=== PATIENT | male | born 1975 | race Caucasian/White ===

== ENCOUNTER 2023-01-23 10:22 | Outpatient (OUT) | payer MEDICARE, SELFPAY ==
--- NOTE | 2023-01-23 | XR_ITS ---
The [address] [address] Patient Name: ZAIRA SHRESTHA MRN: [id number] date: 1975 Sex: M Assigned Patient Location: Current Patient Location: Accession/Order Number: [id number] Exam Date: 01/23/2023 10:56 Report Date: 01/24/2023 06:51 At the request of: NEIL GODDARD Procedure: XR foot LT min 3V EXAM: XR foot LT min 3V HISTORY: LEFT FOOT PAIN COMPARISON: None. TECHNIQUE: Routine views of the XR foot LT min 3V FINDINGS/ XR/XR foot LT min 3V IMPRESSION: 1. No acute fractures. Plate and screw fixation of the distal fibula. Small Achilles enthesophyte. 2. Unremarkable soft tissues. 3. Mild first MTP osteoarthritis. Lateral subluxation of the fifth distal phalanx with relationship to the middle phalanx. Electronically authenticated by: ABBY GILLESPIE Date: 01/24/2023 06:51
== END 2023-01-23 10:23 | disposition home or self-care (01) ==
LOC: WC 10:22
PROVIDERS: PCP Internal Medicine; Visit Provider Physician Assistant
DX: M79.672 Pain in left foot (principal); E11.621 Type 2 diabetes mellitus with foot ulcer; L97.422 Non-pressure chronic ulcer of left heel and midfoot with fat layer exposed
CPT/HCPCS: 11043; 73630; G0463

== ENCOUNTER 2023-02-06 11:13 | Outpatient (OUT) | payer MEDICARE, SELFPAY ==
[2023-02-06 11:44] LABS: Basophils Percent Auto 0.7 % (0.2-2.0); Eosinophils Absolute Auto 0.1 10^3/uL (0.0-0.7); Eosinophils Percent Auto 1.4 % (0.9-7.0); Hematocrit 41.8 % (42.0-54.0); Hemoglobin 14.8 g/dL (14.0-18.0); Immature Granulocytes Abs Auto 0.04 10^3/uL (0.00-0.03); Immature Granulocytes Pct Auto 0.7 % (0.0-0.5); Lymphocytes Absolute Auto 1.8 10^3/uL (1.2-3.8); Lymphocytes Percent Auto 30.7 % (20.5-60.0); Mean Corpuscular HGB Conc 35.4 g/dL (29.9-35.2); Mean Corpuscular Hemoglobin 30.6 pg (25.9-34.0); Mean Corpuscular Volume 86.5 fL (80.0-94.0); Mean Platelet Volume 10.3 fL (9.5-13.5); Monocytes Absolute Auto 0.4 10^3/uL (0.3-0.8); Monocytes Percent Auto 6.7 % (1.7-12.0); Neutrophils Absolute Auto 3.5 10^3/uL (1.4-6.5); Neutrophils Percent Auto 59.8 % (43.0-75.0); Platelet Count 194 10^3/uL (150-450); Red Blood Count 4.83 10^6/uL (4.70-6.10); Red Cell Distribution Width 12.4 % (11.0-15.0); White Blood Count 5.9 10^3/uL (4.0-11.0)
[2023-02-06 11:53] LABS: Estimated Average Glucose 283 mg/dL; Glycohemoglobin A1C 11.5 % (4.5-6.2)
[2023-02-06 12:04] LABS: Alanine Aminotransferase 49 U/L (16-63); Albumin Globulin Ratio 1.2; Albumin Level 3.9 g/dL (3.4-5.0); Alkaline Phosphatase 111 U/L (46-116); Anion Gap 13.1; Aspartate Amino Transferase 20 U/L (15-37); BUN Creatinine Ratio 18.9; Bilirubin Total 0.6 mg/dL (0.2-1.0); Calcium 9.2 mg/dL (8.5-10.1); Chloride 99 mmol/L (98-107); Chol HDL Ratio 3.8; Cholesterol 160 mg/dL (<=200); Estimated GFR (African America >60 (>=60); Estimated GFR (Non-African Ame >60 (>=60); Globulin 3.3 g/dL; Glucose 314 mg/dL (74-106); HDL Cholesterol 42 mg/dL (40-60); LDL Cholesterol Calculated 91.4 mg/dL; Potassium 4.1 mmol/L (3.5-5.1); Sodium 135 mmol/L (136-145); Thyroid Stimulating Hormone 5.631 uIU/mL (0.358-3.740); Total Protein 7.2 g/dL (6.4-8.2); Triglycerides 133 mg/dL (<=150); VLDL CHOLESTEROL 26.6 mg/dL
[2023-02-06 12:06] LABS: Microalbum Creatinine Ratio Ur 17.1 mg/g (0.0-29.9); Microalbumin Urine Random 1.5 mg/dL (<=30.0)
--- OUTSIDE RECORDS SUMMARY | 2023-03-07 20:29 | XMS_ITS | CCD ---
Author Name Unknown Address [address] [place] [address] Organization [facility] Care Team Providers Care Map Editor Name Role Phone FAWWAD, DELAROSA Admitting Unavailable FAWWAD, DELAROSA Attending Unavailable FAWWAD, DELAROSA Primary Care Unavailable FAWWAD, DELAROSA Consulting Unavailable FAWWAD, DELAROSA Admitting Unavailable FAWWAD, DELAROSA Attending Unavailable FAWWAD, DELAROSA Primary Care Unavailable FAWWAD, DELAROSA Consulting Unavailable Problems Problem Classification Problem Date Documented Da te Episodic/Chronic Diabetes mellitus without complication (4 sources) Type 2 diabetes mellitus without complications; Translations: [TYPE 2 DM WITHOUT COMPLICATIONS] Onset: 07-21-2021 Chronic Disorders of lipid metabolism (1 source) Hyperlipidemia, unspecified; Translations: [HYPERLIPIDEMIA UNSPECIFIED] Onset: 02-08-2021 Chronic Essential hypertension (1 source) Essential (primary) hypertension; Translations: [ESSENTIAL PRIMARY HYPERTENSION] Onset: 02-08-2021 Chronic Thyroid disorders (1 source) Hypothyroidism, unspecified; Translations: [HYPOTHYROIDISM UNSPECIFIED] Onset: 02-08-2021 Chronic Results Test Name Value Interpretation Reference Range Facil ity GLYCOHEMOGLOBIN A1Con 2021 ADA RECOMMENDATION SEE BELOW Normal [facility] Comment on above: Result Comment: ADA RECOMMENDED LIMIT 4.0 - 6.0 ADA THERAPEUTIC TARGET < 7.0 ACTION SUGGESTED > 7.0 Performed By: #### A 1C #### [facility] [address] [address] [address] José Miguel Knight Glucose [Mass/Vol] 260 mg/dL Normal [facility] Comment on above: Performed By: #### A 1C #### [facility] [address] [place], [place] [address] Dr. José Miguel Knight HbA1c (Bld) [Mass fraction] 10.7 % Critically high 4.5 -6.2 [facility] Comment on above: Performed By: #### A 1C #### [facility] [address] [place] [address] Dr. José Miguel Knight CBC AUTO DIFFon 02-02-2021 BASO # 0.0 103/ul Normal 0.0-0.1 [facility] Comment on above: Performed By: #### C BC #### [facility] [address] [place] [address] Dr. José Miguel Knight Basophils/100 WBC (Bld) 0.6 % Normal 0.2-2.0 [facility] Comment on above: Performed By: #### C BC #### [facility] [address] [place] [address] Dr. José Miguel Knight EO # 0.1 103/ul Normal 0.0-0.7 [facility] Comment on above: Performed By: #### C BC #### [facility] [address] [place] [address] Dr. José Miguel Knight Eosinophils/100 WBC (Bld) 0.9 % Normal 0.9-7.0 [facility] Comment on above: Performed By: #### C BC #### [facility] [address] [place] [address] Dr. José Miguel Knight Erythrocyte distribution wid th (RBC) [Ratio] 12.7 % Normal 11.0-15.0 [facility] Comment on above: Performed By: #### C BC #### [facility] [address] [place] [address] Dr. José Miguel Knight Hematocrit (Bld) [Volume fraction] 44.0 % Normal 4 2.0-54.0 [facility] Comment on above: Performed By: #### C BC #### [facility] [address] [place] [address] Dr. José Miguel Knight Hemoglobin (Bld) [Mass/Vol] 15.0 g/dL Normal 14.0-18. 0 [facility] Comment on above: Performed By: #### C BC #### [facility] [address] [place] [address] Dr. José Miguel Knight IG # 0.04 10e3/ul Critically high 0.00-0.03 [facility] Comment on above: Performed By: #### C BC #### [facility] [address] [place] [address] Dr. José Miguel Knight IG % 0.6 % Critically high 0.0-0.5 [facility] Comment on above: Performed By: #### C BC #### [facility] [address] [place] [address] Dr. José Miguel Knight LYMPH # 1.6 103/ul Normal 1.2-3.8 [facility] Comment on above: Performed By: #### C BC #### [facility] [address] [place] [address] Dr. José Miguel Knight Lymphocytes/100 WBC (Bld) 22.5 % Normal 20.5-60.0 [facility] Comment on above: Performed By: #### C BC #### [facility] [address] [place] [address] Dr. José Miguel Knight MANUAL DIFF REQ NO Normal [facility] Comment on above: Performed By: #### C BC #### [facility] [address] [place] [address] Dr. José Miguel Knight MCH (RBC) [Entitic mass] 30.4 pg Normal 25.9-34.0 [facility] Comment on above: Performed By: #### C BC #### [facility] [address] [place] [address] Dr. José Miguel Knight MCHC (RBC) [Mass/Vol] 34.1 g/dL Normal 29.9-35.2 [facility] Comment on above: Performed By: #### C BC #### [facility] [address] [place] [address] Dr. José Miguel Knight MCV (RBC) [Entitic vol] 89.2 fL Normal 80.0-94.0 [facility] Comment on above: Performed By: #### C BC #### [facility] [address] [place] [address] Dr. José Miguel Knight MONO # 0.5 103/ul Normal 0.3-0.8 [facility] Comment on above: Performed By: #### C BC #### [facility] [address] [place] [address] Dr. José Miguel Knight Monocytes/100 WBC (Bld) 7.0 % Normal 1.7-12.0 [facility] Comment on above: Performed By: #### C BC #### [facility] [address] [place] [address] Dr. José Miguel Knight NEUT # 4.7 103/ul Normal 1.4-6.5 [facility] Comment on above: Performed By: #### C BC #### [facility] [address] [place] [address] Dr. José Miguel Knight Neutrophils/100 WBC (Bld) 68.4 % Normal 43.0-75.0 [facility] Comment on above: Performed By: #### C BC #### [facility] [address] [place] [address] Dr. José Miguel Knight Platelet mean volume (Bld) [ Entitic vol] 10.8 fL Normal 9.5-13.5 [facility] Comment on above: Performed By: #### C BC #### [facility] [address] [place] [address] Dr. José Miguel Knight PLT 223 103/ul Normal 150-450 [facility] Comment on above: Performed By: #### C BC #### [facility] [address] [place] [address] Dr. José Miguel Knight RBC 4.93 106/ul Normal 4.70-6.10 [facility] Comment on above: Performed By: #### C BC #### [facility] [address] [place] [address] Dr. José Miguel Knight WBC 6.9 103/ul Normal 4.0-11.0 [facility] Comment on above: Performed By: #### C BC #### [facility] [address] [place] [address] Dr. José Miguel Knight GLYCOHEMOGLOBIN A1Con 2020 ADA RECOMMENDATION ADA THERAPEUTIC TARG ET 6.0 - 7.0 ACTION SUGGESTED > 7.0 Normal [facility] Comment on above: Performed By: #### A 1C #### [facility] [address] [address] [address] José Miguel Knight Glucose [Mass/Vol] 217 mg/dL Normal [facility] Comment on above: Performed By: #### A 1C #### [facility] [address] [address] [address] José Miguel Knight HbA1c (Bld) [Mass fraction] 9.2 % Critically high <=6 .0 [facility] Comment on above: Performed By: #### A 1C #### [facility] [address] [address] [address] José Miguel nKight LIPID PROFILEon 02-02-2021 CHOL-HDL RATIO NORM SEE BELOW Normal [facility] Comment on above: Result Comment: 3.3 - 4.4 LOW RISK 4.4 - 7.1 AVERAGE RISK 7.1 - 11.0 MODERATE RISK >11.0 HIGH RISK Performed By: #### T SH, LIPID, CMP #### [facility] [address] [address] [address] José Miguel Knight Cholesterol [Mass/Vol] 121 mg/dL Normal <=200 [facility] Comment on above: Performed By: #### T SH, LIPID, CMP #### [facility] [address] [address] [address] José Miguel Knight Cholesterol in HDL [Mass/Vol] 37 mg/dL Normal [facility] Comment on above: Performed By: #### T SH, LIPID, CMP #### [facility] [address] [address] [address] José Miguel Knight Cholesterol in LDL [Mass/Vol] 46.4 mg/dL Normal [facility] Comment on above: Performed By: #### T SH, LIPID, CMP #### [facility] [address] [place] [address] Dr. José Miguel Knight Cholesterol.total/Cholestero l in HDL [Mass ratio] 3.3 {ratio} [facility] Comment on above: Performed By: #### T SH, LIPID, CMP #### [facility] [address] [address] [address] José Miguel Knight HDL NORMAL > or = 60 mg/dl - LO W CARDIOVASCULAR RISK <40 mg/dl - HIGH CARDIOVASCULAR RISK Normal [facility] Comment on above: Performed By: #### T SH, LIPID, CMP #### [facility] [address] [address] [address] José Miguel Knight LDL CALC NORMAL SEE BELOW Normal [facility] Comment on above: Result Comment: <100 mg/dl OPTIMAL 100 - 129 mg/dl NEAR OR ABOVE OPTIMAL 130 - 159 mg/dl BORDERLINE HIGH 160 - 189 mg/dl HIGH >190 mg/dl VERY HIGH Performed By: #### T SH, LIPID, CMP #### [facility] [address] [place] [address] Dr. Jsoé Miguel Knight Triglyceride [Mass/Vol] 188 mg/dL Critically high <=150 [facility] Comment on above: Performed By: #### T SH, LIPID, CMP #### [facility] [address] [address] [address] José Miguel Knight VLDL CALC 37.6 mg/dL Normal [facility] Comment on above: Performed By: #### T SH, LIPID, CMP #### [facility] [address] [place] [address] Dr. José Miguel Knight MICROALBUMIN, RAND URon 01-18 mALB 1.2 mg/L Normal <=30.0 [facility] Comment on above: Performed By: #### M ALBR #### [facility] [address] [place] [address] Dr. José Miguel Knight PROF 14(COMP METB)on 021 Albumin [Mass/Vol] 3.8 g/dL Normal 3.5-5.0 [facility] Comment on above: Performed By: #### T SH, LIPID, CMP #### [facility] [address] [place] [address] Dr. José Miguel Knight Albumin/Globulin [Mass ratio] 1.1 {ratio} Normal [facility] Comment on above: Performed By: #### T SH, LIPID, CMP #### [facility] [address] [place] [address] Dr. José Miguel Knight ALP [Catalytic activity/Vol] 92 U/L Normal 38-126 [facility] Comment on above: Performed By: #### T SH, LIPID, CMP #### [facility] [address] [place] [address] Dr. José Miguel Knight ALT [Catalytic activity/Vol] 46 U/L Normal 21-72 [facility] Comment on above: Performed By: #### T SH, LIPID, CMP #### [facility] [address] [place] [address] Dr. José Miguel Knight Anion gap [Moles/Vol] 12.8 mmol/L Normal [facility] Comment on above: Performed By: #### T SH, LIPID, CMP #### [facility] [address] [place] [address] Dr. José Miguel Knight AST [Catalytic activity/Vol] 22 U/L Normal 17-59 [facility] Comment on above: Performed By: #### T SH, LIPID, CMP #### [facility] [address] [place] [address] Dr. José Miguel Knight Bilirubin [Mass/Vol] 0.5 mg/dL Normal 0.2-1.3 [facility] Comment on above: Performed By: #### T SH, LIPID, CMP #### [facility] [address] [place] [address] Dr. José Miguel Knight Calcium [Mass/Vol] 9.3 mg/dL Normal 8.4-10.2 [facility] Comment on above: Performed By: #### T SH, LIPID, CMP #### [facility] [address] [place] [address] Dr. José Miguel Knight Chloride [Moles/Vol] 103 mmol/L Normal 98-107 [facility] Comment on above: Performed By: #### T SH, LIPID, CMP #### [facility] [address] [place] [address] Dr. José Miguel Knight CO2 [Moles/Vol] 27.6 mmol/L Normal 22.0-30.[address] [facility] Comment on above: Performed By: #### T SH, LIPID, CMP #### [facility] [address] [address] [address] José Miguel Knight Creatinine [Mass/Vol] 0.76 mg/dL Normal 0.66-1.25 [facility] Comment on above: Performed By: #### T SH, LIPID, CMP #### [facility] [address] [address] [address] José Miguel Knight EGFR-AF DUTCH >60 Normal >=[address] [facility] Comment on above: Performed By: #### T SH, LIPID, CMP #### [facility] [address] [address] [address] José Miguel Knight EGFR-NON AF DUTCH >60 Normal >=60 [facility] Comment on above: Performed By: #### T SH, LIPID, CMP #### [facility] [address] [address] [address] José Miguel Knight Globulin (S) [Mass/Vol] 3.4 g/dL Normal [facility] Comment on above: Performed By: #### T ERICA, LIPID, CMP #### [facility] [address] [address] [address] José Miguel Knight Glucose [Mass/Vol] 253 mg/dL Critically high 74-106 [facility] Comment on above: Performed By: #### T SH, LIPID, CMP #### [facility] [address] [address] [address] José Miguel Knight Potassium [Moles/Vol] 4.4 mmol/L Normal 3.4-5.0 [facility] Comment on above: Performed By: #### T SH, LIPID, CMP #### [facility] [address] [address] [address] oJsé Miguel Knight Protein [Mass/Vol] 7.2 g/dL Normal 6.1-8.2 [facility] Comment on above: Performed By: #### T SH, LIPID, CMP #### [facility] [address] [address] [address] José Miguel Knight Sodium [Moles/Vol] 139 mmol/L Normal 137-145 [facility] Comment on above: Performed By: #### T ERICA LIPID, CMP #### [facility] [address] [place] [address] Dr. José Miguel Knight Urea nitrogen [Mass/Vol] 16.0 mg/dL Normal 9.0-20.0 [facility] Comment on above: Performed By: #### T ERICA LIPID, CMP #### [facility] [address] [address] [address] José Miguel Knight Urea nitrogen/Creatinine [Mass ratio] 21.1 mg/mg Normal [facility] Comment on above: Performed By: #### T ERICA LIPID, CMP #### [facility] [address] [place] [address] Dr. José Miguel Knight TSHon 02-02-2021 TSH 5.529 uIU/mL Critically high 0.470-4.680 [facility] Comment on above: Performed By: #### T ERICA LIPID, CMP #### [facility] [address] [address] [address] José Miguel Knight TSH RANGE SEE BELOW Normal [facility] Comment on above: Result Comment: <0.3 4 UIU/ml HYPERTHYROID 0.34-5.60 UIU/ml EUTHYROID >5.60 UIU/ml HYPOTHYROID Performed By: #### T ERICA LIPID, CMP #### [facility] [address] [place] [address] Dr. José Miguel Knight Encounters Encounter Date Encounter Type Care Provider Facility Start: 07-21-2021 End: 07-22-2021 ambulatory [facility] Facility: Start: 02-02-2021 End: 02-03-2021 ambulatory [facility] Facility:[facility]1 Payers Date Payer Category Payer Unknown [id number] 1975 Unknown [id number] 1960 Unknown [id number] Summary Purpose Family History No Family History Records Found Advance Directives No Advanced Directives Records Found Additional Source Comments (unrecognized sect ion and content) No Status Records Found INFORMATION SOURCE (unrecogn ized section and content) DATE CREATED AUTHOR 07/24/2021 [facility] FOR RECORDS PERTAINING TO PATIENTS WHO ARE OR HAVE BEEN ENROLLED IN A CHEMICAL DEPENDENCY/SUBSTANCEABUSE PROGRAM, SOME INFORMATION MAY BE OMITTED. This clinical summary was aggregated from multiple sources. Caution should be exercised in using it in the provision of clinical care. This summary normalizes information from multiple sources, and as a consequence, information in this document may materially change the coding, format and clinical context of patient data. In addition, data may be omitted in some cases. CLINICAL DECISIONS SHOULD BE BASED ON THE PRIMARY CLINICAL RECORDS. [facility] [employer] [facility]. provides no warranty or guarantee of the accuracy or completeness of information in this document.
== END 2023-02-06 11:14 | disposition home or self-care (01) ==
LOC: LAB 11:17
PROVIDERS: PCP Internal Medicine; Visit Provider Internal Medicine
DX: E03.9 Hypothyroidism, unspecified (principal); E78.5 Hyperlipidemia, unspecified; E11.9 Type 2 diabetes mellitus without complications; I10 Essential (primary) hypertension
CPT/HCPCS: 36415; 80053; 80061; 82043; 82570; 83036; 84443; 85025

== ENCOUNTER 2023-02-06 13:30 | Outpatient (OUT) | payer MEDICARE, SELFPAY ==
--- OUTSIDE RECORDS SUMMARY | 2023-03-07 21:16 | XMS_ITS | CCD ---
Author Name Unknown Address [address] [place] [address] Organization [facility] Care Team Providers Care Signal Circuit Designer Name Role Phone FAWWAD, DELAROSA Admitting Unavailable [...] A1Con 2021 ADA RECOMMENDATION SEE BELOW Normal [facility] Comment on above: Result Comment: ADA RECOMMENDED LIMIT 4.0 - 6.0 ADA THERAPEUTIC TARGET < 7.0 ACTION SUGGESTED > 7.0 Performed By: #### A 1C #### [facility] [address] [address] [address] José Miguel Knight Glucose [Mass/Vol] 260 mg/dL Normal [facility] Comment on above: Performed By: #### A 1C #### [facility] [address] [place], [place] [address] Dr. José Miguel Knight HbA1c (Bld) [Mass fraction] 10.7 % Critically high 4.5 -6.2 [facility] Comment on above: Performed By: #### A 1C #### [facility] [address] [place] [address] Dr. José Miguel Knight CBC AUTO DIFFon 02-02-2021 BASO # 0.0 103/ul Normal 0.0-0.1 [facility] Comment on above: Performed By: #### C BC #### [facility] [address] [place] [address] Dr. José Miguel Knight Basophils/100 WBC (Bld) 0.6 % Normal 0.2-2.0 [facility] Comment on above: Performed By: #### C BC #### [facility] [address] [place] [address] Dr. José Miguel Knight EO # 0.1 103/ul Normal 0.0-0.7 [facility] Comment on above: Performed By: #### C BC #### [facility] [address] [place] [address] Dr. José Miguel Knight Eosinophils/100 WBC (Bld) 0.9 % Normal 0.9-7.0 [facility] Comment on above: Performed By: #### C BC #### [facility] [address] [place] [address] Dr. José Miguel Knight Erythrocyte distribution wid th (RBC) [Ratio] 12.7 % Normal 11.0-15.0 [facility] Comment on above: Performed By: #### C BC #### [facility] [address] [place] [address] Dr. José Miguel Knight Hematocrit (Bld) [Volume fraction] 44.0 % Normal 4 2.0-54.0 [facility] Comment on above: Performed By: #### C BC #### [facility] [address] [place] [address] Dr. José Miguel Knight Hemoglobin (Bld) [Mass/Vol] 15.0 g/dL Normal 14.0-18. 0 [facility] Comment on above: Performed By: #### C BC #### [facility] [address] [place] [address] Dr. José Miguel Knight IG # 0.04 10e3/ul Critically high 0.00-0.03 [facility] Comment on above: Performed By: #### C BC #### [facility] [address] [place] [address] Dr. José Miguel Knight IG % 0.6 % Critically high 0.0-0.5 [facility] Comment on above: Performed By: #### C BC #### [facility] [address] [place] [address] Dr. José Miguel Knight LYMPH # 1.6 103/ul Normal 1.2-3.8 [facility] Comment on above: Performed By: #### C BC #### [facility] [address] [place] [address] Dr. José Miguel Knight Lymphocytes/100 WBC (Bld) 22.5 % Normal 20.5-60.0 [facility] Comment on above: Performed By: #### C BC #### [facility] [address] [place] [address] Dr. José Miguel Knight MANUAL DIFF REQ NO Normal [facility] Comment on above: Performed By: #### C BC #### [facility] [address] [place] [address] Dr. José Miguel Knight MCH (RBC) [Entitic mass] 30.4 pg Normal 25.9-34.0 [facility] Comment on above: Performed By: #### C BC #### [facility] [address] [place] [address] Dr. José Miguel Knight MCHC (RBC) [Mass/Vol] 34.1 g/dL Normal 29.9-35.2 [facility] Comment on above: Performed By: #### C BC #### [facility] [address] [place] [address] Dr. José Miguel Knight MCV (RBC) [Entitic vol] 89.2 fL Normal 80.0-94.0 [facility] Comment on above: Performed By: #### C BC #### [facility] [address] [place] [address] Dr. José Miguel Knight MONO # 0.5 103/ul Normal 0.3-0.8 [facility] Comment on above: Performed By: #### C BC #### [facility] [address] [place] [address] Dr. José Miguel Knight Monocytes/100 WBC (Bld) 7.0 % Normal 1.7-12.0 [facility] Comment on above: Performed By: #### C BC #### [facility] [address] [place] [address] Dr. José Miguel Knight NEUT # 4.7 103/ul Normal 1.4-6.5 [facility] Comment on above: Performed By: #### C BC #### [facility] [address] [place] [address] Dr. José Miguel Knight Neutrophils/100 WBC (Bld) 68.4 % Normal 43.0-75.0 [facility] Comment on above: Performed By: #### C BC #### [facility] [address] [place] [address] Dr. José Miguel Knight Platelet mean volume (Bld) [ Entitic vol] 10.8 fL Normal 9.5-13.5 [facility] Comment on above: Performed By: #### C BC #### [facility] [address] [place] [address] Dr. José Miguel Knight PLT 223 103/ul Normal 150-450 [facility] Comment on above: Performed By: #### C BC #### [facility] [address] [place] [address] Dr. José Miguel Knight RBC 4.93 106/ul Normal 4.70-6.10 [facility] Comment on above: Performed By: #### C BC #### [facility] [address] [place] [address] Dr. José Miguel Knight WBC 6.9 103/ul Normal 4.0-11.0 [facility] Comment on above: Performed By: #### C BC #### [facility] [address] [place] [address] Dr. José Miguel Knight GLYCOHEMOGLOBIN A1Con 2020 ADA RECOMMENDATION ADA THERAPEUTIC TARG ET 6.0 - 7.0 ACTION SUGGESTED > 7.0 Normal [facility] Comment on above: Performed By: #### A 1C #### [facility] [address] [address] [address] José Miguel Knight Glucose [Mass/Vol] 217 mg/dL Normal [facility] Comment on above: Performed By: #### A 1C #### [facility] [address] [address] [address] José Miguel Knight HbA1c (Bld) [Mass fraction] 9.2 % Critically high <=6 .0 [facility] Comment on above: Performed By: #### A 1C #### [facility] [address] [address] [address] José Miguel Knight LIPID PROFILEon 02-02-2021 CHOL-HDL RATIO NORM SEE BELOW Normal [facility] Comment on above: Result Comment: 3.3 - 4.4 LOW RISK 4.4 - 7.1 AVERAGE RISK 7.1 - 11.0 MODERATE RISK >11.0 HIGH RISK Performed By: #### T SH, LIPID, CMP #### [facility] [address] [address] [address] José Miguel Knight Cholesterol [Mass/Vol] 121 mg/dL Normal <=200 [facility] Comment on above: Performed By: #### T SH, LIPID, CMP #### [facility] [address] [address] [address] José Miguel Knight Cholesterol in HDL [Mass/Vol] 37 mg/dL Normal [facility] Comment on above: Performed By: #### T SH, LIPID, CMP #### [facility] [address] [address] [address] José Miguel Knight Cholesterol in LDL [Mass/Vol] 46.4 mg/dL Normal [facility] Comment on above: Performed By: #### T SH, LIPID, CMP #### [facility] [address] [place] [address] Dr. José Miguel Knight Cholesterol.total/Cholestero l in HDL [Mass ratio] 3.3 {ratio} Normal [facility] Comment on above: Performed By: #### T SH, LIPID, CMP #### [facility] [address] [address] [address] José Miguel Knight HDL NORMAL > or = 60 mg/dl - LO W CARDIOVASCULAR RISK <40 mg/dl - HIGH CARDIOVASCULAR RISK Normal [facility] Comment on above: Performed By: #### T SH, LIPID, CMP #### [facility] [address] [address] [address] José Miguel Knight LDL CALC NORMAL SEE BELOW Normal [facility] Comment on above: Result Comment: <100 mg/dl OPTIMAL 100 - 129 mg/dl NEAR OR ABOVE OPTIMAL 130 - 159 mg/dl BORDERLINE HIGH 160 - 189 mg/dl HIGH >190 mg/dl VERY HIGH Performed By: #### T SH, LIPID, CMP #### [facility] [address] [place] [address] Dr. José Miguel Knight Triglyceride [Mass/Vol] 188 mg/dL Critically high <=150 [facility] Comment on above: Performed By: #### T SH, LIPID, CMP #### [facility] [address] [address] [address] José Miguel Knight VLDL CALC 37.6 mg/dL Normal [facility] Comment on above: Performed By: #### T SH, LIPID, CMP #### [facility] [address] [place] [address] Dr. José Miguel Knight MICROALBUMIN, RAND URon 01-18 mALB 1.2 mg/L Normal <=30.0 [facility] Comment on above: Performed By: #### M ALBR #### [facility] [address] [place] [address] Dr. José Miguel Knight PROF 14(COMP METB)on 021 Albumin [Mass/Vol] 3.8 g/dL Normal 3.5-5.0 [facility] Comment on above: Performed By: #### T SH, LIPID, CMP #### [facility] [address] [place] [address] Dr. José Miguel Knight Albumin/Globulin [Mass ratio] 1.1 {ratio} Normal [facility] Comment on above: Performed By: #### T SH, LIPID, CMP #### [facility] [address] [place] [address] Dr. José Miguel Knight ALP [Catalytic activity/Vol] 92 U/L Normal 38-126 [facility] Comment on above: Performed By: #### T SH, LIPID, CMP #### [facility] [address] [place] [address] Dr. José Miguel Knight ALT [Catalytic activity/Vol] 46 U/L Normal 21-72 [facility] Comment on above: Performed By: #### T SH, LIPID, CMP #### [facility] [address] [place] [address] Dr. José Miguel Knight Anion gap [Moles/Vol] 12.8 mmol/L Normal [facility] Comment on above: Performed By: #### T SH, LIPID, CMP #### [facility] [address] [place] [address] Dr. José Miguel Knight AST [Catalytic activity/Vol] 22 U/L Normal 17-59 [facility] Comment on above: Performed By: #### T SH, LIPID, CMP #### [facility] [address] [place] [address] Dr. José Miguel Knight Bilirubin [Mass/Vol] 0.5 mg/dL Normal 0.2-1.3 [facility] Comment on above: Performed By: #### T SH, LIPID, CMP #### [facility] [address] [place] [address] Dr. José Miguel Knight Calcium [Mass/Vol] 9.3 mg/dL Normal 8.4-10.2 [facility] Comment on above: Performed By: #### T SH, LIPID, CMP #### [facility] [address] [place] [address] Dr. José Miguel Knight Chloride [Moles/Vol] 103 mmol/L Normal 98-107 [facility] Comment on above: Performed By: #### T SH, LIPID, CMP #### [facility] [address] [place] [address] Dr. José Miguel Knight CO2 [Moles/Vol] 27.6 mmol/L Normal 22.0-30.0 [facility] Comment on above: Performed By: #### T SH, LIPID, CMP #### [facility] [address] [address] [address] José Miguel Knight Creatinine [Mass/Vol] 0.76 mg/dL Normal 0.66-1.25 [facility] Comment on above: Performed By: #### T SH, LIPID, CMP #### [facility] [address] [address] [address] José Miguel Knight EGFR-AF THAI >60 Normal >=60 [facility] Comment on above: Performed By: #### T SH, LIPID, CMP #### [facility] [address] [address] [address] José Miguel Knight EGFR-NON AF THAI >60 Normal >=60 [facility] Comment on above: Performed By: #### T SH, LIPID, CMP #### [facility] [address] [address] [address] José Miguel Knight Globulin (S) [Mass/Vol] 3.4 g/dL Normal [facility] Comment on above: Performed By: #### T ERICA, LIPID, CMP #### [facility] [address] [address] [address] José Miguel Knight Glucose [Mass/Vol] 253 mg/dL Critically high 74-106 [facility] Comment on above: Performed By: #### T SH, LIPID, CMP #### [facility] [address] [address] [address] José Miguel Knight Potassium [Moles/Vol] 4.4 mmol/L Normal 3.4-5.0 [facility] Comment on above: Performed By: #### T SH, LIPID, CMP #### [facility] [address] [address] [address] José Miguel Knight Protein [Mass/Vol] 7.2 g/dL Normal 6.1-8.2 [facility] Comment on above: Performed By: #### T SH, LIPID, CMP #### [facility] [address] [address] [address] José Miguel Knight Sodium [Moles/Vol] 139 mmol/L Normal 137-145 [facility] Comment on above: Performed By: #### T ERICA LIPID, CMP #### [facility] [address] [place] [address] Dr. José Miguel Knight Urea nitrogen [Mass/Vol] 16.0 mg/dL Normal 9.0-20.0 [facility] Comment on above: Performed By: #### T ERICA LIPID, CMP #### [facility] [address] [address] [address] José Miguel Knight Urea nitrogen/Creatinine [Mass ratio] 21.1 mg/mg Normal [facility] Comment on above: Performed By: #### T ERICA LIPID, CMP #### [facility] [address] [place] [address] Dr. José Miguel Knight TSHon 02-02-2021 TSH 5.529 uIU/mL Critically high 0.470-4.680 [facility] Comment on above: Performed By: #### T ERICA LIPID, CMP #### [facility] [address] [address] [address] José Miguel Knight TSH RANGE SEE BELOW Normal [facility] Comment on above: Result Comment: <0.3 4 UIU/ml HYPERTHYROID 0.34-5.60 UIU/ml EUTHYROID >5.60 UIU/ml HYPOTHYROID Performed By: #### T ERICA LIPID, CMP #### [facility] [address] [place] [address] Dr. José Miguel Knight Encounters Encounter Date Encounter Type Care Provider Facility Start: 07-21-2021 End: 07-22-2021 ambulatory [facility] Facility: Start: 02-02-2021 End: 02-03-2021 ambulatory [facility] Facility:H1 Payers Date Payer Category Payer Unknown [id number] 1975 Unknown [id number] 1960 Unknown [id number] Summary Purpose Family History No Family History Records Found Advance Directives No Advanced Directives Records Found Additional Source Comments (unrecognized sect ion and content) No Status Records Found INFORMATION SOURCE (unrecogn ized section and content) DATE CREATED AUTHOR 07/24/2021 [facility] FOR RECORDS PERTAINING TO PATIENTS WHO ARE [...] BE BASED ON THE PRIMARY CLINICAL RECORDS. [facility]. provides no warranty or guarantee of the accuracy or completeness of information in this document.
== END 2023-02-06 13:31 | disposition home or self-care (01) ==
LOC: WC 13:31
PROVIDERS: PCP Internal Medicine; Visit Provider Physician Assistant
DX: E11.621 Type 2 diabetes mellitus with foot ulcer (principal); L97.422 Non-pressure chronic ulcer of left heel and midfoot with fat layer exposed
CPT/HCPCS: 11043

== ENCOUNTER 2023-02-20 10:22 | Outpatient (OUT) | payer MEDICARE, SELFPAY | END 2023-02-20 10:23 | disposition home or self-care (01) | LOC: WC 10:22 | PROVIDERS: PCP Internal Medicine; Visit Provider Physician Assistant | DX: E11.621 Type 2 diabetes mellitus with foot ulcer (principal); L97.422 Non-pressure chronic ulcer of left heel and midfoot with fat layer exposed | CPT/HCPCS: 11043 ==

== ENCOUNTER 2023-03-15 10:47 | Outpatient (OUT) | payer MEDICARE, SELFPAY | END 2023-03-15 10:48 | disposition home or self-care (01) | LOC: WC 10:47 | PROVIDERS: PCP Internal Medicine; Visit Provider Physician Assistant | DX: E11.621 Type 2 diabetes mellitus with foot ulcer (principal); L97.422 Non-pressure chronic ulcer of left heel and midfoot with fat layer exposed | CPT/HCPCS: 11042 ==

== ENCOUNTER 2023-03-29 10:00 | Outpatient (OUT) | payer MEDICARE, SELFPAY ==
--- OUTSIDE RECORDS SUMMARY | 2023-03-30 09:30 | XMS_ITS | CCD ---
Author Name Unknown Address [address] [place] [address] Organization [facility] Care Team Providers Care Housing Assistant Name Role Phone FAWWAD, DELAROSA Admitting Unavailable [...] A1Con 2021 ADA RECOMMENDATION SEE BELOW Normal [facility] Comment on above: Result Comment: ADA RECOMMENDED LIMIT 4.0 - 6.0 ADA THERAPEUTIC TARGET < 7.0 ACTION SUGGESTED > 7.0 Performed By: #### A 1C #### [facility] [address] [address] [address] José Miguel Knight Glucose [Mass/Vol] 260 mg/dL Normal [facility] Comment on above: Performed By: #### A 1C #### [facility] [address] [place], [place] [address] Dr. José Miguel Knight HbA1c (Bld) [Mass fraction] 10.7 % Critically high 4.5-6.2 [facility] Comment on above: Performed By: #### A 1C #### [facility] [address] [place] [address] Dr. José Miguel Knight CBC AUTO DIFFon 02-02-2021 BASO # 0.0 103/ul Normal 0.0-0.1 [facility] Comment on above: Performed By: #### C BC #### [facility] [address] [place] [address] Dr. José Miguel Knight Basophils/100 WBC (Bld) 0.6 % Normal 0.2-2.0 [facility] Comment on above: Performed By: #### C BC #### [facility] [address] [place] [address] Dr. José Miguel Knight EO # 0.1 103/ul Normal 0.0-0.7 [facility] Comment on above: Performed By: #### C BC #### [facility] [address] [place] [address] Dr. José Miguel Knight Eosinophils/100 WBC (Bld) 0.9 % Normal 0.9-7.0 [facility] Comment on above: Performed By: #### C BC #### [facility] [address] [place] [address] Dr. José Miguel Knight Erythrocyte distribution width (RBC) [Ratio] 12.7 % Normal 11.0-15.0 [facility] Comment on above: Performed By: #### C BC #### [facility] [address] [place] [address] Dr. José Miguel Knight Hematocrit (Bld) [Volume fraction] 44.0 % Normal 42.0-54.0 [facility] Comment on above: Performed By: #### C BC #### [facility] [address] [place] [address] Dr. José Miguel Knight Hemoglobin (Bld) [Mass/Vol] 15.0 g/dL Normal 14.0-18.0 [facility] Comment on above: Performed By: #### C BC #### [facility] [address] [place] [address] Dr. José Miguel Knight IG # 0.04 10e3/ul Critically high 0.00-0.03 [facility] Comment on above: Performed By: #### C BC #### [facility] [address] [place] [address] Dr. José Miguel Knight IG % 0.6 % Critically high 0.0-0.5 [facility] Comment on above: Performed By: #### C BC #### [facility] [address] [place] [address] Dr. José Miguel Knight LYMPH # 1.6 103/ul Normal 1.2-3.8 [facility] Comment on above: Performed By: #### C BC #### [facility] [address] [place] [address] Dr. José Miguel Knight Lymphocytes/100 WBC (Bld) 22.5 % Normal 20.5-60.0 [facility] Comment on above: Performed By: #### C BC #### [facility] [address] [place] [address] Dr. José Miguel Knight MANUAL DIFF REQ NO Normal [facility] Comment on above: Performed By: #### C BC #### [facility] [address] [place] [address] Dr. José Miguel Knight MCH (RBC) [Entitic mass] 30.4 pg Normal 25.9-34.0 [facility] Comment on above: Performed By: #### C BC #### [facility] [address] [place] [address] Dr. José Miguel Knight MCHC (RBC) [Mass/Vol] 34.1 g/dL Normal 29.9-35.2 [facility] Comment on above: Performed By: #### C BC #### [facility] [address] [place] [address] Dr. José Miguel Knight MCV (RBC) [Entitic vol] 89.2 fL Normal 80.0-94.0 [facility] Comment on above: Performed By: #### C BC #### [facility] [address] [place] [address] Dr. José Miguel Knight MONO # 0.5 103/ul Normal 0.3-0.8 [facility] Comment on above: Performed By: #### C BC #### [facility] [address] [address] [address] José Miguel Knight Monocytes/100 WBC (Bld) 7.0 % Normal 1.7-12.0 [facility] Comment on above: Performed By: #### C BC #### [facility] [address] [address] [address] José Miguel Knight NEUT # 4.7 103/ul Normal 1.4-6.5 [facility] Comment on above: Performed By: #### C BC #### [facility] [address] [place] [address] Dr. José Miguel Knight Neutrophils/100 WBC (Bld) 68.4 % Normal 43.0-75.0 [facility] Comment on above: Performed By: #### C BC #### [facility] [address] [place] [address] Dr. José Miguel Knight Platelet mean volume (Bld) [Entitic vol] 10.8 fL Normal 9.5-13.5 [facility] Comment on above: Performed By: #### C BC #### [facility] [address] [place] [address] Dr. José Miguel Knight PLT 223 103/ul Normal 150-450 [facility] Comment on above: Performed By: #### C BC #### [facility] [address] [place] [address] Dr. José Miguel Knight RBC 4.93 106/ul Normal 4.70-6.10 [facility] Comment on above: Performed By: #### C BC #### [facility] [address] [place] [address] Dr. José Miguel Knight WBC 6.9 103/ul Normal 4.0-11.0 [facility] Comment on above: Performed By: #### C BC #### [facility] [address] [place] [address] Dr. José Miguel Knight GLYCOHEMOGLOBIN A1Con 2020 ADA RECOMMENDATION ADA THERAPEUTIC TARGET 6.0 - 7.0 ACTION SUGGESTED > 7.0 Normal [facility] Comment on above: Performed By: #### A 1C #### [facility] [address] [address] [address] José Miguel Knight Glucose [Mass/Vol] 217 mg/dL Normal [facility] Comment on above: Performed By: #### A 1C #### [facility] [address] [address] [address] José Miguel Knight HbA1c (Bld) [Mass fraction] 9.2 % Critically high <=6.0 [facility] Comment on above: Performed By: #### A 1C #### [facility] [address] [address] [address] José Miguel Knight LIPID PROFILEon 02-02-2021 CHOL-HDL RATIO NORM SEE BELOW Normal [facility] Comment on above: Result Comment: 3.3 - 4.4 LOW RISK 4.4 - 7.1 AVERAGE RISK 7.1 - 11.0 MODERATE RISK >11.0 HIGH RISK Performed By: #### T SH, LIPID, CMP #### [facility] [address] [address] [address] José Miguel Knight Cholesterol [Mass/Vol] 121 mg/dL Normal <=200 [facility] Comment on above: Performed By: #### T SH, LIPID, CMP #### [facility] [address] [address] [address] José Miguel Knight Cholesterol in HDL [Mass/Vol] 37 mg/dL Normal [facility] Comment on above: Performed By: #### T SH, LIPID, CMP #### [facility] [address] [address] [address] José Miguel Knight Cholesterol in LDL [Mass/Vol] 46.4 mg/dL Normal [facility] Comment on above: Performed By: #### T SH, LIPID, CMP #### [facility] [address] [address] [address] José Miguel Knight Cholesterol.total/Cho lesterol in HDL [Mass ratio] 3.3 {ratio} Normal [facility] Comment on above: Performed By: #### T SH, LIPID, CMP #### [facility] [address] [address] [address] José Miguel Knight HDL NORMAL > or = 60 mg/dl - LOW CARDIOVASCULAR RISK <40 mg/dl - HIGH CARDIOVASCULAR RISK Normal [facility] Comment on above: Performed By: #### T SH, LIPID, CMP #### [facility] [address] [address] [address] José Miguel Knight LDL CALC NORMAL SEE BELOW Normal [facility] Comment on above: Result Comment: <100 mg/dl OPTIMAL 100 - 129 mg/dl NEAR OR ABOVE OPTIMAL 130 - 159 mg/dl BORDERLINE HIGH 160 - 189 mg/dl HIGH >190 mg/dl VERY HIGH Performed By: #### T SH, LIPID, CMP #### [facility] [address] [address] [address] José Miguel Knight Triglyceride [Mass/Vol] 188 mg/dL Critically high <=150 [facility] Comment on above: Performed By: #### T SH, LIPID, CMP #### [facility] [address] [place] [address] Dr. José Miguel Kngiht VLDL CALC 37.6 mg/dL Normal [facility] Comment on above: Performed By: #### T SH, LIPID, CMP #### [facility] [address] [address] [address] José Miguel Knight MICROALBUMIN, RAND URon 11 mALB 1.2 mg/L Normal <=30.0 [facility] Comment on above: Performed By: #### M ALBR #### [facility] [address] [place] [address] Dr. José Miguel Knight PROF 14(COMP METB)on 021 Albumin [Mass/Vol] 3.8 g/dL Normal 3.5-5.0 [facility] Comment on above: Performed By: #### T SH, LIPID, CMP #### [facility] [address] [place] [address] Dr. José Miguel Knight Albumin/Globulin [Mass ratio] 1.1 {ratio} Normal [facility] Comment on above: Performed By: #### T SH, LIPID, CMP #### [facility] [address] [place] [address] Dr. José Miguel Knight ALP [Catalytic activity/Vol] 92 U/L Normal 38-126 [facility] Comment on above: Performed By: #### T SH, LIPID, CMP #### [facility] [address] [address] [address] José Miguel Knight ALT [Catalytic activity/Vol] 46 U/L Normal 21-72 [facility] Comment on above: Performed By: #### T SH, LIPID, CMP #### [facility] [address] [address] [address] José Miguel Knight Anion gap [Moles/Vol] 12.8 mmol/L Normal [facility] Comment on above: Performed By: #### T SH, LIPID, CMP #### [facility] [address] [place] [address] Dr. José Miguel Knight AST [Catalytic activity/Vol] 22 U/L Normal 17-59 [facility] Comment on above: Performed By: #### T SH, LIPID, CMP #### [facility] [address] [place] [address] Dr. José Miguel Knight Bilirubin [Mass/Vol] 0.5 mg/dL Normal 0.2-1.3 [facility] Comment on above: Performed By: #### T SH, LIPID, CMP #### [facility] [address] [place] [address] Dr. José Miguel Knight Calcium [Mass/Vol] 9.3 mg/dL Normal 8.4-10.2 [facility] Comment on above: Performed By: #### T SH, LIPID, CMP #### [facility] [address] [place] [address] Dr. José Miguel Knight Chloride [Moles/Vol] 103 mmol/L Normal 98-107 [facility] Comment on above: Performed By: #### T SH, LIPID, CMP #### [facility] [address] [place] [address] Dr. José Miguel Knight CO2 [Moles/Vol] 27.6 mmol/L Normal 22.0-30.0 [facility] Comment on above: Performed By: #### T SH, LIPID, CMP #### [facility] [address] [address] [address] José Miguel Knight Creatinine [Mass/Vol] 0.76 mg/dL Normal 0.66-1.25 [facility] Comment on above: Performed By: #### T SH, LIPID, CMP #### [facility] [address] [address] [address] José Miguel Knight EGFR-AF BURMESE >60 Normal >=60 [facility] Comment on above: Performed By: #### T SH, LIPID, CMP #### [facility] [address] [address] [address] José Miguel Knight EGFR-NON AF BURMESE >60 Normal >=60 [facility] Comment on above: Performed By: #### T SH, LIPID, CMP #### [facility] [address] [address] [address] José Miguel Knight Globulin (S) [Mass/Vol] 3.4 g/dL Normal [facility] Comment on above: Performed By: #### T SH, LIPID, CMP #### [facility] [address] [address] [address] José Miguel Knight Glucose [Mass/Vol] 253 mg/dL Critically high 74-106 [facility] Comment on above: Performed By: #### T SH, LIPID, CMP #### [facility] [address] [address] [address] José Miguel Knight Potassium [Moles/Vol] 4.4 mmol/L Normal 3.4-5.0 [facility] Comment on above: Performed By: #### T SH, LIPID, CMP #### [facility] [address] [address] [address] José Miguel Knight Protein [Mass/Vol] 7.2 g/dL Normal 6.1-8.2 [facility] Comment on above: Performed By: #### T SH, LIPID, CMP #### [facility] [address] [address] [address] José Miguel Knight Sodium [Moles/Vol] 139 mmol/L Normal 137-145 [facility] Comment on above: Performed By: #### T SH, LIPID, CMP #### [facility] [address] [place], [place] [address] Dr. José Miguel Knight Urea nitrogen [Mass/Vol] 16.0 mg/dL Normal 9.0-20.0 [facility] Comment on above: Performed By: #### T SH, LIPID, CMP #### [facility] [address] [address] [address] José Miguel Knight Urea nitrogen/Creatinine [Mass ratio] 21.1 mg/mg Normal [facility] Comment on above: Performed By: #### T SH, LIPID, CMP #### [facility] [address] [address] [address] José Miguel Knight TSHon 02-02-2021 TSH 5.529 uIU/mL Critically high 0.470-4.680 [facility] Comment on above: Performed By: #### T SH, LIPID, CMP #### [facility] [address] [address] [address] José Miguel Knight TSH RANGE SEE BELOW Normal [facility] Comment on above: Result Comment: <0.3 4 UIU/ml HYPERTHYROID 0.34-5.60 UIU/ml EUTHYROID >5.60 UIU/ml HYPOTHYROID Performed By: #### T SH, LIPID, CMP #### [facility] [address] [address] [address] José Miguel Knight Encounters Encounter Date Encounter Type Care Provider Facility Start: 07-21-2021 End: 07-22-2021 ambulatory [facility] Facility: Start: 02-02-2021 End: 02-03-2021 [facility] Facility: Payers Date Payer Category Payer Unknown [id number] 1975 Unknown [id number] 1960 Unknown [id number] Summary Purpose Family History No Family History Records Found Advance Directives No Advanced Directives Records Found Additional Source Comments (unrecognized sect ion and content) No Status Records Found INFORMATION SOURCE (unrecogn ized section and content) DATE CREATED AUTHOR 07/24/2021 [facility] FOR RECORDS PERTAINING TO PATIENTS WHO ARE [...] BE BASED ON THE PRIMARY CLINICAL RECORDS. [facility] [email or web address] [facility]. provides no warranty or guarantee of the accuracy or completeness of information in this document.
== END 2023-03-29 10:01 | disposition home or self-care (01) ==
LOC: WC 03-30 09:26
PROVIDERS: PCP Internal Medicine; Visit Provider Podiatrist Foot & Ankle Surgery
DX: E11.621 Type 2 diabetes mellitus with foot ulcer (principal); L97.422 Non-pressure chronic ulcer of left heel and midfoot with fat layer exposed
CPT/HCPCS: 11042

== ENCOUNTER 2023-04-25 14:04 | Outpatient (OUT) | payer MEDICARE, SELFPAY ==
--- OUTSIDE RECORDS SUMMARY | 2023-04-25 14:27 | XMS_ITS | CCD ---
Author Name Unknown Address [address] [place] [address] Organization [facility] Care Team Providers Care Hospital Unit Coordinator Name Role Phone FAWWAD, DELAROSA Admitting Unavailable [...] A1Con 2021 ADA RECOMMENDATION SEE BELOW Normal [facility] Comment on above: Result Comment: ADA RECOMMENDED LIMIT 4.0 - 6.0 ADA THERAPEUTIC TARGET < 7.0 ACTION SUGGESTED > 7.0 Performed By: #### A 1C #### [facility] [address] [address] [address] José Miguel Knight Glucose [Mass/Vol] 260 mg/dL Normal [facility] Comment on above: Performed By: #### A 1C #### [facility] [address] [place], [place] [address] Dr. José Miguel Knight HbA1c (Bld) [Mass fraction] 10.7 % Critically high 4.5-6.2 [facility] Comment on above: Performed By: #### A 1C #### [facility] [address] [place] [address] Dr. José Miguel Knight CBC AUTO DIFFon 02-02-2021 BASO # 0.0 103/ul Normal 0.0-0.1 [facility] Comment on above: Performed By: #### C BC #### [facility] [address] [place] [address] Dr. Jos éMiguel Knight Basophils/100 WBC (Bld) 0.6 % Normal 0.2-2.0 [facility] Comment on above: Performed By: #### C BC #### [facility] [address] [place] [address] Dr. José Miguel Knight EO # 0.1 103/ul Normal 0.0-0.7 [facility] Comment on above: Performed By: #### C BC #### [facility] [address] [place] [address] Dr. José Miguel Knight Eosinophils/100 WBC (Bld) 0.9 % Normal 0.9-7.0 [facility] Comment on above: Performed By: #### C BC #### [facility] [address] [place] [address] Dr. José Miguel Knight Erythrocyte distribution width (RBC) [Ratio] 12.7 % Normal 11.0-15.0 [facility] Comment on above: Performed By: #### C BC #### [facility] [address] [place] [address] Dr. José Miguel Knight Hematocrit (Bld) [Volume fraction] 44.0 % Normal 42.0-54.0 [facility] Comment on above: Performed By: #### C BC #### [facility] [address] [place] [address] Dr. José Miguel Knight Hemoglobin (Bld) [Mass/Vol] 15.0 g/dL Normal 14.0-18.0 [facility] Comment on above: Performed By: #### C BC #### [facility] [address] [place] [address] Dr. José Miguel Knight IG # 0.04 10e3/ul Critically high 0.00-0.03 [facility] Comment on above: Performed By: #### C BC #### [facility] [address] [place] [address] Dr. José Miguel Knight IG % 0.6 % Critically high 0.0-0.5 [facility] Comment on above: Performed By: #### C BC #### [facility] [address] [place] [address] Dr. José Miguel Knight LYMPH # 1.6 103/ul Normal 1.2-3.8 [facility] Comment on above: Performed By: #### C BC #### [facility] [address] [place] [address] Dr. José Miguel Knight Lymphocytes/100 WBC (Bld) 22.5 % Normal 20.5-60.0 [facility] Comment on above: Performed By: #### C BC #### [facility] [address] [place] [address] Dr. José Miguel Knight MANUAL DIFF REQ NO Normal [facility] Comment on above: Performed By: #### C BC #### [facility] [address] [place] [address] Dr. José Miguel Knight MCH (RBC) [Entitic mass] 30.4 pg Normal 25.9-34.0 [facility] Comment on above: Performed By: #### C BC #### [facility] [address] [place] [address] Dr. José Miguel Knight MCHC (RBC) [Mass/Vol] 34.1 g/dL Normal 29.9-35.2 [facility] Comment on above: Performed By: #### C BC #### [facility] [address] [place] [address] Dr. José Miguel Knight MCV (RBC) [Entitic vol] 89.2 fL Normal 80.0-94.0 [facility] Comment on above: Performed By: #### C BC #### [facility] [address] [place] [address] Dr. José Miguel Knight MONO # 0.5 103/ul Normal 0.3-0.8 [facility] Comment on above: Performed By: #### C BC #### [facility] [address] [address] [address] José Miguel Knight Monocytes/100 WBC (Bld) 7.0 % Normal 1.7-12.0 [facility] Comment on above: Performed By: #### C BC #### [facility] [address] [address] [address] José Miguel Knight NEUT # 4.7 103/ul Normal 1.4-6.5 [facility] Comment on above: Performed By: #### C BC #### [facility] [address] [place] [address] Dr. José Miguel Knight Neutrophils/100 WBC (Bld) 68.4 % Normal 43.0-75.0 [facility] Comment on above: Performed By: #### C BC #### [facility] [address] [place] [address] Dr. José Miguel Knight Platelet mean volume (Bld) [Entitic vol] 10.8 fL Normal 9.5-13.5 [facility] Comment on above: Performed By: #### C BC #### [facility] [address] [place] [address] Dr. José Miguel Knight PLT 223 103/ul Normal 150-450 [facility] Comment on above: Performed By: #### C BC #### [facility] [address] [place] [address] Dr. José Miguel Knight RBC 4.93 106/ul Normal 4.70-6.10 [facility] Comment on above: Performed By: #### C BC #### [facility] [address] [place] [address] Dr. José Miguel Knight WBC 6.9 103/ul Normal 4.0-11.0 [facility] Comment on above: Performed By: #### C BC #### [facility] [address] [place] [address] Dr. José Miguel Knight GLYCOHEMOGLOBIN A1Con 2020 ADA RECOMMENDATION ADA THERAPEUTIC TARGET 6.0 - 7.0 ACTION SUGGESTED > 7.0 Normal [facility] Comment on above: Performed By: #### A 1C #### [facility] [address] [address] [address] José Miguel Knight Glucose [Mass/Vol] 217 mg/dL Normal [facility] Comment on above: Performed By: #### A 1C #### [facility] [address] [address] [address] José Miguel Knight HbA1c (Bld) [Mass fraction] 9.2 % Critically high <=6.0 [facility] Comment on above: Performed By: #### A 1C #### [facility] [address] [address] [address] José Miguel Knight LIPID PROFILEon 02-02-2021 CHOL-HDL RATIO NORM SEE BELOW Normal [facility] Comment on above: Result Comment: 3.3 - 4.4 LOW RISK 4.4 - 7.1 AVERAGE RISK 7.1 - 11.0 MODERATE RISK >11.0 HIGH RISK Performed By: #### T SH, LIPID, CMP #### [facility] [address] [address] [address] José Miguel Knight Cholesterol [Mass/Vol] 121 mg/dL Normal <=200 [facility] Comment on above: Performed By: #### T SH, LIPID, CMP #### [facility] [address] [address] [address] José Miguel Knight Cholesterol in HDL [Mass/Vol] 37 mg/dL Normal [facility] Comment on above: Performed By: #### T SH, LIPID, CMP #### [facility] [address] [address] [address] José Miguel Knight Cholesterol in LDL [Mass/Vol] 46.4 mg/dL Normal [facility] Comment on above: Performed By: #### T SH, LIPID, CMP #### [facility] [address] [address] [address] José Miguel Knight Cholesterol.total/Cho lesterol in HDL [Mass ratio] 3.3 {ratio} Normal [facility] Comment on above: Performed By: #### T SH, LIPID, CMP #### [facility] [address] [address] [address] José Miguel Knight HDL NORMAL > or = 60 mg/dl - LOW CARDIOVASCULAR RISK <40 mg/dl - HIGH CARDIOVASCULAR RISK Normal [facility] Comment on above: Performed By: #### T SH, LIPID, CMP #### [facility] [address] [address] [address] José Miguel Knight LDL CALC NORMAL SEE BELOW Normal [facility] Comment on above: Result Comment: <100 mg/dl OPTIMAL 100 - 129 mg/dl NEAR OR ABOVE OPTIMAL 130 - 159 mg/dl BORDERLINE HIGH 160 - 189 mg/dl HIGH >190 mg/dl VERY HIGH Performed By: #### T SH, LIPID, CMP #### [facility] [address] [address] [address] José Miguel Knight Triglyceride [Mass/Vol] 188 mg/dL Critically high <=150 [facility] Comment on above: Performed By: #### T SH, LIPID, CMP #### [facility] [address] [place] [address] Dr. José Miguel Knight VLDL CALC 37.6 mg/dL Normal [facility] Comment on above: Performed By: #### T SH, LIPID, CMP #### [facility] [address] [address] [address] José Miguel Knight MICROALBUMIN, RAND URon 11 mALB 1.2 mg/L Normal <=30.0 [facility] Comment on above: Performed By: #### M ALBR #### [facility] [address] [place] [address] Dr. José Miguel Knight PROF 14(COMP METB)on 021 Albumin [Mass/Vol] 3.8 g/dL Normal 3.5-5.0 [facility] Comment on above: Performed By: #### T SH, LIPID, CMP #### [facility] [address] [place] [address] Dr. José Miguel Knight Albumin/Globulin [Mass ratio] 1.1 {ratio} Normal [facility] Comment on above: Performed By: #### T SH, LIPID, CMP #### [facility] [address] [place] [address] Dr. José Miguel Knight ALP [Catalytic activity/Vol] 92 U/L Normal 38-126 [facility] Comment on above: Performed By: #### T SH, LIPID, CMP #### [facility] [address] [address] [address] José Miguel Knight ALT [Catalytic activity/Vol] 46 U/L Normal 21-72 [facility] Comment on above: Performed By: #### T SH, LIPID, CMP #### [facility] [address] [address] [address] José Miguel Knight Anion gap [Moles/Vol] 12.8 mmol/L Normal [facility] Comment on above: Performed By: #### T SH, LIPID, CMP #### [facility] [address] [place] [address] Dr. José Miguel Knight AST [Catalytic activity/Vol] 22 U/L Normal 17-59 [facility] Comment on above: Performed By: #### T SH, LIPID, CMP #### [facility] [address] [place] [address] Dr. José Miguel Knight Bilirubin [Mass/Vol] 0.5 mg/dL Normal 0.2-1.3 [facility] Comment on above: Performed By: #### T SH, LIPID, CMP #### [facility] [address] [place] [address] Dr. José Miguel Knight Calcium [Mass/Vol] 9.3 mg/dL Normal 8.4-10.2 [facility] Comment on above: Performed By: #### T SH, LIPID, CMP #### [facility] [address] [place] [address] Dr. José Miguel Knight Chloride [Moles/Vol] 103 mmol/L Normal 98-107 [facility] Comment on above: Performed By: #### T SH, LIPID, CMP #### [facility] [address] [place] [address] Dr. José Miguel Knight CO2 [Moles/Vol] 27.6 mmol/L Normal 22.0-30.0 [facility] Comment on above: Performed By: #### T SH, LIPID, CMP #### [facility] [address] [address] [address] José Miguel Knight Creatinine [Mass/Vol] 0.76 mg/dL Normal 0.66-1.25 [facility] Comment on above: Performed By: #### T SH, LIPID, CMP #### [facility] [address] [address] [address] José Miguel Knight EGFR-AF MARSHALLESE >60 Normal >=60 [facility] Comment on above: Performed By: #### T SH, LIPID, CMP #### [facility] [address] [address] [address] José Miguel Knight EGFR-NON AF MARSHALLESE >60 Normal >=60 [facility] Comment on above: Performed By: #### T SH, LIPID, CMP #### [facility] [address] [address] [address] José Miguel Knight Globulin (S) [Mass/Vol] 3.4 g/dL Normal [facility] Comment on above: Performed By: #### T SH, LIPID, CMP #### [facility] [address] [address] [address] José Miguel Knight Glucose [Mass/Vol] 253 mg/dL Critically high 74-106 [facility] Comment on above: Performed By: #### T SH, LIPID, CMP #### [facility] [address] [address] [address] José Miguel Knight Potassium [Moles/Vol] 4.4 mmol/L Normal 3.4-5.0 [facility] Comment on above: Performed By: #### T SH, LIPID, CMP #### [facility] [address] [address] [address] José Miguel Knight Protein [Mass/Vol] 7.2 g/dL Normal 6.1-8.2 [facility] Comment on above: Performed By: #### T SH, LIPID, CMP #### [facility] [address] [address] [address] José Miguel Knight Sodium [Moles/Vol] 139 mmol/L Normal 137-145 [facility] Comment on above: Performed By: #### T SH, LIPID, CMP #### [facility] [address] [place], [place] [address] Dr. José Miguel Knight Urea nitrogen [Mass/Vol] 16.0 mg/dL Normal 9.0-20.0 [facility] Comment on above: Performed By: #### T SH, LIPID, CMP #### [facility] [address] [address] [address] José Miguel Knight Urea nitrogen/Creatinine [Mass ratio] 21.1 mg/mg Normal [facility] Comment on above: Performed By: #### T SH, LIPID, CMP #### [facility] [address] [address] [address] José Miguel Knight TSHon 02-02-2021 TSH 5.529 uIU/mL Critically high 0.470-4.680 [facility] Comment on above: Performed By: #### T SH, LIPID, CMP #### [facility] [address] [address] [address] José Miguel Knight TSH RANGE SEE BELOW Normal [facility] Comment on above: Result Comment: <0.3 4 UIU/ml HYPERTHYROID 0.34-5.60 UIU/ml EUTHYROID >5.60 UIU/ml HYPOTHYROID Performed By: #### T SH, LIPID, CMP #### [facility] [address] [address] [address] José Miguel Knight Encounters Encounter Date Encounter Type Care Provider Facility Start: 07-21-2021 End: 07-22-2021 ambulatory [facility] Facility: Start: 02-02-2021 End: 02-03-[address] [facility] Facility: Payers Date Payer Category Payer Unknown [id number] 1975 Unknown [id number] 1960 Unknown [id number] Summary Purpose Family History No Family History [...] BE BASED ON THE PRIMARY CLINICAL RECORDS. [facility] [facility]. provides no warranty or guarantee of the accuracy or completeness of information in this document.
== END 2023-04-25 14:05 | disposition home or self-care (01) ==
LOC: WC 14:04
PROVIDERS: PCP Internal Medicine; Visit Provider Podiatrist Foot & Ankle Surgery
DX: E11.621 Type 2 diabetes mellitus with foot ulcer (principal); L97.422 Non-pressure chronic ulcer of left heel and midfoot with fat layer exposed; L84 Corns and callosities
CPT/HCPCS: 11055

== ENCOUNTER 2023-07-27 09:48 | Outpatient (OUT) | payer MEDICARE, SELFPAY ==
[2023-07-27 10:18] LABS: Basophils Percent Auto 0.7 % (0.2-2.0); Eosinophils Absolute Auto 0.1 10^3/uL (0.0-0.7); Eosinophils Percent Auto 1.6 % (0.9-7.0); Hematocrit 41.3 % (42.0-54.0); Hemoglobin 14.4 g/dL (14.0-18.0); Immature Granulocytes Abs Auto 0.02 10^3/uL (0.00-0.03); Immature Granulocytes Pct Auto 0.4 % (0.0-0.5); Lymphocytes Absolute Auto 1.8 10^3/uL (1.2-3.8); Lymphocytes Percent Auto 32.5 % (20.5-60.0); Mean Corpuscular HGB Conc 34.9 g/dL (29.9-35.2); Mean Corpuscular Hemoglobin 30.3 pg (25.9-34.0); Mean Corpuscular Volume 86.8 fL (80.0-94.0); Mean Platelet Volume 9.8 fL (9.5-13.5); Monocytes Absolute Auto 0.4 10^3/uL (0.3-0.8); Monocytes Percent Auto 7.2 % (1.7-12.0); Neutrophils Absolute Auto 3.2 10^3/uL (1.4-6.5); Neutrophils Percent Auto 57.6 % (43.0-75.0); Platelet Count 249 10^3/uL (150-450); Red Blood Count 4.76 10^6/uL (4.70-6.10); Red Cell Distribution Width 12.8 % (11.0-15.0); White Blood Count 5.5 10^3/uL (4.0-11.0)
[2023-07-27 10:28] LABS: Creatinine Urine Random 64.25 mg/dL (20.00-300.00); Microalbum Creatinine Ratio Ur 37.3 mg/g (0.0-29.9); Microalbumin Urine Random 2.4 mg/dL (<=30.0)
[2023-07-27 11:07] LABS: Alanine Aminotransferase 48 U/L (16-63); Albumin Level 3.6 g/dL (3.4-5.0); Alkaline Phosphatase 99 U/L (46-116); Anion Gap 13.3; Aspartate Amino Transferase 23 U/L (15-37); BUN Creatinine Ratio 19.5; Bilirubin Total 0.8 mg/dL (0.2-1.0); Calcium 9.6 mg/dL (8.5-10.1); Carbon Dioxide 28.1 mmol/L (21.0-32.0); Chloride 99 mmol/L (98-107); Chol HDL Ratio 4.2; Cholesterol 196 mg/dL (<=200); Estimated GFR (African America >60 (>=60); Estimated GFR (Non-African Ame >60 (>=60); Globulin 3.6 g/dL; Glucose 325 mg/dL (74-106); HDL Cholesterol 47 mg/dL (40-60); LDL Cholesterol Calculated 121.8 mg/dL; Potassium 4.4 mmol/L (3.5-5.1); Sodium 136 mmol/L (136-145); TSH W/ REFLEX FT4 5.703 uIU/mL (0.358-3.740); Total Protein 7.2 g/dL (6.4-8.2); Triglycerides 136 mg/dL (<=150); VLDL CHOLESTEROL 27.2 mg/dL
[2023-07-27 11:49] LABS: Free T4 1.09 ng/dL (0.76-1.46)
[2023-07-27 12:05] LABS: Estimated Average Glucose 237 mg/dL; Glycohemoglobin A1C 9.9 % (4.5-6.2)
== END 2023-07-27 09:49 | disposition home or self-care (01) ==
LOC: LAB 09:50
PROVIDERS: PCP Internal Medicine; Visit Provider Internal Medicine
DX: E78.49 Other hyperlipidemia (principal); I10 Essential (primary) hypertension; E11.9 Type 2 diabetes mellitus without complications; Z79.4 Long term (current) use of insulin; E03.8 Other specified hypothyroidism
CPT/HCPCS: 36415; 80053; 80061; 82043; 82570; 83036; 84439; 84443; 85025

== ENCOUNTER 2023-11-07 11:23 | Outpatient (OUT) | payer MEDICARE, SELFPAY ==
--- NOTE | 2023-11-07 | XR_ITS ---
The [address] [address] Patient Name: ZAIRA SHRESTHA MRN: [id number] date: 1975 Sex: M Assigned Patient Location: Current Patient Location: Accession/Order Number: [id number] Exam Date: 11/07/2023 11:23 Report Date: 11/08/2023 06:50 At the request of: RUSLAN GARBER Procedure: XR foot LT min 3V PROCEDURE: XR foot LT min 3V HISTORY: LEFT FOOT PAIN COMPARISON: XR foot left 01/23/2023 FINDINGS: BONES:Mild degenerative change of the first tarsal-metatarsal joint and first metatarsophalangeal joint. Stable developmental versus posttraumatic changes of the 5th toe. Prior plate and screw repair of distal fibula. SOFT TISSUES:No visible soft tissue swelling. EFFUSION:None visible. OTHER: Negative. XR/XR foot LT min 3V IMPRESSION: 1. Stable left foot. No acute abnormality. Electronically authenticated by: BREANNA RODRIGUEZ Date: 11/08/2023 06:50
== END 2023-11-07 11:24 | disposition home or self-care (01) ==
LOC: WC 11:23
PROVIDERS: PCP Internal Medicine; Visit Provider Podiatrist Foot & Ankle Surgery
DX: E11.621 Type 2 diabetes mellitus with foot ulcer (principal); L97.422 Non-pressure chronic ulcer of left heel and midfoot with fat layer exposed
CPT/HCPCS: 11043; 73630

== ENCOUNTER 2023-11-21 14:39 | Outpatient (OUT) | payer MEDICARE, SELFPAY | END 2023-11-21 14:40 | disposition home or self-care (01) | LOC: WC 14:39 | PROVIDERS: PCP Internal Medicine; Visit Provider Physician Assistant | DX: E11.621 Type 2 diabetes mellitus with foot ulcer (principal); L97.422 Non-pressure chronic ulcer of left heel and midfoot with fat layer exposed | CPT/HCPCS: 11043 ==

== ENCOUNTER 2023-11-27 13:08 | Outpatient (OUT) | payer MEDICARE, SELFPAY ==
[2023-11-27 13:50] LABS: Estimated Average Glucose 194 mg/dL; Glycohemoglobin A1C 8.4 % (4.5-6.2)
== END 2023-11-27 13:09 | disposition home or self-care (01) ==
LOC: LAB 13:10
PROVIDERS: PCP Internal Medicine
DX: Z79.4 Long term (current) use of insulin (principal); E11.9 Type 2 diabetes mellitus without complications
CPT/HCPCS: 36415; 83036; 86592; 86762; 86803; 86850; 86900; 86901; 87086; 87340; 87389

== ENCOUNTER 2023-12-05 11:22 | Outpatient (OUT) | payer MEDICARE, SELFPAY ==
--- OUTSIDE RECORDS SUMMARY | 2023-12-05 11:38 | XMS_ITS | CCD ---
Author Organization [facility] Care Team Providers Care Dynamics Ax Solution Architect Name Role Phone FAWWAD, DELAROSA Admitting Unavailable FAWWAD, DELAROSA Attending Unavailable FAWWAD, DELAROSA Primary Care Unavailable FAWWAD, DELAROSA Consulting Unavailable FAWWAD, DELAROSA Admitting Unavailable FAWWAD, DELAROSA Attending Unavailable FAWWAD, DELAROSA Primary Care Unavailable FAWWAD, DELAROSA Consulting Unavailable ZEFERINO OROZCO Attending Unavailable NEIL GODDARD Referring Unavailable ERNESTO, ZEFERINO Fermin Attending Unavailable ZEFERINO OROZCO Attending Unavailable RACHEL, Attending Unavailable JUANY CHANG Attending Unavailabl e Problems Problem Classification Problem Date Documented Da [...] A1Con 2021 ADA RECOMMENDATION SEE BELOW Normal [facility] Comment on above: Result Comment: ADA RECOMMENDED LIMIT 4.0 - 6.0 ADA THERAPEUTIC TARGET < 7.0 ACTION SUGGESTED > 7.0 Performed By: #### A 1C #### [facility] [address] [address] [address] José Miguel Knight Glucose [Mass/Vol] 260 mg/dL Normal [facility] Comment on above: Performed By: #### A 1C #### [facility] [address] [address] [address] José Miguel Knight HbA1c (Bld) [Mass fraction] 10.7 % Critically high 4.5-6.2 [facility] Comment on above: Performed By: #### A 1C #### [facility] [address] [place] [address] Dr. José Miguel Knight CBC AUTO DIFFon 02-02-2021 BASO # 0.0 103/ul Normal 0.0-0.1 [facility] Comment on above: Performed By: #### C BC #### [facility] [address] [place] [address] Dr. José Miguel Knight Basophils/100 WBC (Bld) 0.6 % Normal 0.2-2.0 [facility] Comment on above: Performed By: #### C BC #### [facility] [address] [place] [address] Dr. José Miguel Knight EO # 0.1 103/ul Normal 0.0-0.7 [facility] Comment on above: Performed By: #### C BC #### [facility] [address] [place] [address] Dr. José Miguel Knight Eosinophils/100 WBC (Bld) 0.9 % Normal 0.9-7.0 [facility] Comment on above: Performed By: #### C BC #### [facility] [address] [place] [address] Dr. José Miguel Knight Erythrocyte distribution width (RBC) [Ratio] 12.7 % Normal 11.0-15.0 [facility] Comment on above: Performed By: #### C BC #### [facility] [address] [place] [address] Dr. José Miguel Knight Hematocrit (Bld) [Volume fraction] 44.0 % Normal 42.0-54.0 [facility] Comment on above: Performed By: #### C BC #### [facility] [address] [place] [address] Dr. José Miguel Knight Hemoglobin (Bld) [Mass/Vol] 15.0 g/dL Normal 14.0-18.0 [facility] Comment on above: Performed By: #### C BC #### [facility] [address] [address] [address] José Miguel Knight IG # 0.04 10e3/ul Critically high 0.00-0.03 [facility] Comment on above: Performed By: #### C BC #### [facility] [address] [place] [address] Dr. José Miguel Knight IG % 0.6 % Critically high 0.0-0.5 [facility] Comment on above: Performed By: #### C BC #### [facility] [address] [place] [address] Dr. José Miguel Knight LYMPH # 1.6 103/ul Normal 1.2-3.8 [facility] Comment on above: Performed By: #### C BC #### [facility] [address] [place] [address] Dr. José Miguel Knight Lymphocytes/100 WBC (Bld) 22.5 % Normal 20.5-60.0 [facility] Comment on above: Performed By: #### C BC #### [facility] [address] [place] [address] Dr. José Miguel Knight MANUAL DIFF REQ NO Normal [facility] Comment on above: Performed By: #### C BC #### [facility] [address] [place] [address] Dr. José Miguel Knight MCH (RBC) [Entitic mass] 30.4 pg Normal 25.9-34.0 [facility] Comment on above: Performed By: #### C BC #### [facility] [address] [place] [address] Dr. José Miguel Knight MCHC (RBC) [Mass/Vol] 34.1 g/dL Normal 29.9-35.2 [facility] Comment on above: Performed By: #### C BC #### [facility] [address] [place] [address] Dr. José Miguel Knight MCV (RBC) [Entitic vol] 89.2 fL Normal 80.0-94.0 [facility] Comment on above: Performed By: #### C BC #### [facility] [address] [place] [address] Dr. José Miguel Knight MONO # 0.5 103/ul Normal 0.3-0.8 [facility] Comment on above: Performed By: #### C BC #### [facility] [address] [place] [address] Dr. José Miguel Knight Monocytes/100 WBC (Bld) 7.0 % Normal 1.7-12.0 [facility] Comment on above: Performed By: #### C BC #### [facility] [address] [place] [address] Dr. José Miguel Knight NEUT # 4.7 103/ul Normal 1.4-6.5 [facility] Comment on above: Performed By: #### C BC #### [facility] [address] [place] [address] Dr. José Miguel Knight Neutrophils/100 WBC (Bld) 68.4 % Normal 43.0-75.0 [facility] Comment on above: Performed By: #### C BC #### [facility] [address] [place] [address] Dr. José Miguel Knight Platelet mean volume (Bld) [Entitic vol] 10.8 fL Normal 9.5-13.5 [facility] Comment on above: Performed By: #### C BC #### [facility] [address] [place] [address] Dr. José Miguel Knight PLT 223 103/ul Normal 150-450 [facility] Comment on above: Performed By: #### C BC #### [facility] [address] [place] [address] Dr. José Miguel Knight RBC 4.93 106/ul Normal 4.70-6.10 [facility] Comment on above: Performed By: #### C BC #### [facility] [address] [place] [address] Dr. José Miguel Knight WBC 6.9 103/ul Normal 4.0-11.0 [facility] Comment on above: Performed By: #### C BC #### [facility] [address] [place] [address] Dr. José Miguel Knight GLYCOHEMOGLOBIN A1Con 2020 ADA RECOMMENDATION ADA THERAPEUTIC TARGET 6.0 - 7.0 ACTION SUGGESTED > 7.0 Normal [facility] Comment on above: Performed By: #### A 1C #### [facility] [address] [address] [address] José Miguel Knight Glucose [Mass/Vol] 217 mg/dL Normal [facility] Comment on above: Performed By: #### A 1C #### [facility] [address] [address] [address] José Miguel Knight HbA1c (Bld) [Mass fraction] 9.2 % Critically high <=6.0 [facility] Comment on above: Performed By: #### A 1C #### [facility] [address] [address] [address] José Miguel Knight LIPID PROFILEon 02-02-2021 CHOL-HDL RATIO NORM SEE BELOW Normal [facility] Comment on above: Result Comment: 3.3 - 4.4 LOW RISK 4.4 - 7.1 AVERAGE RISK 7.1 - 11.0 MODERATE RISK >11.0 HIGH RISK Performed By: #### T SH, LIPID, CMP #### [facility] [address] [address] [address] José Miguel Knight Cholesterol [Mass/Vol] 121 mg/dL Normal <=200 [facility] Comment on above: Performed By: #### T SH, LIPID, CMP #### [facility] [address] [address] [address] José Miguel Knight Cholesterol in HDL [Mass/Vol] 37 mg/dL Normal [facility] Comment on above: Performed By: #### T SH, LIPID, CMP #### [facility] [address] [address] [address] José Miguel Knight Cholesterol in LDL [Mass/Vol] 46.4 mg/dL Normal [facility] Comment on above: Performed By: #### T SH, LIPID, CMP #### [facility] [address] [address] [address] José Miguel Knight Cholesterol.total/Cho lesterol in HDL [Mass ratio] 3.3 {ratio} Normal [facility] Comment on above: Performed By: #### T SH, LIPID, CMP #### [facility] [address] [address] [address] José Miguel Knight HDL NORMAL > or = 60 mg/dl - LOW CARDIOVASCULAR RISK <40 mg/dl - HIGH CARDIOVASCULAR RISK Normal [facility] Comment on above: Performed By: #### T SH, LIPID, CMP #### [facility] [address] [address] [address] José Miguel Knight LDL CALC NORMAL SEE BELOW Normal [facility] Comment on above: Result Comment: <100 mg/dl OPTIMAL 100 - 129 mg/dl NEAR OR ABOVE OPTIMAL 130 - 159 mg/dl BORDERLINE HIGH 160 - 189 mg/dl HIGH >190 mg/dl VERY HIGH Performed By: #### T SH, LIPID, CMP #### [facility] [address] [place] [address] Dr. José Miguel Knight Triglyceride [Mass/Vol] 188 mg/dL Critically high <=150 [facility] Comment on above: Performed By: #### T SH, LIPID, CMP #### [facility] [address] [address] [address] José Miguel Knight VLDL CALC 37.6 mg/dL Normal [facility] Comment on above: Performed By: #### T SH, LIPID, CMP #### [facility] [address] [address] [address] José Miguel Knight MICROALBUMIN, RAND URon 01-18 mALB 1.2 mg/L Normal <=30.0 [facility] Comment on above: Performed By: #### M ALBR #### [facility] [address] [address] [address] José Miguel Knight PROF 14(COMP METB)on 021 Albumin [Mass/Vol] 3.8 g/dL Normal 3.5-5.0 [facility] Comment on above: Performed By: #### T SH, LIPID, CMP #### [facility] [address] [address] [address] José Miguel Knight Albumin/Globulin [Mass ratio] 1.1 {ratio} Normal [facility] Comment on above: Performed By: #### T SH, LIPID, CMP #### [facility] [address] [address] [address] José Miguel Knight ALP [Catalytic activity/Vol] 92 U/L Normal 38-126 [facility] Comment on above: Performed By: #### T SH, LIPID, CMP #### [facility] [address] [address] [address] José Miguel Knight ALT [Catalytic activity/Vol] 46 U/L Normal 21-72 [facility] Comment on above: Performed By: #### T SH, LIPID, CMP #### [facility] [address] [address] [address] José Miguel Knight Anion gap [Moles/Vol] 12.8 mmol/L Normal [facility] Comment on above: Performed By: #### T SH, LIPID, CMP #### [facility] [address] [place] [address] Dr. José Miguel Knight AST [Catalytic activity/Vol] 22 U/L Normal 17-59 [facility] Comment on above: Performed By: #### T SH, LIPID, CMP #### [facility] [address] [place] [address] Dr. José Miguel Knight Bilirubin [Mass/Vol] 0.5 mg/dL Normal 0.2-1.3 [facility] Comment on above: Performed By: #### T SH, LIPID, CMP #### [facility] [address] [place] [address] Dr. José Miguel Knight Calcium [Mass/Vol] 9.3 mg/dL Normal 8.4-10.2 [facility] Comment on above: Performed By: #### T SH, LIPID, CMP #### [facility] [address] [place] [address] Dr. José Miguel Knight Chloride [Moles/Vol] 103 mmol/L Normal 98-107 [facility] Comment on above: Performed By: #### T SH, LIPID, CMP #### [facility] [address] [place] [address] Dr. José Miguel Knight CO2 [Moles/Vol] 27.6 mmol/L Normal 22.0-30.0 [facility] Comment on above: Performed By: #### T SH, LIPID, CMP #### [facility] [address] [address] [address] José Miguel Knight Creatinine [Mass/Vol] 0.76 mg/dL Normal 0.66-1.25 [facility] Comment on above: Performed By: #### T SH, LIPID, CMP #### [facility] [address] [address] [address] José Miguel Knight EGFR-AF UGANDAN >60 Normal >=60 [facility] Comment on above: Performed By: #### T SH, LIPID, CMP #### [facility] [address] [place] [address] Dr. José Miguel Knight EGFR-NON AF UGANDAN >60 Normal >=60 [facility] Comment on above: Performed By: #### T SH, LIPID, CMP #### [facility] [address] [address] [address] José Miguel Knight Globulin (S) [Mass/Vol] 3.4 g/dL Normal [facility] Comment on above: Performed By: #### T SH, LIPID, CMP #### [facility] [address] [place] [address] Dr. José Miguel Knight Glucose [Mass/Vol] 253 mg/dL Critically high 74-106 [facility] Comment on above: Performed By: #### T SH, LIPID, CMP #### [facility] [address] [address] [address] José Miguel Knight Potassium [Moles/Vol] 4.4 mmol/L Normal 3.4-5.0 [facility] Comment on above: Performed By: #### T SH, LIPID, CMP #### [facility] [address] [place] [address] Dr. José Miguel Knight Protein [Mass/Vol] 7.2 g/dL Normal 6.1-8.2 [facility] Comment on above: Performed By: #### T SH, LIPID, CMP #### [facility] [address] [place] [address] Dr. José Miguel Knight Sodium [Moles/Vol] 139 mmol/L Normal 137-[address] [facility] Comment on above: Performed By: #### T ERICA, LIPID, CMP #### [facility] [address] [address] [address] José Miguel Knight Urea nitrogen [Mass/Vol] 16.0 mg/dL Normal 9.0-20.0 [facility] Comment on above: Performed By: #### T ERICA, LIPID, CMP #### [facility] [address] [place] [address] Dr. José Miguel Knight Urea nitrogen/Creatinine [Mass ratio] 21.1 mg/mg Normal [facility] Comment on above: Performed By: #### T ERICA LIPID, CMP #### [facility] [address] [place] [address] Dr. José Miguel Knight TSHon 02-02-2021 TSH 5.529 uIU/mL Critically high 0.470-4.[address] [facility] Comment on above: Performed By: #### T ERICA LIPID, CMP #### [facility] [address] [place] [address] Dr. José Miguel Knight TSH RANGE SEE BELOW Normal [facility] Comment on above: Result Comment: <0.3 4 UIU/ml HYPERTHYROID 0.34-5.60 UIU/ml EUTHYROID >5.60 UIU/ml HYPOTHYROID Performed By: #### T ERICA, LIPID, CMP #### [facility] [address] [place] [address] Dr. José Miguel Knight Encounters Encounter Date Encounter Type Care Provider Facility Start: 11-21-2023 End: 11-21-2023 ambulatory JUANY CHANG Not Available Start: 06-21-2023 End: 06-21-2023 ambulatory SHAIKH RACHEL Not Available Start: 06-14-2023 End: 06-14-2023 ambulatory ZEFERINO OROZCO Not Available Start: 05-29-2023 End: 05-29-2023 ambulatory ZEFERINO OROZCO Not Available Start: 05-09-2023 End: 05-09-2023 ambulatory ZEFERINO OROZCO Not Available Start: 07-21-2021 End: 07-22-2021 ambulatory SHAIKH RACHEL Facility:[facility] Start: 02-02-2021 End: 02-03-2021 ambulatory SHAIKH RACHEL Facility:[facility] Payers Date Payer Category Payer Unknown [id number] 2.16.84 [id number] 1974 Unknown [id number] 2.16.84 [id number] 1974 Unknown [id number] 2.16.84 [id number] 1974 Unknown [id number] 2.16.84 [id number] 1974 Unknown [id number] 2.16.84 [id number] 1974 Unknown [id number] 2.16.84 [id number] 1974 Unknown [id number] 2.16.84 [id number] 1959 Unknown [id number] Summary Purpose Family History No Family History Records FoundNo Family History Records Found Advance Directives No Advanced Directives Records FoundNo Advanced Directives Records Found Additional Source Comments (unrecognized sect ion and content) No Status Records FoundNo Status Records Found INFORMATION SOURCE (unrecogn ized section and content) DATE CREATED AUTHOR 07/24/2021 [facility] DATE CREATED AUTHOR AUTHOR'S ORGANIZ ATION 11/22/[address] [facility] EPIC FOR RECORDS PERTAINING TO PATIENTS WHO ARE [...] BE BASED ON THE PRIMARY CLINICAL RECORDS. [facility]. provides no warranty or guarantee of the accuracy or completeness of information in this document.
== END 2023-12-05 11:23 | disposition home or self-care (01) ==
LOC: WC 11:23
PROVIDERS: PCP Internal Medicine; Visit Provider Physician Assistant
DX: E11.621 Type 2 diabetes mellitus with foot ulcer (principal); L97.422 Non-pressure chronic ulcer of left heel and midfoot with fat layer exposed
CPT/HCPCS: 11043

== ENCOUNTER 2023-12-21 14:28 | Outpatient (OUT) | payer MEDICARE, SELFPAY | END 2023-12-21 14:29 | disposition home or self-care (01) | LOC: WC 14:28 | PROVIDERS: PCP Internal Medicine; Visit Provider Physician Assistant | DX: E11.621 Type 2 diabetes mellitus with foot ulcer (principal); L97.422 Non-pressure chronic ulcer of left heel and midfoot with fat layer exposed | CPT/HCPCS: 11043 ==

== ENCOUNTER 2024-01-02 15:48 | Outpatient (OUT) | payer MEDICARE, SELFPAY ==
--- OUTSIDE RECORDS SUMMARY | 2024-01-02 16:10 | XMS_ITS | CCD ---
Author Organization [facility] Care Team Providers Care Filament Maker Name Role Phone FAWWAD, DELAROSA Admitting Unavailable [...] 2021 ADA RECOMMENDATION SEE BELOW Normal [facility] Comment on above: Result Comment: ADA RECOMMENDED LIMIT 4.0 - 6.0 ADA THERAPEUTIC TARGET < 7.0 ACTION SUGGESTED > 7.0 Performed By: #### A 1C #### [facility] [address] [address] [address] José Miguel Knight Glucose [Mass/Vol] 260 mg/dL Normal [facility] Comment on above: Performed By: #### A 1C #### [facility] [address] [address] [address] José Miguel Knight HbA1c (Bld) [Mass fraction] 10.7 % Critically high 4.5-6.2 [facility] Comment on above: Performed By: #### A 1C #### [facility] [address] [place] [address] Dr. José Miguel Knight CBC AUTO DIFFon 02-02-2021 BASO # 0.0 103/ul Normal 0.0-0.1 [facility] Comment on above: Performed By: #### C BC #### [facility] [address] [place] [address] Dr. José Miguel Knight Basophils/100 WBC (Bld) 0.6 % Normal 0.2-2.0 [facility] Comment on above: Performed By: #### C BC #### [facility] [address] [place] [address] Dr. José Miguel Knight EO # 0.1 103/ul Normal 0.0-0.7 [facility] Comment on above: Performed By: #### C BC #### [facility] [address] [place] [address] Dr. José Miguel Knight Eosinophils/100 WBC (Bld) 0.9 % Normal 0.9-7.0 [facility] Comment on above: Performed By: #### C BC #### [facility] [address] [place] [address] Dr. José Miguel Knight Erythrocyte distribution width (RBC) [Ratio] 12.7 % Normal 11.0-15.0 [facility] Comment on above: Performed By: #### C BC #### [facility] [address] [place] [address] Dr. José Miguel Knight Hematocrit (Bld) [Volume fraction] 44.0 % Normal 42.0-54.0 [facility] Comment on above: Performed By: #### C BC #### [facility] [address] [place] [address] Dr. José Miguel Knight Hemoglobin (Bld) [Mass/Vol] 15.0 g/dL Normal 14.0-18.0 [facility] Comment on above: Performed By: #### C BC #### [facility] [address] [address] [address] José Miguel Knight IG # 0.04 10e3/ul Critically high 0.00-0.03 [facility] Comment on above: Performed By: #### C BC #### [facility] [address] [place] [address] Dr. José Miguel Knight IG % 0.6 % Critically high 0.0-0.5 [facility] Comment on above: Performed By: #### C BC #### [facility] [address] [place] [address] Dr. José Miguel Knight LYMPH # 1.6 103/ul Normal 1.2-3.8 [facility] Comment on above: Performed By: #### C BC #### [facility] [address] [place] [address] Dr. José Miguel Knight Lymphocytes/100 WBC (Bld) 22.5 % Normal 20.5-60.0 [facility] Comment on above: Performed By: #### C BC #### [facility] [address] [place] [address] Dr. José Miguel Knight MANUAL DIFF REQ NO Normal [facility] Comment on above: Performed By: #### C BC #### [facility] [address] [place] [address] Dr. José Miguel Knight MCH (RBC) [Entitic mass] 30.4 pg Normal 25.9-34.0 [facility] Comment on above: Performed By: #### C BC #### [facility] [address] [place] [address] Dr. José Miguel Knight MCHC (RBC) [Mass/Vol] 34.1 g/dL Normal 29.9-35.2 [facility] Comment on above: Performed By: #### C BC #### [facility] [address] [place] [address] Dr. José Miguel Knight MCV (RBC) [Entitic vol] 89.2 fL Normal 80.0-94.0 [facility] Comment on above: Performed By: #### C BC #### [facility] [address] [place] [address] Dr. José Miguel Knight MONO # 0.5 103/ul Normal 0.3-0.8 [facility] Comment on above: Performed By: #### C BC #### [facility] [address] [place] [address] Dr. José Miguel Knight Monocytes/100 WBC (Bld) 7.0 % Normal 1.7-12.0 [facility] Comment on above: Performed By: #### C BC #### [facility] [address] [place] [address] Dr. José Miguel Knight NEUT # 4.7 103/ul Normal 1.4-6.5 [facility] Comment on above: Performed By: #### C BC #### [facility] [address] [place] [address] Dr. José Miguel Knight Neutrophils/100 WBC (Bld) 68.4 % Normal 43.0-75.0 [facility] Comment on above: Performed By: #### C BC #### [facility] [address] [place] [address] Dr. José Miguel Knight Platelet mean volume (Bld) [Entitic vol] 10.8 fL Normal 9.5-13.5 [facility] Comment on above: Performed By: #### C BC #### [facility] [address] [place] [address] Dr. José Miguel Knight PLT 223 103/ul Normal 150-450 [facility] Comment on above: Performed By: #### C BC #### [facility] [address] [place] [address] Dr. José Miguel Knight RBC 4.93 106/ul Normal 4.70-6.10 [facility] Comment on above: Performed By: #### C BC #### [facility] [address] [place] [address] Dr. José Miguel Knight WBC 6.9 103/ul Normal 4.0-11.0 [facility] Comment on above: Performed By: #### C BC #### [facility] [address] [place] [address] Dr. José Miguel Knight GLYCOHEMOGLOBIN A1Con 2020 ADA RECOMMENDATION ADA THERAPEUTIC TARGET 6.0 - 7.0 ACTION SUGGESTED > 7.0 Normal [facility] Comment on above: Performed By: #### A 1C #### [facility] [address] [address] [address] José Miguel Knight Glucose [Mass/Vol] 217 mg/dL Normal [facility] Comment on above: Performed By: #### A 1C #### [facility] [address] [address] [address] José Miguel Knight HbA1c (Bld) [Mass fraction] 9.2 % Critically high <=6.0 [facility] Comment on above: Performed By: #### A 1C #### [facility] [address] [address] [address] José Miguel Knight LIPID PROFILEon 02-02-2021 CHOL-HDL RATIO NORM SEE BELOW Normal [facility] Comment on above: Result Comment: 3.3 - 4.4 LOW RISK 4.4 - 7.1 AVERAGE RISK 7.1 - 11.0 MODERATE RISK >11.0 HIGH RISK Performed By: #### T SH, LIPID, CMP #### [facility] [address] [address] [address] José Miguel Knight Cholesterol [Mass/Vol] 121 mg/dL Normal <=200 [facility] Comment on above: Performed By: #### T SH, LIPID, CMP #### [facility] [address] [address] [address] José Miguel Knight Cholesterol in HDL [Mass/Vol] 37 mg/dL Normal [facility] Comment on above: Performed By: #### T SH, LIPID, CMP #### [facility] [address] [address] [address] José Miguel Knight Cholesterol in LDL [Mass/Vol] 46.4 mg/dL Normal [facility] Comment on above: Performed By: #### T SH, LIPID, CMP #### [facility] [address] [address] [address] José Miguel Knight Cholesterol.total/Cho lesterol in HDL [Mass ratio] 3.3 {ratio} Normal [facility] Comment on above: Performed By: #### T SH, LIPID, CMP #### [facility] [address] [address] [address] José Miguel Knight HDL NORMAL > or = 60 mg/dl - LOW CARDIOVASCULAR RISK <40 mg/dl - HIGH CARDIOVASCULAR RISK Normal [facility] Comment on above: Performed By: #### T SH, LIPID, CMP #### [facility] [address] [address] [address] José Miguel Knight LDL CALC NORMAL SEE BELOW Normal [facility] Comment on above: Result Comment: <100 mg/dl OPTIMAL 100 - 129 mg/dl NEAR OR ABOVE OPTIMAL 130 - 159 mg/dl BORDERLINE HIGH 160 - 189 mg/dl HIGH >190 mg/dl VERY HIGH Performed By: #### T SH, LIPID, CMP #### [facility] [address] [place] [address] Dr. José Miguel Knight Triglyceride [Mass/Vol] 188 mg/dL Critically high <=150 [facility] Comment on above: Performed By: #### T SH, LIPID, CMP #### [facility] [address] [address] [address] José Miguel Knight VLDL CALC 37.6 mg/dL Normal [facility] Comment on above: Performed By: #### T SH, LIPID, CMP #### [facility] [address] [address] [address] José Miguel Knight MICROALBUMIN, RAND URon 01-18 mALB 1.2 mg/L Normal <=30.0 [facility] Comment on above: Performed By: #### M ALBR #### [facility] [address] [address] [address] José Miguel Knight PROF 14(COMP METB)on 021 Albumin [Mass/Vol] 3.8 g/dL Normal 3.5-5.0 [facility] Comment on above: Performed By: #### T SH, LIPID, CMP #### [facility] [address] [address] [address] José Miguel Knight Albumin/Globulin [Mass ratio] 1.1 {ratio} Normal [facility] Comment on above: Performed By: #### T SH, LIPID, CMP #### [facility] [address] [address] [address] José Miguel Knight ALP [Catalytic activity/Vol] 92 U/L Normal 38-126 [facility] Comment on above: Performed By: #### T SH, LIPID, CMP #### [facility] [address] [address] [address] José Miguel Knight ALT [Catalytic activity/Vol] 46 U/L Normal 21-72 [facility] Comment on above: Performed By: #### T SH, LIPID, CMP #### [facility] [address] [address] [address] José Miguel Knight Anion gap [Moles/Vol] 12.8 mmol/L Normal [facility] Comment on above: Performed By: #### T SH, LIPID, CMP #### [facility] [address] [place] [address] Dr. José Miguel Knight AST [Catalytic activity/Vol] 22 U/L Normal 17-59 [facility] Comment on above: Performed By: #### T SH, LIPID, CMP #### [facility] [address] [place] [address] Dr. José Miguel Knight Bilirubin [Mass/Vol] 0.5 mg/dL Normal 0.2-1.3 [facility] Comment on above: Performed By: #### T SH, LIPID, CMP #### [facility] [address] [place] [address] Dr. José Miguel Knight Calcium [Mass/Vol] 9.3 mg/dL Normal 8.4-10.2 [facility] Comment on above: Performed By: #### T SH, LIPID, CMP #### [facility] [address] [place] [address] Dr. José Miguel Knight Chloride [Moles/Vol] 103 mmol/L Normal 98-107 [facility] Comment on above: Performed By: #### T SH, LIPID, CMP #### [facility] [address] [place] [address] Dr. José Miguel Knight CO2 [Moles/Vol] 27.6 mmol/L Normal 22.0-30.0 [facility] Comment on above: Performed By: #### T SH, LIPID, CMP #### [facility] [address] [address] [address] José Miguel Knight Creatinine [Mass/Vol] 0.76 mg/dL Normal 0.66-1.25 [facility] Comment on above: Performed By: #### T SH, LIPID, CMP #### [facility] [address] [address] [address] José Miguel Knight EGFR-AF [place] >60 Normal >=60 [facility] Comment on above: Performed By: #### T SH, LIPID, CMP #### [facility] [address] [place] [address] Dr. José Miguel Knight EGFR-NON AF [place] >60 Normal >=60 [facility] Comment on above: Performed By: #### T SH, LIPID, CMP #### [facility] [address] [address] [address] José Miguel Knight Globulin (S) [Mass/Vol] 3.4 g/dL Normal [facility] Comment on above: Performed By: #### T SH, LIPID, CMP #### [facility] [address] [place] [address] Dr. José Miguel Knight Glucose [Mass/Vol] 253 mg/dL Critically high 74-106 [facility] Comment on above: Performed By: #### T SH, LIPID, CMP #### [facility] [address] [address] [address] José Miguel Knight Potassium [Moles/Vol] 4.4 mmol/L Normal 3.4-5.0 [facility] Comment on above: Performed By: #### T SH, LIPID, CMP #### [facility] [address] [place] [address] Dr. José Miguel Knight Protein [Mass/Vol] 7.2 g/dL Normal 6.1-8.2 [facility] Comment on above: Performed By: #### T SH, LIPID, CMP #### [facility] [address] [place] [address] Dr. José Miguel Knight Sodium [Moles/Vol] 139 mmol/L Normal 137-145 [facility] Comment on above: Performed By: #### T ERICA, LIPID, CMP #### [facility] [address] [address] [address] José Miguel Knight Urea nitrogen [Mass/Vol] 16.0 mg/dL Normal 9.0-20.0 [facility] Comment on above: Performed By: #### T ERICA, LIPID, CMP #### [facility] [address] [place] [address] Dr. José Miguel Knight Urea nitrogen/Creatinine [Mass ratio] 21.1 mg/mg Normal [facility] Comment on above: Performed By: #### T ERICA LIPID, CMP #### [facility] [address] [place] [address] Dr. José Miguel Knight TSHon 02-02-2021 TSH 5.529 uIU/mL Critically high 0.470-4.680 [facility] Comment on above: Performed By: #### T ERICA LIPID, CMP #### [facility] [address] [place] [address] Dr. José Miguel Knight TSH RANGE SEE BELOW Normal [facility] Comment on above: Result Comment: <0.3 4 UIU/ml HYPERTHYROID 0.34-5.60 UIU/ml EUTHYROID >5.60 UIU/ml HYPOTHYROID Performed By: #### T ERICA, LIPID, CMP #### [facility] [address] [place] [address] Dr. José Miguel Knight Encounters Encounter Date [...] Facility:[facility] Payers Date Payer Category Payer Unknown [id number] [id number] [id number] 1974 Unknown [id number] 2.16.84 [id number] 1974 Unknown [id number] 2.16.84 [id number] 1974 Unknown [id number] 2.16.84 [id number] 1974 Unknown [id number] 2.16.84 [id number] 1974 Unknown [id number] 2.16.84 [id number] 1974 Unknown [id number] 2.16.84 [id number] 1959 Unknown [id number] Summary Purpose Family History No Family History Records FoundNo Family History Records Found Advance Directives No Advanced Directives Records FoundNo Advanced Directives Records Found Additional Source Comments (unrecognized sect ion and content) No Status Records FoundNo Status Records Found INFORMATION SOURCE (unrecogn ized section and content) DATE CREATED AUTHOR [facility]/24/2021 [facility] DATE CREATED AUTHOR AUTHOR'S ORGANIZ ATION 11/22/2023 [facility] EPIC FOR RECORDS PERTAINING [...] BE BASED ON THE PRIMARY CLINICAL RECORDS. [facility] [employer] [facility]. provides no warranty or guarantee of the accuracy or completeness of information in this document.
== END 2024-01-02 15:49 | disposition home or self-care (01) ==
LOC: WC 15:48
PROVIDERS: PCP Internal Medicine; Visit Provider Physician Assistant
DX: E11.621 Type 2 diabetes mellitus with foot ulcer (principal); L97.422 Non-pressure chronic ulcer of left heel and midfoot with fat layer exposed
CPT/HCPCS: 11043

== ENCOUNTER 2024-01-16 15:50 | Outpatient (OUT) | payer MEDICARE, SELFPAY ==
--- OUTSIDE RECORDS SUMMARY | 2024-01-16 15:58 | XMS_ITS | CCD ---
Author Organization [facility] Care Team Providers Care Optometric Technologist Name Role Phone MIKKI MONETIKH Admitting Unavailable FAWWAD, DELAROSA Attending Unavailable FAWWAD, DELAROSA Primary Care Unavailable FAWWAD, DELAROSA Consulting Unavailable FAWWAD, DELAROSA Admitting Unavailable FAWWAD, DELAROSA Attending Unavailable FAWWAD, DELAROSA Primary Care Unavailable FAWWAD, DELAROSA Consulting Unavailable ZEFERINO OROZCO Attending Unavailable NEIL PENG Referring Unavailable ERNESTO, ZEFERINO Fermin Attending Unavailable ZEFERINO OROZCO Attending Unavailable CHIKI, Attending Unavailable ANISHA OROZCO Attending UnavailNeil Combs Unavailable [phone] Chiki LUU, Unavailable Anisha Orozco NP Unavailable [phone] Darion Blankenship MD Primary Care Provider [phone] Medications Current Medications Medication Drug Class(es) Dates Sig (Normalized) Sig (Original) atorvastatin 40 mg oral tablet (1 source) HMG-CoA Reductase Inhibitor Start: 11-21-2023 End: 05-19-2024 take 1 tablet by mouth once daily atorvastatin (Lipitor) 40 MG tablet Indications: Other hyperlipidemia (CMS/HCC) Take 1 tablet (40 mg) by mouth Daily 90 tablet 1 11/21/2023 05/19/2024 Active glipiZIDE 10 mg oral tablet (1 source) Sulfonylurea Start: 11-21-2023 End: 02-19-2024 take 1 tablet by mouth in the morning glipiZIDE (Glucotrol) 10 MG tablet Indications: Type 2 diabetes mellitus without complication, with long-term current use of insulin (CMS/HCC) Take 1 tablet (10 mg) by mouth in the morning and 1 tablet (10 mg) in the evening. Take before meals. 180 tablet 11/21/2023 02/19/2024 Active 3 ml insulin glargine 100 unt/ml pen injector (2 sources) Insulin Analog Start: 01-02-2024 insulin glargine (Lantus SoloStar) 100 UNIT/ML pen Indications: Type 2 diabetes mellitus without complication, with long-term current use of insulin (CMS/HCC) Inject 40 Units under the skin Daily 3 mL 11 01/02/2024 Active Start: 02-19-2023 End: 12-29-2023 Lantus SoloStar 100 UNIT/ML pen INJECT 40 UNITS SUBCUTANEOUSLY ONCE DAILY 02/19/2023 12/29/2023 Discontinued (Reorder) levothyroxine sodium 0.112 mg oral tablet (1 source) l-Thyroxine Start: 11-21-2023 End: 05-19-2024 take 1 tablet by mouth before mealtime levothyroxine (Synthroid) 112 MCG tablet Indications: Other specified hypothyroidism (CMS/HCC) Take 1 tablet (112 mcg) by mouth in the morning. Take before meals. 90 tablet 1 11/21/2023 05/19/2024 Active losartan potassium 100 mg oral tablet (1 source) Angiotensin 2 Receptor Aleta Start: 11-21-2023 End: 05-19-2024 take 1 tablet by mouth once daily losartan (Cozaar) 100 MG tablet Indications: Primary hypertension (CMS/HCC) Take 1 tablet (100 mg) by mouth Daily 90 tablet 1 11/21/2023 05/19/2024 Active meloxicam 7.5 mg oral tablet (1 source) Nonsteroidal Anti-inflammatory Drug Start: 11-21-2023 End: 05-19-2024 take 1 tablet by mouth once daily meloxicam (Mobic) 7.5 MG tablet Indications: Other chronic pain Take 1 tablet (7.5 mg) by mouth Daily 90 tablet 1 11/21/2023 05/19/2024 Active metFORMIN hydrochloride 1000 mg oral tablet (1 source) Biguanide Start: 11-21-2023 End: 05-19-2024 take 1 tablet by mouth in the morning metFORMIN (Glucophage) 1000 MG tablet Indications: Type 2 diabetes mellitus without complication, with long-term current use of insulin (CMS/HCC) Take 1 tablet (1,000 mg) by mouth in the morning and 1 tablet (1,000 mg) before bedtime. 180 tablet 1 11/21/2023 05/19/2024 Active SITagliptin 100 mg oral tablet (1 source) Dipeptidyl Peptidase 4 Inhibitor Start: 11-21-2023 End: 02-19-2024 take 1 tablet by mouth once daily SITagliptin (Januvia) 100 MG tablet Indications: Type 2 diabetes mellitus without complication, with long-term current use of insulin ([facility]/HCC) Take 1 tablet (100 mg) by mouth Daily 90 tablet 11/21/2023 02/19/2024 Active traZODone hydrochloride 150 mg oral tablet (1 source) Serotonin Reuptake Inhibitor Start: 11-21-2023 End: 05-19-2024 take 1 tablet by mouth at bedtime traZODone (Desyrel) 150 MG tablet Indications: Psychophysiological insomnia Take 1 tablet (150 mg) by mouth at bedtime 90 tablet 1 11/21/2023 05/19/2024 Active Problems Active Problems Problem Classification Problem Date Documented Date Episodic/Chronic Developmental disorders (1 source) Developmental academic disorder; Translations: [Developmental disorder of scholastic skills, unspecified] Onset: 06-21-2023 06-21-2023 Chronic Diabetes mellitus without complication (6 sources) Type 2 diabetes mellitus without complications; Translations: [Type 2 diabetes mellitus without complication] Onset: 07-21-2021 Chronic Disorders of lipid metabolism (2 sources) Hyperlipidemia, unspecified; Translations: [Hyperlipidemia] Onset: 02-08-2021 06-21-2023 Chronic Essential hypertension (2 sources) Essential (primary) hypertension; Translations: [Essential hypertension] Onset: 02-08-2021 06-21-2023 Chronic Other ear and sense organ disorders (1 source) Excessive cerumen in ear canal ; Translations: [Impacted cerumen, bilateral] Onset: 11-21-2023 11-21-2023 Episodic Thyroid disorders (2 sources) Hypothyroidism, unspecified; Translations: [Hypothyroidism] Onset: 02-08-2021 06-21-2023 Chronic Past or Other Problems Problem Classification Problem Date Documented Da te Episodic/Chronic Other gastrointestinal disorders (1 source) Stool DNA-based colorectal cancer screening positive; Translations: [Other fecal abnormalities] Onset: 06-21-2023 06-21-2023 Episodic Results Test Name Value Interpretation Reference Range Fred itjoe GLYCOHEMOGLOBIN A1Con 2021 ADA RECOMMENDATION SEE BELOW Normal [facility] Comment on above: Result Comment: ADA RECOMMENDED LIMIT 4.0 - 6.0 ADA THERAPEUTIC TARGET < 7.0 ACTION SUGGESTED > 7.0 Performed By: #### A 1C #### [facility] [address] [place] [address] Dr. José Miguel Knight Glucose [Mass/Vol] 260 mg/dL Normal [facility] Comment on above: Performed By: #### A 1C #### [facility] [address] [place] [address] Dr. José Miguel Knight HbA1c (Bld) [Mass fraction] 10.7 % Critically high 4.5-6.2 [facility] Comment on above: Performed By: #### A 1C #### [facility] [address] [place] [address] Dr. José Miguel Knight CBC AUTO DIFFon 02-02-2021 BASO # 0.0 103/ul Normal 0.0-0.1 [facility] Comment on above: Performed By: #### C BC #### [facility] [address] [place] [address] Dr. José Miguel Knight Basophils/100 WBC (Bld) 0.6 % Normal 0.2-2.0 [facility] Comment on above: Performed By: #### C BC #### [facility] [address] [place] [address] Dr. José Miguel Knight EO # 0.1 103/ul Normal 0.0-0.7 [facility] Comment on above: Performed By: #### C BC #### [facility] [address] [place] [address] Dr. José Miguel Knight Eosinophils/100 WBC (Bld) 0.9 % Normal 0.9-7.0 [facility] Comment on above: Performed By: #### C BC #### [facility] [address] [place] [address] Dr. José Miguel Knight Erythrocyte distribution width (RBC) [Ratio] 12.7 % Normal 11.0-15.0 [facility] Comment on above: Performed By: #### C BC #### [facility] [address] [address] [address] José Miguel Knight Hematocrit (Bld) [Volume fraction] 44.0 % Normal 42.0-54.0 [facility] Comment on above: Performed By: #### C BC #### [facility] [address] [address] [address] José Miguel Knight Hemoglobin (Bld) [Mass/Vol] 15.0 g/dL Normal 14.0-18.0 [facility] Comment on above: Performed By: #### C BC #### [facility] [address] [place] [address] Dr. José Miguel Knight IG # 0.04 10e3/ul Critically high 0.00-0.03 [facility] Comment on above: Performed By: #### C BC #### [facility] [address] [place] [address] Dr. José Miguel Knight IG % 0.6 % Critically high 0.0-0.5 [facility] Comment on above: Performed By: #### C BC #### [facility] [address] [place] [address] Dr. José Miguel Knight LYMPH # 1.6 103/ul Normal 1.2-3.8 [facility] Comment on above: Performed By: #### C BC #### [facility] [address] [place] [address] Dr. José Miguel Knight Lymphocytes/100 WBC (Bld) 22.5 % Normal 20.5-60.0 [facility] Comment on above: Performed By: #### C BC #### [facility] [address] [address] [address] José Miguel Knight MANUAL DIFF REQ NO Normal [facility] Comment on above: Performed By: #### C BC #### [facility] [address] [place] [address] Dr. José Miguel Knight MCH (RBC) [Entitic mass] 30.4 pg Normal 25.9-34.0 [facility] Comment on above: Performed By: #### C BC #### [facility] [address] [address] [address] José Miguel Knight MCHC (RBC) [Mass/Vol] 34.1 g/dL Normal 29.9-35.2 [facility] Comment on above: Performed By: #### C BC #### [facility] [address] [place] [address] Dr. José Miguel Knight MCV (RBC) [Entitic vol] 89.2 fL Normal 80.0-94.0 [facility] Comment on above: Performed By: #### C BC #### [facility] [address] [place] [address] Dr. José Miguel Knight MONO # 0.5 103/ul Normal 0.3-0.8 [facility] Comment on above: Performed By: #### C BC #### [facility] [address] [place] [address] Dr. José Miguel Knight Monocytes/100 WBC (Bld) 7.0 % Normal 1.7-12.0 [facility] Comment on above: Performed By: #### C BC #### [facility] [address] [place] [address] Dr. José Miguel Knight NEUT # 4.7 103/ul Normal 1.4-6.5 [facility] Comment on above: Performed By: #### C BC #### [facility] [address] [place] [address] Dr. José Miguel Knight Neutrophils/100 WBC (Bld) 68.4 % Normal 43.0-75.0 [facility] Comment on above: Performed By: #### C BC #### [facility] [address] [place] [address] Dr. José Miguel Knight Platelet mean volume (Bld) [Entitic vol] 10.8 fL Normal 9.5-13.5 [facility] Comment on above: Performed By: #### C BC #### [facility] [address] [place] [address] Dr. José Miguel Knight PLT 223 103/ul Normal 150-450 [facility] Comment on above: Performed By: #### C BC #### [facility] [address] [address] [address] José Miguel Knight RBC 4.93 106/ul Normal 4.70-6.10 [facility] Comment on above: Performed By: #### C BC #### [facility] [address] [address] [address] José Miguel Knight WBC 6.9 103/ul Normal 4.0-11.0 [facility] Comment on above: Performed By: #### C BC #### [facility] [address] [place] [address] Dr. José Miguel Knight GLYCOHEMOGLOBIN A1Con 2020 ADA RECOMMENDATION ADA THERAPEUTIC TARGET 6.0 - 7.0 ACTION SUGGESTED > 7.0 Normal [facility] Comment on above: Performed By: #### A 1C #### [facility] [address] [place] [address] Dr. José Miguel Knight Glucose [Mass/Vol] 217 mg/dL Normal [facility] Comment on above: Performed By: #### A 1C #### [facility] [address] [place] [address] Dr. José Miguel Knight HbA1c (Bld) [Mass fraction] 9.2 % Critically high <=6.0 [facility] Comment on above: Performed By: #### A 1C #### [facility] [address] [place] [address] Dr. José Miguel Knight LIPID PROFILEon 02-02-2021 CHOL-HDL RATIO NORM SEE BELOW Normal [facility] Comment on above: Result Comment: 3.3 - 4.4 LOW RISK 4.4 - 7.1 AVERAGE RISK 7.1 - 11.0 MODERATE RISK >11.0 HIGH RISK Performed By: #### T SH, LIPID, CMP #### [facility] [address] [place] [address] Dr. José Miguel Knight Cholesterol [Mass/Vol] 121 mg/dL Normal <=200 [facility] Comment on above: Performed By: #### T SH, LIPID, CMP #### [facility] [address] [place] [address] Dr. José Miguel Knight Cholesterol in HDL [Mass/Vol] 37 mg/dL Normal [facility] Comment on above: Performed By: #### T SH, LIPID, CMP #### [facility] [address] [address] [address] José Miguel Knight Cholesterol in LDL [Mass/Vol] 46.4 mg/dL Normal [facility] Comment on above: Performed By: #### T SH, LIPID, CMP #### [facility] [address] [place] [address] Dr. José Miguel Knight Cholesterol.total/Cho lesterol in HDL [Mass ratio] 3.3 {ratio} Normal [facility] Comment on above: Performed By: #### T SH, LIPID, CMP #### [facility] [address] [place] [address] Dr. José Miguel Knight HDL NORMAL > or = 60 mg/dl - LOW CARDIOVASCULAR RISK <40 mg/dl - HIGH CARDIOVASCULAR RISK Normal [facility] Comment on above: Performed By: #### T SH, LIPID, CMP #### [facility] [address] [place] [address] Dr. José Miguel Knight LDL CALC NORMAL SEE BELOW Normal [facility] Comment on above: Result Comment: <100 mg/dl OPTIMAL 100 - 129 mg/dl NEAR OR ABOVE OPTIMAL 130 - 159 mg/dl BORDERLINE HIGH 160 - 189 mg/dl HIGH >190 mg/dl VERY HIGH Performed By: #### T SH, LIPID, CMP #### [facility] [address] [place] [address] Dr. José Miguel Knight Triglyceride [Mass/Vol] 188 mg/dL Critically high <=150 [facility] Comment on above: Performed By: #### T SH, LIPID, CMP #### [facility] [address] [place] [address] Dr. José Miguel Knight VLDL CALC 37.6 mg/dL Normal [facility] Comment on above: Performed By: #### T SH, LIPID, CMP #### [facility] [address] [place] [address] Dr. José Miguel Knight MICROALBUMIN, RAND URon 11-1 mALB 1.2 mg/L Normal <=30.0 [facility] Comment on above: Performed By: #### M ALBR #### [facility] [address] [address] [address] José Miguel Knight PROF 14(COMP METB)on 021 Albumin [Mass/Vol] 3.8 g/dL Normal 3.5-5.0 [facility] Comment on above: Performed By: #### T SH, LIPID, CMP #### [facility] [address] [address] [address] José Miguel Knight Albumin/Globulin [Mass ratio] 1.1 {ratio} Normal [facility] Comment on above: Performed By: #### T SH, LIPID, CMP #### [facility] [address] [place] [address] Dr. José Miguel Knight ALP [Catalytic activity/Vol] 92 U/L Normal 38-126 [facility] Comment on above: Performed By: #### T SH, LIPID, CMP #### [facility] [address] [place] [address] Dr. José Miguel Knight ALT [Catalytic activity/Vol] 46 U/L Normal 21-72 [facility] Comment on above: Performed By: #### T SH, LIPID, CMP #### [facility] [address] [place] [address] Dr. José Miguel Knight Anion gap [Moles/Vol] 12.8 mmol/L Normal [facility] Comment on above: Performed By: #### T SH, LIPID, CMP #### [facility] [address] [place] [address] Dr. José Miguel Knight AST [Catalytic activity/Vol] 22 U/L Normal 17-59 [facility] Comment on above: Performed By: #### T SH, LIPID, CMP #### [facility] [address] [place] [address] Dr. José Miguel Knight Bilirubin [Mass/Vol] 0.5 mg/dL Normal 0.2-1.3 [facility] Comment on above: Performed By: #### T SH, LIPID, CMP #### [facility] [address] [place] [address] Dr. José Miguel Knight Calcium [Mass/Vol] 9.3 mg/dL Normal 8.4-10.2 [facility] Comment on above: Performed By: #### T SH, LIPID, CMP #### [facility] [address] [place] [address] Dr. José Miguel Knight Chloride [Moles/Vol] 103 mmol/L Normal 98-107 [facility] Comment on above: Performed By: #### T SH, LIPID, CMP #### [facility] [address] [place] [address] Dr. José Miguel Knight CO2 [Moles/Vol] 27.6 mmol/L Normal 22.0-30.0 [facility] Comment on above: Performed By: #### T ERICA, LIPID, CMP #### [facility] [address] [place] [address] Dr. José Miguel Knight Creatinine [Mass/Vol] 0.76 mg/dL Normal 0.66-1.25 [facility] Comment on above: Performed By: #### T ERICA, LIPID, CMP #### [facility] [address] [place] [address] Dr. José Miguel Knight EGFR-AF ANDORRAN >60 Normal >=60 [facility] Comment on above: Performed By: #### T ERICA, LIPID, CMP #### [facility] [address] [place] [address] Dr. José Miguel Knight EGFR-NON AF ANDORRAN >60 Normal >=60 [facility] Comment on above: Performed By: #### T SH, LIPID, CMP #### [facility] [address] [place] [address] Dr. José Miguel Knight Globulin (S) [Mass/Vol] 3.4 g/dL Normal [facility] Comment on above: Performed By: #### T SH, LIPID, CMP #### [facility] [address] [place] [address] Dr. José Miguel Knight Glucose [Mass/Vol] 253 mg/dL Critically high 74-106 [facility] Comment on above: Performed By: #### T SH, LIPID, CMP #### [facility] [address] [place] [address] Dr. José Miguel Knight Potassium [Moles/Vol] 4.4 mmol/L Normal 3.4-5.0 [facility] Comment on above: Performed By: #### T ERICA LIPID, CMP #### [facility] [address] [place] [address] Dr. José Miguel Knight Protein [Mass/Vol] 7.2 g/dL Normal 6.1-8.2 [facility] Comment on above: Performed By: #### T ERICA LIPID, CMP #### [facility] [address] [place] [address] Dr. José Miguel Knight Sodium [Moles/Vol] 139 mmol/L Normal 137-145 [facility] Comment on above: Performed By: #### T ERICA LIPID, CMP #### [facility] [address] [place] [address] Dr. José Miguel Knight Urea nitrogen [Mass/Vol] 16.0 mg/dL Normal 9.0-20.0 [facility] Comment on above: Performed By: #### T ERICA LIPID, CMP #### [facility] [address] [place] [address] Dr. José Miguel Knight Urea nitrogen/Creatinine [Mass ratio] 21.1 mg/mg Normal [facility] Comment on above: Performed By: #### T ERICA LIPID, CMP #### [facility] [address] [place] [address] Dr. José Miguel Knight TSHon 02-02-2021 TSH 5.529 uIU/mL Critically high 0.470-4.680 [facility] Comment on above: Performed By: #### T ERICA LIPID, CMP #### [facility] [address] [place] [address] Dr. José Miguel Knight TSH RANGE SEE BELOW Normal [facility] Comment on above: Result Comment: <0.3 4 UIU/ml HYPERTHYROID 0.34-5.60 UIU/ml EUTHYROID >5.60 UIU/ml HYPOTHYROID Performed By: #### T ERICA LIPID, CMP #### [facility] [address] [place] [address] Dr. José Miguel Knight Encounters Encounter Date Encounter Type Care Provider Facility Start: 12-29-2023 End: 01-02-2024 Refill Joana Roman [facility] Comment on above: Type 2 diabetes ne itus without complication, with long-term current use of insulin ([facility]) (Primary Dx) Start: 11-21-2023 End: 11-21-2023 ambulatory ANISHA JACKSONPATRICK Not Available Start: 06-21-2023 End: 06-21-2023 ambulatory SHAIKH CHIKI Not Available Start: 06-14-2023 End: 06-14-2023 ambulatory ZEFERINO OROZCO Not Available Start: 05-29-2023 End: 05-29-2023 ambulatory ZEFERINO RUIZHER Not Available Start: 05-09-2023 End: 05-09-2023 ambulatory ZEFERINO RUIZHER Not Available Start: 07-21-2021 End: 07-22-2021 ambulatory SHAIKH CHIKI Facility:[facility] Start: 02-02-2021 End: 02-03-2021 ambulatory SHAIKH SHAWNIAMatt Facility: Plan of Treatment Date Care Activity Detail Author Start: 02-23-2026 Screening for malign ant neoplasm of colon [facility] Start: 12-06-2025 Glaucoma screening Diabetes: R etinopathy Screening [facility] Start: 07-26-2024 Urine screening for protein Diabetes: Urine Protein Screening [facility] Start: 01-19-2024 Medicare Annual Well ness (AWV) Medicare Annual Wellness (AWV) [facility] Start: 11-19-2023 Influenza vaccination Influenza Vacc ine (#1) [facility] Start: 04-29-2023 Hemoglobin A1c measurement Diabetes: Hemoglobin A1C [facility] Start: 1975 Screening for malign ant neoplasm of colon [facility] Payers Date Payer Category Payer Medicare (Managed Care) TANG GIRALDO [id number] 1974 Unknown [id number] 1974 Unknown [id number] 1974 Unknown [id number] .[id number] 1974 Unknown [id number] .[id number] 1974 Unknown [id number] .[id number] 1974 Unknown [id number] .[id number] 1974 Unknown [id number] 1959 Unknown [id number] Social History Date Type Detail Facility Start: 06-21-2023 Tobacco smoking stat [facility] Never smoked tobacco [facility] Start: 06-21-2023 Tobacco use and exposure Smokeless tobacco non-user [facility] Start: 11-21-2023 Alcoholic beverage intake Ex-drinker (finding) [facility] Start: 11-21-2023 History of Social function [facility] Start: 11-21-2023 Tobacco use panel [facility] Start: 1975 Sex assigned at Not on file [facility] NEGATED: Highlighted rowStart: NINF History of tobacco use Passive smoker [facility] Medical Equipment Procedure Code Equipment Code Equipment Origin al Text Equipment Identifier Dates 1 each by Other route in the morning and 1 each in the evening and 1 each before bedtime. [id number] Start: 11-21-2023 End: 03-05-2027 Evaluation note Note Date & Type Note Facility Evaluation note Diagnosis Primary hypertension (CMS/HCC)- Primary Unspecified essential hypertension Other hyperlipidemia (CMS/HCC) Type 2 diabetes mellitus without complication, with long-term current use of insulin (CMS/HCC) Other specified hypothyroidism (CMS/HCC) Positive colorectal cancer screening using Cologuard test Type 2 diabetes mellitus without complication, with long-term current use of insulin (CMS/HCC)- Primary Cerumen debris on tympanic membrane, bilateral- Primary Other hyperlipidemia (CMS/HCC) Type 2 diabetes mellitus without complication, with long-term current use of insulin (CMS/HCC) Other specified hypothyroidism (CMS/HCC) Primary hypertension (CMS/HCC) Unspecified essential hypertension Other chronic pain Psychophysiological insomnia Persistent disorder of initiating or maintaining sleep Type 2 diabetes mellitus without complication, with long-term current use of insulin (CMS/HCC)- Primary documented in this encounter [facility] Summary Purpose Family History No Family History Records FoundNo Family History Records Found Advance Directives No Advanced Directives Records FoundNo Advanced Directives Records Found Additional Source Comments (unrecognized sect ion and content) No Status Records FoundNo Status Records Found INFORMATION SOURCE (unrecogn ized section and content) DATE CREATED AUTHOR 07/24/2021 [facility] DATE CREATED AUTHOR AUTHOR'S ORGANIZ ATION 11/22/2023 [facility] EPIC Reason for Visit (unrecogniz ed section and content) Reason Onset Date Comments Med Refill 12/29/2023 Care Teams (unrecognized sec tion and content) Optometric Technologist Relationship Specialty Start Date End Date Shaikh Monet MD [address] [place] [id number] PCP - Tang HANNAH 09/18/23 Darion Blankenship MD [address] [place] [phone] PCP - General Family Medicine 11/07/23 Neil Peng PA [address] [place] [phone] Referring Physician 05/09/23 Anisha Orozco NP [address] [place] [address] [place] [address] Nurse Practitioner Family Medicine 11/07/23 FOR RECORDS PERTAINING TO PATIENTS WHO ARE [...] BE BASED ON THE PRIMARY CLINICAL RECORDS. [facility] [employer] provides no warranty or guarantee of the accuracy or completeness of information in this document.
== END 2024-01-16 15:51 | disposition home or self-care (01) ==
LOC: WC 15:50
PROVIDERS: PCP Internal Medicine; Visit Provider Physician Assistant
DX: E11.621 Type 2 diabetes mellitus with foot ulcer (principal); L97.422 Non-pressure chronic ulcer of left heel and midfoot with fat layer exposed
CPT/HCPCS: 11043

== ENCOUNTER 2024-01-30 13:43 | Outpatient (OUT) | payer MEDICARE, SELFPAY ==
--- OUTSIDE RECORDS SUMMARY | 2024-01-30 14:08 | XMS_ITS | CCD ---
Author Organization [facility] Care Team Providers Care Bootmaker Name Role Phone MIKKI MONETIKH Admitting Unavailable FAWWAD, DELAROSA Attending Unavailable FAWWAD, DELAROSA Primary Care Unavailable FAWWAD, DELAROSA Consulting Unavailable FAWWAD, DELAROSA Admitting Unavailable FAWWAD, DELAROSA Attending Unavailable FAWWAD, DELAROSA Primary Care Unavailable FAWWAD, DELAROSA Consulting Unavailable ZEFERINO OROZCO Attending Unavailable NEIL PENG Referring Unavailable ERNESTO, ZEFERINO Fermin Attending Unavailable ZEFERINO OROZCO Attending Unavailable CHIKI, Attending Unavailable ANISHA OROZCO Attending UnavailNeil Combs Unavailable [phone] Chiki LUU, Unavailable Anisha Orozco NP Unavailable Darion Blankenship MD Primary Care Provider Medications Current Medications Medication Drug Class(es) Dates [...] complication, with long-term current use of insulin ([facility]/HCC) Take 1 tablet (100 mg) by mouth [...] 7.0 Performed By: #### A 1C #### [facility] [address] [place] [address] Dr. José Miguel Knight Glucose [Mass/Vol] 260 mg/dL Normal [facility] Comment on above: Performed By: #### A 1C #### [facility] [address] [place] [address] Dr. José Miguel Knight HbA1c (Bld) [Mass fraction] 10.7 % Critically high 4.5-6.2 [facility] Comment on above: Performed By: #### A 1C #### [facility] [address] [place] [address] Dr. José Miguel Knight CBC AUTO DIFFon 02-02-2021 BASO # 0.0 103/ul Normal 0.0-0.1 [facility] Comment on above: Performed By: #### C BC #### [facility] [address] [place] [address] Dr. José Miguel Knight Basophils/100 WBC (Bld) 0.6 % Normal 0.2-2.0 [facility] Comment on above: Performed By: #### C BC #### [facility] [address] [place] [address] Dr. José Miguel Knight EO # 0.1 103/ul Normal 0.0-0.7 [facility] Comment on above: Performed By: #### C BC #### [facility] [address] [place] [address] Dr. José Miguel Knight Eosinophils/100 WBC (Bld) 0.9 % Normal 0.9-7.0 [facility] Comment on above: Performed By: #### C BC #### [facility] [address] [place] [address] Dr. José Miguel Knight Erythrocyte distribution width (RBC) [Ratio] 12.7 % Normal 11.0-15.0 [facility] Comment on above: Performed By: #### C BC #### [facility] [address] [address] [address] José Miguel Knight Hematocrit (Bld) [Volume fraction] 44.0 % Normal 42.0-54.0 [facility] Comment on above: Performed By: #### C BC #### [facility] [address] [address] [address] José Miguel Knight Hemoglobin (Bld) [Mass/Vol] 15.0 g/dL Normal 14.0-18.0 [facility] Comment on above: Performed By: #### C BC #### [facility] [address] [place] [address] Dr. José Miguel Knight IG # 0.04 10e3/ul Critically high 0.00-0.03 [facility] Comment on above: Performed By: #### C BC #### [facility] [address] [place] [address] Dr. José Miguel Knight IG % 0.6 % Critically high 0.0-0.5 [facility] Comment on above: Performed By: #### C BC #### [facility] [address] [place] [address] Dr. José Miguel Knight LYMPH # 1.6 103/ul Normal 1.2-3.8 [facility] Comment on above: Performed By: #### C BC #### [facility] [address] [place] [address] Dr. José Miguel Knight Lymphocytes/100 WBC (Bld) 22.5 % Normal 20.5-60.0 [facility] Comment on above: Performed By: #### C BC #### [facility] [address] [address] [address] José Miguel Knight MANUAL DIFF REQ NO Normal [facility] Comment on above: Performed By: #### C BC #### [facility] [address] [place] [address] Dr. José Miguel Knight MCH (RBC) [Entitic mass] 30.4 pg Normal 25.9-34.0 [facility] Comment on above: Performed By: #### C BC #### [facility] [address] [address] [address] José Miguel Knight MCHC (RBC) [Mass/Vol] 34.1 g/dL Normal 29.9-35.2 [facility] Comment on above: Performed By: #### C BC #### [facility] [address] [place] [address] Dr. José Miguel Knight MCV (RBC) [Entitic vol] 89.2 fL Normal 80.0-94.0 [facility] Comment on above: Performed By: #### C BC #### [facility] [address] [place] [address] Dr. José Miguel Knight MONO # 0.5 103/ul Normal 0.3-0.8 [facility] Comment on above: Performed By: #### C BC #### [facility] [address] [place] [address] Dr. José Miguel Knight Monocytes/100 WBC (Bld) 7.0 % Normal 1.7-12.0 [facility] Comment on above: Performed By: #### C BC #### [facility] [address] [place] [address] Dr. José Miguel Knight NEUT # 4.7 103/ul Normal 1.4-6.5 [facility] Comment on above: Performed By: #### C BC #### [facility] [address] [place] [address] Dr. José Miguel Knight Neutrophils/100 WBC (Bld) 68.4 % Normal 43.0-75.0 [facility] Comment on above: Performed By: #### C BC #### [facility] [address] [place] [address] Dr. José Miguel Knight Platelet mean volume (Bld) [Entitic vol] 10.8 fL Normal 9.5-13.5 [facility] Comment on above: Performed By: #### C BC #### [facility] [address] [place] [address] Dr. José Miguel Knight PLT 223 103/ul Normal 150-450 [facility] Comment on above: Performed By: #### C BC #### [facility] [address] [address] [address] José Miguel Knight RBC 4.93 106/ul Normal 4.70-6.10 [facility] Comment on above: Performed By: #### C BC #### [facility] [address] [address] [address] José Miguel Knight WBC 6.9 103/ul Normal 4.0-11.0 [facility] Comment on above: Performed By: #### C BC #### [facility] [address] [place] [address] Dr. José Miguel Knight GLYCOHEMOGLOBIN A1Con 2020 ADA RECOMMENDATION ADA THERAPEUTIC TARGET 6.0 - 7.0 ACTION SUGGESTED > 7.0 Normal [facility] Comment on above: Performed By: #### A 1C #### [facility] [address] [place] [address] Dr. José Miguel Knight Glucose [Mass/Vol] 217 mg/dL Normal [facility] Comment on above: Performed By: #### A 1C #### [facility] [address] [place] [address] Dr. José Miguel Knight HbA1c (Bld) [Mass fraction] 9.2 % Critically high <=6.0 [facility] Comment on above: Performed By: #### A 1C #### [facility] [address] [place] [address] Dr. José Miguel Knight LIPID PROFILEon 02-02-2021 CHOL-HDL RATIO NORM SEE BELOW Normal [facility] Comment on above: Result Comment: 3.3 - 4.4 LOW RISK 4.4 - 7.1 AVERAGE RISK 7.1 - 11.0 MODERATE RISK >11.0 HIGH RISK Performed By: #### T SH, LIPID, CMP #### [facility] [address] [place] [address] Dr. José Miguel Knight Cholesterol [Mass/Vol] 121 mg/dL Normal <=200 [facility] Comment on above: Performed By: #### T SH, LIPID, CMP #### [facility] [address] [place] [address] Dr. José Miguel Knight Cholesterol in HDL [Mass/Vol] 37 mg/dL Normal [facility] Comment on above: Performed By: #### T SH, LIPID, CMP #### [facility] [address] [address] [address] José Miguel Knight Cholesterol in LDL [Mass/Vol] 46.4 mg/dL Normal [facility] Comment on above: Performed By: #### T SH, LIPID, CMP #### [facility] [address] [place] [address] Dr. José Miguel Knight Cholesterol.total/Cho lesterol in HDL [Mass ratio] 3.3 {ratio} Normal [facility] Comment on above: Performed By: #### T SH, LIPID, CMP #### [facility] [address] [place] [address] Dr. José Miguel Knight HDL NORMAL > or = 60 mg/dl - LOW CARDIOVASCULAR RISK <40 mg/dl - HIGH CARDIOVASCULAR RISK Normal [facility] Comment on above: Performed By: #### T SH, LIPID, CMP #### [facility] [address] [place] [address] Dr. José Miguel Knight LDL CALC NORMAL SEE BELOW Normal [facility] Comment on above: Result Comment: <100 mg/dl OPTIMAL 100 - 129 mg/dl NEAR OR ABOVE OPTIMAL 130 - 159 mg/dl BORDERLINE HIGH 160 - 189 mg/dl HIGH >190 mg/dl VERY HIGH Performed By: #### T SH, LIPID, CMP #### [facility] [address] [place] [address] Dr. José Miguel Knight Triglyceride [Mass/Vol] 188 mg/dL Critically high <=150 [facility] Comment on above: Performed By: #### T SH, LIPID, CMP #### [facility] [address] [place] [address] Dr. José Miguel Knight VLDL CALC 37.6 mg/dL Normal [facility] Comment on above: Performed By: #### T SH, LIPID, CMP #### [facility] [address] [place] [address] Dr. José Miguel Knight MICROALBUMIN, RAND URon 11-1 mALB 1.2 mg/L Normal <=30.0 [facility] Comment on above: Performed By: #### M ALBR #### [facility] [address] [address] [address] José Miguel Knight PROF 14(COMP METB)on 021 Albumin [Mass/Vol] 3.8 g/dL Normal 3.5-5.0 [facility] Comment on above: Performed By: #### T SH, LIPID, CMP #### [facility] [address] [address] [address] José Miguel Knight Albumin/Globulin [Mass ratio] 1.1 {ratio} Normal [facility] Comment on above: Performed By: #### T SH, LIPID, CMP #### [facility] [address] [place] [address] Dr. José Miguel Knight ALP [Catalytic activity/Vol] 92 U/L Normal 38-126 [facility] Comment on above: Performed By: #### T SH, LIPID, CMP #### [facility] [address] [place] [address] Dr. José Miguel Knight ALT [Catalytic activity/Vol] 46 U/L Normal 21-72 [facility] Comment on above: Performed By: #### T SH, LIPID, CMP #### [facility] [address] [place] [address] Dr. José Miguel Knight Anion gap [Moles/Vol] 12.8 mmol/L Normal [facility] Comment on above: Performed By: #### T SH, LIPID, CMP #### [facility] [address] [place] [address] Dr. José Miguel Knight AST [Catalytic activity/Vol] 22 U/L Normal 17-59 [facility] Comment on above: Performed By: #### T SH, LIPID, CMP #### [facility] [address] [place] [address] Dr. José Miguel Knight Bilirubin [Mass/Vol] 0.5 mg/dL Normal 0.2-1.3 [facility] Comment on above: Performed By: #### T SH, LIPID, CMP #### [facility] [address] [place] [address] Dr. José Miguel Knight Calcium [Mass/Vol] 9.3 mg/dL Normal 8.4-10.2 [facility] Comment on above: Performed By: #### T SH, LIPID, CMP #### [facility] [address] [place] [address] Dr. José Miguel Knight Chloride [Moles/Vol] 103 mmol/L Normal 98-107 [facility] Comment on above: Performed By: #### T SH, LIPID, CMP #### [facility] [address] [place] [address] Dr. José Miguel Knight CO2 [Moles/Vol] 27.6 mmol/L Normal 22.0-30.0 [facility] Comment on above: Performed By: #### T ERICA, LIPID, CMP #### [facility] [address] [place] [address] Dr. José Miguel Knight Creatinine [Mass/Vol] 0.76 mg/dL Normal 0.66-1.25 [facility] Comment on above: Performed By: #### T ERCIA, LIPID, CMP #### [facility] [address] [place] [address] Dr. José Miguel nKight EGFR-AF NEPALESE >60 Normal >=60 [facility] Comment on above: Performed By: #### T ERICA, LIPID, CMP #### [facility] [address] [place] [address] Dr. José Miguel Knight EGFR-NON AF NEPALESE >60 Normal >=60 [facility] Comment on above: Performed By: #### T SH, LIPID, CMP #### [facility] [address] [place] [address] Dr. José Miguel Knight Globulin (S) [Mass/Vol] 3.4 g/dL Normal [facility] Comment on above: Performed By: #### T SH, LIPID, CMP #### [facility] [address] [place] [address] Dr. José Miguel Knight Glucose [Mass/Vol] 253 mg/dL Critically high 74-106 [facility] Comment on above: Performed By: #### T SH, LIPID, CMP #### [facility] [address] [place] [address] Dr. José Miguel Knight Potassium [Moles/Vol] 4.4 mmol/L Normal 3.4-5.0 [facility] Comment on above: Performed By: #### T ERICA LIPID, CMP #### [facility] [address] [place] [address] Dr. José Miguel Knight Protein [Mass/Vol] 7.2 g/dL Normal 6.1-8.2 [facility] Comment on above: Performed By: #### T ERICA LIPID, CMP #### [facility] [address] [place] [address] Dr. José Miguel Knight Sodium [Moles/Vol] 139 mmol/L Normal 137-145 [facility] Comment on above: Performed By: #### T ERICA LIPID, CMP #### [facility] [address] [place] [address] Dr. José Miguel Knight Urea nitrogen [Mass/Vol] 16.0 mg/dL Normal 9.0-20.0 [facility] Comment on above: Performed By: #### T ERIAC LIPID, CMP #### [facility] [address] [place] [address] Dr. José Miguel Knight Urea nitrogen/Creatinine [Mass ratio] 21.1 mg/mg Normal [facility] Comment on above: Performed By: #### T ERICA LIPID, CMP #### [facility] [address] [place] [address] Dr. José Miguel Knight TSHon 02-02-2021 TSH 5.529 uIU/mL Critically high 0.470-4.680 [facility] Comment on above: Performed By: #### T ERICA LIPID, CMP #### [facility] [address] [place] [address] Dr. José Miguel Knight TSH RANGE SEE BELOW Normal [facility] Comment on above: Result Comment: <0.3 4 UIU/ml HYPERTHYROID 0.34-5.60 UIU/ml EUTHYROID >5.60 UIU/ml HYPOTHYROID Performed By: #### T ERICA LIPID, CMP #### [facility] [address] [place] [address] Dr. José Miguel Knight Encounters Encounter Date Encounter Type Care Provider Facility Start: 12-29-2023 End: 01-02-2024 Refill Joana Roman [facility] Comment on above: Type 2 diabetes ne itus without complication, with long-term current use of insulin ([facility]) (Primary Dx) Start: 11-21-2023 End: 11-21-2023 ambulatory ANISHA JACKSONPATRICK Not Available Start: 06-21-2023 End: 06-21-2023 ambulatory SHAIKH CHIKI Not Available Start: 06-14-2023 End: 06-14-2023 ambulatory ZEFERINO OROZCO Not Available Start: 05-29-2023 End: 05-29-2023 ambulatory ZEFERINO RUIZHER Not Available Start: 05-09-2023 End: 05-09-2023 ambulatory ZEFERINO RUIZHER Not Available Start: 07-21-2021 End: 07-22-2021 ambulatory SHAIKH CHIKI Facility:[facility] Start: 02-02-2021 End: 02-03-2021 ambulatory SHAIKH SHAWNMDMatt Facility: Plan of Treatment Date Care Activity [...] Category Payer Medicare (Managed Care) TANG GIRALDO [id number] 1974 Unknown [id number] .[id number] 1974 Unknown [id number] .[id number] 1974 Unknown [id number] .2.1259 1974 Unknown [id number] .2.1259 1974 Unknown [id number] .2.1259 1974 Unknown [id number] .2.1259 1974 Unknown [id number] .2.1259 1959 Unknown [id number] Social History Date Type Detail Facility Start: 06-21-[address] [facility] Never smoked tobacco [facility] Start: 06-21-2023 Tobacco use and exposure [...] the evening and 1 each before bedtime. [id number] Start: 11-21-2023 End: 03-05-2027 Evaluation note Note [...] DATE CREATED AUTHOR AUTHOR'S ORGANIZ ATION 11/22/2023 [facility] EPIC Reason for Visit (unrecogniz ed section and content) Reason Onset Date Comments Med Refill 12/29/2023 Care Teams (unrecognized sec tion and content) Bootmaker Relationship Specialty Start Date End Date Shaikh Monet MD [address] [place] [phone] PCP - Tang HANNAH 09/18/23 Darion Blankenship MD [address] [place] [phone] PCP - General Family Medicine 11/07/23 Neil Peng PA [address] [place] [phone] Referring Physician 05/09/23 Anisha Orozco NP [address] [place] [address] [place] [address] Nurse Practitioner Family Medicine 11/07/23 FOR RECORDS [...] BE BASED ON THE PRIMARY CLINICAL RECORDS. [facility] [employer] provides no warranty or guarantee of the accuracy or completeness of information in this document.
== END 2024-01-30 13:44 | disposition home or self-care (01) ==
LOC: WC 13:44
PROVIDERS: PCP Internal Medicine; Visit Provider Physician Assistant
DX: E11.621 Type 2 diabetes mellitus with foot ulcer (principal); L97.422 Non-pressure chronic ulcer of left heel and midfoot with fat layer exposed
CPT/HCPCS: 11043

== ENCOUNTER 2024-02-13 10:20 | Outpatient (OUT) | payer MEDICARE, SELFPAY ==
--- OUTSIDE RECORDS SUMMARY | 2024-02-13 10:43 | XMS_ITS | CCD ---
Author Organization [facility] Care Team Providers Care Nutritionist Public Health Name Role Phone MIKKI MONETIKH Admitting Unavailable FAWWAD, DELAROSA Attending Unavailable FAWWAD, DELAROSA Primary Care Unavailable FAWWAD, DELAROSA Consulting Unavailable FAWWAD, DELAROSA Admitting Unavailable FAWWAD, DELAROSA Attending Unavailable FAWWAD, DELAROSA Primary Care Unavailable FAWWAD, DELAROSA Consulting Unavailable ZEFERINO OROZCO Attending Unavailable NEIL PENG Referring Unavailable ERNESTO, ZEFERINO Fermin Attending Unavailable ZEFERINO OROZCO Attending Unavailable CHIKI, Attending Unavailable ANISHA OROZCO Attending UnavailNeil Combs Unavailable Chiki LUU, Unavailable Anisha Orozco NP Unavailable [...] complication, with long-term current use of insulin ([facility]/HCC) Take 1 tablet (100 mg) by mouth [...] A1Con 2021 ADA RECOMMENDATION SEE BELOW Normal [facility] Comment on above: Result Comment: ADA RECOMMENDED LIMIT 4.0 - 6.0 ADA THERAPEUTIC TARGET < 7.0 ACTION SUGGESTED > 7.0 Performed By: #### A 1C #### [facility] [address] [place] [address] Dr. José Miguel Knight Glucose [Mass/Vol] 260 mg/dL Normal [facility] Comment on above: Performed By: #### A 1C #### [facility] [address] [place] [address] Dr. José Miguel Knight HbA1c (Bld) [Mass fraction] 10.7 % Critically high 4.5-6.2 [facility] Comment on above: Performed By: #### A 1C #### [facility] [address] [place] [address] Dr. José Miguel Knight CBC AUTO DIFFon 02-02-2021 BASO # 0.0 103/ul Normal 0.0-0.1 [facility] Comment on above: Performed By: #### C BC #### [facility] [address] [place] [address] Dr. José Miguel Knight Basophils/100 WBC (Bld) 0.6 % Normal 0.2-2.0 [facility] Comment on above: Performed By: #### C BC #### [facility] [address] [place] [address] Dr. José Miguel Knight EO # 0.1 103/ul Normal 0.0-0.7 [facility] Comment on above: Performed By: #### C BC #### [facility] [address] [place] [address] Dr. José Miguel Knight Eosinophils/100 WBC (Bld) 0.9 % Normal 0.9-7.0 [facility] Comment on above: Performed By: #### C BC #### [facility] [address] [place] [address] Dr. José Miguel Knight Erythrocyte distribution width (RBC) [Ratio] 12.7 % Normal 11.0-15.0 [facility] Comment on above: Performed By: #### C BC #### [facility] [address] [address] [address] José Miguel Knight Hematocrit (Bld) [Volume fraction] 44.0 % Normal 42.0-54.0 [facility] Comment on above: Performed By: #### C BC #### [facility] [address] [address] [address] José Miguel Kngiht Hemoglobin (Bld) [Mass/Vol] 15.0 g/dL Normal 14.0-18.0 [facility] Comment on above: Performed By: #### C BC #### [facility] [address] [place] [address] Dr. José Miguel Knight IG # 0.04 10e3/ul Critically high 0.00-0.03 [facility] Comment on above: Performed By: #### C BC #### [facility] [address] [place] [address] Dr. José Miguel Knight IG % 0.6 % Critically high 0.0-0.5 [facility] Comment on above: Performed By: #### C BC #### [facility] [address] [place] [address] Dr. José Miguel Knight LYMPH # 1.6 103/ul Normal 1.2-3.8 [facility] Comment on above: Performed By: #### C BC #### [facility] [address] [place] [address] Dr. José Miguel Knight Lymphocytes/100 WBC (Bld) 22.5 % Normal 20.5-60.0 [facility] Comment on above: Performed By: #### C BC #### [facility] [address] [address] [address] José Miguel Knight MANUAL DIFF REQ NO Normal [facility] Comment on above: Performed By: #### C BC #### [facility] [address] [place] [address] Dr. José Miguel Knight MCH (RBC) [Entitic mass] 30.4 pg Normal 25.9-34.0 [facility] Comment on above: Performed By: #### C BC #### [facility] [address] [address] [address] José Miguel Knight MCHC (RBC) [Mass/Vol] 34.1 g/dL Normal 29.9-35.2 [facility] Comment on above: Performed By: #### C BC #### [facility] [address] [place] [address] Dr. José Miguel Knight MCV (RBC) [Entitic vol] 89.2 fL Normal 80.0-94.0 [facility] Comment on above: Performed By: #### C BC #### [facility] [address] [place] [address] Dr. José Miguel Knight MONO # 0.5 103/ul Normal 0.3-0.8 [facility] Comment on above: Performed By: #### C BC #### [facility] [address] [place] [address] Dr. José Miguel Knight Monocytes/100 WBC (Bld) 7.0 % Normal 1.7-12.0 [facility] Comment on above: Performed By: #### C BC #### [facility] [address] [place] [address] Dr. José Miguel Knight NEUT # 4.7 103/ul Normal 1.4-6.5 [facility] Comment on above: Performed By: #### C BC #### [facility] [address] [place] [address] Dr. José Miguel Knight Neutrophils/100 WBC (Bld) 68.4 % Normal 43.0-75.0 [facility] Comment on above: Performed By: #### C BC #### [facility] [address] [place] [address] Dr. José Miguel Knight Platelet mean volume (Bld) [Entitic vol] 10.8 fL Normal 9.5-13.5 [facility] Comment on above: Performed By: #### C BC #### [facility] [address] [place] [address] Dr. José Miguel Knight PLT 223 103/ul Normal 150-450 [facility] Comment on above: Performed By: #### C BC #### [facility] [address] [address] [address] José Miguel Knight RBC 4.93 106/ul Normal 4.70-6.10 [facility] Comment on above: Performed By: #### C BC #### [facility] [address] [address] [address] José Miguel Knight WBC 6.9 103/ul Normal 4.0-11.0 [facility] Comment on above: Performed By: #### C BC #### [facility] [address] [place] [address] Dr. José Miguel Knight GLYCOHEMOGLOBIN A1Con 2020 ADA RECOMMENDATION ADA THERAPEUTIC TARGET 6.0 - 7.0 ACTION SUGGESTED > 7.0 Normal [facility] Comment on above: Performed By: #### A 1C #### [facility] [address] [place] [address] Dr. José Miguel Knight Glucose [Mass/Vol] 217 mg/dL Normal [facility] Comment on above: Performed By: #### A 1C #### [facility] [address] [place] [address] Dr. José Miguel Knight HbA1c (Bld) [Mass fraction] 9.2 % Critically high <=6.0 [facility] Comment on above: Performed By: #### A 1C #### [facility] [address] [place] [address] Dr. José Miguel Knight LIPID PROFILEon 02-02-2021 CHOL-HDL RATIO NORM SEE BELOW Normal [facility] Comment on above: Result Comment: 3.3 - 4.4 LOW RISK 4.4 - 7.1 AVERAGE RISK 7.1 - 11.0 MODERATE RISK >11.0 HIGH RISK Performed By: #### T SH, LIPID, CMP #### [facility] [address] [place] [address] Dr. José Miguel Knight Cholesterol [Mass/Vol] 121 mg/dL Normal <=200 [facility] Comment on above: Performed By: #### T SH, LIPID, CMP #### [facility] [address] [place] [address] Dr. José Miguel Knight Cholesterol in HDL [Mass/Vol] 37 mg/dL Normal [facility] Comment on above: Performed By: #### T SH, LIPID, CMP #### [facility] [address] [address] [address] José Miguel Knight Cholesterol in LDL [Mass/Vol] 46.4 mg/dL Normal [facility] Comment on above: Performed By: #### T SH, LIPID, CMP #### [facility] [address] [place] [address] Dr. José Miguel Knight Cholesterol.total/Cho lesterol in HDL [Mass ratio] 3.3 {ratio} Normal [facility] Comment on above: Performed By: #### T SH, LIPID, CMP #### [facility] [address] [place] [address] Dr. José Miguel Knight HDL NORMAL > or = 60 mg/dl - LOW CARDIOVASCULAR RISK <40 mg/dl - HIGH CARDIOVASCULAR RISK Normal [facility] Comment on above: Performed By: #### T SH, LIPID, CMP #### [facility] [address] [place] [address] Dr. José Miguel Knight LDL CALC NORMAL SEE BELOW Normal [facility] Comment on above: Result Comment: <100 mg/dl OPTIMAL 100 - 129 mg/dl NEAR OR ABOVE OPTIMAL 130 - 159 mg/dl BORDERLINE HIGH 160 - 189 mg/dl HIGH >190 mg/dl VERY HIGH Performed By: #### T SH, LIPID, CMP #### [facility] [address] [place] [address] Dr. José Miguel Knight Triglyceride [Mass/Vol] 188 mg/dL Critically high <=150 [facility] Comment on above: Performed By: #### T SH, LIPID, CMP #### [facility] [address] [place] [address] Dr. José Miguel Knight VLDL CALC 37.6 mg/dL Normal [facility] Comment on above: Performed By: #### T SH, LIPID, CMP #### [facility] [address] [place] [address] Dr. José Miguel Knight MICROALBUMIN, RAND URon 11-1 mALB 1.2 mg/L Normal <=30.0 [facility] Comment on above: Performed By: #### M ALBR #### [facility] [address] [address] [address] José Miguel Knight PROF 14(COMP METB)on 021 Albumin [Mass/Vol] 3.8 g/dL Normal 3.5-5.0 [facility] Comment on above: Performed By: #### T SH, LIPID, CMP #### [facility] [address] [address] [address] José Miguel Knight Albumin/Globulin [Mass ratio] 1.1 {ratio} Normal [facility] Comment on above: Performed By: #### T SH, LIPID, CMP #### [facility] [address] [place] [address] Dr. José Miguel Knight ALP [Catalytic activity/Vol] 92 U/L Normal 38-126 [facility] Comment on above: Performed By: #### T SH, LIPID, CMP #### [facility] [address] [place] [address] Dr. José Miguel Knight ALT [Catalytic activity/Vol] 46 U/L Normal 21-72 [facility] Comment on above: Performed By: #### T SH, LIPID, CMP #### [facility] [address] [place] [address] Dr. José Miguel Knight Anion gap [Moles/Vol] 12.8 mmol/L Normal [facility] Comment on above: Performed By: #### T SH, LIPID, CMP #### [facility] [address] [place] [address] Dr. José Miguel Knight AST [Catalytic activity/Vol] 22 U/L Normal 17-59 [facility] Comment on above: Performed By: #### T SH, LIPID, CMP #### [facility] [address] [place] [address] Dr. José Miguel Knight Bilirubin [Mass/Vol] 0.5 mg/dL Normal 0.2-1.3 [facility] Comment on above: Performed By: #### T SH, LIPID, CMP #### [facility] [address] [place] [address] Dr. José Miguel Knight Calcium [Mass/Vol] 9.3 mg/dL Normal 8.4-10.2 [facility] Comment on above: Performed By: #### T SH, LIPID, CMP #### [facility] [address] [place] [address] Dr. José Miguel Knight Chloride [Moles/Vol] 103 mmol/L Normal 98-107 [facility] Comment on above: Performed By: #### T SH, LIPID, CMP #### [facility] [address] [place] [address] Dr. José Miguel Knight CO2 [Moles/Vol] 27.6 mmol/L Normal 22.0-30.0 [facility] Comment on above: Performed By: #### T ERICA, LIPID, CMP #### [facility] [address] [place] [address] Dr. José Miguel Knight Creatinine [Mass/Vol] 0.76 mg/dL Normal 0.66-1.25 [facility] Comment on above: Performed By: #### T ERICA, LIPID, CMP #### [facility] [address] [place] [address] Dr. José Miguel Knight EGFR-AF DOMINICAN >60 Normal >=60 [facility] Comment on above: Performed By: #### T ERICA, LIPID, CMP #### [facility] [address] [place] [address] Dr. José Miguel Knight EGFR-NON AF DOMINICAN >60 Normal >=60 [facility] Comment on above: Performed By: #### T SH, LIPID, CMP #### [facility] [address] [place] [address] Dr. José Miguel Knight Globulin (S) [Mass/Vol] 3.4 g/dL Normal [facility] Comment on above: Performed By: #### T SH, LIPID, CMP #### [facility] [address] [place] [address] Dr. José Miguel Knight Glucose [Mass/Vol] 253 mg/dL Critically high 74-106 [facility] Comment on above: Performed By: #### T SH, LIPID, CMP #### [facility] [address] [place] [address] Dr. José Miguel Knight Potassium [Moles/Vol] 4.4 mmol/L Normal 3.4-5.0 [facility] Comment on above: Performed By: #### T ERICA LIPID, CMP #### [facility] [address] [place] [address] Dr. José Miguel Knight Protein [Mass/Vol] 7.2 g/dL Normal 6.1-8.2 [facility] Comment on above: Performed By: #### T ERICA LIPID, CMP #### [facility] [address] [place] [address] Dr. José Miguel Knight Sodium [Moles/Vol] 139 mmol/L Normal 137-145 [facility] Comment on above: Performed By: #### T ERICA LIPID, CMP #### [facility] [address] [place] [address] Dr. José Miguel Knight Urea nitrogen [Mass/Vol] 16.0 mg/dL Normal 9.0-20.0 [facility] Comment on above: Performed By: #### T ERICA LIPID, CMP #### [facility] [address] [place] [address] Dr. José Miguel Knight Urea nitrogen/Creatinine [Mass ratio] 21.1 mg/mg Normal [facility] Comment on above: Performed By: #### T ERICA LIPID, CMP #### [facility] [address] [place] [address] Dr. José Miguel Knight TSHon 02-02-2021 TSH 5.529 uIU/mL Critically high 0.470-4.680 [facility] Comment on above: Performed By: #### T ERICA LIPID, CMP #### [facility] [address] [place] [address] Dr. José Miguel Knight TSH RANGE SEE BELOW Normal [facility] Comment on above: Result Comment: <0.3 4 UIU/ml HYPERTHYROID 0.34-5.60 UIU/ml EUTHYROID >5.60 UIU/ml HYPOTHYROID Performed By: #### T ERICA LIPID, CMP #### [facility] [address] [place] [address] Dr. José Miguel Knight Encounters Encounter Date Encounter Type Care Provider Facility Start: 12-29-2023 End: 01-02-2024 Refill Joana Roman [facility] Comment on above: Type 2 diabetes ne itus without complication, with long-term current use of insulin ([facility]) (Primary Dx) Start: 11-21-2023 End: 11-21-2023 ambulatory ANISHA JACKSONPATRICK Not Available Start: 06-21-2023 End: 06-21-2023 ambulatory SHAIKH CHIKI Not Available Start: 06-14-2023 End: 06-14-2023 ambulatory ZEFERINO OROZCO Not Available Start: 05-29-2023 End: 05-29-2023 ambulatory ZEFERINO RUIZHER Not Available Start: 05-09-2023 End: 05-09-2023 ambulatory ZEFERINO RUIZHER Not Available Start: 07-21-2021 End: 07-22-2021 ambulatory SHAIKH CHIKI Facility:[facility] Start: 02-02-2021 End: 02-03-2021 ambulatory SHAIKH SHAWNNHMatt Facility: Plan of Treatment Date Care Activity [...] Category Payer Medicare (Managed Care) TANG GIRALDO [id number] 1974 Unknown [id number] .[id number] 1974 Unknown [id number] .2.593 1974 Unknown [id number] .2.1259 1974 Unknown [id number] .2.1259 1974 Unknown [id number] .2.1259 1974 Unknown [id number] .2.1259 1974 Unknown [id number] .2.1259 1959 Unknown [id number] Social History Date Type Detail Facility Start: 06-21-2023 Tobacco smoking stat [facility] Never smoked tobacco [facility] Start: 06-21-2023 Tobacco use and [...] the evening and 1 each before bedtime. [id number] Start: 11-21-2023 End: 03-05-2027 Evaluation note Note [...] DATE CREATED AUTHOR AUTHOR'S ORGANIZ ATION 11/22/2023 [facility] Reason for Visit (unrecogniz ed section and content) Reason Onset Date Comments Med Refill 12/29/2023 Care Teams (unrecognized sec tion and content) Nutritionist Public Health Relationship Specialty Start Date End Date Shaikh Monet MD [address] [place] [phone] PCP - Tang HANNAH 09/18/23 Darion Blankenship MD [address] [place] [phone] PCP - General Family Medicine 11/07/23 Neil Peng PA [address] [place] [phone] Referring Physician 05/09/23 Anisha Orozco NP [address] [place] [address] [address] [place] [address] Nurse Practitioner Family Medicine 11/07/23 FOR RECORDS [...] BE BASED ON THE PRIMARY CLINICAL RECORDS. [facility] [employer] provides no warranty or guarantee of the accuracy or completeness of information in this document.
== END 2024-02-13 10:21 | disposition home or self-care (01) ==
LOC: WC 10:20
PROVIDERS: PCP Internal Medicine; Visit Provider Physician Assistant
DX: E11.621 Type 2 diabetes mellitus with foot ulcer (principal); L97.422 Non-pressure chronic ulcer of left heel and midfoot with fat layer exposed
CPT/HCPCS: 11043

== ENCOUNTER 2024-02-27 13:16 | Outpatient (OUT) | payer MEDICARE, SELFPAY | END 2024-02-27 13:17 | disposition home or self-care (01) | LOC: WC 13:16 | PROVIDERS: PCP Internal Medicine; Visit Provider Physician Assistant | DX: E11.621 Type 2 diabetes mellitus with foot ulcer (principal); L97.422 Non-pressure chronic ulcer of left heel and midfoot with fat layer exposed | CPT/HCPCS: 11043 ==

== ENCOUNTER 2024-03-26 15:27 | Outpatient (OUT) | payer MEDICARE, SELFPAY | END 2024-03-26 15:28 | disposition home or self-care (01) | LOC: WC 15:27 | PROVIDERS: PCP Internal Medicine; Visit Provider Physician Assistant | DX: E11.621 Type 2 diabetes mellitus with foot ulcer (principal); L97.422 Non-pressure chronic ulcer of left heel and midfoot with fat layer exposed | CPT/HCPCS: 11043 ==

== ENCOUNTER 2024-04-23 14:35 | Outpatient (OUT) | payer MEDICARE, SELFPAY ==
--- OUTSIDE RECORDS SUMMARY | 2024-04-23 14:59 | XMS_ITS | CCD ---
Author Organization [facility] Care Team Providers Care Body Design Checker Name Role Phone SHAIKH MONET Admitting Unavailable FAWWAD, DELAROSA Attending Unavailable FAWWAD, DELAROSA Primary Care Unavailable FAAYAH, DELAROSA Consulting Unavailable FAWJAIME, DELAROSA Admitting Unavailable CHIKI, DELAROSA Attending Unavailable FAAYAH, DELAROSA Primary Care Unavailable CHIKI, DELAROSA Consulting Unavailable ZEFERINO OROZCO Attending Unavailable NEIL PENG Referring Unavailable ZEFERINO OROZCO Attending Unavailable ZEFERINO OROZCO Attending Unavailable SHAIKH MONET Attending Unavailable ANISHA OROZCO Attending UnavailNeil Combs Unavailable Chiki LUU, Unavailable Anisha Orozco NP Unavailable Darion Blankenship MD Primary Care Provider Medications Current Medications Medication Drug Class(es) Dates Sig (Normalized) Sig (Original) atorvastatin 40 mg oral tablet (15 sources) HMG-CoA Reductase Inhibitor Start: 07-18-2023 End: 10-20-2024 take 1 tablet by mouth once daily atorvastatin (Lipitor) 40 MG tablet Indications: Other hyperlipidemia (CMS/HCC) Take 1 tablet (40 mg) by mouth Daily 90 tablet 1 04/23/2024 10/20/2024 Active carbamide peroxide 65 mg/ml otic solution (2 sources) Start: 11-21-2023 End: 11-25-2023 carbamide peroxide (Debrox) 6.5 % otic solution Indications: Cerumen debris on tympanic membrane, bilateral Administer 3-5 drops into affected ear(s) in the morning and 3-5 drops before bedtime. Do all this for 4 days. 15 mL 11/21/2023 11/25/2023 Active glipiZIDE 10 mg oral tablet (16 sources) Sulfonylurea Start: 08-07-2023 End: 07-22-2024 take 1 tablet by mouth in the morning glipiZIDE (Glucotrol) 10 MG tablet Indications: Type 2 diabetes mellitus without complication, with long-term current use of insulin (CMS/HCC) Take 1 tablet (10 mg) by mouth in the morning and 1 tablet (10 mg) in the evening. Take before meals. 180 tablet 04/23/2024 07/22/2024 Active 3 ml insulin glargine 100 unt/ml pen injector (14 sources) Insulin Analog Start: 04-23-2024 insulin glargine (Lantus SoloStar) 100 UNIT/ML pen Indications: Type 2 diabetes mellitus without complication, with long-term current use of insulin (CMS/HCC) Inject 40 Units under the skin Daily 3 mL 11 04/23/2024 Active Start: 04-23-2024 insulin glargi ne (Lantus SoloStar) 100 UNIT/ML pen Indications: Type 2 diabetes mellitus without complication, with long-term current use of insulin (CMS/HCC) Inject 40 Units under the skin Daily 3 mL 11 04/23/2024 Active Start: 01-02-2024 End: 04-23-2024 insulin glargine (Lantus Elsie oStar) 100 UNIT/ML pen Indications: Type 2 diabetes mellitus without complication, with long-term current use of insulin (CMS/HCC) Inject 40 Units under the skin Daily 3 mL 03/26/2024 04/23/2024 Discontinued (Reorder) Start: 02-19-2023 End: 12-29-2023 Lantus SoloStar 100 UNIT/ML pen INJECT 40 UNITS SUBCUTANEOUSLY ONCE DAILY 02/19/2023 12/29/2023 Discontinued (Reorder) levothyroxine sodium 0.112 mg oral tablet (15 sources) l-Thyroxine Start: 08-07-2023 End: 10-20-2024 take 1 tablet by mouth before mealtime levothyroxine (Synthroid) 112 MCG tablet Indications: Other specified hypothyroidism (CMS/HCC) Take 1 tablet (112 mcg) by mouth in the morning. Take before meals. 90 tablet 1 04/23/2024 10/20/2024 Active losartan potassium 100 mg oral tablet (15 sources) Angiotensin 2 Receptor Aleta Start: 07-18-2023 End: 10-20-2024 take 1 tablet by mouth once daily losartan (Cozaar) 100 MG tablet Indications: Primary hypertension (CMS/HCC) Take 1 tablet (100 mg) by mouth Daily 90 tablet 1 04/23/2024 10/20/2024 Active meloxicam 7.5 mg oral tablet (15 sources) Nonsteroidal Anti-inflammatory Drug Start: 07-18-2023 End: 10-20-2024 take 1 tablet by mouth once daily meloxicam (Mobic) 7.5 MG tablet Indications: Other chronic pain Take 1 tablet (7.5 mg) by mouth Daily 90 tablet 1 04/23/2024 10/20/2024 Active metFORMIN hydrochloride 1000 mg oral tablet (15 sources) Biguanide Start: 07-18-2023 End: 10-20-2024 take 1 tablet by mouth in the morning metFORMIN (Glucophage) 1000 MG tablet Indications: Type 2 diabetes mellitus without complication, with long-term current use of insulin (CMS/HCC) Take 1 tablet (1,000 mg) by mouth in the morning and 1 tablet (1,000 mg) before bedtime. 180 tablet 1 04/23/2024 10/20/2024 Active SITagliptin 100 mg oral tablet (16 sources) Dipeptidyl Peptidase 4 Inhibitor Start: 08-07-2023 End: 10-20-2024 take 1 tablet by mouth once daily SITagliptin (Januvia) 100 MG tablet Indications: Type 2 diabetes mellitus without complication, with long-term current use of insulin (CMS/HCC) Take 1 tablet (100 mg) by mouth Daily 90 tablet 1 04/23/2024 10/20/2024 Active traZODone hydrochloride 150 mg oral tablet (15 sources) Serotonin Reuptake Inhibitor Start: 07-18-2023 End: 10-20-2024 take 1 tablet by mouth at bedtime traZODone (Desyrel) 150 MG tablet Indications: Psychophysiological insomnia Take 1 tablet (150 mg) by mouth at bedtime 90 tablet 1 04/23/2024 10/20/2024 Active Problems Active Problems Problem Classification Problem Date Documented Date Episodic/Chronic Developmental disorders (10 sources) Developmental academic disorder; Translations: [Developmental disorder of scholastic skills, unspecified] Onset: 06-21-2023 06-21-2023 Chronic Diabetes mellitus without complication (20 sources) Type 2 diabetes mellitus without complications; Translations: [Type 2 diabetes mellitus without complication] Onset: 07-21-2021 Chronic Disorders of lipid metabolism (16 sources) Hyperlipidemia, unspecified; Translations: [Hyperlipidemia] Onset: 02-08-2021 06-21-2023 Chronic Essential hypertension (16 sources) Essential (primary) hypertension; Translations: [Essential hypertension] Onset: 02-08-2021 06-21-2023 Chronic Miscellaneous mental health disorders (5 sources) Psychophysiologic insomnia; Translations: [Psychophysiologic insomnia] 11-21-2023 Chronic Other nervous system disorders (5 sources) Chronic pain; Translations: [Other chronic pain] 11-21-2023 Chronic Thyroid disorders (16 sources) Hypothyroidism, unspecified; Translations: [Hypothyroidism] Onset: 02-08-2021 06-21-2023 Chronic Past or Other Problems Problem Classification Problem Date Documented Da te Episodic/Chronic Mood disorders (2 sources) Mood disorders Onset: 04-23-2024 04-23-2024 Other ear and sense organ disorders (10 sources) Excessive cerumen in ear canal ; Translations: [Impacted cerumen, bilateral] Onset: 11-21-2023 11-21-2023 Episodic Other gastrointestinal disorders (10 sources) Stool DNA-based colorectal cancer screening positive; Translations: [Other fecal abnormalities] Onset: 06-21-2023 06-21-2023 Episodic Results Test Name Value Interpretation Reference Range Facility [facility] HEMOGLOBIN A1Con 024 Glucose [Mass/Vol] 194 mg/dL [facility] HbA1c (Bld) [Mass fraction] 8.4 % High 4.5 - 6.2 % [facility] Comment on above: ADA RECOMMENDED LIMI T 4.0 - 6.0 ADA THERAPEUTIC TARGET < 7.0 ACTION SUGGESTED > 7.0 Interpretation and review of laboratory results Abnormal [facility] GLYCOHEMOGLOBIN A1Con 2021 ADA RECOMMENDATION SEE BELOW Normal [facility] Comment on above: Result Comment: ADA RECOMMENDED LIMIT 4.0 - 6.0 ADA THERAPEUTIC TARGET < 7.0 ACTION SUGGESTED > 7.0 Performed By: #### A 1C #### [facility] [address] [place] [address] Dr. José Miguel Knight Glucose [Mass/Vol] 260 mg/dL Normal [facility] Comment on above: Performed By: #### A 1C #### [facility] [address] [place] [address] Dr. José Miguel Knight HbA1c (Bld) [Mass fraction] 10.7 % Critically high 4.5-6.2 [facility] Comment on above: Performed By: #### A 1C #### [facility] [address] [place] [address] Dr. José Miguel Knight CBC AUTO DIFFon 02-02-2021 BASO # 0.0 103/ul Normal 0.0-0.1 [facility] Comment on above: Performed By: #### C BC #### [facility] [address] [place] [address] Dr. José Miguel Knight Basophils/100 WBC (Bld) 0.6 % Normal 0.2-2.0 [facility] Comment on above: Performed By: #### C BC #### [facility] [address] [place] [address] Dr. José Miguel Knight EO # 0.1 103/ul Normal 0.0-0.7 [facility] Comment on above: Performed By: #### C BC #### [facility] [address] [place] [address] Dr. José Miguel Knight Eosinophils/100 WBC (Bld) 0.9 % Normal 0.9-7.0 [facility] Comment on above: Performed By: #### C BC #### [facility] [address] [place] [address] Dr. José Miguel Knight Erythrocyte distribution width (RBC) [Ratio] 12.7 % Normal 11.0-15.0 [facility] Comment on above: Performed By: #### C BC #### [facility] [address] [place] [address] Dr. José Miguel Knight Hematocrit (Bld) [Volume fraction] 44.0 % Normal 42.0-54.0 [facility] Comment on above: Performed By: #### C BC #### [facility] [address] [address] [address] José Miguel Knight Hemoglobin (Bld) [Mass/Vol] 15.0 g/dL Normal 14.0-18.0 [facility] Comment on above: Performed By: #### C BC #### [facility] [address] [address] [address] José Miguel Knight IG # 0.04 10e3/ul Critically high 0.00-0.03 [facility] Comment on above: Performed By: #### C BC #### [facility] [address] [address] [address] José Miguel Knight IG % 0.6 % Critically high 0.0-0.5 [facility] Comment on above: Performed By: #### C BC #### [facility] [address] [address] [address] José Miguel Knight LYMPH # 1.6 103/ul Normal 1.2-3.8 [facility] Comment on above: Performed By: #### C BC #### [facility] [address] [address] [address] José Miguel Knight Lymphocytes/100 WBC (Bld) 22.5 % Normal 20.5-60.0 [facility] Comment on above: Performed By: #### C BC #### [facility] [address] [address] [address] José Miguel Knight MANUAL DIFF REQ NO Normal [facility] Comment on above: Performed By: #### C BC #### [facility] [address] [address] [address] José Miguel Knight MCH (RBC) [Entitic mass] 30.4 pg Normal 25.9-34.0 [facility] Comment on above: Performed By: #### C BC #### [facility] [address] [address] [address] José Miguel Knight MCHC (RBC) [Mass/Vol] 34.1 g/dL Normal 29.9-35.2 [facility] Comment on above: Performed By: #### C BC #### [facility] [address] [address] [address] José Miguel Knight MCV (RBC) [Entitic vol] 89.2 fL Normal 80.0-94.0 [facility] Comment on above: Performed By: #### C BC #### [facility] [address] [address] [address] José Miguel Knight MONO # 0.5 103/ul Normal 0.3-0.8 [facility] Comment on above: Performed By: #### C BC #### [facility] [address] [address] [address] José Migule Knight Monocytes/100 WBC (Bld) 7.0 % Normal 1.7-12.0 [facility] Comment on above: Performed By: #### C BC #### [facility] [address] [place] [address] Dr. José Miguel Knight NEUT # 4.7 103/ul Normal 1.4-6.5 [facility] Comment on above: Performed By: #### C BC #### [facility] [address] [place] [address] Dr. José Miguel Knight Neutrophils/100 WBC (Bld) 68.4 % Normal 43.0-75.0 [facility] Comment on above: Performed By: #### C BC #### [facility] [address] [place] [address] Dr. José Miguel Knight Platelet mean volume (Bld) [Entitic vol] 10.8 fL Normal 9.5-13.5 [facility] Comment on above: Performed By: #### C BC #### [facility] [address] [place] [address] Dr. José Miguel Knight PLT 223 103/ul Normal 150-450 [facility] Comment on above: Performed By: #### C BC #### [facility] [address] [place] [address] Dr. José Miguel Knight RBC 4.93 106/ul Normal 4.70-6.10 [facility] Comment on above: Performed By: #### C BC #### [facility] [address] [address] [address] José Miguel Knight WBC 6.9 103/ul Normal 4.0-11.0 [facility] Comment on above: Performed By: #### C BC #### [facility] [address] [address] [address] José Miguel Knight GLYCOHEMOGLOBIN A1Con 2020 ADA RECOMMENDATION ADA THERAPEUTIC TARGET 6.0 - 7.0 ACTION SUGGESTED > 7.0 Normal [facility] Comment on above: Performed By: #### A 1C #### [facility] [address] [address] [address] José Miguel Knight Glucose [Mass/Vol] 217 mg/dL Normal [facility] Comment on above: Performed By: #### A 1C #### [facility] [address] [address] [address] José Miguel Knight HbA1c (Bld) [Mass fraction] 9.2 % Critically high <=6.0 [facility] Comment on above: Performed By: #### A 1C #### [facility] [address] [place] [address] Dr. José Miguel Knight LIPID PROFILEon 02-02-2021 CHOL-HDL RATIO NORM SEE BELOW Normal [facility] Comment on above: Result Comment: 3.3 - 4.4 LOW RISK 4.4 - 7.1 AVERAGE RISK 7.1 - 11.0 MODERATE RISK >11.0 HIGH RISK Performed By: #### T SH, LIPID, CMP #### [facility] [address] [address] [address] José Miguel Knight Cholesterol [Mass/Vol] 121 mg/dL Normal <=200 [facility] Comment on above: Performed By: #### T SH, LIPID, CMP #### [facility] [address] [address] [address] José Miguel Knight Cholesterol in HDL [Mass/Vol] 37 mg/dL Normal [facility] Comment on above: Performed By: #### T SH, LIPID, CMP #### [facility] [address] [address] [address] José Miguel Knight Cholesterol in LDL [Mass/Vol] 46.4 mg/dL Normal [facility] Comment on above: Performed By: #### T SH, LIPID, CMP #### [facility] [address] [address] [address] José Miguel Knight Cholesterol.total/Cho lesterol in HDL [Mass ratio] 3.3 {ratio} Normal [facility] Comment on above: Performed By: #### T SH, LIPID, CMP #### [facility] [address] [address] [address] José Miguel Knight HDL NORMAL > or = 60 mg/dl - LOW CARDIOVASCULAR RISK <40 mg/dl - HIGH CARDIOVASCULAR RISK Normal [facility] Comment on above: Performed By: #### T SH, LIPID, CMP #### [facility] [address] [place] [address] Dr. José Miguel Knight LDL CALC NORMAL SEE BELOW Normal [facility] Comment on above: Result Comment: <100 mg/dl OPTIMAL 100 - 129 mg/dl NEAR OR ABOVE OPTIMAL 130 - 159 mg/dl BORDERLINE HIGH 160 - 189 mg/dl HIGH >190 mg/dl VERY HIGH Performed By: #### T SH, LIPID, CMP #### [facility] [address] [place] [address] Dr. José Miguel Knight Triglyceride [Mass/Vol] 188 mg/dL Critically high <=150 [facility] Comment on above: Performed By: #### T SH, LIPID, CMP #### [facility] [address] [place] [address] Dr. José Miguel Knight VLDL CALC 37.6 mg/dL Normal [facility] Comment on above: Performed By: #### T SH, LIPID, CMP #### [facility] [address] [place] [address] Dr. José Miguel Knight MICROALBUMIN, RAND URon 01-18 mALB 1.2 mg/L Normal <=30.0 [facility] Comment on above: Performed By: #### M ALBR #### [facility] [address] [place] [address] Dr. José Miguel Knight PROF 14(COMP METB)on 021 Albumin [Mass/Vol] 3.8 g/dL Normal 3.5-5.0 [facility] Comment on above: Performed By: #### T SH, LIPID, CMP #### [facility] [address] [address] [address] José Miguel Knight Albumin/Globulin [Mass ratio] 1.1 {ratio} Normal [facility] Comment on above: Performed By: #### T SH, LIPID, CMP #### [facility] [address] [address] [address] José Miguel Knight ALP [Catalytic activity/Vol] 92 U/L Normal 38-126 [facility] Comment on above: Performed By: #### T SH, LIPID, CMP #### [facility] [address] [address] [address] José Miguel Knight ALT [Catalytic activity/Vol] 46 U/L Normal 21-72 [facility] Comment on above: Performed By: #### T SH, LIPID, CMP #### [facility] [address] [place] [address] Dr. José Miguel Knight Anion gap [Moles/Vol] 12.8 mmol/L Normal [facility] Comment on above: Performed By: #### T SH, LIPID, CMP #### [facility] [address] [place] [address] Dr. José Miguel Knight AST [Catalytic activity/Vol] 22 U/L Normal 17-59 [facility] Comment on above: Performed By: #### T SH, LIPID, CMP #### [facility] [address] [address] [address] José Miguel Knight Bilirubin [Mass/Vol] 0.5 mg/dL Normal 0.2-1.3 [facility] Comment on above: Performed By: #### T SH, LIPID, CMP #### [facility] [address] [place] [address] Dr. José Miguel Knight Calcium [Mass/Vol] 9.3 mg/dL Normal 8.4-10.2 [facility] Comment on above: Performed By: #### T SH, LIPID, CMP #### [facility] [address] [place] [address] Dr. José Miguel Knight Chloride [Moles/Vol] 103 mmol/L Normal 98-107 [facility] Comment on above: Performed By: #### T SH, LIPID, CMP #### [facility] [address] [address] [address] José Miguel Knight CO2 [Moles/Vol] 27.6 mmol/L Normal 22.0-30.0 [facility] Comment on above: Performed By: #### T SH, LIPID, CMP #### [facility] [address] [address] [address] José Miguel Knight Creatinine [Mass/Vol] 0.76 mg/dL Normal 0.66-1.25 [facility] Comment on above: Performed By: #### T SH, LIPID, CMP #### [facility] [address] [place] [address] Dr. José Miguel Knight EGFR-AF YEMENI >60 Normal >=60 [facility] Comment on above: Performed By: #### T SH, LIPID, CMP #### [facility] [address] [place] [address] Dr. José Miguel Knight EGFR-NON AF YEMENI >60 Normal >=60 [facility] Comment on above: Performed By: #### T SH, LIPID, CMP #### [facility] [address] [place] [address] Dr. José Miguel Knight Globulin (S) [Mass/Vol] 3.4 g/dL Normal [facility] Comment on above: Performed By: #### T SH, LIPID, CMP #### [facility] [address] [place] [address] Dr. José Miguel Knight Glucose [Mass/Vol] 253 mg/dL Critically high 74-106 [facility] Comment on above: Performed By: #### T SH, LIPID, CMP #### [facility] [address] [place] [address] Dr. José Miguel Knight Potassium [Moles/Vol] 4.4 mmol/L Normal 3.4-5.0 [facility] Comment on above: Performed By: #### T SH, LIPID, CMP #### [facility] [address] [place] [address] Dr. José Miguel Knight Protein [Mass/Vol] 7.2 g/dL Normal 6.1-8.2 [facility] Comment on above: Performed By: #### T SH LIPID, CMP #### [facility] [address] [place] [address] Dr. José Miguel Knight Sodium [Moles/Vol] 139 mmol/L Normal 137-145 [facility] Comment on above: Performed By: #### T ERICA LIPID, CMP #### [facility] [address] [place] [address] Dr. José Miguel Knight Urea nitrogen [Mass/Vol] 16.0 mg/dL Normal 9.0-20.0 [facility] Comment on above: Performed By: #### T ERICA LIPID, CMP #### [facility] [address] [place] [address] Dr. José Miguel Knight Urea nitrogen/Creatinine [Mass ratio] 21.1 mg/mg Normal [facility] Comment on above: Performed By: #### T ERICA LIPID, CMP #### [facility] [address] [place] [address] Dr. José Miguel Knight TSHon 02-02-2021 TSH 5.529 uIU/mL Critically high 0.470-4.680 [facility] Comment on above: Performed By: #### T ERICA LIPID, CMP #### [facility] [address] [place] [address] Dr. José Miguel Knight TSH RANGE SEE BELOW Normal [facility] Comment on above: Result Comment: <0.3 4 UIU/ml HYPERTHYROID 0.34-5.60 UIU/ml EUTHYROID >5.60 UIU/ml HYPOTHYROID Performed By: #### T SH, LIPID, CMP #### [facility] [address] [place] [address] Dr. José Miguel Knight Vital Signs Date Time Vital Sign Value Performing Clinician Sam [email or web address] 04-23-2024 09:53-0500 Body height 185.4 cm Anisha Orozco NP Work Phone: [facility] 04-23-2024 09:53-0500 Body mass index (BMI) [Ratio] 31.93 kg/m2 Anisha Orozco CAD INTERN Work Phone: [facility] 04-23-2024 09:53-0500 Body temperature 98.8 [degF] Anisha Orozco CAD INTERN Work Phone: [facility] 04-23-2024 09:53-0500 Body weight 109.77 kg Anisha Orozco CAD INTERN Work Phone: [facility] 04-23-2024 09:53-0500 Diastolic blood pressure 76 mm[Hg] Anisha Orozco CAD INTERN Work Phone: [facility] 04-23-2024 09:53-0500 Heart rate 86 /min Anisha Orozco CAD INTERN Work Phone: [facility] 04-23-2024 09:53-0500 Respiratory rate 16 /min Anisha Orozco CAD INTERN Work Phone: [facility] 04-23-2024 09:53-0500 SaO2% (BldA) [Mass fraction] 97 % Anisha Orozco CAD INTERN Work Phone: [facility] 04-23-2024 09:53-0500 Systolic blood pressure 140 mm[Hg] Anisha Orozco CAD INTERN Work Phone: [facility] 11-21-2023 13:08-0400 Body height 185.4 cm Anisha Oroczo CAD INTERN Work Phone: [facility] 11-21-2023 13:08-0400 Body mass index (BMI) [Ratio] 30.34 kg/m2 Anisha Orozco CAD INTERN Work Phone: [facility] 11-21-2023 13:08-0400 Body temperature 98.71 [degF] Anisha Orozco CAD INTERN Work Phone: [facility] 11-21-2023 13:08-0400 Body weight 104.33 kg Anisha Orozco CAD INTERN Work Phone: [facility] 11-21-2023 13:08-0400 Diastolic blood pressure 80 mm[Hg] Anisha Cunninghamtrick CAD INTERN Work Phone: [facility] 11-21-2023 13:08-0400 Heart rate 110 /min Anisha Ocampok CAD INTERN Work Phone: [facility] Comment on above: 98% O2 11-21-2023 13:08-0400 Systolic blood pressure 132 mm[Hg] Anisha Ocampok CAD INTERN Work Phone: [facility] Encounters Encounter Date Encounter Type Care Provider Facility Start: 04-23-2024 End: 04-23-2024 Bamboo flowsheet Anisha Ocampok CAD INTERN Work Phone: [facility] Start: 04-23-2024 End: 04-23-2024 Bamboo flowsheet [facility] Ocampok CAD INTERN [facility] Start: 04-23-2024 End: 04-23-2024 Assay of hemosiderin, quant Anisha Orozco CAD INTERN Work Phone: [facility] Start: 04-23-2024 End: 04-23-2024 Patient encounter procedure Anisha Orozco CAD INTERN Work Phone: [facility] Comment on above: Routine general medi elias examination at health care facility (Primary Dx); Other hyperlipidemia (CMS/HCC); Type 2 diabetes mellitus without complication, with long-term current use of insulin (CMS/HCC); Other specified hypothyroidism (CMS/HCC); Primary hypertension (CMS/HCC); Other chronic pain; Psychophysiological insomnia Start: 03-26-2024 End: 03-26-2024 Orders Only Anisha Ocampok CAD INTERN Work Phone: [facility] Comment on above: Other hyperlipidemia (CMS/HCC); Type 2 diabetes mellitus without complication, with long-term current use of insulin (CMS/HCC); Other specified hypothyroidism (CMS/HCC); Primary hypertension (CMS/HCC); Other chronic pain; Psychophysiological insomnia Start: 12-29-2023 End: 01-02-2024 Refill Joana Roman [facility] Comment on above: Type 2 diabetes ne itus without complication, with long-term current use of insulin (CMS/HCC) (Primary Dx) Start: 11-27-2023 End: 11-27-2023 Clinisync Result Encounter Anisha Millardpatrick CAD INTERN Work Phone: [facility] Unsolicited Start: 11-27-2023 End: 11-27-2023 Clinisync Result Encounter Anisha Orozco CAD INTERN Work Phone: [facility] Unsolicited Start: 11-21-2023 End: 11-21-2023 Bamboo flowsheet Anisha Orozco CAD INTERN Work Phone: [facility] Start: 11-21-2023 End: 11-21-2023 Bamboo flowsheet Anisha Orozco CAD INTERN Work Phone: [facility] Start: 11-21-2023 End: 11-21-2023 Office outpatient visit 15 minutes Anisha Cunninghamtrick CAD INTERN Work Phone: [facility] Comment on above: Cerumen debris on ty mpanic membrane, bilateral (Primary Dx); Other hyperlipidemia (CMS/HCC); Type 2 diabetes mellitus without complication, with long-term current use of insulin (CMS/HCC); Other specified hypothyroidism (CMS/HCC); Primary hypertension (CMS/HCC); Other chronic pain; Psychophysiological insomnia Start: 11-21-2023 End: 11-21-2023 ambulatory ANISHA OROZCO Not Available Start: 11-07-2023 End: 11-07-2023 Refill Anisha Orozco CAD INTERN Work Phone: [facility] Comment on above: Type 2 diabetes ne itus without complication, with long-term current use of insulin (CMS/HCC) Start: 06-21-2023 End: 06-21-2023 ambulatory SHAIKH CHIKI Not Available Start: 06-14-2023 End: 06-14-2023 ambulatory ZEFERINO OROZCO Not Available Start: 05-29-2023 End: 05-29-2023 ambulatory ZEFERINO OROZCO Not Available Start: 05-09-2023 End: 05-09-2023 ambulatory ZEFERINO OROZCO Not Available Start: 07-21-2021 End: 07-22-2021 ambulatory SHAIKH CHIKI Facility:[facility] Start: 02-02-2021 End: 02-03-2021 ambulatory SHAIKH CHIKI Facility:[facility] Procedures Date Procedure Procedure Detail Performing Clinician Start: 11-27-2023 MLR HEMOGLOBIN A1C Karely Orozco CAD INTERN Work Phone: Plan of Treatment Date Care Activity Detail Author Start: 02-23-2026 Screening for malign ant neoplasm of colon [facility] Start: 12-06-2025 Glaucoma screening Diabetes: R etinopathy Screening [facility] Start: 04-23-2025 Medicare Annual Wellness (AWV) Medicare Annual Wellness (AWV) [facility] Start: 07-26-2024 Urine screening for protein Diabetes: Urine Protein Screening [facility] Start: 06-18-2024 Influenza vaccination Influenza Vacc ine (#1) [facility] Comment on above: Postponed from 11/18 (Patient Refused) Start: 04-23-2024 End: 04-23-2024 Patient encounter procedure [facility] Comment on above: Arrived Start: 01-19-2024 Medicare Annual Wellness (AWV) Medicare Annual Wellness (AWV) [facility] Start: 11-21-2023 End: 11-20-2024 Hemoglobin A1c/Hemoglobin.total in Blood Hemoglobin A1c Lab Routine Type 2 diabetes mellitus without complication, with long-term current use of insulin ([facility]) Expected: 11/21/2023 (Approximate), Expires: 11/20/2024 [facility] Comment on above: Expected: 11/21/2023 (Approximate), Expires: 11/20/2024 Start: 11-21-2023 End: 11-21-2023 Patient encounter procedure 11/21/2023 1:00 PM EDT Office Visit [facility] [address] [place] [address] Anisha Orozco, JULIAN [address] [place] [address] Arrived [facility] Comment on above: Arrived Start: 11-19-2023 Influenza vaccination Influenza Vacc ine (#1) [facility] Start: 04-29-2023 Hemoglobin A1c measurement Diabetes: Hemoglobin A1C [facility] Start: 01-23-2023 Glaucoma screening Diabetes: R etinopathy Screening [facility] Start: 1975 Medicare Annual Wellness (AWV) Medicare Annual Wellness (AWV) [facility] Start: 1975 Screening for malign ant neoplasm of colon [facility] Microalbumin/Creatin ine panel in random Urine Microalbumin / creatinine urine ratio Lab Routine Type 2 diabetes mellitus without complication, with long-term current use of insulin ([facility]) Ordered: 11/21/2023 [facility] Work Phone: Comment on above: Ordered: 11/21/2023 Payers Date Payer Category Payer Medicare [facility] MEDICARE ADVANTAGE [facility] MEDICARE ADVANTAGE [id number] 2017-Present [address] [place] [id number] [id number] 2017 Medicare (Managed Care) [facility] ADVANTAGE Member Subscriber Plan / Payer (Effective 2017-Present) Name: Ángel Stephenson Relation to Subscriber: Self Name: Ángel Stephenson Payer ID: Not on file Group ID: [id number] Type: Not on file Address: [address] [place] [phone] [id number] 1974 Unknown [id number] 1974 Unknown [id number] 1974 Unknown [id number] 1974 Unknown [id number] 1974 Unknown [id number] 1974 Unknown [id number] 1974 Unknown [id number] 1959 Unknown [id number] Social History Date Type Detail Facility Start: 06-21-2023 Tobacco smoking stat [facility] Never smoked tobacco [facility] Start: 06-21-2023 Tobacco use and exposure Smokeless tobacco non-user [facility] Start: 11-21-2023 End: 04-23-2024 Alcoholic beverage intake Ex-drinker (finding) [facility] Start: 11-21-2023 End: 04-23-2024 History of Social function [facility] Start: 11-21-2023 End: 04-23-2024 Tobacco use panel [facility] Start: 1975 Sex assigned at Not on file [facility] NEGATED: Highlighted rowStart: NINF History of tobacco use Passive smoker [facility] Medical Equipment Procedure Code Equipment Code Equipment Origin al Text Equipment Identifier Dates 1 each by Other route in the morning and 1 each in the evening and 1 each before bedtime. [id number] Start: 11-21-2023 End: 03-05-2027 1 each by Other route in the morning and 1 each in the evening and 1 each before bedtime. [id number] Start: 09-14-2023 End: 12-27-2026 1 each by Other route in the morning and 1 each in the evening and 1 each before bedtime. [id number] Start: 03-26-2024 End: 07-09-2027 1 each by Other route in the morning and 1 each in the evening and 1 each before bedtime. [id number] Start: 04-23-2024 End: 08-06-2027 History of Present illness Narrative 04-23-2024 Anisha Ernesto, CAD INTERN - 04/23/2024 10:00 AM Rajeshtara Orozco, CAD INTERN - 04/23/2024 10:00 AM EST Note Date & Type Note Facility 04-23-2024 History of Presen t illness Narrative Images from the original note were not included. Subjective : Chief Complaint: Ángel Stephenson is an 49 y.o. male here for an annual wellness visit. I have reviewed and reconciled the history and medication list with the patient today. Current Outpatient Medications Medication Sig Dispense Refill atorvastatin (Lipitor) 40 MG tablet Take 1 tablet (40 mg) by mouth Daily 90 tablet 1 glipiZIDE (Glucotrol) 10 MG tablet Take 1 tablet (10 mg) by mouth in the morning and 1 tablet (10 mg) in the evening. Take before meals. 180 tablet 0 glucose blood (OneTouch Ultra) test strip 1 each by Other route in the morning and 1 each in the evening and 1 each before bedtime. 300 each 11 insulin glargine (Lantus SoloStar) 100 UNIT/ML pen Inject 40 Units under the skin Daily 3 mL 11 levothyroxine (Synthroid) 112 MCG tablet Take 1 tablet (112 mcg) by mouth in the morning. Take before meals. 90 tablet 1 losartan (Cozaar) 100 MG tablet Take 1 tablet (100 mg) by mouth Daily 90 tablet 1 meloxicam (Mobic) 7.5 MG tablet Take 1 tablet (7.5 mg) by mouth Daily 90 tablet 1 metFORMIN (Glucophage) 1000 MG tablet Take 1 tablet (1,000 mg) by mouth in the morning and 1 tablet (1,000 mg) before bedtime. 180 tablet 1 SITagliptin (Januvia) 100 MG tablet Take 1 tablet (100 mg) by mouth Daily 90 tablet 0 traZODone (Desyrel) 150 MG tablet Take 1 tablet (150 mg) by mouth at bedtime 90 tablet 1 No current facility-administered medications for this visit. Review of Systems List of current healthcare providers: Patient Care Team: Darion Blankenship MD as PCP - General (Family Medicine) Shaikh Chiki MD as PCP - AMARA Reinoso MA as Referring Physician Anisha Orozco NP as Nurse Practitioner (Family Medicine) Medicare Annual Visit Over the past 2 weeks, how often have you been bothered by any of the following problems? Little interest or pleasure in doing things: Not at all Feeling down, depressed, or hopeless: Not at all Patient Health Questionnaire-2 Score: 0 Over the past 2 weeks, how often have you been bothered by any of the following problems? Trouble falling or staying asleep, or sleeping too much: Not at all Feeling tired or having little energy: Not at all Poor appetite or overeating: Not at all Feeling bad about yourself - or that you are a failure or have let yourself or your family down: Not at all Trouble concentrating on things, such as reading the newspaper or watching television: Not at all Moving or speaking so slowly that other people could have noticed? Or the opposite - being so fidgety or restless that you have been moving around a lot more than usual.: Not at all Thoughts that you would be better off or hurting yourself in some way: Not at all Patient Health Questionnaire-9 Score: 0 Zamora Fall Risk History of Falling, Immediate or Within 3 Months: No Health Risk Assessment Form Do you need help eating, bathing, using the toilet, dressing, or getting around your home?: No Can you prepare your own meals?: Yes Can you do your own housework without help?: Yes Can you shop for groceries or clothes without help?: Yes Do you exercise for about 20 minutes 3 or more days a week?: Yes How confident are you that you can control and manage most of your health problems?: Very confident Can you mange your money, credit cards and accounts, pay bills and taxes?: No Cognitive Screening Three Word Registration: Banana, [place], Chair Clock Drawing: Inability or Refusal to Draw Clock - 0 Three Word Recall: 2/3 words correct - 2 Total Score (0-5 Points): 2 Advance Care Planning Do you have a living will?: No Do you have a medical power of claim attorney?: No Objective : BP 140/76 Pulse 86 Temp 98.8 F Resp 16 Ht 6' 1 Wt 242 lb SpO2 97% BMI 31.93 kg/m No results found. Physical Exam Assessment/Plan : The following health maintenance schedule was reviewed with the patient and provided in printed form in the after visit summary: Health Maintenance Topic Date Due Diabetes: Hemoglobin A1C 04/29/2023 Influenza Vaccine (1) Never done Medicare Annual Wellness (AWV) 01/19/2024 Diabetes: Urine Protein Screening 07/26/2024 Diabetes: Retinopathy Screening 12/06/2025 Colorectal Cancer Screening 02/23/2026 Advance Care Planning Pt given information on advance care directives. No orders of the defined types were placed in this encounter. Electronically signed by Anisha Orozco NP on April 23, 2024 Images from the original note were not included. Subjective : Chief Complaint: Ángel Stephenson is an 49 y.o. male here for an annual wellness visit. I have reviewed and reconciled the history and medication list with the patient today. Current Outpatient Medications Medication Sig Dispense Refill atorvastatin (Lipitor) 40 MG tablet Take 1 tablet (40 mg) by mouth Daily 90 tablet 1 glipiZIDE (Glucotrol) 10 MG tablet Take 1 tablet (10 mg) by mouth in the morning and 1 tablet (10 mg) in the evening. Take before meals. 180 tablet 0 glucose blood (OneTouch Ultra) test strip 1 each by Other route in the morning and 1 each in the evening and 1 each before bedtime. 300 each 11 insulin glargine (Lantus SoloStar) 100 UNIT/ML pen Inject 40 Units under the skin Daily 3 mL 11 levothyroxine (Synthroid) 112 MCG tablet Take 1 tablet (112 mcg) by mouth in the morning. Take before meals. 90 tablet 1 losartan (Cozaar) 100 MG tablet Take 1 tablet (100 mg) by mouth Daily 90 tablet 1 meloxicam (Mobic) 7.5 MG tablet Take 1 tablet (7.5 mg) by mouth Daily 90 tablet 1 metFORMIN (Glucophage) 1000 MG tablet Take 1 tablet (1,000 mg) by mouth in the morning and 1 tablet (1,000 mg) before bedtime. 180 tablet 1 SITagliptin (Januvia) 100 MG tablet Take 1 tablet (100 mg) by mouth Daily 90 tablet 1 traZODone (Desyrel) 150 MG tablet Take 1 tablet (150 mg) by mouth at bedtime 90 tablet 1 No current facility-administered medications for this visit. Review of Systems Constitutional: Negative for activity change, appetite change, chills, diaphoresis, fatigue, fever and unexpected weight change. HENT: Negative for congestion, ear pain, rhinorrhea, sinus pressure, sinus pain, sneezing, sore throat, trouble swallowing and voice change. Eyes: Negative for visual disturbance. Respiratory: Negative for cough, chest tightness, shortness of breath and wheezing. Cardiovascular: Negative for chest pain, palpitations and leg swelling. Gastrointestinal: Negative for abdominal distention, abdominal pain, blood in stool, constipation, diarrhea and vomiting. Genitourinary: Negative for decreased urine volume, dysuria, flank pain, frequency, hematuria and urgency. Musculoskeletal: Negative for arthralgias, gait problem, joint swelling and myalgias. Skin: Negative for rash. Neurological: Negative for dizziness, tremors, syncope, weakness, light-headedness and headaches. Psychiatric/Behavioral: Negative for decreased concentration and suicidal ideas. The patient is not nervous/anxious. Hematological: Does not bruise/bleed easily. Endocrine: Negative for cold intolerance, heat intolerance, polydipsia, polyphagia and polyuria. List of current healthcare providers: Patient Care Team: Darion Blankenship MD as PCP - General (Family Medicine) Shaikh Chiki MD as PCP - AMARA Reinoso MA as Referring Physician Anisha Orozco NP as Nurse Practitioner (Family Medicine) Medicare Annual Visit Over the past 2 weeks, how often have you been bothered by any of the following problems? Little interest or pleasure in doing things: Not at all Feeling down, depressed, or hopeless: Not at all Patient Health Questionnaire-2 Score: 0 Over the past 2 weeks, how often have you been bothered by any of the following problems? Trouble falling or staying asleep, or sleeping too much: Not at all Feeling tired or having little energy: Not at all Poor appetite or overeating: Not at all Feeling bad about yourself - or that you are a failure or have let yourself or your family down: Not at all Trouble concentrating on things, such as reading the newspaper or watching television: Not at all Moving or speaking so slowly that other people could have noticed? Or the opposite - being so fidgety or restless that you have been moving around a lot more than usual.: Not at all Thoughts that you would be better off or hurting yourself in some way: Not at all Patient Health Questionnaire-9 Score: 0 Zamora Fall Risk History of Falling, Immediate or Within 3 Months: No Health Risk Assessment Form Do you need help eating, bathing, using the toilet, dressing, or getting around your home?: No Can you prepare your own meals?: Yes Can you do your own housework without help?: Yes Can you shop for groceries or clothes without help?: Yes Do you exercise for about 20 minutes 3 or more days a week?: Yes How confident are you that you can control and manage most of your health problems?: Very confident Can you mange your money, credit cards and accounts, pay bills and taxes?: No Cognitive Screening Three Word Registration: Banana, [place], Chair Clock Drawing: Inability or Refusal to Draw Clock - 0 Three Word Recall: 2/3 words correct - 2 Total Score (0-5 Points): 2 Advance Care Planning Do you have a living will?: No Do you have a medical power of claim attorney?: No Objective : BP 140/76 Pulse 86 Temp 98.8 F Resp 16 Ht 6' 1 Wt 242 lb SpO2 97% BMI 31.93 kg/m No results found. Physical Exam Vitals reviewed. Constitutional: Appearance: Normal appearance. HENT: Right Ear: Tympanic membrane normal. Left Ear: Tympanic membrane normal. Nose: Nose normal. Mouth/Throat: Mouth: Mucous membranes are moist. Pharynx: Oropharynx is clear. Eyes: Pupils: Pupils are equal, round, and reactive to light. Cardiovascular: Rate and Rhythm: Normal rate and regular rhythm. Pulses: Normal pulses. Heart sounds: Normal heart sounds. Pulmonary: Effort: Pulmonary effort is normal. Breath sounds: Normal breath sounds. Abdominal: General: Abdomen is flat. Bowel sounds are normal. Palpations: Abdomen is soft. Skin: Capillary Refill: Capillary refill takes less than 2 seconds. Neurological: Mental Status: He is alert and oriented to person, place, and time. Assessment/Plan : The following health maintenance schedule was reviewed with the patient and provided in printed form in the after visit summary: Health Maintenance Topic Date Due Diabetes: Hemoglobin A1C 04/29/2023 Influenza Vaccine (1) 06/18/2024 (Originally 11/19/2023) Diabetes: Urine Protein Screening 07/26/2024 Medicare Annual Wellness (AWV) 04/23/2025 Diabetes: Retinopathy Screening 12/06/2025 Colorectal Cancer Screening 02/23/2026 Advance Care Planning Pt provided with information on advance care planning. No orders of the defined types were placed in this encounter. Electronically signed by Anisha Orozco NP on April 23, 2024 documented in this encounter [facility] History of Present illness Narrative 11-21-2023 Anisha Orozco NP - 11/21/2023 1:44 PM EDLillie Orozco NP - 11/21/2023 1:43 PM EDLillie Orozco, JULIAN - 11/21/2023 1:42 PM EDLillie Orozco, JULIAN - 11/21/2023 1:00 PM EDT Note Date & Type Note Facility 11-21-2023 History of Presen t illness Narrative Associated Problem(s): Other hyperlipidemia ([facility]) Currently taking Atorvastatin 40mg. Denies any myalgias. Most recent Lipid Panel WNL. Continue current regimen. Associated Problem(s): Type 2 diabetes mellitus without complication, with long-term current use of insulin ([facility]) Most recent labs: hemoglobin A1C 9.9% in July. Average FSBS range from BGs range between 120 and 150's No episode of hypoglycemia No medication adverse effects reported by the patient. Patient educated on lifestyle modifications, dietary restrictions, signs and symptoms of hypoglycemia/hyperglycemia and importance of eating regular consistent meals. Stressed upon importance of checking blood glucose at home and bring blood glucose log to appointments. All questions, concerns answered and addressed. Encouraged to call office if persistent hypoglycemia/hyperglycemia on home glucose monitoring noted. Is following with wound care for L foot non healing ulcer. Associated Problem(s): Primary hypertension (CMS/HCC) Currently taking Losartan 100mg; Checks BP at home. Does not recall averages. BP is good today in office. Denies orthostatic changes, dizziness, cough, shortness of breath, swelling in extremities. Continue current regimen. Images from the original note were not included. Subjective Patient ID: Ángel Stephenson is a 48 y.o. male who presents for Med Refill. Med Refill Pertinent negatives include no abdominal pain, arthralgias, chest pain, chills, congestion, coughing, diaphoresis, fatigue, fever, headaches, joint swelling, myalgias, rash, sore throat, vomiting or weakness. Is accompanied by skin care therapist. Is here today for med refills. Denies any other concerns. HTN: Currently taking Losartan 100mg; Checks BP at home. Does not recall averages. BP is good today in office. Denies orthostatic changes, dizziness, cough, shortness of breath, swelling in extremities. Continue current regimen. DM: Most recent labs: hemoglobin A1C 9.9% in July. Average FSBS range from BGs range between 120 and 150's No episode of hypoglycemia No medication adverse effects reported by the patient. Patient educated on lifestyle modifications, dietary restrictions, signs and symptoms of hypoglycemia/hyperglycemia and importance of eating regular consistent meals. Stressed upon importance of checking blood glucose at home and bring blood glucose log to appointments. All questions, concerns answered and addressed. Encouraged to call office if persistent hypoglycemia/hyperglycemia on home glucose monitoring noted. DM Eye Exam: Is scheduling. Is following with wound care for L foot non healing ulcer. HLD: Currently taking Atorvastatin 40mg. Denies any myalgias. Continue current regimen. Component Ref Range & Units 3 mo ago (07/27/23) 3 mo ago (07/27/23) 3 mo ago (07/27/23) 3 mo ago (07/27/23) TRIGLYCERIDES <=150 mg/dL 136 136 R 32.5 R 64.25 R CHOLESTEROL <=200 mg/dL 196 4.4 R 0.4 R HDL CHOLESTEROL 40 - 60 mg/dL 47 13.3 R 3.2 R Comment: > or =60 mg/dl - LOW CARDIOVASCULAR RISK <40 mg/dl - HIGH CARDIOVASCULAR RISK LDL CHOLESTEROL CALCULATED mg/dL 121.8 325 High R 1.8 R Comment: <100 mg/dl OPTIMAL 100-129 mg/dl NEAR OR ABOVE OPTIMAL 130-159 mg/dl BORDERLINE HIGH 160-189 mg/dl HIGH >190 mg/dl VERY HIGH VLDL CHOLESTEROL mg/dL 27.2 0.8 R 0.4 R CHOL HDL RATIO 4.2 23 R 0.02 R Comment: 3.3 - 4.4 LOW RISK 4.4 - 7.1 AVERAGE RISK 7.1 - 11.0 MODERATE RISK >11.0 HIGH RISK ALANINE AMINOTRANSFERASE 48 R ALKALINE PHOSPHATASE 99 R TOTAL PROTEIN 7.2 R ALBUMIN LEVEL 3.6 R ALBUMIN GLOBULIN RATIO 1.0 Resulting Agency [facility] Review of Systems Constitutional: Negative for activity change, appetite change, chills, diaphoresis, fatigue, fever and unexpected weight change. HENT: Negative for congestion, ear pain, rhinorrhea, sinus pressure, sinus pain, sneezing, sore throat, trouble swallowing and voice change. Eyes: Negative for visual disturbance. Respiratory: Negative for cough, chest tightness, shortness of breath and wheezing. Cardiovascular: Negative for chest pain, palpitations and leg swelling. Gastrointestinal: Negative for abdominal distention, abdominal pain, blood in stool, constipation, diarrhea and vomiting. Genitourinary: Negative for decreased urine volume, dysuria, flank pain, frequency, hematuria and urgency. Musculoskeletal: Negative for arthralgias, gait problem, joint swelling and myalgias. Skin: Negative for rash. Neurological: Negative for dizziness, tremors, syncope, weakness, light-headedness and headaches. Psychiatric/Behavioral: Negative for decreased concentration and suicidal ideas. The patient is not nervous/anxious. Hematological: Does not bruise/bleed easily. Endocrine: Negative for cold intolerance, heat intolerance, polydipsia, polyphagia and polyuria. Objective Physical Exam Vitals reviewed. Constitutional: Appearance: Normal appearance. HENT: Head: Normocephalic and atraumatic. Right Ear: There is impacted cerumen. Left Ear: There is impacted cerumen. Nose: Nose normal. Mouth/Throat: Mouth: Mucous membranes are moist. Pharynx: Oropharynx is clear. Eyes: Pupils: Pupils are equal, round, and reactive to light. Cardiovascular: Rate and Rhythm: Normal rate and regular rhythm. Pulses: Normal pulses. Heart sounds: Normal heart sounds. Pulmonary: Effort: Pulmonary effort is normal. Breath sounds: Normal breath sounds. Abdominal: General: Abdomen is flat. Bowel sounds are normal. Palpations: Abdomen is soft. Musculoskeletal: General: Normal range of motion. Cervical back: Normal range of motion. Feet: Left foot: Skin integrity: Ulcer present. Skin: General: Skin is warm and dry. Capillary Refill: Capillary refill takes less than 2 seconds. Neurological: General: No focal deficit present. Mental Status: He is alert and oriented to person, place, and time. Psychiatric: Mood and Affect: Mood normal. Behavior: Behavior normal. Assessment/Plan Problem List Items Addressed This Visit Primary hypertension (CMS/HCC) Currently taking Losartan 100mg; Checks BP at home. Does not recall averages. BP is good today in office. Denies orthostatic changes, dizziness, cough, shortness of breath, swelling in extremities. Continue current regimen. Relevant Medications losartan (Cozaar) 100 MG tablet Other hyperlipidemia (CMS/HCC) Currently taking Atorvastatin 40mg. Denies any myalgias. Most recent Lipid Panel WNL. Continue current regimen. Relevant Medications atorvastatin (Lipitor) 40 MG tablet Type 2 diabetes mellitus without complication, with long-term current use of insulin (CMS/HCC) Most recent labs: hemoglobin A1C 9.9% in July. Average FSBS range from BGs range between 120 and 150's No episode of hypoglycemia No medication adverse effects reported by the patient. Patient educated on lifestyle modifications, dietary restrictions, signs and symptoms of hypoglycemia/hyperglycemia and importance of eating regular consistent meals. Stressed upon importance of checking blood glucose at home and bring blood glucose log to appointments. All questions, concerns answered and addressed. Encouraged to call office if persistent hypoglycemia/hyperglycemia on home glucose monitoring noted. Is following with wound care for L foot non healing ulcer. Relevant Medications glipiZIDE (Glucotrol) 10 MG tablet glucose blood (OneTouch Ultra) test strip metFORMIN (Glucophage) 1000 MG tablet SITagliptin (Januvia) 100 MG tablet Other Relevant Orders Microalbumin / creatinine urine ratio Hemoglobin A1c Other specified hypothyroidism (CMS/HCC) Relevant Medications levothyroxine (Synthroid) 112 MCG tablet Cerumen debris on tympanic membrane, bilateral - Primary Relevant Medications carbamide peroxide (Debrox) 6.5 % otic solution Other Visit Diagnoses Other chronic pain Relevant Medications meloxicam (Mobic) 7.5 MG tablet Psychophysiological insomnia Relevant Medications traZODone (Desyrel) 150 MG tablet documented in this encounter [facility] Instructions 11-21-2023 Patient Instructions Note Date & Type Note Facility 11-21-2023 Instructions Anisha Orozco NP - 11/21/2023 1:00 PM EDT Your blood pressure is GOOD in the office today. Check your blood pressure at home 3 times per week, preferably in the afternoon. Goal <130/90. Record results in blood pressure log. Bring back with you to your next visit. Debrox sent in for ear was. Follow instructions on bottle. Education: Check blood sugars daily, notify if <70 or >200. Take medications (pills or insulin) as directed. Monitor for s/s of hypoglycemia (sweaty, dizziness, nausea, vomiting, or shakiness). Watch for increase in thirst, urination, or appetite. Inspect feet frequently monitoring for open wounds , and also recommend yearly eye exam. Pt should attempt to remain as physically active as chronic conditions allow, as well as trying to follow a diet low in carbohydrates, and simple sugars. documented in this encounter [facility] Telephone encounter Note 11-07-2023 Telephone Encounter - Ninfa Hall - 11/07/2023 8:31 AM EDT Note Date & Type Note Facility 11-07-2023 Telephone encount er Note Patient needs refills for Januvia and Glipizide[facility] Note 11-07-2023 Telephone Encounter - Ninfa Doylemyah - 11/07/2023 8:31 AM EDT Note Date & Type Note Facility 11-07-2023 Miscellaneous Notes Formattin g of this note might be different from the original. Patient needs refills for Januvia and Glipizide. [facility] documented in this encounter [facility] Evaluation note Note Date & Type Note [...] Primary documented in this encounter [facility] Evaluation note Note Date & Type Note Facility Evaluation note Diagnosis Type 2 diabetes mellitus without complication, with long-term current use of insulin (CMS/HCC) documented in this encounter [facility] Evaluation note Note Date & Type Note Facility Evaluation note Diagnosis Cerumen debris on tympanic membrane, bilateral- Primary Other hyperlipidemia (CMS/HCC) Type 2 diabetes mellitus without complication, with long-term current use of insulin (CMS/HCC) Other specified hypothyroidism (CMS/HCC) Primary hypertension (CMS/HCC) Unspecified essential hypertension Other chronic pain Psychophysiological insomnia Persistent disorder of initiating or maintaining sleep documented in this encounter [facility] Evaluation note Note Date & Type Note [...] Persistent disorder of initiating or maintaining sleep Other hyperlipidemia (CMS/HCC) Type 2 diabetes mellitus without complication, with long-term current use of insulin (CMS/HCC) Other specified hypothyroidism (CMS/HCC) Primary hypertension (CMS/HCC) Unspecified essential hypertension Other chronic pain Psychophysiological insomnia Persistent disorder of initiating or maintaining sleep documented in this encounter [facility] Evaluation note Note Date & Type Note [...] Persistent disorder of initiating or maintaining sleep Routine general medical examination at health care facility- Primary Routine general medical examination at a health care facility Other hyperlipidemia (CMS/HCC) Type 2 diabetes mellitus without complication, with long-term current use of insulin (CMS/HCC) Other specified hypothyroidism (CMS/HCC) Primary hypertension (CMS/HCC) Unspecified essential hypertension Other chronic pain Psychophysiological insomnia Persistent disorder of initiating or maintaining sleep documented in this encounter [facility] Summary [...] DATE CREATED AUTHOR AUTHOR'S ORGANIZ ATION 11/22/2023 [facility] Reason for Visit (unrecogniz ed section and content) Reason Onset Date Comments Med Refill 12/29/2023 Reason Onset Date Comments Med Refill 11/07/2023 Reason Comments Med Refill Reason Comments Medicare Annual Wellness Visit [facility] Care Teams (unrecognized sec tion and content) Body Design Checker Relationship Specialty Start Date End Date Shaikh Monet MD [address] [place] [phone] PCP - Tang HANNAH 09/18/23 Darion Blankenship MD [address] [place] [phone] PCP - General Family Medicine 11/07/23 Neil Peng PA [address] [place] [phone] Referring Physician 05/09/23 Anisha Orozco NP [address] [place] [address] Nurse Practitioner Family Medicine 11/07/23 Body Design Checker Relationship Specialty Start Date End Date Shaikh Monet MD [address] [place] [phone] PCP - Tang HANNAH 09/18/23 Darion Blankenship MD [address] [place] [phone] PCP - General Family Medicine 11/07/23 Neil Peng PA [address] [place] [phone] Referring Physician 05/09/23 Anisha Orozco NP [address] [place] [phone] Nurse Practitioner Family Medicine 11/07/23 Body Design Checker Relationship Specialty Start Date End Date Shaikh Monet MD [address] [place] [phone] PCP - Tang HANNAH 09/18/23 Darion Blankenship MD [address] [place] [phone] PCP - General Family Medicine 11/07/23 Neil Peng PA [address] [place] [phone] Referring Physician 05/09/23 Anisha Orozco, JULIAN [address] [place] [address] Nurse Practitioner Family Medicine 11/07/23 Body Design Checker Relationship Specialty Start Date End Date Shaikh Monet MD [address] [place] [phone] PCP - Tang HANNAH 09/18/23 Darion Blankenship MD [address] [place] [phone] PCP - General Family Medicine 11/07/23 Neil Peng PA [address] [place] [phone] Referring Physician 05/09/23 Anisha Orozco NP [address] [place] [address] Nurse Practitioner Family Medicine 11/07/23 Body Design Checker Relationship Specialty Start Date End Date Shaikh Monet MD [address] [place] [phone] PCP - Tang HANNAH 09/18/23 Darion Blankenship MD [address] [place] [phone] PCP - General Family Medicine 11/07/23 Neil Peng PA [address] [place] [phone] Referring Physician 05/09/23 Anisha Orozco NP [address] [place] [address] Nurse Practitioner Family Medicine 11/07/23 Body Design Checker Relationship Specialty Start Date End Date Shaikh Monet MD [address] [place] [phone] PCP - Tang HANNAH 09/18/23 Darion Blankenship MD [address] [place] [phone] PCP - General Family Medicine 11/07/23 Neil Peng PA [address] [place] [phone] Referring Physician 05/09/23 Anisha Orozco NP [address] [place] [phone] Nurse Practitioner Family Medicine 11/07/23 Body Design Checker Relationship Specialty Start Date End Date Shaikh Monet MD [address] [place] [phone] PCP - Tang HANNAH 09/18/23 Darion Blankenship MD [address] [place] [phone] PCP - General Family Medicine 11/07/23 Neil Peng PA [address] [place] [phone] Referring Physician 05/09/23 Anisha Orozco NP [address] [place] [address] Nurse Practitioner Family Medicine 11/07/23 Body Design Checker Relationship Specialty Start Date End Date Shaikh Monet MD [address] [place] [phone] PCP - Tang HANNAH 09/18/23 Darion Blankenship MD [address] [place] [address] PCP - General Family Medicine 11/07/23 Neil Peng PA [address] [place] [phone] Referring Physician 05/09/23 Anisha Orozco NP [address] [place] [address] Nurse Practitioner Family Medicine 11/07/23 FOR RECORDS [...] BE BASED ON THE PRIMARY CLINICAL RECORDS. [employer] provides no warranty or guarantee of the accuracy or completeness of information in this document.
== END 2024-04-23 14:36 | disposition home or self-care (01) ==
LOC: WC 14:35
PROVIDERS: PCP Internal Medicine; Visit Provider Physician Assistant
DX: E11.621 Type 2 diabetes mellitus with foot ulcer (principal); L97.422 Non-pressure chronic ulcer of left heel and midfoot with fat layer exposed
CPT/HCPCS: 11043

== ENCOUNTER 2024-05-07 15:19 | Outpatient (OUT) | payer MEDICARE, SELFPAY | END 2024-05-07 15:20 | disposition home or self-care (01) | LOC: WC 15:19 | PROVIDERS: PCP Internal Medicine; Visit Provider Physician Assistant | DX: E11.621 Type 2 diabetes mellitus with foot ulcer (principal); L97.422 Non-pressure chronic ulcer of left heel and midfoot with fat layer exposed | CPT/HCPCS: 11042 ==

== ENCOUNTER 2024-05-21 15:50 | Outpatient (OUT) | payer MEDICARE, SELFPAY ==
--- OUTSIDE RECORDS SUMMARY | 2024-05-21 16:12 | XMS_ITS | CCD ---
Author Organization [facility] Care Team Providers Care Lidder Name Role Phone CHIKI, DELAROSA Admitting Unavailable FAWWAD, DELAROSA Attending Unavailable FAWWAD, DELAROSA Primary Care Unavailable FAWWAD, DELAROSA Consulting Unavailable FAWWAD, DELAROSA Admitting Unavailable FAWWAD, DELAROSA Attending Unavailable FAWWAD, DELAROSA Primary Care Unavailable FAWWAD, DELAROSA Consulting Unavailable Neil French Unavailable Chiki LUU, Unavailable Anisha Orozco NP Unavailable Darion Blankenship MD Primary Care Provider ANISHA OROZCO Attending Unavailabl e ZEFERINO OROZCO Attending Unavailable NEIL PENG Referring Unavailable ZEFERINO OROZCO Attending Unavailable ZEFERINO OROZCO Attending Unavailable SHAIKH MONET Attending Unavailable ANISHA OROZCO Attending Unavailduarte fernandez Medications Current Medications Medication Drug Class(es) Dates [...] Units under the skin Daily 3 mL 04/23/2024 Active Start: 04-23-2024 insulin glargi ne [...] Test Name Value Interpretation Reference Range Facility [facility] HEMOGLOBIN A1Con 024 Glucose [Mass/Vol] 194 mg[facility] HbA1c (Bld) [Mass fraction] 8.4 % High 4.5 - 6.2 % [facility] Comment on above: ADA RECOMMENDED LIMI T 4.0 - 6.0 ADA THERAPEUTIC TARGET < 7.0 ACTION SUGGESTED > 7.0 Interpretation and review of laboratory results Abnormal [facility] Healthcar e GLYCOHEMOGLOBIN A1Con 2021 ADA RECOMMENDATION SEE BELOW Normal [facility] Comment on above: Result Comment: ADA RECOMMENDED LIMIT 4.0 - 6.0 ADA THERAPEUTIC TARGET < 7.0 ACTION SUGGESTED > 7.0 Performed By: #### A 1C #### [facility] [address] [place] [address] Dr. José Miguel Knight Glucose [Mass/Vol] 260 mg/dL Normal [facility] Comment on above: Performed By: #### A 1C #### [facility] [address] [place] [address] Dr. José Miguel Knight HbA1c (Bld) [Mass fraction] 10.7 % Critically high 4.5-6.2 [facility] Comment on above: Performed By: #### A 1C #### [facility] [address] [place] [address] Dr. José Miguel Knight CBC AUTO DIFFon 02-02-2021 BASO # 0.0 103/ul Normal 0.0-0.1 [facility] Comment on above: Performed By: #### C BC #### [facility] [address] [place] [address] Dr. José Miguel Knight Basophils/100 WBC (Bld) 0.6 % Normal 0.2-2.0 [facility] Comment on above: Performed By: #### C BC #### [facility] [address] [place] [address] Dr. José Miguel Knight EO # 0.1 103/ul Normal 0.0-0.7 [facility] Comment on above: Performed By: #### C BC #### [facility] [address] [place] [address] Dr. José Miguel Knight Eosinophils/100 WBC (Bld) 0.9 % Normal 0.9-7.0 [facility] Comment on above: Performed By: #### C BC #### [facility] [address] [place] [address] Dr. José Miguel Knight Erythrocyte distribution width (RBC) [Ratio] 12.7 % Normal 11.0-15.0 [facility] Comment on above: Performed By: #### C BC #### [facility] [address] [place] [address] Dr. José Miguel Knight Hematocrit (Bld) [Volume fraction] 44.0 % Normal 42.0-54.0 [facility] Comment on above: Performed By: #### C BC #### [facility] [address] [place] [address] Dr. José Miguel Knight Hemoglobin (Bld) [Mass/Vol] 15.0 g/dL Normal 14.0-18.0 [facility] Comment on above: Performed By: #### C BC #### [facility] [address] [place] [address] Dr. José Miguel Knight IG # 0.04 10e3/ul Critically high 0.00-0.03 [facility] Comment on above: Performed By: #### C BC #### [facility] [address] [place] [address] Dr. José Miguel Knight IG % 0.6 % Critically high 0.0-0.5 [facility] Comment on above: Performed By: #### C BC #### [facility] [address] [place] [address] Dr. José Miguel Knight LYMPH # 1.6 103/ul Normal 1.2-3.8 [facility] Comment on above: Performed By: #### C BC #### [facility] [address] [place] [address] Dr. José Miguel Knight Lymphocytes/100 WBC (Bld) 22.5 % Normal 20.5-60.0 [facility] Comment on above: Performed By: #### C BC #### [facility] [address] [place] [address] Dr. José Miguel Knight MANUAL DIFF REQ NO Normal [facility] Comment on above: Performed By: #### C BC #### [facility] [address] [place] [address] Dr. José Miguel Knight MCH (RBC) [Entitic mass] 30.4 pg Normal 25.9-34.0 [facility] Comment on above: Performed By: #### C BC #### [facility] [address] [place] [address] Dr. José Miguel Knight MCHC (RBC) [Mass/Vol] 34.1 g/dL Normal 29.9-35.2 [facility] Comment on above: Performed By: #### C BC #### [facility] [address] [address] [address] José Miguel Knight MCV (RBC) [Entitic vol] 89.2 fL Normal 80.0-94.0 [facility] Comment on above: Performed By: #### C BC #### [facility] [address] [address] [address] José Miguel Knight MONO # 0.5 103/ul Normal 0.3-0.8 [facility] Comment on above: Performed By: #### C BC #### [facility] [address] [address] [address] José Miguel Knight Monocytes/100 WBC (Bld) 7.0 % Normal 1.7-12.0 [facility] Comment on above: Performed By: #### C BC #### [facility] [address] [place] [address] Dr. José Miguel Knight NEUT # 4.7 103/ul Normal 1.4-6.5 [facility] Comment on above: Performed By: #### C BC #### [facility] [address] [address] [address] José Miguel Knight Neutrophils/100 WBC (Bld) 68.4 % Normal 43.0-75.0 [facility] Comment on above: Performed By: #### C BC #### [facility] [address] [address] [address] José Miguel Knight Platelet mean volume (Bld) [Entitic vol] 10.8 fL Normal 9.5-13.5 [facility] Comment on above: Performed By: #### C BC #### [facility] [address] [address] [address] José Miguel Knight PLT 223 103/ul Normal 150-450 [facility] Comment on above: Performed By: #### C BC #### [facility] [address] [address] [address] José Miguel Knight RBC 4.93 106/ul Normal 4.70-6.10 [facility] Comment on above: Performed By: #### C BC #### [facility] [address] [address] [address] José Miguel Knight WBC 6.9 103/ul Normal 4.0-11.0 [facility] Comment on above: Performed By: #### C BC #### [facility] [address] [address] [address] José Miguel Knight GLYCOHEMOGLOBIN A1Con 2020 ADA RECOMMENDATION ADA THERAPEUTIC TARGET 6.0 - 7.0 ACTION SUGGESTED > 7.0 Normal [facility] Comment on above: Performed By: #### A 1C #### [facility] [address] [address] [address] José Miguel Knight Glucose [Mass/Vol] 217 mg/dL Normal [facility] Comment on above: Performed By: #### A 1C #### [facility] [address] [place] [address] Dr. José Miguel Knight HbA1c (Bld) [Mass fraction] 9.2 % Critically high <=6.0 [facility] Comment on above: Performed By: #### A 1C #### [facility] [address] [place] [address] Dr. José Miguel Knight LIPID PROFILEon 02-02-2021 CHOL-HDL RATIO NORM SEE BELOW Normal [facility] Comment on above: Result Comment: 3.3 - 4.4 LOW RISK 4.4 - 7.1 AVERAGE RISK 7.1 - 11.0 MODERATE RISK >11.0 HIGH RISK Performed By: #### T SH, LIPID, CMP #### [facility] [address] [place] [address] Dr. José Miguel Knight Cholesterol [Mass/Vol] 121 mg/dL Normal <=200 [facility] Comment on above: Performed By: #### T SH, LIPID, CMP #### [facility] [address] [place] [address] Dr. José Miguel Knight Cholesterol in HDL [Mass/Vol] 37 mg/dL Normal [facility] Comment on above: Performed By: #### T SH, LIPID, CMP #### [facility] [address] [place] [address] Dr. José Miguel Knight Cholesterol in LDL [Mass/Vol] 46.4 mg/dL Normal [facility] Comment on above: Performed By: #### T SH, LIPID, CMP #### [facility] [address] [address] [address] José Miguel Knight Cholesterol.total/Cho lesterol in HDL [Mass ratio] 3.3 {ratio} Normal [facility] Comment on above: Performed By: #### T SH, LIPID, CMP #### [facility] [address] [address] [address] José Miguel Knight HDL NORMAL > or = 60 mg/dl - LOW CARDIOVASCULAR RISK <40 mg/dl - HIGH CARDIOVASCULAR RISK Normal [facility] Comment on above: Performed By: #### T SH, LIPID, CMP #### [facility] [address] [place] [address] Dr. José Miguel Knight LDL CALC NORMAL SEE BELOW Normal [facility] Comment on above: Result Comment: <100 mg/dl OPTIMAL 100 - 129 mg/dl NEAR OR ABOVE OPTIMAL 130 - 159 mg/dl BORDERLINE HIGH 160 - 189 mg/dl HIGH >190 mg/dl VERY HIGH Performed By: #### T SH, LIPID, CMP #### [facility] [address] [place] [address] Dr. José Miguel Knight Triglyceride [Mass/Vol] 188 mg/dL Critically high <=150 [facility] Comment on above: Performed By: #### T SH, LIPID, CMP #### [facility] [address] [address] [address] José Miguel Knight VLDL CALC 37.6 mg/dL Normal [facility] Comment on above: Performed By: #### T SH, LIPID, CMP #### [facility] [address] [address] [address] José Miguel Knight MICROALBUMIN, RAND URon 01-18 mALB 1.2 mg/L Normal <=30.0 [facility] Comment on above: Performed By: #### M ALBR #### [facility] [address] [place] [address] Dr. José Miguel Knight PROF 14(COMP METB)on 11-16-2 021 Albumin [Mass/Vol] 3.8 g/dL Normal 3.5-5.0 [facility] Comment on above: Performed By: #### T ERICA, LIPID, CMP #### [facility] [address] [address] [address] José Miguel Knight Albumin/Globulin [Mass ratio] 1.1 {ratio} Normal [facility] Comment on above: Performed By: #### T ERICA, LIPID, CMP #### [facility] [address] [address] [address] José Miguel Knight ALP [Catalytic activity/Vol] 92 U/L Normal 38-126 [facility] Comment on above: Performed By: #### T ERICA, LIPID, CMP #### [facility] [address] [address] [address] José Miguel Knight ALT [Catalytic activity/Vol] 46 U/L Normal 21-72 [facility] Comment on above: Performed By: #### T ERICA, LIPID, CMP #### [facility] [address] [address] [address] José Miguel Knight Anion gap [Moles/Vol] 12.8 mmol/L Normal [facility] Comment on above: Performed By: #### T ERICA, LIPID, CMP #### [facility] [address] [address] [address] José Miguel Knight AST [Catalytic activity/Vol] 22 U/L Normal 17-59 [facility] Comment on above: Performed By: #### T ERICA, LIPID, CMP #### [facility] [address] [address] [address] José Miguel Knight Bilirubin [Mass/Vol] 0.5 mg/dL Normal 0.2-1.3 [facility] Comment on above: Performed By: #### T ERICA, LIPID, CMP #### [facility] [address] [address] [address] José Miguel Knight Calcium [Mass/Vol] 9.3 mg/dL Normal 8.4-10.2 [facility] Comment on above: Performed By: #### T ERICA, LIPID, CMP #### [facility] [address] [address] [address] José Miguel Knight Chloride [Moles/Vol] 103 mmol/L Normal 98-107 [facility] Comment on above: Performed By: #### T SH, LIPID, CMP #### [facility] [address] [place] [address] Dr. José Miguel Knight CO2 [Moles/Vol] 27.6 mmol/L Normal 22.0-30.0 [facility] Comment on above: Performed By: #### T ERICA, LIPID, CMP #### [facility] [address] [place] [address] Dr. José Miguel Knight Creatinine [Mass/Vol] 0.76 mg/dL Normal 0.66-1.25 [facility] Comment on above: Performed By: #### T ERICA, LIPID, CMP #### [facility] [address] [place] [address] Dr. José Miguel Knight EGFR-AF ERITREAN >60 Normal >=60 [facility] Comment on above: Performed By: #### T ERICA, LIPID, CMP #### [facility] [address] [place] [address] Dr. José Miguel Knight EGFR-NON AF ERITREAN >60 Normal >=60 [facility] Comment on above: Performed By: #### T ERICA, LIPID, CMP #### [facility] [address] [place] [address] Dr. José Miguel Knight Globulin (S) [Mass/Vol] 3.4 g/dL Normal [facility] Comment on above: Performed By: #### T ERICA, LIPID, CMP #### [facility] [address] [place] [address] Dr. José Miguel Knight Glucose [Mass/Vol] 253 mg/dL Critically high 74-106 [facility] Comment on above: Performed By: #### T ERICA, LIPID, CMP #### [facility] [address] [place] [address] Dr. José Miguel Knight Potassium [Moles/Vol] 4.4 mmol/L Normal 3.4-5.0 [facility] Comment on above: Performed By: #### T SH, LIPID, CMP #### [facility] [address] [place] [address] Dr. José Miguel Knight Protein [Mass/Vol] 7.2 g/dL Normal 6.1-8.2 [facility] Comment on above: Performed By: #### T SH, LIPID, CMP #### [facility] [address] [place] [address] Dr. José Miguel Knight Sodium [Moles/Vol] 139 mmol/L Normal 137-145 [facility] Comment on above: Performed By: #### T SH, LIPID, CMP #### [facility] [address] [place] [address] Dr. José Miguel Knight Urea nitrogen [Mass/Vol] 16.0 mg/dL Normal 9.0-20.0 [facility] Comment on above: Performed By: #### T SH, LIPID, CMP #### [facility] [address] [place] [address] Dr. José Miguel Knight Urea nitrogen/Creatinine [Mass ratio] 21.1 mg/mg Normal [facility] Comment on above: Performed By: #### T SH, LIPID, CMP #### [facility] [address] [place] [address] Dr. José Miguel Knight TSHon 02-02-2021 TSH 5.529 uIU/mL Critically high 0.470-4.680 [facility] Comment on above: Performed By: #### T ERICA, LIPID, CMP #### [facility] [address] [place] [address] Dr. José Miguel Knight TSH RANGE SEE BELOW Normal [facility] Comment on above: Result Comment: <0.3 4 UIU/ml HYPERTHYROID 0.34-5.60 UIU/ml EUTHYROID >5.60 UIU/ml HYPOTHYROID Performed By: #### T SH, LIPID, CMP #### [facility] [address] [place] [address] Dr. José Miguel Knight Vital Signs Date Time Vital Sign Value Performing Clinician Faci lity 04-23-2024 09:53-0500 Body height 185.4 cm Anisha Orozco NP Work Phone: [facility] 04-23-2024 09:53-0500 Body mass index (BMI) [Ratio] 31.93 kg/m2 Anisha Orozco HEALTH AND SAFETY INSPECTOR Work Phone: [facility] 04-23-2024 09:53-0500 Body temperature 98.8 [degF] Anisha Orozco HEALTH AND SAFETY INSPECTOR Work Phone: [facility] 04-23-2024 09:53-0500 Body weight 109.77 kg Anisha Orozco HEALTH AND SAFETY INSPECTOR Work Phone: [facility] 04-23-2024 09:53-0500 Diastolic blood pressure 76 mm[Hg] Anisha Orozco HEALTH AND SAFETY INSPECTOR Work Phone: [facility] 04-23-2024 09:53-0500 Heart rate 86 /min Anisha Orozco HEALTH AND SAFETY INSPECTOR Work Phone: [facility] 04-23-2024 09:53-0500 Respiratory rate 16 /min Anisha Orozco HEALTH AND SAFETY INSPECTOR Work Phone: [facility] 04-23-2024 09:53-0500 SaO2% (BldA) [Mass fraction] 97 % Anisha Orozco HEALTH AND SAFETY INSPECTOR Work Phone: [facility] 04-23-2024 09:53-0500 Systolic blood pressure 140 mm[Hg] Anisha Orozco HEALTH AND SAFETY INSPECTOR Work Phone: [facility] 11-21-2023 13:08-0400 Body height 185.4 cm Anisha Orozco HEALTH AND SAFETY INSPECTOR Work Phone: [facility] 11-21-2023 13:08-0400 Body mass index (BMI) [Ratio] 30.34 kg/m2 Anisha Orozco HEALTH AND SAFETY INSPECTOR Work Phone: [facility] 11-21-2023 13:08-0400 Body temperature 98.71 [degF] Anisha Orozco HEALTH AND SAFETY INSPECTOR Work Phone: [facility] 11-21-2023 13:08-0400 Body weight 104.33 kg Anisha Millardpatrick HEALTH AND SAFETY INSPECTOR Work Phone: [facility] 11-21-2023 13:08-0400 Diastolic blood pressure 80 mm[Hg] Anisha Millardpatrick HEALTH AND SAFETY INSPECTOR Work Phone: [facility] 11-21-2023 13:08-0400 Heart rate 110 /min Anisha Millardpatrick HEALTH AND SAFETY INSPECTOR Work Phone: [facility] Comment on above: 98% O2 11-21-2023 13:08-0400 Systolic blood pressure 132 mm[Hg] Anisha Orozco HEALTH AND SAFETY INSPECTOR Work Phone: [facility] Healthcare Encounters Encounter Date Encounter Type Care Provider Facility Start: 04-23-2024 End: 04-23-2024 Bamboo flowsheet Anisha Millardpatrick HEALTH AND SAFETY INSPECTOR Work Phone: [facility] Start: 04-23-2024 End: 04-23-2024 Bamboo flowsheet Anisha Millardpatrick HEALTH AND SAFETY INSPECTOR Work Phone: [facility] Start: 04-23-2024 End: 04-23-2024 Assay of hemosiderin, quant Anisha Cunninghamtrick HEALTH AND SAFETY INSPECTOR Work Phone: [facility] Start: 04-23-2024 End: 04-23-2024 Patient encounter procedure Anisha Millardpatrick HEALTH AND SAFETY INSPECTOR [facility] Comment on above: Routine general medi elias examination at health care facility (Primary Dx); Other hyperlipidemia (CMS/HCC); Type 2 diabetes mellitus without complication, with long-term current use of insulin (CMS/HCC); Other specified hypothyroidism (CMS/HCC); Primary hypertension (CMS/HCC); Other chronic pain; Psychophysiological insomnia Start: 04-23-2024 End: 04-23-2024 ambulatory ANISHA OROZCO Not Available Start: 03-26-2024 End: 03-26-2024 Orders Only Anisha Millardpatrick HEALTH AND SAFETY INSPECTOR Work Phone: [facility] Comment on above: Other hyperlipidemia (CMS/HCC); Type 2 diabetes mellitus without complication, with long-term current use of insulin (CMS/HCC); Other specified hypothyroidism (CMS/HCC); Primary hypertension (CMS/HCC); Other chronic pain; Psychophysiological insomnia Start: 12-29-2023 End: 01-02-2024 Refill Joana Roman [facility] Comment on above: Type 2 diabetes ne itus without complication, with long-term current use of insulin (CMS/HCC) (Primary Dx) Start: 11-27-2023 End: 11-27-2023 [facility] Result Encounter Anisha Orozco HEALTH AND SAFETY INSPECTOR Work Phone: [facility] External Department Unsolicited Start: 11-27-2023 End: 11-27-2023 [facility]inis[facility] Result Encounter Anisha Orozco HEALTH AND SAFETY INSPECTOR Work Phone: [facility] External Department Unsolicited Start: 11-21-2023 End: 11-21-2023 Bamboo flowsheet Anisha Orozco HEALTH AND SAFETY INSPECTOR Work Phone: [facility] Start: 11-21-2023 End: 11-21-2023 Bamboo flowsheet Anisha Orozco HEALTH AND SAFETY INSPECTOR Work Phone: [facility] Start: 11-21-2023 End: 11-21-2023 Office outpatient visit 15 minutes Anisha Orozco HEALTH AND SAFETY INSPECTOR Work Phone: [facility] Comment on above: Cerumen debris on ty mpanic membrane, bilateral (Primary Dx); Other hyperlipidemia (CMS/HCC); Type 2 diabetes mellitus without complication, with long-term current use of insulin (CMS/HCC); Other specified hypothyroidism (CMS/HCC); Primary hypertension (CMS/HCC); Other chronic pain; Psychophysiological insomnia Start: 11-21-2023 End: 11-21-2023 ambulatory ANISHA OROZCO Not Available Start: 11-07-2023 End: 11-07-2023 Refill Anisha Orozco HEALTH AND SAFETY INSPECTOR Work Phone: [facility] Comment on above: Type 2 diabetes ne itus without complication, with long-term current use of insulin ([facility] Start: 06-21-2023 End: 06-21-2023 ambulatory SHAIKH CHIKI Not Available Start: 06-14-2023 End: 06-14-2023 ambulatory ZEFERINO OROZCO Not Available Start: 05-29-2023 End: 05-29-2023 ambulatory ZEFERINO RUIZHER Not Available Start: 05-09-2023 End: 05-09-2023 ambulatory ZEFERINO RUIZHER Not Available Start: 07-21-2021 End: 07-22-2021 ambulatory SHAIKH CHIKI Facility:[facility] Start: 02-02-2021 End: 02-03-2021 ambulatory SHAIKH SHAWNMIMatt Facility: Procedures Date Procedure Procedure Detail Performing Clinician Start: 11-27-2023 MLR HEMOGLOBIN A1C Karely Orozco HEALTH AND SAFETY INSPECTOR Work Phone: Plan of Treatment Date Care Activity Detail Author Start: 02-23-2026 Screening for malign ant neoplasm of colon [facility] Start: 12-06-2025 Glaucoma screening Diabetes: R etinopathy Screening [facility] Start: 04-23-2025 Medicare Annual Wellness (AWV) Medicare Annual Wellness (AWV) [facility] Start: 07-26-2024 Urine screening for protein Diabetes: Urine Protein Screening [facility] Start: 06-18-2024 Influenza vaccination Influenza Vacc ine (#1) [facility] Comment on above: Postponed from 11/18 (Patient Refused) Start: 04-23-2024 End: 04-23-2024 Patient encounter procedure [facility] Comment on above: Arrived Start: 01-19-2024 Medicare Annual Wellness (AWV) Medicare Annual Wellness (AWV) [facility] Start: 11-21-2023 End: 11-20-2024 Hemoglobin A1c/Hemoglobin.total in Blood Hemoglobin A1c Lab Routine Type 2 diabetes mellitus without complication, with long-term current use of insulin ([facility]) Expected: 11/21/2023 (Approximate), Expires: 11/20/2024 [facility] Healthcare Comment on above: Expected: 11/21/2023 (Approximate), Expires: 11/20/2024 Start: 11-21-2023 End: 11-21-2023 Patient encounter procedure 11/21/2023 1:00 PM EDT Office Visit [facility] [address] [place] [address] Anisha Orozco NP [address] [place] [address] Arrived [facility] Comment on above: Arrived Start: 11-19-2023 Influenza vaccination Influenza Vacc ine (#1) [facility] Start: 04-29-2023 Hemoglobin A1c measurement Diabetes: Hemoglobin A1C [facility] Start: 01-23-2023 Glaucoma screening Diabetes: R etinopathy Screening [facility] Start: 1975 Medicare Annual Wellness (AWV) Medicare Annual Wellness (AWV) [facility] Start: 1975 Screening for malign ant neoplasm of colon [facility] Microalbumin/Creatin ine panel in random Urine Microalbumin / creatinine urine ratio Lab Routine Type 2 diabetes mellitus without complication, with long-term current use of insulin ([facility]) Ordered: 11/21/2023 [facility] Work Phone: Comment on above: Ordered: 11/21/2023 Payers Date Payer Category Payer Medicare [employer]AGE [facility] [id number] 2017-Present [address] [place] [address] [id number] 2017 Medicare (Managed Care) [employer]AGE [id number] 1974 Unknown [id number] .[id number] 1974 Unknown [id number] .2.593 1974 Unknown [id number] [id number] .2.9 1974 Unknown [id number] [id number] .2.9 1974 Unknown [id number] [id number] .2.9 1974 Unknown [id number] [id number] .2.9 1974 Unknown [id number] [id number] .2.1259 1974 Unknown [id number] .2.1259 1959 Unknown [id number] Social History Date Type Detail Facility Start: 06-21-2023 Tobacco smoking stat [facility] Never smoked tobacco [facility] Start: 06-21-2023 Tobacco use and exposure Smokeless tobacco non-user [facility] Start: 11-21-2023 End: 04-23-2024 Alcoholic beverage intake Ex-drinker (finding) [facility] Start: 11-21-2023 End: 04-23-2024 History of Social function [facility] Start: 11-21-2023 End: 04-23-2024 Tobacco use panel [facility] Start: 1975 Sex assigned at Not on file [facility] NEGATED: Highlighted rowStart: NINF History of tobacco use Passive smoker [facility] Medical Equipment Procedure Code Equipment Code Equipment Origin al Text Equipment Identifier Dates 1 each by Other route in the morning and 1 each in the evening and 1 each before bedtime. [id number] Start: 11-21-2023 End: 03-05-2027 1 each by Other route in the morning and 1 each in the evening and 1 each before bedtime. [id number] Start: 09-14-2023 End: 12-27-2026 1 each by Other route in the morning and 1 each in the evening and 1 each before bedtime. [id number] Start: 03-26-2024 End: 07-09-2027 1 each by Other route in the morning and 1 each in the evening and 1 each before bedtime. [id number] Start: 04-23-2024 End: 08-06-2027 History of Present illness Narrative 04-23-2024 Anisha Orozco, HEALTH AND SAFETY INSPECTOR - 04/23/2024 10:00 AM Rochelle Orozco, HEALTH AND SAFETY INSPECTOR - 04/23/2024 10:00 AM EST Note Date [...] No Cognitive Screening Three Word Registration: Banana, Wray, Chair Clock Drawing: Inability or Refusal to Draw Clock - 0 Three Word Recall: 2/3 words correct - 2 Total Score (0-5 Points): 2 Advance Care Planning Do you have a living will?: No Do you have a medical power of divorce attorney?: No Objective : BP 140/76 Pulse [...] No Cognitive Screening Three Word Registration: Banana, Wray, Chair Clock Drawing: Inability or Refusal to Draw Clock - 0 Three Word Recall: 2/3 words correct - 2 Total Score (0-5 Points): 2 Advance Care Planning Do you have a living will?: No Do you have a medical power of divorce attorney?: No Objective : BP 140/76 Pulse [...] Orozco NP - 11/21/2023 1:44 PM EDLillie Orozco, JULIAN - 11/21/2023 1:43 PM Neida Orozco NP - 11/21/2023 1:42 PM Neida Orozco, JULIAN - 11/21/2023 1:00 PM EDT Note Date & Type Note Facility 11-21-2023 History of Presen t illness Narrative Associated Problem(s): Other hyperlipidemia ([facility]/HCC) Currently taking Atorvastatin 40mg. Denies any myalgias. [...] non healing ulcer. Associated Problem(s): Primary hypertension ([facility]) Currently taking Losartan 100mg; Checks BP at [...] throat, vomiting or weakness. Is accompanied by child care attendant school. Is here today for med refills. Denies [...] R ALBUMIN GLOBULIN RATIO 1.0 Resulting Agency [facility] Review of Systems Constitutional: Negative for activity [...] losartan (Cozaar) 100 MG tablet Other hyperlipidemia ([facility]) Currently taking Atorvastatin 40mg. Denies any myalgias. Most recent Lipid Panel WNL. Continue current regimen. Relevant Medications atorvastatin (Lipitor) 40 MG tablet Type 2 diabetes mellitus without complication, with long-term current use of insulin ([facility]) Most recent labs: hemoglobin A1C 9.9% in [...] 150 MG tablet documented in this encounter [facility] Instructions 11-21-2023 Patient Instructions Note Date & [...] and simple sugars. documented in this encounter [facility] Telephone encounter Note 11-07-2023 Telephone Encounter - Ninfa Doylemyah - 11/07/2023 8:31 AM EDT Note Date & Type Note Facility 11-07-2023 Telephone encount er Note Patient needs refills for Januvia and Glipizide. [facility] Note 11-07-2023 Telephone Encounter - Ninfa Doylemyah - 11/07/2023 8:31 AM EDT Note Date & Type Note Facility 11-07-2023 Miscellaneous Notes Formattin g of this note might be different from the original. Patient needs refills for Januvia and Glipizide. [facility] documented in this encounter [facility] Evaluation note Note Date & Type [...] insulin (CMS/HCC)- Primary documented in this encounter [facility] Evaluation note Note Date & Type Note Facility Evaluation note Diagnosis Type 2 diabetes mellitus without complication, with long-term current use of insulin (CMS/HCC) documented in this encounter [facility] Evaluation note Note Date & Type [...] pital DATE CREATED AUTHOR AUTHOR'S ORGANIZ ATION 04/25/2024 [facility] EPIC Reason for Visit (unrecogniz ed section and content) Reason Onset Date Comments Med Refill 12/29/2023 Reason Onset Date Comments Med Refill 11/07/2023 Reason Comments Med Refill Reason Comments Medicare Annual Wellness Visit Subsequen t Care Teams (unrecognized sec tion and content) Lidder Relationship Specialty Start Date End Date Shaikh Monet MD [address] [place] [address] PCP - Tang HANNAH 09/18/23 Darion Blankenship MD [address] [place] [address] PCP - General Family Medicine 11/07/23 Neil Peng PA [address] [place] [address] Referring Physician 05/09/23 Anisha Orozco NP [address] [place] [address] Nurse Practitioner Family Medicine 11/07/23 Lidder Relationship Specialty Start Date End Date Shaikh Monet MD [address] [place] [address] PCP - Tang HANNAH 09/18/23 Darion Blankenship MD [address] [place] [address] PCP - General Family Medicine 11/07/23 Neil Peng PA [address] [place] [address] Referring Physician 05/09/23 Anisha Orozco NP [address] [place] [address] Nurse Practitioner Family Medicine 11/07/23 Lidder Relationship Specialty Start Date End Date PatywShaikh brennan MD [address] [place] [address] PCP - [place] 09/18/23 Darion Blankenship MD [address] [place] [address] PCP - General Family Medicine 11/07/23 Neil Peng PA [address] [place] [address] Referring Physician 05/09/23 Anisha Orozco NP [address] [place] [address] Nurse Practitioner Family Medicine 11/07/23 Lidder Relationship Specialty Start Date End Date Shaikh Monet MD [address] [place] [address] PCP - Tang HANNAH 09/18/23 Darion Blankenship MD [address] [place] [address] PCP - General Family Medicine 11/07/23 Neil Peng PA [address] [place] [address] Referring Physician 05/09/23 Anisha Orozco NP [address] [place] [address] Nurse Practitioner Family Medicine 11/07/23 Lidder Relationship Specialty Start Date End Date Shaikh Monet MD [address] [place] [address] PCP - Tang HANNAH 09/18/23 Darion Blankenship MD [address] [place] [address] PCP - General Family Medicine 11/07/23 Neil Peng PA [address] [place] [address] Referring Physician 05/09/23 Anisha Orozco NP [address] [place] [address] Nurse Practitioner Family Medicine 11/07/23 Lidder Relationship Specialty Start Date End Date Shaikh Monet MD [address] [place] [address] PCP - Tang HANNAH 09/18/23 Darion Blankenship MD [address] [place] [address] PCP - General Family Medicine 11/07/23 Neil Peng PA [address] [place] [address] Referring Physician 05/09/23 Anisha Orozco NP [address] [place] [address] Nurse Practitioner Family Medicine 11/07/23 Lidder Relationship Specialty Start Date End Date PatywShaikh brennan MD [address] [place] [address] PCP - Tang HANNAH 09/18/23 Darion Blankenship MD [address] [place] [address] PCP - General Family Medicine 11/07/23 Neil Peng PA [address] [place] [address] Referring Physician 05/09/23 Anisha Orozco NP [address] [place] [address] Nurse Practitioner Family Medicine 11/07/23 Lidder Relationship Specialty Start Date End Date Shaikh Monet MD [address] [place] [address] PCP - Tang HANNAH 09/18/23 Darion Blankenship MD [address] [place] [address] PCP - General Family Medicine 11/07/23 Neil Peng PA [address] [place] [address] Referring Physician 05/09/23 Anisha Orozco NP [address] [place] [address] Nurse Practitioner Family Medicine 11/07/23 FOR RECORDS [...] BE BASED ON THE PRIMARY CLINICAL RECORDS. [facility]. provides no warranty or guarantee of the accuracy or completeness of information in this document.
== END 2024-05-21 15:51 | disposition home or self-care (01) ==
LOC: WC 15:51
PROVIDERS: PCP Internal Medicine; Visit Provider Physician Assistant
DX: E11.621 Type 2 diabetes mellitus with foot ulcer (principal); L97.422 Non-pressure chronic ulcer of left heel and midfoot with fat layer exposed
CPT/HCPCS: 11042

== ENCOUNTER 2024-06-04 11:11 | Outpatient (OUT) | payer MEDICARE, SELFPAY | END 2024-06-04 11:12 | disposition home or self-care (01) | LOC: WC 11:12 | PROVIDERS: PCP Internal Medicine; Visit Provider Physician Assistant | DX: E11.621 Type 2 diabetes mellitus with foot ulcer (principal); L97.422 Non-pressure chronic ulcer of left heel and midfoot with fat layer exposed | CPT/HCPCS: G0463 ==

== ENCOUNTER 2024-06-27 13:33 | Outpatient (OUT) | payer MEDICARE, SELFPAY | END 2024-06-27 13:34 | disposition home or self-care (01) | LOC: WC 13:33 | PROVIDERS: PCP Internal Medicine; Visit Provider Physician Assistant | DX: L84 Corns and callosities (principal); E11.65 Type 2 diabetes mellitus with hyperglycemia | CPT/HCPCS: 11055 ==

== ENCOUNTER 2024-07-25 13:43 | Outpatient (OUT) | payer MEDICARE, SELFPAY ==
--- NOTE | 2024-07-25 17:35 | PM.WCHP ---
Wound Care H&P: HPI History of Present Illness Narrative: The patient is a pleasant 49-year-old gentleman with history of cognitive delay and type 2 diabetes with neuropathy who presents for routine nail care. He does have a new blister on the plantar left hallux that he states he obtained while mowing the lawn. He has no complaints of pain and denies symptoms of infection. Exam Narrative: Exam Narrative: Derm: Toenails 1 through 10 are elongated, mycotic, and thickened. There is a flat blister and macerated tissue on the plantar left hallux. No surrounding erythema or purulent drainage noted. Callus beneath the fourth metatarsal head on the left foot with no ulcer post paring. Vascular: DP and PT pulses are faintly palpable bilaterally. Brisk capillary refill. Digital hair is absent Neuro: Protective sensation is decreased, vibratory sensation is decreased, Achilles deep tendon reflexes are absent bilaterally Musculoskeletal: Contractures of the lesser toes noted on the left foot. No pain with palpation Assessment and Plan Assessment and Plan (1) Diabetic ulcer of foot associated with diabetes mellitus due to underlying condition, limited to breakdown of skin: (2) Type 2 diabetes mellitus with diabetic neuropathy, unspecified: (3) Tinea unguium: Plan The patient is a 49-year-old with history of diabetic neuropathy who presents for routine nail care. Nails were debrided without incident. He was found to have a new diabetic foot ulcer on the left plantar hallux. The site was dressed with Betadine and dry sterile dressing. He should continue these bandages and follow-up in the wound center in 2 weeks. Acute Procedures Podiatry Nail Debridement Class B Findings Advanced trophic changes as evidenced by any three of the following: decreased hair growth, nail changes (thickening) and skin texture (thin or shiny) Class C Findings Claudication: No Temperature changes: No Edema: Yes Nail debridement paresthesia (abnormal spontaneous sensations in the feet): No Burning: No Qualifies If: Qualifiers If:: A patient qualifies for nail debridement if they have: 1 class A finding (Q7) 2 class B findings (Q8) OR 1 class B & 2 class C findings in addition to a primary condition (Q9) Nail Procedure Nail Procedure Time out: Yes Nail procedure: other (Toenail debridement toes 1 through 10) Location (toes): left and right Procedure successful: Yes Patient tolerated procedure: well and no complications Additional comments: Toenails 1 through 10 were sharply debrided without incident. Callus beneath the fourth metatarsal head on the left was pared using a dermal curette without incident.
== END 2024-07-25 13:44 | disposition home or self-care (01) ==
LOC: WC 13:43
PROVIDERS: PCP Internal Medicine; Visit Provider Physician Assistant
DX: B35.1 Tinea unguium (principal); L97.521 Non-pressure chronic ulcer of other part of left foot limited to breakdown of skin; E11.621 Type 2 diabetes mellitus with foot ulcer; E11.40 Type 2 diabetes mellitus with diabetic neuropathy, unspecified
CPT/HCPCS: 11056; 11721

== ENCOUNTER 2024-08-13 13:12 | Outpatient (OUT) | payer MEDICARE, SELFPAY ==
--- OUTSIDE RECORDS SUMMARY | 2024-08-13 13:14 | XMS_ITS | Encounter Summary ---
Author Organization [facility] Address [address] [place] [address] Care Team Providers Care Bow Maker Gift Wrapping Name Role Phone Barbara Peng Unavailable [phone] Shaikh BELL Monet Unavailable [phone] Anisha Orozco NP Unavailable [phone] Darion Blankenship MD Primary Care Provider [phone] Encounter Details Date Type Department Care Team (Late st Contact Info) Description 11/08/2023 Clinisync Result Encounter [facility] External Department Unsolicited Provider, Generic External Data Social History Tobacco Use Types Packs/Day Years Used Date Smoking Tobacco: Never Passive Smoke Exposure: Never Smokeless Tobacco: Never Alcohol Use Standard Drinks/Week Comments Not Currently 0 (1 standard drink = 0.6 oz pur e alcohol) PHQ-2 Answer Date Recorded Patient Health Questionnaire-2 Score 0 06/21/2023 Sex and Gender Information Value Date Recorded Sex Assigned at Not on file Legal Sex Male 7:41 PM EDT Gender Identity Not on file Sexual Orientation Not on file documented as of this encounter Plan of Treatment Not on file documented as of this encounter Procedures Procedure Name Priority Date/Time Associated Diagnosis Comments XR FOOT LT MIN 3V 11/08/2023 6:5 0 AM EDT documented in this encounter Results * XR FOOT LT MIN 3V (11/08/2023 6:50 AM EDT) Anatomical Region Laterality Modality Other 11/08/2023 6:50 AM EDT Narrative 11/08/2023 6:52 AM EDT The [address] [address] XRay Report Signed Patient: ÁNGEL SHRESTHA MR#: [id number] : 1975 Acct:[id number] Age/Sex: 48 / M ADM Date: 11/07/23 Loc: Attending Dr: Ruslan Haro D.P.M. Ordering Physician: Ruslan Haro D.P.M. Date of Service: 11/07/23 Procedure(s): XR foot LT min 3V Accession Number(s): [id number] cc: Shaikh Raul Monet; Ruslan Haro D.P.M. The [address] [address] Patient Name: ÁNGEL SHRESTHA MRN: [id number] date: 1975 Sex: M Assigned Patient Location: Current Patient Location: Accession/Order Number: [id number] Exam Date: 11/07/2023 11:23 Report Date: 11/08/2023 06:50 At the request of: RUSLAN HARO Procedure: XR foot LT min 3V PROCEDURE: XR foot LT min 3V HISTORY: LEFT FOOT PAIN COMPARISON: XR foot left 01/23/2023 FINDINGS: BONES:Mild degenerative change of the first tarsal-metatarsal joint and first metatarsophalangeal joint. Stable developmental versus posttraumatic changes of the 5th toe. Prior plate and screw repair of distal fibula. SOFT TISSUES:No visible soft tissue swelling. EFFUSION:None visible. OTHER: Negative. XR/XR foot LT min 3V IMPRESSION: 1. Stable left foot. No acute abnormality. Electronically authenticated by: JC COLE Date: 11/08/2023 06:50 Dictated By: Jc Cole M.D. Signed By: 11/08/23 0652 DD/ 0650 TD/TT: Log Tumbler: Procedure Note Radiology, Radiologist, MD - 11/08/2023 The [place] [id number] XRay Report Signed Patient: ÁNGEL SHRESTHA PMR#: [id number] : 1975Acct:[id number] Age/Sex: 48 / MADM Date: 11/07/23 Loc: Attending Dr: Ruslan Haro D.P.M. Ordering Physician: Ruslan Haro D.P.M. Date of Service: 11/07/23 Procedure(s): XR foot LT min 3V Accession Number(s): [id number] cc: Shaikh Raul Monet; Ruslan Haro D.P.M. [place] [address] Patient Name: ÁNGEL SHRESTHA MRN: [id number] date: 1975 Sex: M Assigned Patient Location: Current Patient Location: Accession/Order Number: [id number] Exam Date: 11/07/2023 11:23 Report Date: 11/08/2023 06:50 At the request of: RUSLAN HARO Procedure: XR foot LT min 3V PROCEDURE: XR foot LT min 3V HISTORY: LEFT FOOT PAIN COMPARISON: XR foot left 01/23/2023 FINDINGS: BONES:Mild degenerative change of the first tarsal-metatarsal joint andfirst metatarsophalangeal joint. Stable developmental versus posttraumaticchanges of the 5th toe. Prior plate and screw repair of distal fibula. SOFT TISSUES:No visible soft tissue swelling. EFFUSION:None visible. OTHER: Negative. XR/XR foot LT min 3V IMPRESSION: 1. Stable left foot. No acute abnormality. Electronically authenticated by: JC COLE Date: 11/08/2023 06:50 Dictated By: Jc Cole M.D. Signed By:11/08/23 0652 DD/ TD/TT: Log Tumbler: us Generic External Data Provider [facility] Final Result documented in this encounter Visit Diagnoses Not on filedocumented in this encounter Care Teams Bow Maker Gift Wrapping Relationship Specialty Start Date End Date Shaikh Monet MD [address] [place] [address] PCP - Tang HANNAH 09/18/23 03/19/24 Darion Blankenship MD [address] [place] [address] PCP - General Family Medicine 11/07/23 Barbara Peng PA [address] [place] [address] Referring Physician 05/09/23 Anisha Orozco NP [address] [place] [address] Nurse Practitioner Family Medicine 11/07/23 documented as of this encounter
--- OUTSIDE RECORDS SUMMARY | 2024-08-13 13:14 | XMS_ITS | Encounter Summary ---
Author Organization [facility] Address [address] [place] [address] Care Team Providers Care Superintendent Pipelines Name Role Phone Darion Blankenship MD Primary Care Provider [phone] Barbara Peng Unavailable [phone] Shaikh BELL Monet Primary Care Provider [phone] Shaikh BELL Monet Unavailable [phone] Anisha Orozco TELEHEALTH NURSE EDUCATOR Unavailable [phone] Darion Blankenship MD Primary Care Provider [phone] Encounter Details Date Type Department Care Team (Late st Contact Info) Description 05/09/2023 Orders Only [facility] [address] [place] [address] Madison Ocampo MA Social History Tobacco Use Types Packs/Day Years Used Date Smoking Tobacco: Never Smokeless Tobacco: Never Alcohol Use Standard Drinks/Week Comments Not Currently 0 (1 standard drink = 0.6 oz pur e alcohol) Sex and Gender Information Value Date Recorded Sex Assigned at Not on file Legal Sex Male 7:41 PM EDT Gender Identity Not on file Sexual Orientation Not on file documented as of this encounter Plan of Treatment Not on file documented as of this encounter Visit Diagnoses Not on filedocumented in this encounter Care Teams Superintendent Pipelines Relationship Specialty Start Date End Date Darion Blankenship MD PCP - General Family Medicine 01/18/23 05/28/23 Shaikh Monet MD [address] [place] [address] PCP - General Internal Medicine 05/29/23 11/06/23 Shaikh Monet MD [address] [place] [address] PCP - Tang HANNAH 09/18/23 03/19/24 Darion Blankenship MD [address] [place] [address] PCP - General Family Medicine 11/07/23 Barbara Peng PA [address] [address] Referring Physician 05/09/23 Anisha Orozco NP [address] [address] Nurse Practitioner Family Medicine 11/07/23 documented as of this encounter
--- OUTSIDE RECORDS SUMMARY | 2024-08-13 13:14 | XMS_ITS | Encounter Summary ---
Author Organization [facility] Address [address] [place] [address] Care Team Providers Care Oncology Transplant Network Manager Name Role Phone Barbara Peng Unavailable [phone] Shaikh BELL Monet Primary Care Provider [phone] Shaikh BELL Monet Unavailable Anisha Orozco NP Unavailable [phone] Darion Blankenship MD Primary Care Provider [phone] Encounter Details Date Type Department Care Team (Late st Contact Info) Description 06/29/2023 Abstract [facility] [address] [place] [address] Destin De, DPM [address] [place], [place] [id number] Social History Tobacco Use Types Packs/Day Years [...] on filedocumented in this encounter Care Teams Oncology Transplant Network Manager Relationship Specialty Start Date End Date Shaikh Monet MD [address] [place] [address] PCP - General Internal Medicine 05/29/23 11/06/23 Shaikh Monet MD [address] [place] [address] PCP - Tang HANNAH 09/18/23 03/19/24 Darion Blankenship MD [address] [place] [address] PCP - General Family Medicine 11/07/23 Barbara Peng PA [address] [place] [address] Referring Physician 05/09/23 Anisha Orozco NP [address] [place] [address] Nurse Practitioner Family Medicine 11/07/23 documented as of this encounter
--- OUTSIDE RECORDS SUMMARY | 2024-08-13 13:14 | XMS_ITS | Clinical Summary ---
Author Organization [facility] Healthcare Address [address] [place] [address] Care Team Providers Care Contract Lead Name Role Phone Barbara Peng PA Unavailable [phone] Anisha Orozco NP Unavailable Darion Blankenship MD Primary Care Provider [phone] Allergies No known active allergies Medications atorvastatin (Lipitor) 40 MG tabletIndications:O ther hyperlipidemia Take 1 tablet (40 mg) by mouth Daily 90 tablet 1 5 10/21/19 25 Active glipiZIDE (Glucotrol) 10 MG tabletIndications:T ype 2 diabetes mellitus without complication, with long-term current use of insulin Take 1 tablet (10 mg) by mouth in the morning and 1 tablet (10 mg) in the evening. Take before meals. 180 tablet 5 Active glucose blood (OneTouch Ultra) test stripIndications:Ty pe 2 diabetes mellitus without complication, with long-term current use of insulin 1 each by Other route in the morning and 1 each in the evening and 1 each before bedtime. 300 each 11 5 08/06/19 28 Active insulin glargine (Lantus SoloStar) 100 UNIT/ML penIndications:Type 2 diabetes mellitus without complication, with long-term current use of insulin Inject 40 Units under the skin Daily 3 mL 11 5 Active levothyroxine (Synthroid) 112 MCG tabletIndications:O ther specified hypothyroidism Take 1 tablet (112 mcg) by mouth in the morning. Take before meals. 90 tablet 1 5 10/21/19 25 Active losartan (Cozaar) 100 MG tabletIndications:P rimary hypertension (CMS/HCC) Take 1 tablet (100 mg) by mouth Daily 90 tablet 1 5 10/21/19 25 Active meloxicam (Mobic) 7.5 MG tabletIndications:O ther chronic pain Take 1 tablet (7.5 mg) by mouth Daily 90 tablet 1 5 10/21/19 25 Active metFORMIN (Glucophage) 1000 MG tabletIndications:T ype 2 diabetes mellitus without complication, with long-term current use of insulin Take 1 tablet (1,000 mg) by mouth in the morning and 1 tablet (1,000 mg) before bedtime. 180 tablet 1 5 10/21/19 25 Active SITagliptin (Januvia) 100 MG tabletIndications:T ype 2 diabetes mellitus without complication, with long-term current use of insulin Take 1 tablet (100 mg) by mouth Daily 90 tablet 1 5 10/21/19 25 Active traZODone (Desyrel) 150 MG tabletIndications:P sychophysiological insomnia Take 1 tablet (150 mg) by mouth at bedtime 90 tablet 1 5 10/21/19 25 Active Active Problems Problem Noted Date Diagnosed Date Cerumen debris on tympanic membrane, bilateral 0 11/21/2023 Primary hypertension 06/21/2023 Assessment & Plan (11/21/2023 1:42 PM EDT): Currently taking Losartan 100mg; Checks BP at home. Does not recall averages. BP is good today in office. Denies orthostatic changes, dizziness, cough, shortness of breath, swelling in extremities. Continue current regimen. Assessment & Plan (06/21/2023 10:48 AM EDT): Above goal in office. But usually well controlled. Asymptomatic. C/w losartan. Other hyperlipidemia 06/21/2023 Assessment & Plan (11/21/2023 1:44 PM EDT): Currently taking Atorvastatin 40mg. Denies any myalgias. Most recent Lipid Panel WNL. Continue current regimen. Assessment & Plan (06/21/2023 10:51 AM EDT): On Lipitor. C/w statin. Type 2 diabetes mellitus wit hout complication, with long-term current use of insulin 06/21/2023 Assessment & Plan (11/21/2023 1:43 PM EDT): Most recent labs: hemoglobin A1C 9.9% in [...] care for L foot non healing ulcer. Assessment & Plan (08/07/2023 10:06 AM EDT): A1C 11 --> 9.9 Reviewed home blood glucose - 100-130 - not sure why there is a discrepancy. No hypoglycemia On metformin, glipizide, lantus. Last appt his lantus was increased to 40 units. Increase glipizide to 10 q12, add januvia. Assessment & Plan (06/21/2023 10:50 AM EDT): A1C 11 Reviewed home blood glucose - 100-130 No hypoglycemia On metformin, glipizide, lantus. His lantus was increased to 40 units last appointment based on A1C. There is always a discrepancy between his A1C and blood glucose at home. Will recheck labs. Learning disability 06/21/2023 Other specified hypothyroidism 06/21/2023 Assessment & Plan (06/21/2023 10:50 AM EDT): Levothyroxine was increased last apt. Recheck TSH. Positive colorectal cancer screening using Colog uard test 06/21/2023 Family History Medical History Relation Name Comments Diabetes Father Relation Name Status Comments Brother Alive Father Social History Tobacco Use Types Packs/Day Years Used Date Smoking Tobacco: Never Passive Smoke Exposure: Never Smokeless Tobacco: Never Tobacco Cessation:Counseling Given: Not Answered Alcohol Use Standard Drinks/Week Comments Not Currently 0 (1 standard drink = 0.6 oz pur e alcohol) PHQ-2 Answer Date Recorded Patient Health Questionnaire-2 Score 0 04/23/2024 Sex and Gender Information Value Date Recorded Sex Assigned at Not on file Legal Sex Male 7:41 PM EDT Gender Identity Not on file Sexual Orientation Not on file Last Filed Vital Signs Vital Sign Reading Time Taken Comments Blood Pressure 140/76 04/23/2024 9:53 AM EST Pulse 86 04/23/2024 9:53 AM EST Temperature 37.1 C (98.8 F) 04/23/2024 9:53 AM EST Respiratory Rate 16 04/23/2024 9:53 AM EST Oxygen Saturation 97% 04/23/2024 9:53 AM EST Inhaled Oxygen Concentration - - Weight 110 kg (242 lb) 04/23/2024 9:53 AM EST Height 185.4 cm (6' 1 ) 04/23/2024 9:53 AM EST Body Mass Index 31.93 04/23/2024 9:53 AM EST Plan of Treatment Health Maintenance Due Date Last Done Comments CT Colonography 1974 Colonoscopy 1974 FIT 1974 FOBT 1975 Sigmoidoscopy 1975 Diabetes: Hemoglobin A1C 04/29/2023 01/27/2023 Diabetes: Urine Protein Screening 07/26/2024 024, 01/27/2023 Influenza Vaccine (Season Ended) 2024 Medicare Annual Wellness (AWV) 04/23/2025 04/23/2024 , 01/18/2023 Diabetes: Retinopathy Screening 12/06/2025 , 01/23/2021 Colorectal Cancer Screening 02/23/2026 FIT-DNA 02/23/2026 02/23/2023 Procedures Procedure Name Priority Date/Time Associated Diagnosis Comments DIABETIC RETINOPATHY SCREENING - OU - BOTH EYES Routine 12/07/2023 2:08 PM EDT from Last 3 Months or Most Recently Relevant to Health Maintenance Results * Diabetic Retinopathy Screening - OU - Both Eyes (12/07/2023 2:08 PM EDT) Anatomical Region Laterality Modality Head Other Anisha Orozco STACKER TENDER OPHTH PHOTOGRAPHY Final Result from Last 3 Months or Most Recently Relevant to Health Maintenance Insurance [facility] MEDICARE ADVANTAGE Care Teams Contract Lead Relationship Specialty Start Date End Date Darion Blankenship MD [address] [place] [phone] PCP - General Family Medicine 11/07/23 Barbara Peng PA [address] [place] [address] Referring Physician 05/09/23 Anisha Orozco NP [address] [place] [address] Nurse Practitioner Family Medicine 11/07/23
--- OUTSIDE RECORDS SUMMARY | 2024-08-13 13:14 | XMS_ITS | Encounter Summary ---
Author Organization [facility] Address [address] [place] [address] Care Team Providers Care Deputy Editor In Chief Name Role Phone Barbara Peng Unavailable Shaikh BELL Monet Unavailable [phone] Anisha Orozco NP Unavailable [phone] Darion Blankenship MD Primary Care Provider [phone] Encounter Details Date Type Department Care Team (Late st Contact Info) Description 12/07/2023 Orders Only [facility] [address] [place] [address] Anisha Orozco NP Social History Tobacco Use Types Packs/Day Years Used Date Smoking Tobacco: Never Passive Smoke Exposure: Never Smokeless Tobacco: Never Alcohol Use Standard Drinks/Week Comments Not Currently 0 (1 standard drink = 0.6 oz pur e alcohol) PHQ-2 Answer Date Recorded Patient Health Questionnaire-2 Score 0 11/21/2023 Sex and Gender Information Value Date Recorded [...] BOTH EYES Routine 12/07/2023 2:08 PM EDT documented in this encounter Results * Diabetic Retinopathy Screening - OU - Both Eyes (12/07/2023 2:08 PM EDT) Anatomical Region Laterality Modality Head Other Anisha Orozco COLLECTION MANAGER OPHTH PHOTOGRAPHY Final Result documented in this encounter Visit Diagnoses Not on filedocumented in this encounter Care Teams Deputy Editor In Chief Relationship Specialty Start Date End Date Shaikh Monet MD [address] [address] PCP - Tang HANNAH 09/18/23 03/19/24 Darion Blankenship MD [address] [place] [address] PCP - General Family Medicine 11/07/23 Barbara Peng PA [address] [place] [address] Referring Physician 05/09/23 Anisha Orozco NP [address] [place] [address] Nurse Practitioner Family Medicine 11/07/23 documented as of this encounter
== END 2024-08-13 13:13 | disposition home or self-care (01) ==
LOC: WC 13:12
PROVIDERS: PCP Internal Medicine; Visit Provider Physician Assistant
DX: L84 Corns and callosities (principal); E11.65 Type 2 diabetes mellitus with hyperglycemia; E11.40 Type 2 diabetes mellitus with diabetic neuropathy, unspecified
CPT/HCPCS: 11055

== ENCOUNTER 2024-09-24 15:20 | Outpatient (OUT) | payer MEDICARE, SELFPAY ==
--- OUTSIDE RECORDS SUMMARY | 2024-04-23 10:48 | XMS_ITS ---
Author Name Auto Generated Organization [facility] Care Team Providers Care Pharmacy Consultant Name Role Phone JUANY CHANG Unavailabl e JUANY CHANG Attending Unavailabl e PROBLEMS No Problem Records Found PROCEDURES No Procedure Records Found RESULTS No Result Records Found ALLERGIES No Allergies Records Found ENCOUNTERS ADMIT/DISCHARGE ACCOUNT NUMBER ADMITTING ENCOUNTER CLASS LOCATION SOURCE 04/23/2024/ 5 [id number] Ambulatory Building:[facility] 11/21/2023/ 4 [id number] Ambulatory Building:[facility] PAYERS ENCOUNTER GUARANTOR PAYER SUBSCRIBER SOURCE 04/23/2024 ZAIRA PENALOZAOB: [address] [place], [place] [address]Upg: (HP) Primary Insurance:ANTHEM MEDICARE ADVANTAGEPolic Number: [id number] Date:2017-03-20 ZAIRA PENALOZAOB: [id number] [place] [address] [facility] 11/21/2023 ZAIRA PENALOZAOB: [address] [place], [place] [address]Rpc: (HP) Primary Insurance:[employer]HE[employer] MEDICARE ADVANTAGEPolic Number: [id number] Date:2017-03-20 ZAIRA PENALOZAOB: [id number] [place] [address] [facility]
== END 2024-09-24 15:21 | disposition home or self-care (01) ==
LOC: WC 15:20
PROVIDERS: PCP Family Medicine; Visit Provider Physician Assistant
DX: L84 Corns and callosities (principal); E11.65 Type 2 diabetes mellitus with hyperglycemia
CPT/HCPCS: 11055

== ENCOUNTER 2024-10-22 11:32 | Outpatient (OUT) | payer MEDICARE, SELFPAY ==
--- OUTSIDE RECORDS SUMMARY | 2024-10-22 11:34 | XMS_ITS | Clinical Summary ---
Author Organization [facility] tem Address [id number] [address] [place] [address] Care Team Providers Care Counseling Case Manager Name Role Phone Adi Cook MD Primary Care Provider Unava ilable Social History Tobacco Use Types Packs/Day Years Used Date Smoking Tobacco: Never Assessed Childcare Answer Date Recorded Childcare Unknown 08/29/2018 Employment Answer Date Recorded Employment Unknown 08/29/2018 Purpose - Life Answer Date Recorded Purpose and direction in life Unknown Sex and Gender Information Value Date Recorded Sex Assigned at Not on file Legal Sex Male 12:12 PM EDT Gender Identity Not on file Sexual Orientation Not on file Plan of Treatment Health Maintenance Due Date Last Done Comments Depression Screening 1986 Tobacco Screening 1986 Adult BMI Screening 1992 DTaP,Tdap and Td Vaccines (1 - Tdap) 1993 Zoster (Shingles) Vaccine (1 of 2) 2024 Influenza Vaccine 11/18/2024 Medical Devices Not on file Insurance [facility] MEDICARE Care Teams Counseling Case Manager Relationship Specialty Start Date End Date Adi Cook MD PCP - General Family Medicine 11/10/17
--- OUTSIDE RECORDS SUMMARY | 2024-10-22 11:34 | XMS_ITS | Encounter Summary ---
Author Organization [facility] Address [address] [place] [address] Care Team Providers Care Scleroscope Tester Name Role Phone Barbara Peng Unavailable [phone] Shaikh BELL Monet Unavailable [phone] Anisha Orozco LAUNDRY ROOM ATTENDANT Unavailable [phone] Darion Blankenship MD Primary Care Provider [phone] Anisha Orozco LAUNDRY ROOM ATTENDANT Unavailable [phone] Encounter Details Date Type Department Care Team [...] EDT Narrative 11/08/2023 6:52 AM EDT The [place] [id number] XRay Report Signed Patient: ÁNGEL SHRESTHA MR#: [id number] : 1975 Acct:[id number] Age/Sex: 48 / M ADM Date: 11/07/23 Loc: Attending Dr: Ruslan Haro D.P.M. Ordering Physician: Ruslan Haro D.P.M. Date of Service: 11/07/23 Procedure(s): XR foot LT min 3V Accession Number(s): [id number] cc: Shaikh Raul Monet; Ruslan Haro D.P.M. The [address] [address] Patient Name: ÁNGEL SHRESTHA MRN: [facility]:[id number] date: 1975 Sex: M Assigned Patient Location: Current Patient Location: Accession/Order Number: [id number] Exam Date: 11/07/2023 11:23 Report Date: 11/08/2023 [...] Signed By: 11/08/23 0652 DD/ 0650 TD/TT: Cto: Procedure Note Radiology, Radiologist, MD - 11/08/[address] [address] XRay Report Signed Patient: ÁNGEL SHRESTHA PMR#: [id number] : 1975Acct:[id number] Age/Sex: 48 / MADM Date: 11/07/23 Loc: Attending Dr: Ruslan Haro D.P.M. Ordering Physician: Ruslan Haro D.P.M. Date of Service: 11/07/23 Procedure(s): XR foot LT min 3V Accession Number(s): [id number] cc: Shaikh Raul Monet; Ruslan Haro D.P.M. The [place] [id number] Patient Name: ÁNGEL SHRESTHA MRN: [id number] date: 1975 Sex: M Assigned Patient Location: Current Patient Location: Accession/Order Number: [id number] Exam Date: 11/07/2023 11:23 Report Date: 11/08/2023 [...] 06:50 Dictated By: Jc Cole M.D. Signed By:11/08/2352 DD/ TD/TT: Cto: us Generic External Data Provider [facility] Final Result documented in this encounter Visit Diagnoses Not on filedocumented in this encounter Care Teams Scleroscope Tester Relationship Specialty Start Date End Date Shaikh Monet MD [address] [place] [address] PCP - Tang HANNAH 09/18/23 03/19/24 Darion Blankenship MD [address] [place] [address] PCP - General Family Medicine 11/07/23 Anisha Orozco NP PCP - Tang HANNAH 06/18/24 Barbara Peng PA [address] [address] Referring Physician 05/09/23 Anisha Orozco NP [address] [place] [address] Nurse Practitioner Family Medicine 11/07/23 documented as of this encounter
--- OUTSIDE RECORDS SUMMARY | 2024-10-22 11:34 | XMS_ITS | Clinical Summary ---
Author Organization [facility] Healthcare Address [address] [place] [address] Care Team Providers Care City Bus Driver Name Role Phone Barbara Peng Unavailable [phone] Anisha Orozco NP Unavailable [phone] Darion Blankenship MD Primary Care Provider [phone] Anisha Orozco NP Unavailable [phone] Allergies No known active allergies Medications atorvastatin (Lipitor) 40 MG tabletIndications: Other hyperlipidemia Take 1 tablet (40 mg) by mouth Daily 90 tablet 5 Active glucose blood ([email or web address] Ultra) test stripIndications:T ype 2 diabetes mellitus without complication, with long-term current use of insulin ([facility]) 1 each by Other route in the morning and 1 each in the evening and 1 each before bedtime. 300 each 5 028 Active insulin glargine (Lantus SoloStar) 100 UNIT/ML penIndications:Typ e 2 diabetes mellitus without complication, with long-term current use of insulin ([facility]) Inject 40 Units under the skin Daily 3 mL 5 Active levothyroxine (Synthroid) 112 MCG tabletIndications: Other specified hypothyroidism Take 1 tablet (112 mcg) by mouth in the morning. Take before meals. 90 tablet 1 5 Active losartan (Cozaar) 100 MG tabletIndications: Primary hypertension Take 1 tablet (100 mg) by mouth Daily 90 tablet 5 Active metFORMIN (Glucophage) 1000 MG tabletIndications: Type 2 diabetes mellitus without complication, with long-term current use of insulin ([facility]) Take 1 tablet (1,000 mg) by mouth in the morning and 1 tablet (1,000 mg) before bedtime. 180 tablet 1 5 Active SITagliptin (Januvia) 100 MG tabletIndications: Type 2 diabetes mellitus without complication, with long-term current use of insulin ([facility]) Take 1 tablet (100 mg) by mouth Daily 90 tablet 1 5 Active traZODone (Desyrel) 150 MG tabletIndications: Psychophysiologica l insomnia Take 1 tablet (150 mg) by mouth at bedtime 90 tablet 1 5 Active glipiZIDE (Glucotrol) 10 MG tabletIndications: Type 2 diabetes mellitus without complication, with long-term current use of insulin ([facility]) Take 1 tablet (10 mg) by mouth in the morning and 1 tablet (10 mg) in the evening. Take before meals. 180 tablet 5 025 Active glipiZIDE (Glucotrol) 10 MG tabletIndications: Type 2 diabetes mellitus without complication, with long-term current use of insulin ([facility]) Take 1 tablet (10 mg) by mouth in the morning and 1 tablet (10 mg) in the evening. Take before meals. 180 tablet 5 025 Discontinu ed(Reorder ) meloxicam (Mobic) 7.5 MG tabletIndications: Other chronic pain Take 1 tablet (7.5 mg) by mouth Daily 90 tablet 1 5 025 Active Problems Problem Noted Date Diagnosed Date [...] cancer screening using Colog uard test 06/21/2023 Encounters Date Type Department Care Team Description 10/01/2024 Refill [facility] [address] [place] [address] Darion Blankenship MD Type 2 diabetes mellitus without complication, with long-term current use of insulin (HCC) from Last 3 Months Family History Medical History Relation Name Comments [...] Protein Screening 07/26/2024 024, 01/27/2023 Influenza Vaccine (#1) 2024 Medicare Annual Wellness (AWV) 04/23/2025 04/23/2024 [...] Region Laterality Modality Head Other Anisha Orozco NP OPHTH PHOTOGRAPHY Final Result from Last 3 Months or Most Recently Relevant to Health Maintenance Insurance [employer]VANT[employer] Care Teams City Bus Driver Relationship Specialty Start Date End Date Darion Blankenship MD [address] [place] [phone] PCP - General Family Medicine 11/07/23 Anisha Orozco NP PCP - Tang HANNAH 06/18/24 Barbara Peng PA [address] [place] [address] Referring Physician 05/09/23 Anisha Orozco NP [address] [place] [address] Nurse Practitioner Family Medicine 11/07/23
--- OUTSIDE RECORDS SUMMARY | 2024-10-22 11:34 | XMS_ITS | Encounter Summary ---
Author Organization [facility] Address [address] [place] [address] Care Team Providers Care Sheet Metal Technician Name Role Phone Barbara Peng Unavailable Shaikh BELL Monet Unavailable [phone] Anisha Orozco NP Unavailable Darion Blankenship MD Primary Care Provider [phone] Anisha Orozco NP Unavailable [phone] Encounter Details Date Type Department Care Team (Late st Contact Info) Description 12/07/2023 Orders Only [facility] [address] [place] [phone] Anisah Orozco NP Social History Tobacco Use Types [...] Region Laterality Modality Head Other Anisha Orozco BRIDGE REPAIR CREW PERSON OPHTH PHOTOGRAPHY Final Result documented in this encounter Visit Diagnoses Not on filedocumented in this encounter Care Teams Sheet Metal Technician Relationship Specialty Start Date End Date Shaikh Monet MD [address] [place] [address] PCP - Tang HANNAH 09/18/23 03/19/24 Darion Blankenship MD [address] [place] [address] PCP - General Family Medicine 11/07/23 Anisha Orozco NP PCP - Tang HANNAH 06/18/24 Barbara Peng PA [address] [place] [address] Referring Physician 05/09/23 Anisha Orozco NP [address] [place] [address] Nurse Practitioner Family Medicine 11/07/23 documented as of this encounter
--- OUTSIDE RECORDS SUMMARY | 2024-10-22 11:34 | XMS_ITS | Encounter Summary ---
Author Organization [facility] Address [address] [place] [address] Care Team Providers Care Dental Laboratory Assistant Name Role Phone Darion Blankenship MD Primary Care Provider [phone] Barbara Peng Unavailable [phone] Shaikh BELL Monet Primary Care Provider [phone] Shaikh BELL Monet Unavailable [phone] Anisha Orozco E COMMERCE MERCHANDISING COORDINATOR Unavailable [phone] Darion Blankenship MD Primary Care Provider [phone] Anisha Orozco E COMMERCE MERCHANDISING COORDINATOR Unavailable [phone] Encounter Details Date Type Department Care Team (Late st Contact Info) Description 05/09/2023 Orders Only [facility] [address] [place] [place] [address] Madison Ocampo MA Social History Tobacco Use [...] on filedocumented in this encounter Care Teams Dental Laboratory Assistant Relationship Specialty Start Date End Date Darion Blankenship MD PCP - General Family Medicine 01/18/23 05/28/23 Shaikh Monet MD [address] [place] [address] PCP - General Internal Medicine 05/29/23 11/06/23 Shaikh Monet MD [address] [place] [address] PCP - Tang HANNAH 09/18/23 03/19/24 Darion Blankenship MD [address] [place] [address] PCP - General Family Medicine 11/07/23 Anisha Orozco NP PCP - Tang HANNAH 06/18/24 Barbara Peng PA [address] [place] [address] Referring Physician 05/09/23 Anisha Orozco NP [address] [place] [address] Nurse Practitioner Family Medicine 11/07/23 documented as of this encounter
--- OUTSIDE RECORDS SUMMARY | 2024-10-22 11:34 | XMS_ITS | Encounter Summary ---
Author Organization [facility] Address [address] [place] [address] Care Team Providers Care Stamping Machine Operator Name Role Phone Barbara Peng Unavailable [phone] Shaikh BELL Monet Primary Care Provider [phone] Shaikh BELL Monet Unavailable [phone] Anisha Orozco SALON PROFESSIONAL Unavailable [phone] Darion Blankenship MD Primary Care Provider [phone] Anisha Orozco SALON PROFESSIONAL Unavailable [phone] Encounter Details Date Type Department Care Team (Late st Contact Info) Description 06/29/2023 Abstract [facility] [address] [place] [phone] Dest[place] De, DPM [address] [place] [address] Social History Tobacco Use Types Packs/Day Years [...] on filedocumented in this encounter Care Teams Stamping Machine Operator Relationship Specialty Start Date End Date Shaikh Monet MD [address] [place] [address] PCP - General Internal Medicine 05/29/23 11/06/23 Shaikh Monet MD [address] [place] [address] PCP - Tang HANNAH 09/18/23 03/19/24 Darion Blankenship MD [address] [place] [address] PCP - General Family Medicine 11/07/23 Anisha Orozco NP PCP - Tang HANNAH 06/18/24 Barbara Peng PA [address] [place] [address] Referring Physician 05/09/23 Anisha Orozco NP [address] [place] [address] Nurse Practitioner Family Medicine 11/07/23 documented as of this encounter
== END 2024-10-22 11:33 | disposition home or self-care (01) ==
LOC: WC 11:32
PROVIDERS: PCP Family Medicine; Visit Provider Physician Assistant
DX: L84 Corns and callosities (principal); E11.65 Type 2 diabetes mellitus with hyperglycemia
CPT/HCPCS: 11055

== ENCOUNTER 2024-11-26 11:34 | Outpatient (OUT) | payer MEDICARE, SELFPAY ==
--- OUTSIDE RECORDS SUMMARY | 2024-11-26 11:42 | XMS_ITS | CCD ---
Author Organization [facility] Care Team Providers Care Development Intern Name Role Phone MIKKI MONETIKH Admitting Unavailable FAWWAD, DELAROSA Attending Unavailable FAWWAD, DELAROSA Primary Care Unavailable FAWWAD, DELAROSA Consulting Unavailable FAWWAD, DELAROSA Admitting Unavailable FAWWAD, DELAROSA Attending Unavailable FAWWAD, DELAROSA Primary Care Unavailable FAWWAD, DELAROSA Consulting Unavailable Neil French Unavailable [phone] Chiki LUU, Unavailable Anisha Orozco NP Unavailable Darion Blankenship MD Primary Care Provider [phone] ANISHA OROZCO Attending Unavailduarte e ZEFERINO OROZCO Attending Unavailable NEIL PENG [...] Test Name Value Interpretation Reference Range Facility [facility] HEMOGLOBIN A1Con 024 Glucose [Mass/Vol] 194 mg[facility] HbA1c (Bld) [Mass fraction] 8.4 % High 4.5 - 6.2 % [facility] Healthcare Comment on above: ADA RECOMMENDED LIMI T 4.0 - 6.0 ADA THERAPEUTIC TARGET < 7.0 ACTION SUGGESTED > 7.0 Interpretation and review of laboratory results Abnormal [facility] Healthcar e GLYCOHEMOGLOBIN A1Con 2021 ADA RECOMMENDATION SEE BELOW Normal [facility] Comment on above: Result Comment: ADA RECOMMENDED LIMIT 4.0 - 6.0 ADA THERAPEUTIC TARGET < 7.0 ACTION SUGGESTED > 7.0 Performed By: #### A 1C #### [facility] [address] [place] [address] Dr. José Miguel Knight Glucose [Mass/Vol] 260 mg/dL Normal [facility] Comment on above: Performed By: #### A 1C #### [facility] [address] [place] [address] Dr. José Miguel Knight HbA1c (Bld) [Mass fraction] 10.7 % Critically high 4.5-6.2 [facility] Comment on above: Performed By: #### A 1C #### [facility] [address] [place] [address] Dr. José Miguel Knight CBC AUTO DIFFon 02-02-2021 BASO # 0.0 103/ul Normal 0.0-0.1 [facility] Comment on above: Performed By: #### C BC #### [facility] [address] [place] [address] Dr. José Miguel Knight Basophils/100 WBC (Bld) 0.6 % Normal 0.2-2.0 [facility] Comment on above: Performed By: #### C BC #### [facility] [address] [place] [address] Dr. José Miguel Knight EO # 0.1 103/ul Normal 0.0-0.7 [facility] Comment on above: Performed By: #### C BC #### [facility] [address] [place] [address] Dr. José Miguel Knight Eosinophils/100 WBC (Bld) 0.9 % Normal 0.9-7.0 [facility] Comment on above: Performed By: #### C BC #### [facility] [address] [place] [address] Dr. José Miguel Knight Erythrocyte distribution width (RBC) [Ratio] 12.7 % Normal 11.0-15.0 [facility] Comment on above: Performed By: #### C BC #### [facility] [address] [place] [address] Dr. José Miguel Knight Hematocrit (Bld) [Volume fraction] 44.0 % Normal 42.0-54.0 [facility] Comment on above: Performed By: #### C BC #### [facility] [address] [place] [address] Dr. José Miguel Knight Hemoglobin (Bld) [Mass/Vol] 15.0 g/dL Normal 14.0-18.0 [facility] Comment on above: Performed By: #### C BC #### [facility] [address] [place] [address] Dr. José Miguel Knight IG # 0.04 10e3/ul Critically high 0.00-0.03 [facility] Comment on above: Performed By: #### C BC #### [facility] [address] [place] [address] Dr. José Miguel Knight IG % 0.6 % Critically high 0.0-0.5 [facility] Comment on above: Performed By: #### C BC #### [facility] [address] [place] [address] Dr. José Miguel Knight LYMPH # 1.6 103/ul Normal 1.2-3.8 [facility] Comment on above: Performed By: #### C BC #### [facility] [address] [place] [address] Dr. José Miguel Knight Lymphocytes/100 WBC (Bld) 22.5 % Normal 20.5-60.0 [facility] Comment on above: Performed By: #### C BC #### [facility] [address] [place] [address] Dr. José Miguel Knight MANUAL DIFF REQ NO Normal [facility] Comment on above: Performed By: #### C BC #### [facility] [address] [place] [address] Dr. José Miguel Knight MCH (RBC) [Entitic mass] 30.4 pg Normal 25.9-34.0 [facility] Comment on above: Performed By: #### C BC #### [facility] [address] [place] [address] Dr. José Miguel Knight MCHC (RBC) [Mass/Vol] 34.1 g/dL Normal 29.9-35.2 [facility] Comment on above: Performed By: #### C BC #### [facility] [address] [address] [address] José Miguel Knight MCV (RBC) [Entitic vol] 89.2 fL Normal 80.0-94.0 [facility] Comment on above: Performed By: #### C BC #### [facility] [address] [address] [address] José Miguel Knight MONO # 0.5 103/ul Normal 0.3-0.8 [facility] Comment on above: Performed By: #### C BC #### [facility] [address] [address] [address] José Miguel Knight Monocytes/100 WBC (Bld) 7.0 % Normal 1.7-12.0 [facility] Comment on above: Performed By: #### C BC #### [facility] [address] [place] [address] Dr. José Miguel Knight NEUT # 4.7 103/ul Normal 1.4-6.5 [facility] Comment on above: Performed By: #### C BC #### [facility] [address] [address] [address] José Miguel Knight Neutrophils/100 WBC (Bld) 68.4 % Normal 43.0-75.0 [facility] Comment on above: Performed By: #### C BC #### [facility] [address] [address] [address] José Miguel Knight Platelet mean volume (Bld) [Entitic vol] 10.8 fL Normal 9.5-13.5 [facility] Comment on above: Performed By: #### C BC #### [facility] [address] [address] [address] José Miguel Knight PLT 223 103/ul Normal 150-450 [facility] Comment on above: Performed By: #### C BC #### [facility] [address] [address] [address] José Miguel Knight RBC 4.93 106/ul Normal 4.70-6.10 [facility] Comment on above: Performed By: #### C BC #### [facility] [address] [address] [address] José Miguel Knight WBC 6.9 103/ul Normal 4.0-11.0 [facility] Comment on above: Performed By: #### C BC #### [facility] [address] [address] [address] José Miguel Knight GLYCOHEMOGLOBIN A1Con 2020 ADA RECOMMENDATION ADA THERAPEUTIC TARGET 6.0 - 7.0 ACTION SUGGESTED > 7.0 Normal [facility] Comment on above: Performed By: #### A 1C #### [facility] [address] [address] [address] José Miguel Knight Glucose [Mass/Vol] 217 mg/dL Normal [facility] Comment on above: Performed By: #### A 1C #### [facility] [address] [place] [address] Dr. José Miguel Knight HbA1c (Bld) [Mass fraction] 9.2 % Critically high <=6.0 [facility] Comment on above: Performed By: #### A 1C #### [facility] [address] [place] [address] Dr. José Miguel Knight LIPID PROFILEon 02-02-2021 CHOL-HDL RATIO NORM SEE BELOW Normal [facility] Comment on above: Result Comment: 3.3 - 4.4 LOW RISK 4.4 - 7.1 AVERAGE RISK 7.1 - 11.0 MODERATE RISK >11.0 HIGH RISK Performed By: #### T SH, LIPID, CMP #### [facility] [address] [place] [address] Dr. José Miguel Knight Cholesterol [Mass/Vol] 121 mg/dL Normal <=200 [facility] Comment on above: Performed By: #### T SH, LIPID, CMP #### [facility] [address] [place] [address] Dr. José Miguel Knight Cholesterol in HDL [Mass/Vol] 37 mg/dL Normal [facility] Comment on above: Performed By: #### T SH, LIPID, CMP #### [facility] [address] [place] [address] Dr. José Miguel Knight Cholesterol in LDL [Mass/Vol] 46.4 mg/dL Normal [facility] Comment on above: Performed By: #### T SH, LIPID, CMP #### [facility] [address] [address] [address] José Miguel Knight Cholesterol.total/Cho lesterol in HDL [Mass ratio] 3.3 {ratio} Normal [facility] Comment on above: Performed By: #### T SH, LIPID, CMP #### [facility] [address] [address] [address] José Miguel Knight HDL NORMAL > or = 60 mg/dl - LOW CARDIOVASCULAR RISK <40 mg/dl - HIGH CARDIOVASCULAR RISK Normal [facility] Comment on above: Performed By: #### T SH, LIPID, CMP #### [facility] [address] [place] [address] Dr. José Miguel Knight LDL CALC NORMAL SEE BELOW Normal [facility] Comment on above: Result Comment: <100 mg/dl OPTIMAL 100 - 129 mg/dl NEAR OR ABOVE OPTIMAL 130 - 159 mg/dl BORDERLINE HIGH 160 - 189 mg/dl HIGH >190 mg/dl VERY HIGH Performed By: #### T SH, LIPID, CMP #### [facility] [address] [place] [address] Dr. José Miguel Knight Triglyceride [Mass/Vol] 188 mg/dL Critically high <=150 [facility] Comment on above: Performed By: #### T SH, LIPID, CMP #### [facility] [address] [address] [address] José Miguel Knight VLDL CALC 37.6 mg/dL Normal [facility] Comment on above: Performed By: #### T SH, LIPID, CMP #### [facility] [address] [address] [address] José Miguel Knight MICROALBUMIN, RAND URon 01-18 mALB 1.2 mg/L Normal <=30.0 [facility] Comment on above: Performed By: #### M ALBR #### [facility] [address] [place] [address] Dr. José Miugel Knight PROF 14(COMP METB)on 11-16-2 021 Albumin [Mass/Vol] 3.8 g/dL Normal 3.5-5.0 [facility] Comment on above: Performed By: #### T ERICA, LIPID, CMP #### [facility] [address] [address] [address] José Miguel Knight Albumin/Globulin [Mass ratio] 1.1 {ratio} Normal [facility] Comment on above: Performed By: #### T ERICA, LIPID, CMP #### [facility] [address] [address] [address] José Miguel Knight ALP [Catalytic activity/Vol] 92 U/L Normal 38-126 [facility] Comment on above: Performed By: #### T ERICA, LIPID, CMP #### [facility] [address] [address] [address] José Miguel Knight ALT [Catalytic activity/Vol] 46 U/L Normal 21-72 [facility] Comment on above: Performed By: #### T ERICA, LIPID, CMP #### [facility] [address] [address] [address] José Miguel Knight Anion gap [Moles/Vol] 12.8 mmol/L Normal [facility] Comment on above: Performed By: #### T ERICA, LIPID, CMP #### [facility] [address] [address] [address] José Miguel Knight AST [Catalytic activity/Vol] 22 U/L Normal 17-59 [facility] Comment on above: Performed By: #### T ERICA, LIPID, CMP #### [facility] [address] [address] [address] José Miguel Knight Bilirubin [Mass/Vol] 0.5 mg/dL Normal 0.2-1.3 [facility] Comment on above: Performed By: #### T ERICA, LIPID, CMP #### [facility] [address] [address] [address] José Miguel Knight Calcium [Mass/Vol] 9.3 mg/dL Normal 8.4-10.2 [facility] Comment on above: Performed By: #### T ERICA, LIPID, CMP #### [facility] [address] [address] [address] José Miguel Knight Chloride [Moles/Vol] 103 mmol/L Normal 98-107 [facility] Comment on above: Performed By: #### T SH, LIPID, CMP #### [facility] [address] [place] [address] Dr. José Miguel Knight CO2 [Moles/Vol] 27.6 mmol/L Normal 22.0-30.0 [facility] Comment on above: Performed By: #### T ERICA, LIPID, CMP #### [facility] [address] [place] [address] Dr. José Miguel Knight Creatinine [Mass/Vol] 0.76 mg/dL Normal 0.66-1.25 [facility] Comment on above: Performed By: #### T ERICA, LIPID, CMP #### [facility] [address] [place] [address] Dr. José Miguel Knight EGFR-AF [facility] >60 Normal >=60 [facility] Comment on above: Performed By: #### T ERICA, LIPID, CMP #### [facility] [address] [place] [address] Dr. José Miguel Knight EGFR-NON AF [facility] HELEN[facility] >60 Normal >=60 [facility] Comment on above: Performed By: #### T ERICA, LIPID, CMP #### [facility] [address] [place] [address] Dr. José Miguel Knight Globulin (S) [Mass/Vol] 3.4 g/dL Normal [facility] Comment on above: Performed By: #### T ERICA, LIPID, CMP #### [facility] [address] [place] [address] Dr. José Miguel Knight Glucose [Mass/Vol] 253 mg/dL Critically high 74-106 [facility] Comment on above: Performed By: #### T ERICA, LIPID, CMP #### [facility] [address] [place] [address] Dr. José Miguel Knight Potassium [Moles/Vol] 4.4 mmol/L Normal 3.4-5.0 [facility] Comment on above: Performed By: #### T SH, LIPID, CMP #### [facility] [address] [place] [address] Dr. José Miguel Knight Protein [Mass/Vol] 7.2 g/dL Normal 6.1-8.2 [facility] Comment on above: Performed By: #### T SH, LIPID, CMP #### [facility] [address] [place] [address] Dr. José Miguel Knight Sodium [Moles/Vol] 139 mmol/L Normal 137-145 [facility] Comment on above: Performed By: #### T SH, LIPID, CMP #### [facility] [address] [place] [address] Dr. José Miguel Knight Urea nitrogen [Mass/Vol] 16.0 mg/dL Normal 9.0-20.0 [facility] Comment on above: Performed By: #### T SH, LIPID, CMP #### [facility] [address] [place] [address] Dr. José Miguel Knight Urea nitrogen/Creatinine [Mass ratio] 21.1 mg/mg Normal [facility] Comment on above: Performed By: #### T SH, LIPID, CMP #### [facility] [address] [place] [address] Dr. José Miguel Knight TSHon 02-02-2021 TSH 5.529 uIU/mL Critically high 0.470-4.680 [facility] Comment on above: Performed By: #### T ERICA, LIPID, CMP #### [facility] [address] [place] [address] Dr. José Miguel Knight TSH RANGE SEE BELOW Normal [facility] Comment on above: Result Comment: <0.3 4 UIU/ml HYPERTHYROID 0.34-5.60 UIU/ml EUTHYROID >5.60 UIU/ml HYPOTHYROID Performed By: #### T SH, LIPID, CMP #### [facility] [address] [place] [address] Dr. José Miguel Knight Vital Signs Date Time Vital Sign Value Performing Clinician Faci lity 04-23-2024 09:53-0500 Body height 185.4 cm Anisha Orozco NP Work Phone: [facility] 04-23-2024 09:53-0500 Body mass index (BMI) [Ratio] 31.93 kg/m2 Anisha Orozco [employer] Work Phone: [facility] 04-23-2024 09:53-0500 Body temperature 98.8 [degF] Anisha Orozco [employer] Work Phone: [facility] 04-23-2024 09:53-0500 Body weight 109.77 kg Anisha Orozco [employer] Work Phone: [facility] 04-23-2024 09:53-0500 Diastolic blood pressure 76 mm[Hg] Anisha Orozco [employer] Work Phone: [facility] 04-23-2024 09:53-0500 Heart rate 86 /min Anisha Orozco [employer] Work Phone: [facility] 04-23-2024 09:53-0500 Respiratory rate 16 /min Anisha Orozco [employer] Work Phone: [facility] 04-23-2024 09:53-0500 SaO2% (BldA) [Mass fraction] 97 % Anisha Orozco [employer] Work Phone: [facility] 04-23-2024 09:53-0500 Systolic blood pressure 140 mm[Hg] Anisha Orozco [employer] Work Phone: [facility] 11-21-2023 13:08-0400 Body height 185.4 cm Anisha Orozco [employer] Work Phone: [facility] 11-21-2023 13:08-0400 Body mass index (BMI) [Ratio] 30.34 kg/m2 Anisha Orozco [employer] Work Phone: [facility] 11-21-2023 13:08-0400 Body temperature 98.71 [degF] Anisha Orozco [employer] Work Phone: [facility] 11-21-2023 13:08-0400 Body weight 104.33 kg Anisha Millardpatrick [employer] Work Phone: [facility] 11-21-2023 13:08-0400 Diastolic blood pressure 80 mm[Hg] Anisha Millardpatrick [employer] Work Phone: [facility] 11-21-2023 13:08-0400 Heart rate 110 /min Anisha Millardpatrick [employer] Work Phone: [facility] Comment on above: 98% O2 11-21-2023 13:08-0400 Systolic blood pressure 132 mm[Hg] Anisha Orozco [employer]ER Work Phone: [facility] Healthcare Encounters Encounter Date Encounter Type Care Provider Facility Start: 04-23-2024 End: 04-23-2024 Bamboo flowsheet Anisha Millardpatrick [employer] Work Phone: [facility] Start: 04-23-2024 End: 04-23-2024 Bamboo flowsheet Anisha Millardpatrick [employer] Work Phone: [facility] Start: 04-23-2024 End: 04-23-2024 Assay of hemosiderin, quant Anisha Cunninghamtrick [employer] Work Phone: [facility] Start: 04-23-2024 End: 04-23-2024 Patient encounter procedure Anisha Millardpatrick [employer] [facility] Comment on above: Routine general medi elias examination at health care facility (Primary Dx); Other hyperlipidemia (CMS/HCC); Type 2 diabetes mellitus without complication, with long-term current use of insulin (CMS/HCC); Other specified hypothyroidism (CMS/HCC); Primary hypertension (CMS/HCC); Other chronic pain; Psychophysiological insomnia Start: 04-23-2024 End: 04-23-2024 ambulatory ANISHA OROZCO Not Available Start: 03-26-2024 End: 03-26-2024 Orders Only Anisha Millardpatrick [employer] Work Phone: [facility] Comment on above: Other hyperlipidemia (CMS/HCC); Type 2 diabetes mellitus without complication, with long-term current use of insulin (CMS/HCC); Other specified hypothyroidism (CMS/HCC); Primary hypertension (CMS/HCC); Other chronic pain; Psychophysiological insomnia Start: 12-29-2023 End: 01-02-2024 Refill Joana Roman [facility] Comment on above: Type 2 diabetes ne itus without complication, with long-term current use of insulin (CMS/HCC) (Primary Dx) Start: 11-27-2023 End: 11-27-2023 [facility] Result Encounter Anisha Orozco [employer] Work Phone: [facility] External Department Unsolicited Start: 11-27-2023 End: 11-27-2023 Clinisync Result Encounter Anisha Orozco [employer] Work Phone: [facility] External Department Unsolicited Start: 11-21-2023 End: 11-21-2023 Bamboo flowsheet Anisha Orozco [employer] Work Phone: [facility] Start: 11-21-2023 End: 11-21-2023 Bamboo flowsheet Anisha Orozco [employer] Work Phone: [facility] Start: 11-21-2023 End: 11-21-2023 Office outpatient visit 15 minutes Anisha Orozco [employer] Work Phone: [facility] Comment on above: Cerumen debris on ty mpanic membrane, bilateral (Primary Dx); Other hyperlipidemia (CMS/HCC); Type 2 diabetes mellitus without complication, with long-term current use of insulin (CMS/HCC); Other specified hypothyroidism (CMS/HCC); Primary hypertension (CMS/HCC); Other chronic pain; Psychophysiological insomnia Start: 11-21-2023 End: 11-21-2023 ambulatory ANISHA OROZCO Not Available Start: 11-07-2023 End: 11-07-2023 Refill Anisha Orozco [employer] Work Phone: [facility] Comment on above: Type 2 diabetes ne itus without complication, with long-term current use of insulin ([facility] Start: 06-21-2023 End: 06-21-2023 ambulatory SHAIKH CHIKI Not Available Start: 06-14-2023 End: 06-14-2023 ambulatory ZEFERINO OROZCO Not Available Start: 05-29-2023 End: 05-29-2023 ambulatory ZEFERINO RUIZHER Not Available Start: 05-09-2023 End: 05-09-2023 ambulatory ZEFERINO RUIZHER Not Available Start: 07-21-2021 End: 07-22-2021 ambulatory SHAIKH CHIKI Facility:[facility] Start: 02-02-2021 End: 02-03-2021 ambulatory SHAIKH SHAWNGAMatt Facility: Procedures Date Procedure Procedure Detail Performing Clinician Start: 11-27-2023 MLR HEMOGLOBIN A1C Karely Orozco [employer] Work Phone: Plan of Treatment Date Care Activity Detail Author Start: 02-23-2026 Screening for malign ant neoplasm of colon [facility] Start: 12-06-2025 Glaucoma screening Diabetes: R etinopathy Screening [facility] Start: 04-23-2025 Medicare Annual Wellness (AWV) Medicare Annual Wellness (AWV) [facility] Start: 07-26-2024 Urine screening for protein Diabetes: Urine Protein Screening [facility] Start: 06-18-2024 Influenza vaccination Influenza Vacc ine (#1) [facility] Comment on above: Postponed from 11/18 (Patient Refused) Start: 04-23-2024 End: 04-23-2024 Patient encounter procedure [facility] Comment on above: Arrived Start: 01-19-2024 Medicare Annual Wellness (AWV) Medicare Annual Wellness (AWV) [facility] Start: 11-21-2023 End: 11-20-2024 Hemoglobin A1c/Hemoglobin.total in Blood Hemoglobin A1c Lab Routine Type 2 diabetes mellitus without complication, with long-term current use of insulin ([facility]) Expected: 11/21/2023 (Approximate), Expires: 11/20/2024 [facility] Comment on above: Expected: 11/21/2023 (Approximate), Expires: 11/20/2024 Start: 11-21-2023 End: 11-21-2023 Patient encounter procedure 11/21/2023 1:00 PM EDT Office Visit [facility] [address] [place] [address] Anisha Orozco NP [address] [place] [address] Arrived [facility] Comment on above: Arrived Start: 11-19-2023 Influenza vaccination Influenza Vacc ine (#1) [facility] Start: 04-29-2023 Hemoglobin A1c measurement Diabetes: Hemoglobin A1C [facility] Start: 01-23-2023 Glaucoma screening Diabetes: R etinopathy Screening [facility] Healthcare Start: 1974 Medicare Annual Wellness (AWV) Medicare Annual Wellness (AWV) [facility] Start: 1974 Screening for malign ant neoplasm of colon [facility] Microalbumin/Creatin ine panel in random Urine Microalbumin / creatinine urine ratio Lab Routine Type 2 diabetes mellitus without complication, with long-term current use of insulin ([facility]) Ordered: 11/21/2023 [facility] Work Phone: Comment on above: Ordered: 11/21/2023 Payers Date Payer Category Payer Medicare [employer]AGE [id number] 2017-Present [address] [place] [address] [id number] 2017 Medicare (Managed Care) [employer] [id number] 5 1974 Unknown [id number] .2.593 1974 Unknown [id number] 2.16.840.1.631051.3.579 .2.593 1974 Unknown [id number] 2.16.840.1.141652.3.579 .2.9 1974 Unknown [id number] 2.16.840.1.426093.3.579 .2.9 1974 Unknown [id number] 2.16.840.1.381734.3.579 .2.9 1974 Unknown [id number] 2.16.840.1.308764.3.579 .2.9 1974 Unknown [id number] 2.16.840.1.657530.3.579 .2.1259 1974 Unknown [id number] [id number] .2.1259 1959 Unknown [id number] Social History Date Type Detail Facility Start: 06-21-2023 Tobacco smoking stat [facility] Never smoked tobacco [facility] Start: 06-21-2023 Tobacco use and exposure Smokeless tobacco non-user [facility] Start: 11-21-2023 End: 04-23-2024 Alcoholic beverage intake Ex-drinker (finding) [facility] Start: 11-21-2023 End: 04-23-2024 History of Social function [facility] Start: 11-21-2023 End: 04-23-2024 Tobacco use panel [facility] Start: 1975 Sex assigned at Not on file [facility] NEGATED: Highlighted rowStart: NINF History of tobacco use Passive smoker [facility] Medical Equipment Procedure Code Equipment Code Equipment Origin al Text Equipment Identifier Dates 1 each by Other route in the morning and 1 each in the evening and 1 each before bedtime. [id number] Start: 11-21-2023 End: 03-05-2027 1 each by Other route in the morning and 1 each in the evening and 1 each before bedtime. [id number] Start: 09-14-2023 End: 12-27-2026 1 each by Other route in the morning and 1 each in the evening and 1 each before bedtime. [id number] Start: 03-26-2024 End: 07-09-2027 1 each by Other route in the morning and 1 each in the evening and 1 each before bedtime. [id number] Start: 04-23-2024 End: 08-06-2027 History of Present illness Narrative 04-23-2024 Anisha Orozco, SHOE STITCHER - 04/23/2024 10:00 AM Rochelle Orozco, SHOE STITCHER - 04/23/2024 10:00 AM EST Note Date [...] No Cognitive Screening Three Word Registration: Banana, Shafer, Chair Clock Drawing: Inability or Refusal to Draw Clock - 0 Three Word Recall: 2/3 words correct - 2 Total Score (0-5 Points): 2 Advance Care Planning Do you have a living will?: No Do you have a medical power of assistant city attorney?: No Objective : BP 140/76 Pulse [...] No Cognitive Screening Three Word Registration: Banana, Shafer, Chair Clock Drawing: Inability or Refusal to Draw Clock - 0 Three Word Recall: 2/3 words correct - 2 Total Score (0-5 Points): 2 Advance Care Planning Do you have a living will?: No Do you have a medical power of assistant city attorney?: No Objective : BP 140/76 Pulse [...] t illness Narrative Associated Problem(s): Other hyperlipidemia ([facility]) Currently taking Atorvastatin 40mg. Denies any myalgias. [...] non healing ulcer. Associated Problem(s): Primary hypertension ([facility]) Currently taking Losartan 100mg; Checks BP at [...] throat, vomiting or weakness. Is accompanied by care rep. Is here today for med refills. Denies [...] R ALBUMIN GLOBULIN RATIO 1.0 Resulting Agency [facility] Review of Systems Constitutional: Negative for activity [...] losartan (Cozaar) 100 MG tablet Other hyperlipidemia ([facility]) Currently taking Atorvastatin 40mg. Denies any myalgias. Most recent Lipid Panel WNL. Continue current regimen. Relevant Medications atorvastatin (Lipitor) 40 MG tablet Type 2 diabetes mellitus without complication, with long-term current use of insulin ([facility]) Most recent labs: hemoglobin A1C 9.9% [...] MG tablet documented in this encounter [facility] Instructions 11-21-2023 Patient Instructions Note Date [...] mart to agatha. documented in this encounter [facility] Evaluation note Note Date & Type [...] insulin (CMS/HCC)- Primary documented in this encounter [facility] Evaluation note Note Date & Type Note Facility Evaluation note Diagnosis Type 2 diabetes mellitus without complication, with long-term current use of insulin (CMS/HCC) documented in this encounter [facility] Evaluation note Note Date & Type [...] DATE CREATED AUTHOR AUTHOR'S ORGANIZ ATION 04/25/2024 [facility] EPIC Reason for Visit (unrecogniz ed section and content) Reason Onset Date Comments Med Refill 12/29/2023 Reason Onset Date Comments Med Refill 11/07/2023 Reason Comments Med Refill Reason Comments Medicare Annual Wellness Visit Subsequen t Care Teams (unrecognized sec tion and content) Development Intern Relationship Specialty Start Date End Date Shaikh Monet MD [address] [place] [address] PCP - Tang HANNAH 09/18/23 Darion Blankenship MD [address] [place] [address] PCP - General Family Medicine 11/07/23 Neil Peng PA [address] [place] [address] Referring Physician 05/09/23 Anisha Orozco NP [address] [place] [address] Nurse Practitioner Family Medicine 11/07/23 Development Intern Relationship Specialty Start Date End Date Shaikh Monet MD [address] [place] [address] PCP - Tang HANNAH 09/18/23 Darion Blankenship MD [address] [place] [address] PCP - General Family Medicine 11/07/23 Neil Peng PA [address] [place] [address] Referring Physician 05/09/23 Anisha Orozco NP [address] [place] [address] Nurse Practitioner Family Medicine 11/07/23 Development Intern Relationship Specialty Start Date End Date PatywShaikh brennan MD [address] [place] [phone] PCP - [place] 09/18/23 Darion Blankenship MD [address] [place] [address] PCP - General Family Medicine 11/07/23 Neil Peng PA [address] [place] [address] Referring Physician 05/09/23 Anisha Orozco NP [address] [place] [address] Nurse Practitioner Family Medicine 11/07/23 Development Intern Relationship Specialty Start Date End Date Shaikh Monet MD [address] [place] [address] PCP - Tang HANNAH 09/18/23 Darion Blankenship MD [address] [place] [address] PCP - General Family Medicine 11/07/23 Neil Peng PA [address] [place] [address] Referring Physician 05/09/23 Anisha Orozco NP [address] [place] [address] Nurse Practitioner Family Medicine 11/07/23 Development Intern Relationship Specialty Start Date End Date Shaikh Monet MD [address] [place] [address] PCP - Tang HANNAH 09/18/23 Darion Blankenship MD [address] [place] [address] PCP - General Family Medicine 11/07/23 Neil Peng PA [address] [place] [address] Referring Physician 05/09/23 Anisha Orozco NP [address] [place] [address] Nurse Practitioner Family Medicine 11/07/23 Development Intern Relationship Specialty Start Date End Date Shaikh Monet MD [address] [place] [address] PCP - Tang HANNAH 09/18/23 Darion Blankenship MD [address] [place] [address] PCP - General Family Medicine 11/07/23 Neil Peng PA [address] [place] [address] Referring Physician 05/09/23 Anisha Orozco NP [address] [place] [address] Nurse Practitioner Family Medicine 11/07/23 Development Intern Relationship Specialty Start Date End Date PatywShaikh brennan MD [address] [place] [address] PCP - Tang HANNAH 09/18/23 Darion Blankenship MD [address] [place] [address] PCP - General Family Medicine 11/07/23 Neil Peng PA [address] [place] [address] Referring Physician 05/09/23 Anisha Orozco NP [address] [place] [address] Nurse Practitioner Family Medicine 11/07/23 Development Intern Relationship Specialty Start Date End Date Shaikh Monet MD [address] [place] [address] PCP - Tang HANNAH 09/18/23 Darion Blankenship MD [address] [place] [address] PCP - General Family Medicine 11/07/23 Neil Peng PA [address] [place] [address] Referring Physician 05/09/23 Anisha Orozco NP [address] [place] [address] Nurse Practitioner Family Medicine 11/07/23 [...] BE BASED ON THE PRIMARY CLINICAL RECORDS. [employer] [facility] provides no warranty or guarantee of the accuracy or completeness of information in this document.
== END 2024-11-26 11:35 | disposition home or self-care (01) ==
LOC: WC 11:35
PROVIDERS: PCP Family Medicine; Visit Provider Physician Assistant
DX: L84 Corns and callosities (principal); E11.65 Type 2 diabetes mellitus with hyperglycemia
CPT/HCPCS: 11055

== ENCOUNTER 2024-12-26 12:29 | Outpatient (OUT) | payer MEDICARE, SELFPAY ==
--- OUTSIDE RECORDS SUMMARY | 2024-12-26 12:33 | XMS_ITS | CCD ---
Author Organization [facility] Care Team Providers Care Chainstitch Binder Name Role Phone MIKKI MONETIKH Admitting Unavailable FAWWAD, DELAROSA Attending Unavailable FAWWAD, DELAROSA Primary Care Unavailable FAWWAD, DELAROSA Consulting Unavailable FAWWAD, DELAROSA Admitting Unavailable FAWWAD, DELAROSA Attending Unavailable FAWWAD, DELAROSA Primary Care Unavailable FAWWAD, DELAROSA Consulting Unavailable Neil French Unavailable Chiki LUU, Unavailable Anisha Orozco NP Unavailable [phone] Darion Blankenship MD Primary Care Provider ANISHA [...] Test Name Value Interpretation Reference Range Facility [facility] HEMOGLOBIN A1Con 024 Glucose [Mass/Vol] 194 mg[facility] HbA1c (Bld) [Mass fraction] 8.4 % High 4.5 - 6.2 % [facility] Healthcare Comment on above: ADA RECOMMENDED LIMI T 4.0 - 6.0 ADA THERAPEUTIC TARGET < 7.0 ACTION SUGGESTED > 7.0 Interpretation and review of laboratory results Abnormal [facility] Healthcar e GLYCOHEMOGLOBIN A1Con 2021 ADA RECOMMENDATION SEE BELOW Normal [facility] Comment on above: Result Comment: ADA RECOMMENDED LIMIT 4.0 - 6.0 ADA THERAPEUTIC TARGET < 7.0 ACTION SUGGESTED > 7.0 Performed By: #### A 1C #### [facility] [address] [place] [address] Dr. José Miguel Knight Glucose [Mass/Vol] 260 mg/dL Normal [facility] Comment on above: Performed By: #### A 1C #### [facility] [address] [place] [address] Dr. José Miguel Knight HbA1c (Bld) [Mass fraction] 10.7 % Critically high 4.5-6.2 [facility] Comment on above: Performed By: #### A 1C #### [facility] [address] [place] [address] Dr. José Miguel Knight CBC AUTO DIFFon 02-02-2021 BASO # 0.0 103/ul Normal 0.0-0.1 [facility] Comment on above: Performed By: #### C BC #### [facility] [address] [place] [address] Dr. José Miguel Knight Basophils/100 WBC (Bld) 0.6 % Normal 0.2-2.0 [facility] Comment on above: Performed By: #### C BC #### [facility] [address] [place] [address] Dr. José Miguel Knight EO # 0.1 103/ul Normal 0.0-0.7 [facility] Comment on above: Performed By: #### C BC #### [facility] [address] [place] [address] Dr. José Miguel Knight Eosinophils/100 WBC (Bld) 0.9 % Normal 0.9-7.0 [facility] Comment on above: Performed By: #### C BC #### [facility] [address] [place] [address] Dr. José Miguel Knight Erythrocyte distribution width (RBC) [Ratio] 12.7 % Normal 11.0-15.0 [facility] Comment on above: Performed By: #### C BC #### [facility] [address] [place] [address] Dr. José Miguel Knight Hematocrit (Bld) [Volume fraction] 44.0 % Normal 42.0-54.0 [facility] Comment on above: Performed By: #### C BC #### [facility] [address] [place] [address] Dr. José Miguel Knight Hemoglobin (Bld) [Mass/Vol] 15.0 g/dL Normal 14.0-18.0 [facility] Comment on above: Performed By: #### C BC #### [facility] [address] [place] [address] Dr. José Miguel Knight IG # 0.04 10e3/ul Critically high 0.00-0.03 [facility] Comment on above: Performed By: #### C BC #### [facility] [address] [place] [address] Dr. José Miguel Knight IG % 0.6 % Critically high 0.0-0.5 [facility] Comment on above: Performed By: #### C BC #### [facility] [address] [place] [address] Dr. José Miguel Knight LYMPH # 1.6 103/ul Normal 1.2-3.8 [facility] Comment on above: Performed By: #### C BC #### [facility] [address] [place] [address] Dr. José Miguel Knight Lymphocytes/100 WBC (Bld) 22.5 % Normal 20.5-60.0 [facility] Comment on above: Performed By: #### C BC #### [facility] [address] [place] [address] Dr. José Miguel Knight MANUAL DIFF REQ NO Normal [facility] Comment on above: Performed By: #### C BC #### [facility] [address] [place] [address] Dr. José Miguel Knight MCH (RBC) [Entitic mass] 30.4 pg Normal 25.9-34.0 [facility] Comment on above: Performed By: #### C BC #### [facility] [address] [place] [address] Dr. José Miguel Knight MCHC (RBC) [Mass/Vol] 34.1 g/dL Normal 29.9-35.2 [facility] Comment on above: Performed By: #### C BC #### [facility] [address] [address] [address] José Miguel Knight MCV (RBC) [Entitic vol] 89.2 fL Normal 80.0-94.0 [facility] Comment on above: Performed By: #### C BC #### [facility] [address] [address] [address] José Miguel Knight MONO # 0.5 103/ul Normal 0.3-0.8 [facility] Comment on above: Performed By: #### C BC #### [facility] [address] [address] [address] José Miguel Knight Monocytes/100 WBC (Bld) 7.0 % Normal 1.7-12.0 [facility] Comment on above: Performed By: #### C BC #### [facility] [address] [place] [address] Dr. José Miguel Knight NEUT # 4.7 103/ul Normal 1.4-6.5 [facility] Comment on above: Performed By: #### C BC #### [facility] [address] [address] [address] José Miguel Knight Neutrophils/100 WBC (Bld) 68.4 % Normal 43.0-75.0 [facility] Comment on above: Performed By: #### C BC #### [facility] [address] [address] [address] José Miguel Knight Platelet mean volume (Bld) [Entitic vol] 10.8 fL Normal 9.5-13.5 [facility] Comment on above: Performed By: #### C BC #### [facility] [address] [address] [address] José Miguel Knight PLT 223 103/ul Normal 150-450 [facility] Comment on above: Performed By: #### C BC #### [facility] [address] [address] [address] José Miguel Knight RBC 4.93 106/ul Normal 4.70-6.10 [facility] Comment on above: Performed By: #### C BC #### [facility] [address] [address] [address] José Miguel Knight WBC 6.9 103/ul Normal 4.0-11.0 [facility] Comment on above: Performed By: #### C BC #### [facility] [address] [address] [address] José Miguel Knight GLYCOHEMOGLOBIN A1Con 2020 ADA RECOMMENDATION ADA THERAPEUTIC TARGET 6.0 - 7.0 ACTION SUGGESTED > 7.0 Normal [facility] Comment on above: Performed By: #### A 1C #### [facility] [address] [address] [address] José Miguel Knight Glucose [Mass/Vol] 217 mg/dL Normal [facility] Comment on above: Performed By: #### A 1C #### [facility] [address] [place] [address] Dr. José Miguel Knight HbA1c (Bld) [Mass fraction] 9.2 % Critically high <=6.0 [facility] Comment on above: Performed By: #### A 1C #### [facility] [address] [place] [address] Dr. José Miguel Knight LIPID PROFILEon 02-02-2021 CHOL-HDL RATIO NORM SEE BELOW Normal [facility] Comment on above: Result Comment: 3.3 - 4.4 LOW RISK 4.4 - 7.1 AVERAGE RISK 7.1 - 11.0 MODERATE RISK >11.0 HIGH RISK Performed By: #### T SH, LIPID, CMP #### [facility] [address] [place] [address] Dr. José Miguel Knight Cholesterol [Mass/Vol] 121 mg/dL Normal <=200 [facility] Comment on above: Performed By: #### T SH, LIPID, CMP #### [facility] [address] [place] [address] Dr. José Miguel Knight Cholesterol in HDL [Mass/Vol] 37 mg/dL Normal [facility] Comment on above: Performed By: #### T SH, LIPID, CMP #### [facility] [address] [place] [address] Dr. José Miguel Knight Cholesterol in LDL [Mass/Vol] 46.4 mg/dL Normal [facility] Comment on above: Performed By: #### T SH, LIPID, CMP #### [facility] [address] [address] [address] José Miguel Knight Cholesterol.total/Cho lesterol in HDL [Mass ratio] 3.3 {ratio} Normal [facility] Comment on above: Performed By: #### T SH, LIPID, CMP #### [facility] [address] [address] [address] José Miguel Knight HDL NORMAL > or = 60 mg/dl - LOW CARDIOVASCULAR RISK <40 mg/dl - HIGH CARDIOVASCULAR RISK Normal [facility] Comment on above: Performed By: #### T SH, LIPID, CMP #### [facility] [address] [place] [address] Dr. José Miguel Knight LDL CALC NORMAL SEE BELOW Normal [facility] Comment on above: Result Comment: <100 mg/dl OPTIMAL 100 - 129 mg/dl NEAR OR ABOVE OPTIMAL 130 - 159 mg/dl BORDERLINE HIGH 160 - 189 mg/dl HIGH >190 mg/dl VERY HIGH Performed By: #### T SH, LIPID, CMP #### [facility] [address] [place] [address] Dr. José Miguel Knight Triglyceride [Mass/Vol] 188 mg/dL Critically high <=150 [facility] Comment on above: Performed By: #### T SH, LIPID, CMP #### [facility] [address] [address] [address] José Miguel Knight VLDL CALC 37.6 mg/dL Normal [facility] Comment on above: Performed By: #### T SH, LIPID, CMP #### [facility] [address] [address] [address] José Miguel Knight MICROALBUMIN, RAND URon 01-18 mALB 1.2 mg/L Normal <=30.0 [facility] Comment on above: Performed By: #### M ALBR #### [facility] [address] [place] [address] Dr. José Miguel Knight PROF 14(COMP METB)on 11-16-2 021 Albumin [Mass/Vol] 3.8 g/dL Normal 3.5-5.0 [facility] Comment on above: Performed By: #### T ERICA, LIPID, CMP #### [facility] [address] [address] [address] José Miguel Knight Albumin/Globulin [Mass ratio] 1.1 {ratio} Normal [facility] Comment on above: Performed By: #### T ERICA, LIPID, CMP #### [facility] [address] [address] [address] José Miguel Knight ALP [Catalytic activity/Vol] 92 U/L Normal 38-126 [facility] Comment on above: Performed By: #### T ERICA, LIPID, CMP #### [facility] [address] [address] [address] José Miguel Knight ALT [Catalytic activity/Vol] 46 U/L Normal 21-72 [facility] Comment on above: Performed By: #### T ERICA, LIPID, CMP #### [facility] [address] [address] [address] José Miguel Knight Anion gap [Moles/Vol] 12.8 mmol/L Normal [facility] Comment on above: Performed By: #### T ERICA, LIPID, CMP #### [facility] [address] [address] [address] José Miguel Knight AST [Catalytic activity/Vol] 22 U/L Normal 17-59 [facility] Comment on above: Performed By: #### T ERICA, LIPID, CMP #### [facility] [address] [address] [address] José Miguel Knight Bilirubin [Mass/Vol] 0.5 mg/dL Normal 0.2-1.3 [facility] Comment on above: Performed By: #### T ERICA, LIPID, CMP #### [facility] [address] [address] [address] José Miguel Knight Calcium [Mass/Vol] 9.3 mg/dL Normal 8.4-10.2 [facility] Comment on above: Performed By: #### T ERICA, LIPID, CMP #### [facility] [address] [address] [address] José Miguel Knight Chloride [Moles/Vol] 103 mmol/L Normal 98-107 [facility] Comment on above: Performed By: #### T SH, LIPID, CMP #### [facility] [address] [place] [address] Dr. José Miguel Knight CO2 [Moles/Vol] 27.6 mmol/L Normal 22.0-30.0 [facility] Comment on above: Performed By: #### T ERICA, LIPID, CMP #### [facility] [address] [place] [address] Dr. José Miguel Knight Creatinine [Mass/Vol] 0.76 mg/dL Normal 0.66-1.25 [facility] Comment on above: Performed By: #### T ERICA, LIPID, CMP #### [facility] [address] [place] [address] Dr. José Miguel Knight EGFR-AF LIBYAN >60 Normal >=60 [facility] Comment on above: Performed By: #### T ERICA, LIPID, CMP #### [facility] [address] [place] [address] Dr. José Miguel Knight EGFR-NON AF LIBYAN >60 Normal >=60 [facility] Comment on above: Performed By: #### T ERICA, LIPID, CMP #### [facility] [address] [place] [address] Dr. José Miguel Knight Globulin (S) [Mass/Vol] 3.4 g/dL Normal [facility] Comment on above: Performed By: #### T ERICA, LIPID, CMP #### [facility] [address] [place] [address] Dr. José Miguel Knight Glucose [Mass/Vol] 253 mg/dL Critically high 74-106 [facility] Comment on above: Performed By: #### T ERICA, LIPID, CMP #### [facility] [address] [place] [address] Dr. José Miguel Knight Potassium [Moles/Vol] 4.4 mmol/L Normal 3.4-5.0 [facility] Comment on above: Performed By: #### T SH, LIPID, CMP #### [facility] [address] [place] [address] Dr. José Miguel Knight Protein [Mass/Vol] 7.2 g/dL Normal 6.1-8.2 [facility] Comment on above: Performed By: #### T SH, LIPID, CMP #### [facility] [address] [place] [address] Dr. José Miguel Knight Sodium [Moles/Vol] 139 mmol/L Normal 137-145 [facility] Comment on above: Performed By: #### T SH, LIPID, CMP #### [facility] [address] [place] [address] Dr. José Miguel Knight Urea nitrogen [Mass/Vol] 16.0 mg/dL Normal 9.0-20.0 [facility] Comment on above: Performed By: #### T SH, LIPID, CMP #### [facility] [address] [place] [address] Dr. José Miguel Knight Urea nitrogen/Creatinine [Mass ratio] 21.1 mg/mg Normal [facility] Comment on above: Performed By: #### T SH, LIPID, CMP #### [facility] [address] [place] [address] Dr. José Miguel Knight TSHon 02-02-2021 TSH 5.529 uIU/mL Critically high 0.470-4.680 [facility] Comment on above: Performed By: #### T ERICA, LIPID, CMP #### [facility] [address] [place] [address] Dr. José Miguel Knight TSH RANGE SEE BELOW Normal [facility] Comment on above: Result Comment: <0.3 4 UIU/ml HYPERTHYROID 0.34-5.60 UIU/ml EUTHYROID >5.60 UIU/ml HYPOTHYROID Performed By: #### T SH, LIPID, CMP #### [facility] [address] [place] [address] Dr. José Miguel Knight Vital Signs Date Time Vital Sign Value Performing Clinician Faci lity 04-23-2024 09:53-0500 Body height 185.4 cm Anisha Orozco NP Work Phone: [facility] 04-23-2024 09:53-0500 Body mass index (BMI) [Ratio] 31.93 kg/m2 Anisha Orozco COMMUNITY HEALTH EDUCATOR Work Phone: [facility] 04-23-2024 09:53-0500 Body temperature 98.8 [degF] Anisha Orozco COMMUNITY HEALTH EDUCATOR Work Phone: [facility] 04-23-2024 09:53-0500 Body weight 109.77 kg Anisha Orozco COMMUNITY HEALTH EDUCATOR Work Phone: [facility] 04-23-2024 09:53-0500 Diastolic blood pressure 76 mm[Hg] Anisha Orozco COMMUNITY HEALTH EDUCATOR Work Phone: [facility] 04-23-2024 09:53-0500 Heart rate 86 /min Anisha Orozco COMMUNITY HEALTH EDUCATOR Work Phone: [facility] 04-23-2024 09:53-0500 Respiratory rate 16 /min Anisha Orozco COMMUNITY HEALTH EDUCATOR Work Phone: [facility] 04-23-2024 09:53-0500 SaO2% (BldA) [Mass fraction] 97 % Anisha Orozco COMMUNITY HEALTH EDUCATOR Work Phone: [facility] 04-23-2024 09:53-0500 Systolic blood pressure 140 mm[Hg] Anisha Orozco COMMUNITY HEALTH EDUCATOR Work Phone: [facility] 11-21-2023 13:08-0400 Body height 185.4 cm Anisha Orozco COMMUNITY HEALTH EDUCATOR Work Phone: [facility] 11-21-2023 13:08-0400 Body mass index (BMI) [Ratio] 30.34 kg/m2 Anisha Orozco COMMUNITY HEALTH EDUCATOR Work Phone: [facility] 11-21-2023 13:08-0400 Body temperature 98.71 [degF] Anisha Orozco COMMUNITY HEALTH EDUCATOR Work Phone: [facility] 11-21-2023 13:08-0400 Body weight 104.33 kg Anisha Millardpatrick COMMUNITY HEALTH EDUCATOR Work Phone: [facility] 11-21-2023 13:08-0400 Diastolic blood pressure 80 mm[Hg] Anisha Millardpatrick COMMUNITY HEALTH EDUCATOR Work Phone: [facility] 11-21-2023 13:08-0400 Heart rate 110 /min Anisha Millardpatrick COMMUNITY HEALTH EDUCATOR Work Phone: [facility] Comment on above: 98% O2 11-21-2023 13:08-0400 Systolic blood pressure 132 mm[Hg] Anisha Orozco COMMUNITY HEALTH EDUCATOR Work Phone: [facility] Healthcare Encounters Encounter Date Encounter Type Care Provider Facility Start: 04-23-2024 End: 04-23-2024 Bamboo flowsheet Anisha Millardpatrick COMMUNITY HEALTH EDUCATOR Work Phone: [facility] Start: 04-23-2024 End: 04-23-2024 Bamboo flowsheet Anisha Millardpatrick COMMUNITY HEALTH EDUCATOR Work Phone: [facility] Start: 04-23-2024 End: 04-23-2024 Assay of hemosiderin, quant Anisha Cunninghamtrick COMMUNITY HEALTH EDUCATOR Work Phone: [facility] Start: 04-23-2024 End: 04-23-2024 Patient encounter procedure Anisha Millardpatrick COMMUNITY HEALTH EDUCATOR [facility] Comment on above: Routine general medi elias examination at health care facility (Primary Dx); Other hyperlipidemia (CMS/HCC); Type 2 diabetes mellitus without complication, with long-term current use of insulin (CMS/HCC); Other specified hypothyroidism (CMS/HCC); Primary hypertension (CMS/HCC); Other chronic pain; Psychophysiological insomnia Start: 04-23-2024 End: 04-23-2024 ambulatory ANISHA OROZCO Not Available Start: 03-26-2024 End: 03-26-2024 Orders Only Anisha Millardpatrick COMMUNITY HEALTH EDUCATOR Work Phone: [facility] Comment on above: Other hyperlipidemia (CMS/HCC); Type 2 diabetes mellitus without complication, with long-term current use of insulin (CMS/HCC); Other specified hypothyroidism (CMS/HCC); Primary hypertension (CMS/HCC); Other chronic pain; Psychophysiological insomnia Start: 12-29-2023 End: 01-02-2024 Refill Joana Roman [facility] Comment on above: Type 2 diabetes ne itus without complication, with long-term current use of insulin (CMS/HCC) (Primary Dx) Start: 11-27-2023 End: 11-27-2023 Clinisync Result Encounter Anisha Orozco COMMUNITY HEALTH EDUCATOR Work Phone: [facility] External Department Unsolicited Start: 11-27-2023 End: 11-27-2023 Clinisync Result Encounter Anisha Orozco COMMUNITY HEALTH EDUCATOR Work Phone: [facility] External Department Unsolicited Start: 11-21-2023 End: 11-21-2023 Bamboo flowsheet Anisha Orozco COMMUNITY HEALTH EDUCATOR Work Phone: [facility] Start: 11-21-2023 End: 11-21-2023 Bamboo flowsheet Anisha Orozco COMMUNITY HEALTH EDUCATOR Work Phone: [facility] Start: 11-21-2023 End: 11-21-2023 Office outpatient visit 15 minutes Anisha Orozco COMMUNITY HEALTH EDUCATOR Work Phone: [facility] Comment on above: Cerumen debris on ty mpanic membrane, bilateral (Primary Dx); Other hyperlipidemia (CMS/HCC); Type 2 diabetes mellitus without complication, with long-term current use of insulin (CMS/HCC); Other specified hypothyroidism (CMS/HCC); Primary hypertension (CMS/HCC); Other chronic pain; Psychophysiological insomnia Start: 11-21-2023 End: 11-21-2023 ambulatory ANISHA OROZCO Not Available Start: 11-07-2023 End: 11-07-2023 Refill Anisha Orozco COMMUNITY HEALTH EDUCATOR Work Phone: [facility] Comment on above: Type 2 diabetes ne itus without complication, with long-term current use of insulin ([facility]) Start: 06-21-2023 End: 06-21-2023 ambulatory SHAIKH CHIKI Not Available Start: 06-14-2023 End: 06-14-2023 ambulatory ZEFERINO OROZCO Not Available Start: 05-29-2023 End: 05-29-2023 ambulatory ZEFERINO RUIZHER Not Available Start: 05-09-2023 End: 05-09-2023 ambulatory ZEFERINO RUIZHER Not Available Start: 07-21-2021 End: 07-22-2021 ambulatory SHAIKH CHIKI Facility:[facility] Start: 02-02-2021 End: 02-03-2021 ambulatory SHAIKH SHAWNSDMatt Facility: Procedures Date Procedure Procedure Detail Performing Clinician Start: 11-27-2023 MLR HEMOGLOBIN A1C Karely Orozco COMMUNITY HEALTH EDUCATOR Work Phone: Plan of Treatment Date Care Activity Detail Author Start: 02-23-2026 Screening for malign ant neoplasm of colon [facility] Healthcare Start: 12-06-2025 Glaucoma screening Diabetes: R etinopathy Screening [facility] Healthcare Start: 04-23-2025 Medicare Annual Wellness (AWV) Medicare Annual Wellness (AWV) [facility] Healthcare Start: 07-26-2024 Urine screening for protein Diabetes: Urine Protein Screening [facility] Healthcare Start: 06-18-2024 Influenza vaccination Influenza Vacc ine (#1) [facility] Comment on above: Postponed from 11/18 (Patient Refused) Start: 04-23-2024 End: 04-23-2024 Patient encounter procedure [facility] Comment on above: Arrived Start: 01-19-2024 Medicare Annual Wellness (AWV) Medicare Annual Wellness (AWV) [facility] Healthcare Start: 11-21-2023 End: 11-20-2024 Hemoglobin A1c/Hemoglobin.total in Blood Hemoglobin A1c Lab Routine Type 2 diabetes mellitus without complication, with long-term current use of insulin ([facility]) Expected: 11/21/2023 (Approximate), Expires: 11/20/2024 [facility] Healthcare Comment on above: Expected: 11/21/2023 (Approximate), Expires: 11/20/2024 Start: 11-21-2023 End: 11-21-2023 Patient encounter procedure 11/21/2023 1:00 PM EDT Office Visit [facility] [address] [place] [address] Anisha Orozco NP [address] [place] [address] Arrived [facility] Comment on above: Arrived Start: 11-19-2023 Influenza vaccination Influenza Vacc ine (#1) [facility] Healthcare Start: 04-29-2023 Hemoglobin A1c measurement Diabetes: Hemoglobin A1C [facility] Healthcare Start: 01-23-2023 Glaucoma screening Diabetes: R etinopathy Screening [facility] Healthcare Start: 1974 Medicare Annual Wellness (AWV) Medicare Annual Wellness (AWV) [facility] Healthcare Start: 1974 Screening for malign ant neoplasm of colon [facility] Microalbumin/Creatin ine panel in random Urine Microalbumin / creatinine urine ratio Lab Routine Type 2 diabetes mellitus without complication, with long-term current use of insulin ([facility]) Ordered: 11/21/2023 [facility] Work Phone: Comment on above: Ordered: 11/21/2023 Payers Date Payer Category Payer Medicare [employer] ADV[employer]AGE [facility] MEDICARE ADVANTAGE [id number] 2017-Present [address] [place] [address] [id number] 2017 Medicare (Managed Care) [employer] ADVANTAGE [id number] 5 1974 Unknown [id number] [id number] .2.593 1974 Unknown [id number] 2.16.840.1.923635.3.579 .2.593 1974 Unknown [id number] 2.16.840.1.122389.3.579 .2.9 1974 Unknown [id number] 2.16.840.1.643582.3.579 .2.9 1974 Unknown [id number] 2.16.840.1.764039.3.579 .2.9 1974 Unknown [id number] 2.16.840.1.531355.3.579 .2.9 1974 Unknown [id number] 2.16.840.1.672267.3.579 .2.1259 1974 Unknown [id number] [id number] .2.1259 1959 Unknown [id number] Social History Date Type Detail Facility Start: 06-21-2023 Tobacco smoking stat [facility] Never smoked tobacco [facility] Start: 06-21-2023 Tobacco use and exposure Smokeless tobacco non-user [facility] Start: 11-21-2023 End: 04-23-2024 Alcoholic beverage intake Ex-drinker (finding) [facility] Start: 11-21-2023 End: 04-23-2024 History of Social function [facility] Start: 11-21-2023 End: 04-23-2024 Tobacco use panel [facility] Start: 1975 Sex assigned at Not on file [facility] NEGATED: Highlighted rowStart: NINF History of tobacco use Passive smoker [facility] Medical Equipment Procedure Code Equipment Code Equipment Origin al Text Equipment Identifier Dates 1 each by Other route in the morning and 1 each in the evening and 1 each before bedtime. [id number] Start: 11-21-2023 End: 03-05-2027 1 each by Other route in the morning and 1 each in the evening and 1 each before bedtime. [id number] Start: 09-14-2023 End: 12-27-2026 1 each by Other route in the morning and 1 each in the evening and 1 each before bedtime. [id number] Start: 03-26-2024 End: 07-09-2027 1 each by Other route in the morning and 1 each in the evening and 1 each before bedtime. [id number] Start: 04-23-2024 End: 08-06-2027 History of Present illness Narrative 04-23-2024 Anisha Orozco, COMMUNITY HEALTH EDUCATOR - 04/23/2024 10:00 AM Rochelle Orozco, COMMUNITY HEALTH EDUCATOR - 04/23/2024 10:00 AM EST Note Date [...] No Cognitive Screening Three Word Registration: Banana, Chualar, Chair Clock Drawing: Inability or Refusal to Draw Clock - 0 Three Word Recall: 2/3 words correct - 2 Total Score (0-5 Points): 2 Advance Care Planning Do you have a living will?: No Do you have a medical power of theatrical rigger?: No Objective : BP 140/76 Pulse 86 [...] No Cognitive Screening Three Word Registration: Banana, Chualar, Chair Clock Drawing: Inability or Refusal to Draw Clock - 0 Three Word Recall: 2/3 words correct - 2 Total Score (0-5 Points): 2 Advance Care Planning Do you have a living will?: No Do you have a medical power of theatrical rigger?: No Objective : BP 140/76 Pulse 86 [...] t illness Narrative Associated Problem(s): Other hyperlipidemia ([facility]/HCC) Currently taking Atorvastatin 40mg. Denies any myalgias. [...] non healing ulcer. Associated Problem(s): Primary hypertension ([facility]) Currently taking Losartan 100mg; Checks BP [...] throat, vomiting or weakness. Is accompanied by direct care specialist. Is here today for med refills. Denies [...] R ALBUMIN GLOBULIN RATIO 1.0 Resulting Agency [facility] Review of Systems Constitutional: Negative [...] losartan (Cozaar) 100 MG tablet Other hyperlipidemia ([facility]) Currently taking Atorvastatin 40mg. Denies any myalgias. Most recent Lipid Panel WNL. Continue current regimen. Relevant Medications atorvastatin (Lipitor) 40 MG tablet Type 2 diabetes mellitus without complication, with long-term current use of insulin ([facility]) Most recent labs: hemoglobin A1C 9.9% [...] Healthcare Note 11-07-2023 Telephone Encounter - Ninfa Doyleymah - 11/07/2023 8:31 AM EDT Note Date & Type Note Facility 11-07-2023 Miscellaneous Notes Formattin g of this note might be different from the original. Patient needs refills for Januvia and Glipizide. [facility] documented in this encounter [facility] Evaluation note Note Date & Type [...] insulin (CMS/HCC)- Primary documented in this encounter [facility] Evaluation note Note Date & Type Note Facility Evaluation note Diagnosis Type 2 diabetes mellitus without complication, with long-term current use of insulin (CMS/HCC) documented in this encounter [facility] Evaluation note Note Date & Type [...] DATE CREATED AUTHOR AUTHOR'S ORGANIZ ATION 04/25/2024 [facility] EPIC Reason for Visit (unrecogniz ed section and content) Reason Onset Date Comments Med Refill 12/29/2023 Reason Onset Date Comments Med Refill 11/07/2023 Reason Comments Med Refill Reason Comments Medicare Annual Wellness Visit Subsequen t Care Teams (unrecognized sec tion and content) Chainstitch Binder Relationship Specialty Start Date End Date Shaikh Monet MD [address] [place] [address] PCP - Tang HANNAH 09/18/23 Darion Blankenship MD [address] [place] [address] PCP - General Family Medicine 11/07/23 Neil Peng PA [address] [place] [address] Referring Physician 05/09/23 Anisha Orozco NP [address] [place] [address] Nurse Practitioner Family Medicine 11/07/23 Chainstitch Binder Relationship Specialty Start Date End Date Shaikh Monet MD [address] [place] [address] PCP - Tang HANNAH 09/18/23 Darion Blankenship MD [address] [place] [address] PCP - General Family Medicine 11/07/23 Neil Peng PA [address] [place] [address] Referring Physician 05/09/23 Anisha Orozco NP [address] [place] [address] Nurse Practitioner Family Medicine 11/07/23 Chainstitch Binder Relationship Specialty Start Date End Date PatywShaikh brennan MD [address] [place] [address] PCP - Elkader MA 09/18/23 Darion Blankenship MD [address] [place] [address] PCP - General Family Medicine 11/07/23 Neil Peng PA [address] [place] [address] Referring Physician 05/09/23 Anisha Orozco NP [address] [place] [address] Nurse Practitioner Family Medicine 11/07/23 Chainstitch Binder Relationship Specialty Start Date End Date Shaikh Monet MD [address] [place] [address] PCP - Tang HANNAH 09/18/23 Darion Blankenship MD [address] [place] [address] PCP - General Family Medicine 11/07/23 Neil Peng PA [address] [place] [address] Referring Physician 05/09/23 Anisha Orozco NP [address] [place] [address] Nurse Practitioner Family Medicine 11/07/23 Chainstitch Binder Relationship Specialty Start Date End Date Shaikh Monet MD [address] [place] [address] PCP - Tang HANNAH 09/18/23 Darion Blankenship MD [address] [place] [address] PCP - General Family Medicine 11/07/23 Neil Peng PA [address] [place] [address] Referring Physician 05/09/23 Anisha Orozco NP [address] [place] [address] Nurse Practitioner Family Medicine 11/07/23 Chainstitch Binder Relationship Specialty Start Date End Date Shaikh Monet MD [address] [place] [address] PCP - Tang HANNAH 09/18/23 Darion Blankenship MD [address] [place] [address] PCP - General Family Medicine 11/07/23 Neil Peng PA [address] [place] [address] Referring Physician 05/09/23 Anisha Orozco NP [address] [place] [address] Nurse Practitioner Family Medicine 11/07/23 Chainstitch Binder Relationship Specialty Start Date End Date PatywShaikh brennan MD [address] [place] [address] PCP - Tang HANNAH 09/18/23 Darion Blankenship MD [address] [place] [address] PCP - General Family Medicine 11/07/23 Neil Peng PA [address] [place] [address] Referring Physician 05/09/23 Anisha Orozco NP [address] [place] [address] Nurse Practitioner Family Medicine 11/07/23 Chainstitch Binder Relationship Specialty Start Date End Date Shaikh Moent MD [address] [place] [address] PCP - Tang HANNAH 09/18/23 Darion Blankenship MD [address] [place] [address] PCP - General Family Medicine 11/07/23 Neil Peng PA [address] [place] [address] Referring Physician 05/09/23 Anisha Orozco NP [address] [place] [address] Nurse Practitioner Family Medicine 11/07/23 [...] BE BASED ON THE PRIMARY CLINICAL RECORDS. [facility]. provides no warranty or guarantee of the accuracy or completeness of information in this document.
== END 2024-12-26 12:30 | disposition home or self-care (01) ==
LOC: WC 12:29
PROVIDERS: PCP Family Medicine; Visit Provider Physician Assistant
DX: L84 Corns and callosities (principal); E11.65 Type 2 diabetes mellitus with hyperglycemia
CPT/HCPCS: 11055

== ENCOUNTER 2025-01-28 10:25 | Outpatient (OUT) | payer MEDICARE, SELFPAY ==
--- OUTSIDE RECORDS SUMMARY | 2025-01-28 10:28 | XMS_ITS | Clinical Summary ---
Author Organization [facility] Healthcare Address [address] [place] [address] Care Team Providers Care Full Fashioned Garment Knitter Name Role Phone Barbara Peng Unavailable [phone] Anisha Orozco NP Unavailable [phone] Darion Blankenship MD Primary Care Provider [phone] Anisha Orozco NP Unavailable [phone] Allergies No known active allergies Medications MedicationSigDispense QuantityRefillsLast FilledStart DateEnd DateStatus atorvastatin (Lipitor) 40 MG tablet Indications:Other hyperlipidemiaTake 1 tablet (40 mg) by mouth Daily 90 tablet 5Active insulin glargine (Lantus SoloStar) 100 UNIT/ML pen Indications:Type 2 diabetes mellitus without complication, with long-term current use of insulin (HCC)Inject 40 Units under the skin Daily 3 mL 1105Active levothyroxine (Synthroid) 112 MCG tablet Indications:Other specified hypothyroidismTake 1 tablet (112 mcg) by mouth in the morning. Take before meals. 90 tablet 5Active losartan (Cozaar) 100 MG tablet Indications:Primary hypertensionTake 1 tablet (100 mg) by mouth Daily 90 tablet 5Active metFORMIN (Glucophage) 1000 MG tablet Indications:Type 2 diabetes mellitus without complication, with long-term current use of insulin (HCC)Take 1 tablet (1,000 mg) by mouth in the morning and 1 tablet (1,000 mg) before bedtime. 180 tablet 5Active SITagliptin (Januvia) 100 MG tablet Indications:Type 2 diabetes mellitus without complication, with long-term current use of insulin (HCC)Take 1 tablet (100 mg) by mouth Daily 90 tablet 5Active traZODone (Desyrel) 150 MG tablet Indications:Psychophysiological insomniaTake 1 tablet (150 mg) by mouth at bedtime 90 tablet 5Active glipiZIDE (Glucotrol) 10 MG tablet Indications:Type 2 diabetes mellitus without complication, with long-term current use of insulin (HCC)Take 1 tablet (10 mg) by mouth in the morning and 1 tablet (10 mg) in the evening. Take before meals. 180 tablet 5Active glucose blood (ForSight Labsuch Ultra) test strip Indications:Type 2 diabetes mellitus without complication, with long-term current use of insulin (HCC)1 each by Other route in the morning and 1 each in the evening and 1 each before bedtime. 300 each 110518Active Active Problems ProblemNoted DateDiagnosed DateCerumen debris on tympanic membrane, bilateral 11/21/2023rimary uwxwniesefav73/03/2024 Assessment & Plan (11/21/2023 1:42 PM EDT): Currently taking Losartan 100mg; Checks BP at home. Does not recall averages. BP is good today in office. Denies orthostatic changes, dizziness, cough, shortness of breath, swelling in extremities. Continue current regimen. Assessment & Plan (06/21/2023 10:48 AM EDT): Above goal in office. But usually well controlled. Asymptomatic. C/w losartan. Other gsyybkwxqxsynj03/03/2024 Assessment & Plan (11/21/2023 1:44 PM EDT): Currently taking Atorvastatin 40mg. Denies any myalgias. Most recent Lipid Panel WNL. Continue current regimen. Assessment & Plan (06/21/2023 10:51 AM EDT): On Lipitor. C/w statin. Type 2 diabetes mellitus without complication, with long-term current use of ugirzax6506/21/2023 Assessment & Plan (11/21/2023 1:43 PM EDT): [...] glucose at home. Will recheck labs. Learning qyjmnzwxpa91/03/2024Other specified csalwjlnzpspcq11/03/2024 Assessment & Plan (06/21/2023 10:50 AM EDT): Levothyroxine was increased last apt. Recheck TSH. Positive colorectal cancer screening using Cologuard test06/21/2023 Encounters DateTypeDepartmentCare XxnePxmukhbdtex04/18/2025Refill [facility] [place] [facility] [address] [place] [address] Darion Blankenship MD Type 2 diabetes mellitus without complication, with long-term current use of insulin (HCC)from Last 3 Months Family History Medical HistoryRelationNameCommentsDiabetesFatherRelationNameStatusComments BrotherAliveFather Social History Tobacco UseTypesPacks/DayYears UsedDateSmoking Tobacco: NeverPassive Smoke Exposure: NeverSmokeless Tobacco: Never Tobacco Cessation:Counseling Given: Not Answered Alcohol UseStandard Drinks/WeekCommentsNot Currently0 (1 standard drink = 0.6 oz pure alcohol)PHQ-2AnswerDate RecordedPatient Health Questionnaire-2 Score0 04/23/2024Sex and Gender InformationValueDate RecordedSex Assigned at BirthNot on fileLegal VrbGnrt6806/01/2022 7:41 PM EDTGender IdentityNot on fileSexual OrientationNot on file Last Filed Vital Signs Vital SignReadingTime TakenCommentsBlood Gjxqxegr827/76004/23/2024 9:53 AM EST Juxux916904/23/2024 9:53 AM QAQXggjtbtxrjn86.1 ??C (98.8 ??F)04/23/2024 9:53 AM ESTRespiratory Nahs703504/23/2024 9:53 AM ESTOxygen Esdyjlpvum32%04/23/2024 9:53 AM ESTInhaled Oxygen Concentration--Vggnjv045 kg (242 lb)04/23/2024 9:53 AM EST Eltejd394.4 cm (6' 1 )04/23/2024 9:53 AM ESTBody Mass Index31.9304/23/2024 9:53 AM EST Plan of Treatment Health MaintenanceDue DateLast DoneCommentsCT Vxpeeuhadmep06/14/1975Colonoscopy 1974FIT1974FOBT1974 9438Deniohoszdpwr21/14/1975Pneumococcal Vaccine: Pediatrics (0 to 5 Years) and At-Risk Patients (6 to 64 Years) (1 of 2 - PCV)1993Diabetes: Hemoglobin A1C3Diabetes: Urine Protein Uyvpxcton81/11/2023, 01/27/2023OVID-19 Vaccine ( - season)2024Influenza Vaccine (#1)2024Medicare Annual Wellness (AWV) , 3Diabetes: Retinopathy Pvmatgdlm95/19/2026 12/07/2023, 01/23/2021olorectal Cancer Zypefrzts37/07/2026FIT-DNA02/23/2026 02/23/2023 Procedures Procedure NamePriorityDate/TimeAssociated DiagnosisCommentsDIABETIC RETINOPATHY SCREENING - OU - BOTH OHNTZnqmpwi36/19/2024 2:08 PM EDTfrom Last 3 Months or Most Recently Relevant to Health Maintenance Results * Diabetic Retinopathy Screening - OU - Both Eyes (12/07/2023 2:08 PM EDT) Anatomical RegionLateralityModalityHeadOther Narrative Authorizing ProviderResult TypeResult StatusBrittcarlitos Oorzco NPOPHTH PHOTOGRAPHYFinal Result from Last 3 Months or Most Recently Relevant to Health Maintenance Insurance Care Teams Team MemberRelationshipSpecialtyStart DateEnd Date Darion Blankenship MD [address] [place] [address] PCP - GeneralFamily Medicine11/07/23 Anisha Orozco NP PCP - Tang HANNAH06/18/24 Barbara Peng PA [address] [place] [address] Referring Physician05/09/23 Anisha Orozco NP [address] [place] [address] Nurse PractitionerFamiMemorial Health University Medical Center11/07/23
--- OUTSIDE RECORDS SUMMARY | 2025-01-28 10:28 | XMS_ITS | Clinical Summary ---
Author Organization [employer] [facility] tem Address [id number] [address] [place] [address] Care Team Providers Care Inspector Bicycle Name Role Phone Adi Cook MD Primary Care Provider Unava ilable Social History Tobacco UseTypesPacks/DayYears UsedDateSmoking Tobacco: Never AssessedChildcare AnswerDate YooonnzcXenikkibvElgfhtv36/12/2019EmploymentAnswerDate Recorded LtxbsttskiKwyulng61/12/2019Purpose - LifeAnswerDate RecordedPurpose and direction in pxicCsubkur99/11/2021Sex and Gender InformationValueDate Recorded Sex Assigned at BirthNot on fileLegal VobMfvc7010/23/2014 12:12 PM EDTGender IdentityNot on fileSexual OrientationNot on file Plan of Treatment Health MaintenanceDue DateLast DoneCommentsDepression Tmzdculwc08/14/1987Tobacco Eyxvmyffl45/14/1987Adult BMI Opdabczwg43/14/1993DTaP,Tdap and Td Vaccines (1 - Tdap)1993Zoster (Shingles) Vaccine (1 of 2)2024Influenza Vaccine 11/18/2024 Medical Devices Not on file Insurance * Guarantor: Ángel Stephenson PAccount TypeRelation to PatientDate of BirthPhone Billing AddressPersonal/LuoyhsYhur13/14/1976 [address] [address] [address] [place] [address] Care Teams Team MemberRelationshipSpecialtyStart DateEnd Date Adi Cook MD PCP - [facility]11/10/17
--- OUTSIDE RECORDS SUMMARY | 2025-01-28 10:28 | XMS_ITS | Encounter Summary ---
Author Organization [facility] Address [address] [place] [address] Care Team Providers Care Computer Forwarding System Markup Clerk Name Role Phone Barbara Peng Unavailable [phone] Shaikh BELL Monet Unavailable [phone] Anisha Orozco POT TENDER Unavailable [phone] Darion Blankenship MD Primary Care Provider [phone] Anisha Orozco POT TENDER Unavailable [phone] Encounter Details DateTypeDepartmentCare Team (Latest Contact Info)Uuycrrxohho76/21/2024Clinisync Result Encounter [facility] External Department Unsolicited Provider, Generic External Data Social History Tobacco UseTypesPacks/DayYears UsedDateSmoking Tobacco: NeverPassive Smoke Exposure: NeverSmokeless Tobacco: NeverAlcohol UseStandard Drinks/WeekComments Not Currently0 (1 standard drink = 0.6 oz pure alcohol)PHQ-2AnswerDate Recorded Patient Health Questionnaire-2 Eafhc193Sex and Gender InformationValue Date RecordedSex Assigned at BirthNot on fileLegal CudRfpb2106/01/2022 7:41 PM EDT Gender IdentityNot on fileSexual OrientationNot on filedocumented as of this encounter Functional Status * Over the past 2 weeks, how often have you been bothered by any of the following problems?QuestionAnswerDate of AssessmentAuthorLittle interest or pleasure in doing thingsNot at all04/23/2024 9:00 AM Angelina Barone MA Feeling down, depressed, or hopelessNot at all04/23/2024 9:00 AM Angelina Barone MAPatient Health Questionnaire-2 Ewhft639 9:00 AM Angelina Barone MA * QuestionAnswerDate of AssessmentAuthorTrouble falling or staying asleep, or sleeping too muchNot at all04/23/2024 9:00 AM Angelina Barone, GRISELDAeeling tired or having little energyNot at all04/23/2024 9:00 AM Angelina Barone, MAPoor appetite or overeatingNot at all04/23/2024 9:00 AM Angelina Barone, GRISELDAeeling bad about yourself - or that you are a failure or have let yourself or your family downNot at all04/23/2024 9:00 AM Angelina Barone, Emberouble concentrating on things, such as reading the newspaper or watching television Not at all04/23/2024 9:00 AM Angelina Barone, MAMoving or speaking so slowly that other people could have noticed? Or the opposite - being so fidgety or restless that you have been moving around a lot more than usual.Not at all 04/23/2024 9:00 AM Angelina Barone, MAThoughts that you would be better off or hurting yourself in some wayNot at all04/23/2024 9:00 AM Angelina Barone MAPatient Health Questionnaire-9 Htxic924 9:00 AM Angelina Barone MA documented as of this encounter Plan of Treatment Not on file documented as of this encounter Procedures Procedure NamePriorityDate/TimeAssociated DiagnosisCommentsXR FOOT LT MIN 3V 11/08/2023 6:50 AM EDT documented in this encounter Results * XR FOOT LT MIN 3V (11/08/2023 6:50 AM EDT)Anatomical RegionLateralityModality OtherSpecimen (Source)Anatomical Location / LateralityCollection Method / VolumeCollection TimeReceived Time11/08/2023 6:50 AM EDT Narrative 11/08/2023 6:52 AM EDT [facility] ?[address] ? [place] [address] ?XRay Report ? Signed ? Patient: SHRESTHA,ZAIRA P ?MR#: [id number] ?? : 1975 ?Acct:[id number] ?? Age/Sex: 48 / M ?ADM Date: 08/20/24 ?? Loc: WC ? Attending Dr: Ruslan Haro D.P.M. ? Ordering Physician: Ruslan Haro D.P.M. ?? Date of Service: 11/07/23 ?? Procedure(s): XR foot LT min 3V ?? Accession Number(s): [id number] ? cc: Shaikh Raul Monet; Ruslan Haro D.P.M. ? [facility] ? [address] ? [place] [address] ? Patient Name: ?? ZAIRA SHRESTHA ? MRN: [facility]:[id number] ? date: 1975 ?Sex: M ?? Assigned Patient Location: ?? Current Patient Location: ? Accession/Order Number: [id number] ?? Exam Date: 11/07/2023 ??11:23 ?Report Date: 11/08/2023 ??06:50 ? At the request of: ?? RUSLAN ??SHIRLENE ? Procedure: ??XR foot LT min 3V ? PROCEDURE: XR foot LT min 3V ? HISTORY: LEFT FOOT PAIN ? COMPARISON: XR foot left 01/23/2023 ? FINDINGS: ?? BONES:Mild degenerative change of the first tarsal-metatarsal joint and first ?? metatarsophalangeal joint. Stable developmental versus posttraumatic changes ?? of ?? the 5th toe. Prior plate and screw repair of distal fibula. ?? SOFT TISSUES:No visible soft tissue swelling. ?? EFFUSION:None visible. ?? OTHER: Negative. ? XR/XR foot LT min 3V ?? IMPRESSION: ? 1. Stable left foot. No acute abnormality. ? Electronically authenticated by: JC ??MICHAEL ?? Date: 11/08/2023 ??06:50 ? Dictated By: ?Jc Cole M.D. ? Signed By: ?11/08/23 0652 ? DD/ 0650 ? TD/TT: ? Veterinary Pathologist: Procedure Note Radiology, Radiologist, MD - 11/08/[address] [address] XRay Report Signed Patient: ZAIRA SHRESTHA PMR#: [id number] : 1975Acct:[id number] Age/Sex: 48 / MADM Date: 11/07/23 Loc: Attending Dr: Ruslan Haro D.P.M. Ordering Physician: Ruslan Haro D.P.M. Date of Service: 11/07/23 Procedure(s): XR foot LT min 3V Accession Number(s): [id number] cc: Shaikh Raul Monet; Ruslan Haro D.P.M. [place] [address] Patient Name: ZAIRA SHRESTHA MRN: [facility]:[id number] date: 1975 Sex: M Assigned Patient Location: Current Patient Location: Accession/Order Number: [id number] Exam Date: 11/07/2023 11:23 Report Date: 11/08/2023 [...] Cole M.D. Signed By:11/08/23 0652 DD/ TD/TT: Veterinary Pathologist: Authorizing ProviderResult TypeResult StatusGeneric External Data Provider CLINISYNC IMAGINGFinal Result documented in this encounter Visit Diagnoses Not on filedocumented in this encounter Care Teams Team MemberRelationshipSpecialtyStart DateEnd Date Shaikh Monet MD [address] [place] [address] PCP - Tang MA09/18/2411 Darion Blankenship MD [address] [place] [address] PCP - GeneralFamily Medicine11/07/23 Anisha Orozco NP PCP - Tang GA06/18/24 Barbara Peng PA [address] [place] [address] Referring Physician05/09/23 Anisha Orozco NP [address] [place] [address] Nurse PractitionerFamily Medicine11/07/23documented as of this encounter
== END 2025-01-28 10:26 | disposition home or self-care (01) ==
LOC: WC 10:25
PROVIDERS: PCP Family Medicine; Visit Provider Physician Assistant
DX: L84 Corns and callosities (principal); E11.65 Type 2 diabetes mellitus with hyperglycemia
CPT/HCPCS: 11055

== ENCOUNTER 2025-02-25 10:56 | Outpatient (OUT) | payer MEDICARE, SELFPAY ==
--- OUTSIDE RECORDS SUMMARY | 2025-02-25 11:03 | XMS_ITS | CCD ---
Author Organization [facility] Care Team Providers Care Glost Kiln Operator Name Role Phone FAWJAIME, DELAROSA Admitting Unavailable FAWWAD, DELAROSA Attending Unavailable FAWWAD, DELAROSA Primary Care Unavailable FAWWAD, DELAROSA Consulting Unavailable FAWWAD, DELAROSA Admitting Unavailable FAWWAD, DELAROSA Attending Unavailable FAWWAD, DELAROSA Primary Care Unavailable FAWWAD, DELAROSA Consulting Unavailable Neil French Unavailable Shaikh Monet MD Unavailable Ernesto JORDAN, Anisha Unavailable [phone] Darion Blankenship MD Primary Care Provider [phone] ANISHA OROZCO Attending UnavailZEFERINO Moyer Attending Unavailable NEIL PENG Referring Unavailable ZEFERINO OROZCO Attending Unavailable ZEFERINO OROZCO Attending Unavailable SHAIKH MONET Attending Unavailable ANISHA OROZCO Attending UnavailRanda George DO Primary Care Provider Randa Damon DO Attending Provider Neil French Unavailable Shaikh Monet MD Unavailable Ernesto JORDAN, Anisha Unavailable [phone] Darion Blankenship MD Primary Care Provider [phone] Ernesto JORDAN, Anisha Unavailable [phone] Medications Current Medications MedicationDrug Class(es)DatesSig (Normalized)Sig (Original)atorvastatin 40 mg oral tablet (16 sources)HMG-CoA Reductase InhibitorStart: 63-57-4422vqmg 1 tablet by mouth once dailyAtorvastatin (Lipitor) 40 mg tablet Active 40 MG PO Daily December 24, 2024 12:00am Complies with drug therapyStart: 07-18-2023 End: 15-06-3985bnrl 1 tablet by mouth once dailyatorvastatin (Lipitor) 40 MG tablet Indications: Other hyperlipidemia (CMS/HCC) Take 1 tablet (40 mg) by mouth Daily 90 tablet 1 04/23/2024 10/20/2024 Activecarbamide peroxide 65 mg/ml otic solution (2 sources)Start: 11-21-2023 End: 43-45-9532pbfcxbvzb peroxide (Debrox) 6.5 % otic solution Indications: Cerumen debris on tympanic membrane, bilateral Administer 3-5 drops into affected ear(s) in the morning and 3-5 drops before bedtime. Do all this for 4 days. 15 mL 11/21/2023 11/25/2023 ActiveglipiZIDE er 10 mg 24 hr extended release oral tablet (17 sources)SulfonylureaStart: 28-02-9800milb 1 tablet by mouth twice daily Glipizide (Glucotrol Xl) 10 mg tablet extended release 24hr Active 10 MG PO Twice daily December 24, 2024 12:00am Complies with drug therapyStart: 08-07-2023 End: 77-10-9315dlit 1 tablet by mouth in the morningglipiZIDE (Glucotrol) 10 MG tablet Indications: Type 2 diabetes mellitus without complication, withlong-term current use of insulin (CMS/HCC) Take 1 tablet (10 mg) by mouth in the morning and 1 tablet (10 mg) in the evening. Take before meals. 180 tablet 04/23/2024 07/22/2024 Active3 ml insulin glargine 100 unt/ml pen injector (15 sources)Insulin AnalogStart: 43-46-1105Okloaxc Glargine (Lantus Solostar U- 100 Insulin) 100 unit/mL (3 mL) insulin pen Active 40 UNIT SUBCUT Every morning December 24, 2024 12:00am Complies with drug therapyStart: 08-59-5542noajcyb glargine (Lantus SoloStar) 100 UNIT/ML pen Indications: Type 2 diabetes mellitus without complication, with long-term current use of insulin (CMS/HCC) Inject 40 Units under the skin Daily 3 mL 11 04/23/2024 ActiveStart: 59-89-0038qbpvzco glargine (Lantus SoloStar) 100 UNIT/ML pen Indications: Type 2 diabetes mellitus without complication, with long-term current use of insulin (CMS/HCC) Inject 40 Units under the skin Daily 3 mL 11 04/23/2024 ActiveStart: 01-02-2024 End: 14-64-3513tvplvqp glargine (Lantus SoloStar) 100 UNIT/ML pen Indications: Type 2 diabetes mellitus without complication, with long-term current use of insulin (CMS/HCC) Inject 40 Units under the skin Daily 3 mL 11 03/26/2024 04/23/2024 Discontinued (Reorder)Start: 02-19-2023 End: 85-92-2939Rqhgfp SoloStar 100 UNIT/ML pen INJECT 40 UNITS SUBCUTANEOUSLY ONCE DAILY 02/19/2023 12/29/2023 Discontinued (Reorder)levothyroxine sodium 0.112 mg oral tablet (16 sources)l-ThyroxineStart: 37-54-2810ohnm 1 tablet by mouth once daily Levothyroxine (Synthroid) 112 mcg tablet Active 112 MCG PO Daily December 24, 2024 12:00am Complieswith drug therapyStart: 08-07-2023 End: 43-36-6656ufnb 1 tablet by mouth before mealtimelevothyroxine (Synthroid) 112 MCG tablet Indications: Other specified hypothyroidism (CMS/HCC) Take1 tablet (112 mcg) by mouth in the morning. Take before meals. 90 tablet 1 04/23/2024 10/20/2024 Activelosartan potassium 100 mg oral tablet (15 sources)Angiotensin 2 Receptor BlockerStart: 07-18-2023 End: 54-63-7725fqkx 1 tablet by mouth once dailylosartan (Cozaar) 100 MG tablet Indications: Primary hypertension (CMS/HCC) Take 1 tablet (100 mg) by mouth Daily 90 tablet 1 04/23/2024 10/20/2024 Activemeloxicam 7.5 mg oral tablet (16 sources)Nonsteroidal Anti-inflammatory DrugStart: 86-18-0804murq 1 tablet by mouth once dailyMeloxicam 7.5 mg tablet Active 7.5 MG PO Daily December 24, 2024 12:00am Complies with drug therapyStart: 07-18-2023 End: 94-54-1378cilw 1 tablet by mouth once dailymeloxicam (Mobic) 7.5 MG tablet Indications: Other chronic pain Take 1 tablet (7.5 mg) by mouth Daily 90 tablet 1 04/23/2024 10/20/2024 ActivemetFORMIN hydrochloride 1000 mg oral tablet (16 sources)BiguanideStart: 69-90-5497hhdq 1 tablet by mouth twice daily Metformin 1,000 mg tablet Active 1000 MG PO Twice daily December 24, 2024 12:00am Complies with drug therapyStart: 07-18-2023 End: 23-39-1826vevf 1 tablet by mouth in the morningmetFORMIN (Glucophage) 1000 MG tablet Indications: Type 2 diabetes mellitus without complication, with long- term current use of insulin (CMS/HCC) Take 1 tablet (1,000 mg) by mouth in the morning and 1 tablet (1,000 mg) before bedtime. 180 tablet 1 04/23/2024 10/20/2024 ActiveSITagliptin 100 mg oral tablet (16 sources)Dipeptidyl Peptidase 4 InhibitorStart: 08-07-2023 End: 41-63-1679sdri 1 tablet by mouth once dailySITagliptin (Januvia) 100 MG tablet Indications: Type 2 diabetes mellitus without complication, with long- term current use of insulin (CMS/HCC) Take 1 tablet (100 mg) by mouth Daily 90 tablet 1 04/23/2024 10/20/2024 ActivetraZODone hydrochloride 150 mg oral tablet (16 sources)Serotonin Reuptake InhibitorStart: 19-49-3767xukj 1 tablet by mouth once daily at bedtime as neededTrazodone 150 mg tablet Active 150 MG PO Daily at bedtime as needed December 24, 2024 12:00am Complies with drug therapyStart: 07-18-2023 End: 79-91-5034ogrv 1 tablet by mouth at bedtimetraZODone (Desyrel) 150 MG tablet Indications: Psychophysiological insomnia Take 1 tablet (150 mg) by mouth at bedtime 90 tablet 1 04/23/2024 10/20/2024 Active Problems Active Problems Problem ClassificationProblemDateDocumented DateEpisodic/ChronicDevelopmental disorders (11 sources)Developmental academic disorder; Translations: [Developmental disorder of scholastic skills, 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 Diabetes mellitus without complication (20 sources)Type 2 diabetes mellitus without complications; Translations: [Type 2 diabetes mellitus without complication]Onset: 62-69-8234KqziapyYfzktqcae of lipid metabolism (19 sources)Hyperlipidemia, unspecified; Translations: [Hyperlipidemia]Onset: 210558-74-3261DeidfhcWsuoviuni hypertension (19 sources)Essential (primary) hypertension; Translations: [Essential hypertension]Onset: 844290-15-5534NlymsepAazpowvxevjwh mental health disorders (5 sources)Psychophysiologic insomnia; Translations: [Psychophysiologic insomnia]92-32-3988LxyntmrCzzfz nervous system disorders (5 sources)Chronic pain; Translations: [Other chronic pain]20-26-7804Kqzlsnj Thyroid disorders (19 sources)Hypothyroidism, unspecified; Translations: [Hypothyroidism]Onset: hronic Past or Other Problems Problem ClassificationProblemDateDocumented DateEpisodic/ChronicMood disorders (2 sources)Mood disordersOnset: 637548-77-0232Zgyfg ear and sense organ disorders (11 sources)Excessive cerumen in ear canal ; Translations: [Impacted cerumen, bilateral]Onset: 709360-50-2220ChpoplefBiych gastrointestinal disorders (11 sources)Stool DNA-based colorectal cancer screening positive; Translations: [Other fecal abnormalities]Onset: 856212-14-7310Vxflxegb Results Test NameValueInterpretationReference RangeFacilityMLR HEMOGLOBIN A1Con 44-14-5242Gabagnq [Mass/Vol]194 mg/dLNOMS TxyrhjeowkQmR2h (Bld) [Mass fraction] 8.4 %High4.5 - 6.2 %NOMS HealthcareComment on above:ADA RECOMMENDED LIMIT 4.0 - 6.0 ADA THERAPEUTIC TARGET < 7.0 ACTION SUGGESTED > 7.0 Interpretation and review of laboratory resultsAbnormalNOMS HealthcareCLINISYNC NOMS HealthcareXR FOOT LT MIN 3Von 21-50-3417[address] [address] XRay Report Signed Patient: ZAIRA STEPHENSON MR#: [id number] : 1975 Acct:[id number] Age/Sex: 48 / M ADM Date: 11/07/23 Loc: Attending Dr: Ruslan Haro D.P.M. Ordering Physician: Ruslan Haro D.P.M. Date of Service: 11/07/23 Procedure(s): XR foot LT min 3V Accession Number(s): [id number] cc: Shaikh Raul Monet; Ruslan Haro D.P.M. The [address] [address] Patient Name: ZAIRA STEPHENSON MRN: [id number] date: 1975 Sex: M Assigned Patient Location: Current Patient Location: Accession/Order Number: [id number] Exam Date: 11/07/2023 11:23 Report Date: 11/08/2023 [...] Signed By: 11/08/23 0652 DD/ 0650 TD/TT: Ignition Mechanic:TBHRadiology, Radiologist, - 11/08/2023 [place] [address] XRay Report Signed Patient: ZAIRA STEPHENSON MR#: [id number] : 1975 Acct:[id number] Age/Sex: 48 / M ADM Date: 11/07/23 Loc: Attending Dr: Ruslan Haro D.P.M. Ordering Physician: Ruslan Haro D.P.M. Date of Service: 11/07/23 Procedure(s): XR foot LT min 3V Accession Number(s): [id number] cc: Shaikh Raul Monet; Ruslan Haro D.P.M. [place] [address] Patient Name: ZAIRA STEPHENSON MRN: [id number] date: 1975 Sex: M Assigned Patient Location: Current Patient Location: Accession/Order Number: [id number] Exam Date: 11/07/2023 11:23 Report Date: 11/08/2023 [...] Dictated By: Jc Cole M.D. Signed By: 11/08/2352 DD/ TD/TT: Ignition Mechanic: KRYSTEN HealthcareRadiology Study observation (narrative)NOMZander HealthcareXR FOOT LT MIN 3VOrdered By: Radiologist Radiology on 47-61-6116JON[facility] Work Phone: GLYCOHEMOGLOBIN A1Con 54-63-7255BKA RECOMMENDATIONSEE BELOWNormalThe Swiss HospitalComment on above:Result Comment: ADA RECOMMENDED LIMIT 4.0 - 6.0 ADA THERAPEUTIC TARGET < 7.0 ACTION SUGGESTED > 7.0Performed By: #### A1C #### [facility] [address] [place] [address] Dr. José Miguel KnightGlucose [Mass/Vol]260 mg/dLNoSelect Medical Cleveland Clinic Rehabilitation Hospital, BeachwoodComment on above:Performed By: #### A1C #### [facility] [address] [address] [address] José Miguel KnightHbA1c (Bld) [Mass fraction]10.7 %Critically high4.5-6.2The [facility] HospitalComment on above:Performed By: #### A1C #### [facility] [address] [place] [address] Dr. José Miguel FamC AUTO DIFFon 76-31-3352ZSXY #0.0 103/ulNormal0.0-0.1The [facility] HospitalComment on above:Performed By: #### CBC #### [facility] [address] [place] [address] Dr. José Miguel KnightBasophils/100 WBC (Bld)0.6 %Normal0.2-2.0[facility] Comment on above:Performed By: #### CBC #### [facility] [address] [place] [address] Dr. José Miguel Delgadillo #0.1 103/ulNormal0.0-0.7The [facility] HospitalComment on above: Performed By: #### CBC #### [facility] [address] [place] [address] Dr. José Miguel Fregosoosinophils/100 WBC (Bld)0.9 %Normal0.9-7.0The [facility] Comment on above:Performed By: #### CBC #### [facility] [address] [place] [address] Dr. José Miguel Fregosorythrocyte distribution width (RBC) [Ratio]12.7 %Svnzfk53.0-15.[address] [facility] HospitalComment on above:Performed By: #### CBC #### [facility] [address] [address] [address] José Miguel KnightHematocrit (Bld) [Volume fraction]44.0 %Nycaas70.0-54.0The [facility] HospitalComment on above:Performed By: #### CBC #### [facility] [address] [place] [address] Dr. José Miguel KnightHemoglobin (Bld) [Mass/Vol]15.0 g/fCOoskkl56.0-18.0The Swiss HospitalComment on above:Performed By: #### CBC #### [facility] [address] [place] [address] Dr. José Miguel KnightIG #0.04 10e3/ulCritically high0.00-0.03The [facility] Comment on above:Performed By: #### CBC #### [facility] [address] [place] [address] Dr. José Miguel KnightIG %0.6 %Critically high0.0-0.5The [facility] HospitalComment on above:Performed By: #### CBC #### [facility] [address] [place] [address] Dr. José Miguel Petersen #1.6 103/ulNormal1.2-3.8The [facility] HospitalComment on above:Performed By: #### CBC #### [facility] [address] [place] [address] Dr. José Miguel Fierrohocytes/100 WBC (Bld)22.5 %Lwufpe97.5-60.0The [facility] HospitalComment on above:Performed By: #### CBC #### [facility] [address] [place] [address] Dr. José Miguel KnightMANUAL DIFF REQNONormalThe [facility] HospitalComment on above: Performed By: #### CBC #### [facility] [address] [place] [address] Dr. José Miguel Castro (RBC) [Entitic mass]30.4 mnGcbsik72.9-34.0The [facility] HospitalComment on above:Performed By: #### CBC #### [facility] [address] [address] [address] José Miguel KoromaHC (RBC) [Mass/Vol]34.1 g/lKMhmbgg25.9-35.2The [facility] HospitalComment on above:Performed By: #### CBC #### [facility] [address] [address] [address] José Miguel KoromaV (RBC) [Entitic vol]89.2 pVMfopkk22.0-94.0The Swiss HospitalComment on above:Performed By: #### CBC #### [facility] [address] [place] [address] Dr. José Miguel Pizarro #0.5 103/ulNormal0.3-0.8The [facility] HospitalComment on above:Performed By: #### CBC #### [facility] [address] [place] [address] Dr. José Miguel Avilesocytes/100 WBC (Bld)7.0 %Normal1.7-12.0The [facility] Comment on above:Performed By: #### CBC #### [facility] [address] [place] [address] Dr. José Miguel Agrawal #4.7 103/ulNormal1.4-6.5The [facility] HospitalComment on above:Performed By: #### CBC #### [facility] [address] [place] [address] Dr. José Miguel Mayerutrophils/100 WBC (Bld)68.4 %Buwjff28.0-75.0The [facility] HospitalComment on above:Performed By: #### CBC #### [facility] [address] [place] [address] Dr. José Miguel Aguirrelet mean volume (Bld) [Entitic vol]10.8 fLNormal9.5-13.5The [facility] HospitalComment on above:Performed By: #### CBC #### [facility] [address] [place] [address] Dr. José Miguel KnightPLT223 103/faQmgbru456-777Qtx [facility] HospitalComment on above: Performed By: #### CBC #### [facility] [address] [address] [address] José Miguel KnightRBC4.93 106/ulNormal4.70-6.10The [facility] HospitalCombeaumont hospital on above:Performed By: #### CBC #### [facility] [address] [address] [address] José Miguel KnightWBC6.9 103/ulNormal4.0-11.0The [facility] on above: Performed By: #### CBC #### [facility] [address] [address] [address] José Miguel KnightGLYCOHEMOGLOBIN A1Con 57-00-8755QBT RECOMMENDATIONADA THERAPEUTIC TARGET 6.0 - 7.0 ACTION SUGGESTED > 7.0[facility] HospitalCombeaum[facility] hospital on above:Performed By: #### A1C #### [facility] [address] [place] [address] Dr. José Miguel KnightGlucose [Mass/Vol]217 mg/dLNoSelect Medical [facility] Clinic Rehabilitation Hospital, BeachwoodComment on above:Performed By: #### A1C #### [facility] [address] [place] [address] Dr. José Miguel KnightHbA1c (Bld) [Mass fraction]9.2 %Critically high<=6.0[facility] HospitalCombeaumont hospital on above:Performed By: #### A1C #### [facility] [address] [place] [address] Dr. José Miguel KnightLIPID PROFILEon 28-08-7635EOYF-HDL RATIO NORMSEE BELOWMercy Health [facility] HospitalCombeaumont hospital on above:Result Comment: 3.3 - 4.4 LOW RISK 4.4 - 7.1 AVERAGE RISK 7.1 - 11.0 MODERATE RISK >11.0 HIGH RISKPerformed By: #### TSH, LIPID, CMP #### [facility] [address] [place] [address] Dr. José Miguel KnightCholesterol [Mass/Vol]121 mg/dLNormal<=200[facility] Comment on above:Performed By: #### TSH, LIPID, CMP #### [facility] [address] [address] [address] José Miguel KnightCholesterol in HDL [Mass/Vol]37 mg/dLMercy Health [facility] Hospital Comment on above:Performed By: #### TSH, LIPID, CMP #### [facility] [address] [address] [address] José Miguel KnightCholesterol in LDL [Mass/Vol]46.4 mg/dLMercy Health Kings Mills HospitalComment on above:Performed By: #### TSH, LIPID, CMP #### [facility] [address] [address] [address] José Miguel Monteesterjovan.total/Cholesterol in HDL [Mass ratio]3.3 {ratio} NormalOhio Valley HospitalCombeaumont hospital on above:Performed By: #### TSH, LIPID, CMP #### [facility] [address] [place] [address] Dr. José Miguel Espinoza NORMAL> or = 60 mg/dl - LOW CARDIOVASCULAR RISK <40 mg/dl - HIGH CARDIOVASCULAR RISKMercy Health Kings Mills HospitalComment on above:Performed By: #### TSH, LIPID, CMP #### [facility] [address] [address] [address] José Miguel Michel CALC NORMALSEE BELOWMercy Health Kings Mills HospitalComment on above:Result Comment: <100 mg/dl OPTIMAL 100 - 129 mg/dl NEAR OR ABOVE OPTIMAL 130 - 159 mg/dl BORDERLINE HIGH 160 - 189 mg/dl HIGH >190 mg/dl VERY HIGH Performed By: #### TSH, LIPID, CMP #### [facility] [address] [address] [address] José Miguel KnightTriglyceride [Mass/Vol]188 mg/dLCritically high<=150The [facility] HospitalCombeaumont hospital on above:Performed By: #### TSH, LIPID, CMP #### [facility] [address] [address] [address] José Miguel KnightVLDL CALC37.6 mg/dLNoSelect Medical [facility] Clinic Rehabilitation Hospital, BeachwoodComment on above: Performed By: #### TSH, LIPID, CMP #### [facility] [address] [address] [address] José Miguel BaumanALBUMIN, RAND URon 70-53-4346aPHY0.2 mg/LNormal<=30.0The [facility] HospitalComment on above:Performed By: #### MALBR #### [facility] [address] [address] [address] José Miguel JamesF 14(COMP METB)on 37-66-3768Rogjjip [Mass/Vol]3.8 g/dLNormal 3.5-5.0The [facility] HospitalComment on above:Performed By: #### TSH, LIPID, CMP #### [facility] [address] [address] [address] José Miguel KnightAlbumin/Globulin [Mass ratio]1.1 {ratio}NormalThe [facility] HospitalComment on above:Performed By: #### TSH, LIPID, CMP #### [facility] [address] [place] [address] Dr. José Miguel Em [Catalytic activity/Vol]92 U/NFjptus64-434Szx [facility] HospitalComment on above:Performed By: #### TSH, LIPID, CMP #### [facility] [address] [place] [address] Dr. José Miguel Vera [Catalytic activity/Vol]46 U/HWfojyb09-21Tuf [facility] HospitalComment on above:Performed By: #### TSH, LIPID, CMP #### [facility] [address] [address] [address] José Miguel [place] gap [Moles/Vol]12.8 mmol/LNormalThe [facility] Comment on above:Performed By: #### TSH, LIPID, CMP #### [facility] [address] [address] [address] José Miguel Issa [Catalytic activity/Vol]22 U/QVyxfhr90-12Jwr [facility] HospitalComment on above:Performed By: #### TSH, LIPID, CMP #### [facility] [address] [place] [address] Dr. José Miguel KnightBilirubin [Mass/Vol]0.5 mg/dLNormal0.2-1.3The [facility] Comment on above:Performed By: #### TSH, LIPID, CMP #### [facility] [address] [address] [address] José Miguel KnightCalcium [Mass/Vol]9.3 mg/dLNormal8.4-10.2[facility] Comment on above:Performed By: #### TSH, LIPID, CMP #### [facility] [address] [place] [address] Dr. José Miguel KnightChloride [Moles/Vol]103 mmol/XWgtpxk99-665ErmOhio Valley Hospital Comment on above:Performed By: #### TSH, LIPID, CMP #### [facility] [address] [place] [address] Dr. José Miguel KnightCO2 [Moles/Vol]27.6 mmol/PPentnz57.0-30.0[facility] Comment on above:Performed By: #### TSH, LIPID, CMP #### [facility] [address] [place] [address] Dr. José Miguel KnightCreatinine [Mass/Vol]0.76 mg/dLNormal0.66-1.25ThUniversity Hospitals Geneva Medical CenterComment on above:Performed By: #### TSH, LIPID, CMP #### [facility] [address] [place] [address] Dr. José Miguel FregosoGFR-AF SOUTH KOREAN>60Normal>=60The [facility] HospitalComment on above:Performed By: #### TSH, LIPID, CMP #### [facility] [address] [place] [address] Dr. José Miguel FregosoGFR-NON AF SOU[place]OREAN>60Normal>=60The [facility] HospitalComment on above:Performed By: #### TSH, LIPID, CMP #### [facility] [address] [place] [address] Dr. José Miguel KnightGlobulin (S) [Mass/Vol]3.4 g/dLNormalThUniversity Hospitals Geneva Medical CenterComment on above:Performed By: #### TSH, LIPID, CMP #### [facility] [address] [place] [address] Dr. José Miguel KnightGlucose [Mass/Vol]253 mg/dLCritically xcbu02-103Eyd [facility] HospitalComment on above:Performed By: #### TSH, LIPID, CMP #### [facility] [address] [address] [address] José Miguel KnightPotassium [Moles/Vol]4.4 mmol/LNormal3.4-5.0The [facility] Comment on above:Performed By: #### TSH, LIPID, CMP #### [facility] [address] [place] [address] Dr. José Miguel KnightProtein [Mass/Vol]7.2 g/dLNormal6.1-8.2The [facility] Comment on above:Performed By: #### TSH, LIPID, CMP #### [facility] [address] [place] [address] Dr. José Miguel KnightSodium [Moles/Vol]139 mmol/FShrhob331-943Dgr [facility] Comment on above:Performed By: #### TSH, LIPID, CMP #### [facility] [address] [place] [address] Dr. José Miguel KnightUrea nitrogen [Mass/Vol]16.0 mg/dLNormal9.0-20.0The [facility] HospitalComment on above:Performed By: #### TSH, LIPID, CMP #### [facility] [address] [place] [address] Dr. José Miguel Vo nitrogen/Creatinine [Mass ratio]21.1 mg/mgNormalThUniversity Hospitals Geneva Medical CenterComment on above:Performed By: #### TSH, LIPID, CMP #### [facility] [address] [place] [address] Dr. José Miguel Dupont 73-83-9811EOY3.529 uIU/mLCritically high0.470-4.680The [facility] HospitalComment on above:Performed By: #### TSH, LIPID, CMP #### [facility] [address] [place] [address] Dr. José Miguel Greenberg RANGESEE BELOWNoSelect Medical Cleveland Clinic Rehabilitation Hospital, BeachwoodComment on above: Result Comment: <0.34 UIU/ml HYPERTHYROID 0.34-5.60 UIU/ml EUTHYROID >5.60 UIU/ml HYPOTHYROIDPerformed By: #### TSH, LIPID, CMP #### [facility] [address] [place] [address] Dr. José Miguel Knight Vital Signs Date TimeVital SignValuePerforming AfhumuljgHuddyxni48-79-5799 11:31-0400Body eprsbg148.42 cmJessica Marisol DO Work Phone: [phone] [place], [place] 9880210-09-2025 11:31-0400 Body mass index (BMI) [Ratio]31.5 kg/z4Qfohawe Marisol DO Work Phone: [phone])[address] [place], [place] 9880210-09-2025 11:31-0400 Body psojsw153.4 kgJessica Marisol DO Work Phone: [phone] [place], [place] 9880210-09-2025 11:31-0400 Diastolic blood gmclmnho66 mm[Hg]Randa Marisol DO Work Phone: [phone])[address] [place], [place] 9880210-09-2025 11:31-0400 Heart rate88 /minJessica Marisol DO Work Phone: [phone] [place], [place] 9880210-09-2025 11:31-0400 Respiratory rate20 /minJessica Marisol DO Work Phone: [phone] [place], [place] 9880210-09-2025 11:31-0400 SaO2% (BldA) [Mass fraction]97 %Randa Marisol DO Work Phone: [phone] [place], [place] 9880210-09-2025 11:31-0400 Systolic blood eqwgrran895 mm[Hg]Randa Marisol DO Work Phone: [phone] [place], [place] 9880202-04-2025 09:53-0500 Body meqyvl340.4 cmBrittcarlitos Orozco DRY HOUSE WORKER Work Phone: [facility] HospitalQjcbofmuxd35-86-4269 09:53-0500Body mass index (BMI) [Ratio]31.93 kg/q6Ctzijgnp Orozco DRY HOUSE WORKER Work Phone: [facility] HospitalZtzvlsumda07-40-2793 09:53-0500Body temperature 98.8 [degF]Anisha Orozco DRY HOUSE WORKER Work Phone: [facility] HospitalRiouxkbpll58-31-6633 09:53-0500Body ynzlgu040.77 kgBrittany Orozco DRY HOUSE WORKER Work Phone: [facility] HospitalHlkbrjpynj39-42-9541 09:53-0500Diastolic blood ztgowsxu28 mm[Hg]Anisha Orozco DRY HOUSE WORKER Work Phone: [facility] HospitalSmpholhyvo40-77-8885 09:53-0500Heart rate86 /min Anisha Orozco DRY HOUSE WORKER Work Phone: [facility] HospitalDaysgkmylf82-69-2281 09:53-0500Respiratory rate16 /minBrittcarlitos Orozco DRY HOUSE WORKER Work Phone: [facility] HospitalHyiksbfvpk80-73-4649 09:53-7649SpG9% (BldA) [Mass fraction]97 %Anisha Orozco DRY HOUSE WORKER Work Phone: [facility] HospitalHfavajuppg58-76-4284 09:53-0500Systolic blood ogfungre288 mm[Hg]Anisha Orozco DRY HOUSE WORKER Work Phone: [facility] HospitalMfesjogbcy44-09-7505 13:08-0400Body anikqa420.4 cmBrgaganany Orozco DRY HOUSE WORKER Work Phone: [facility] HospitalLyvvfwvgwo78-12-1946 13:08-0400Body mass index (BMI) [Ratio]30.34 kg/t0Dsqtigpz Orozco DRY HOUSE WORKER Work Phone: [facility] HospitalUqaeetkhxd95-17-3094 13:08-0400Body temperature 98.71 [degF]Anisha Orozco DRY HOUSE WORKER Work Phone: [facility] HospitalFfevtbpbuo32-67-7586 13:08-0400Body .33 kgBrittany Orozco DRY HOUSE WORKER Work Phone: [facility] Mzwcfjbrwv02-31-3058 13:08-0400Diastolic blood uliuyvfx38 mm[Hg]Anisha Cunninghamtrick DRY HOUSE WORKER Work Phone: noMS Rfbchebhkj41-60-2578 13:08-0400Heart mlaw853 /min Anisha Cunninghamtrick DRY HOUSE WORKER Work Phone: noms HealthcareComment on above:98% R720-86-6945 13:08-0400Systolic blood qieorcsk371 mm[Hg]Anisha Cunninghamtrick DRY HOUSE WORKER Work Phone: [facility] Encounters Encounter DateEncounter TypeCare ProviderFacilityStart: 12-26-2024 End: 94-71-0942sbxbggcnbyHndudtp Rapp DO Work Phone: [facility] Work Phone: Start: 12-26-2024 End: 42-99-1670Ouorose encounter procedureRanda Damon DO-[facility] Work Phone: Start: 04-23-2024 End: 72-67-1499Qooqev flowsheetBrittany Orozco DRY HOUSE WORKER Work Phone: [facility] CWM FMStart: 04-23-2024 End: 44-37-9240Arectj flowsheetBrittany Orozco DRY HOUSE WORKER Work Phone: [facility] CWM FMStart: 04-23-2024 End: 45-87-0932Rudds of hemosiderin, quantBrittany Orozco DRY HOUSE WORKER Work Phone: noms HealthcareStart: 04-23-2024 End: 51-80-6790Ftjttwc encounter procedureBrittany Orozco DRY HOUSE WORKER Work Phone: [facility] CWM FMComment on above:Routine general medical examination at health care facility (Primary Dx); Other hyperlipidemia (CMS/HCC); Type 2 diabetes mellitus without complication, with long-term current use of insulin (CMS/HCC); Other specified hypothyroidism (CMS/HCC); Primary hypertension (CMS/HCC); Other chronic pain; Psychophysiological insomniaStart: 04-23-2024 End: 18-49-1279vlviczjarwPWOKGMJA FITREYNALDOTRICKNot AvailableStart: 03-26-2024 End: 73-22-2400Gmygnu OnlyBrgagancarlitos Orozco DRY HOUSE WORKER Work Phone: N[facility] CWM FMComment on above:Other hyperlipidemia (CMS/HCC); Type 2 diabetes mellitus without complication, with long-term current use of insulin (CMS/HCC); Other specified hypothyroidism (CMS/HCC); Primary hypertension (CMS/HCC); Other chronic pain; Psychophysiological insomniaStart: 12-29-2023 End: 30-17-8281JtjnezOftjdne LykinsNOMS CWM FMComment on above:Type 2 diabetes mellitus without complication, with long-term current use of insulin (CMS/HCC) (Primary Dx)Start: 11-27-2023 End: 36-41-8580Zqkfgxrzy Result EncounterBrittany Orozco DRY HOUSE WORKER Work Phone: NOTN External Department UnsolicitedStart: 11-27-2023 End: 01-02-5536Gmbrcfsph Result EncounterBrittany Orozco DRY HOUSE WORKER Work Phone: NOFA External Department UnsolicitedStart: 11-21-2023 End: 54-25-5268Tzwfsn flowsheetBrittany Orozco DRY HOUSE WORKER Work Phone: [facility] CWM FMStart: 11-21-2023 End: 33-12-2209Mzcjgw flowsheetBrittany Orozco DRY HOUSE WORKER Work Phone: [facility] CWM FMStart: 11-21-2023 End: 77-97-0478Wzrivf outpatient visit 15 minutesBrittany Orozco DRY HOUSE WORKER Work Phone: [facility] CWM FMComment on above:Cerumen debris on tympanic membrane, bilateral (Primary Dx); Other hyperlipidemia (CMS/HCC); Type 2 diabetes mellitus without complication, with long-term current use of insulin (CMS/HCC); Other specified hypothyroidism (CMS/HCC); Primary hypertension (CMS/HCC); Other chronic pain; Psychophysiological insomniaStart: 11-21-2023 End: 45-90-6849pszcshmqtrPOVVZMHD FITZPATRICKNot AvailableStart: 11-08-2023 End: 82-31-0810Gpukuebbf Result EncounterGeneric External Data ProviderNOMS External Department UnsolicitedStart: 11-08-2023 End: 88-43-2317Ltszadwip Result EncounterGeneric External Data ProviderNOMS External Department UnsolicitedStart: 11-07-2023 End: 25-44-3031HoodvvVqhlgohc Fitzpatrick DRY HOUSE WORKER Work Phone: [facility] FMComment on above:Type 2 diabetes mellitus without complication, with long-term current use of insulin (CMS/HCC)Start: 06-21-2023 End: 26-50-6907mojzftduucBXVHQS FAWWADNot AvailableStart: 06-14-2023 End: 01-70-1179jywdkkhzohHWUTFKN S RUSHERNot AvailableStart: 05-29-2023 End: 70-45-8898fxxpjluhxzDUCTCRJ S RUSHERNot AvailableStart: 05-09-2023 End: 19-47-8413abfmfsqckrCGWAMKG S RUSHERNot AvailableStart: 07-21-2021 End: 82-53-9657aemhzwcbsnJAPAXL SHAWNWADFacility:V3Utldp: 02-02-2021 End: 05-95-5430cuqhmyqszfRHGTHW FAWWADFacility:H1 Procedures DateProcedureProcedure DetailPerforming ClinicianStart: 22-90-8099DLK HEMOGLOBIN V4CEshqzyqqtara Orozco DRY HOUSE WORKER Work Phone: Start: 22-45-8012UE FOOT LT MIN 3VGeneric External Data Provider Plan of Treatment DateCare ActivityDetailAuthorStart: 06-55-7285Enacvdxuj for malignant neoplasm of colonNOMS HealthcareStart: 04-84-3932Zntzhuyb screeningDiabetes: Retinopathy ScreeningNOMS HealthcareStart: 02-04-2026Medicare Annual Wellness (AWV)Medicare Annual Wellness (AWV)[facility] HealthcareStart: 89-34-4081ASKEI-19 Vaccine ( season)COVID-19 Vaccine ( season)[facility]OM[facility] HealthcareStart: 11-18-2024 Influenza vaccinationInfluenza Vaccine (#1)[facility] HealthcareStart: 59-39-2101Gomye screening for proteinDiabetes: Urine Protein ScreeningNOMS HealthcareStart: 98-63-5355Uxjdfgxca vaccinationInfluenza Vaccine (#1)[facility] HealthcareComment on above:Postponed from 11/19/2023 (Patient Refused)Start: 04-23-2024 End: 31-00-2472Jiyiiog encounter procedureNOHARMON MEM[facility]IAL [facility] FMComment on above:Arrived Start: 11-01-2024Medicare Annual Wellness (AWV)Medicare Annual Wellness (AWV) N[facility] HealthcareStart: 11-21-2023 End: 42-82-1847Qnajtjacvg A1c/Hemoglobin.total in BloodHemoglobin A1c Lab Routine Type 2 diabetes mellitus without complication, with long-term current use of insulin ([facility]) Expected: 11/21/2023 (Approximate), Expires: 11/20/2024 NOM HealthcareComment on above:Expected: 11/21/2023 (Approximate), Expires: 11/20/2024Start: 11-21-2023 End: 47-52-8143Hghjcmn encounter wbvycmgaf70/03/2024 1:00 PM EDT Office Visit [facility] [address] [place] [address] Anisha Orozoc NP [address] [place] [address] ArrivedNOHARMON MEMORIAL [facility] FMComment on above:ArrivedStart: 11-19-2023 Influenza vaccinationInfluenza Vaccine (#1)[facility] HealthcareStart: 04-29-2023 Hemoglobin A1c measurementDiabetes: Hemoglobin Z9WGLGP HealthcareStart: 08-49-8098Vofqqnds screeningDiabetes: Retinopathy ScreeningNOPA HealthcareStart: 16-17-7823Dfacavyxg B Vaccines (1 of 3 - 19+ 3-dose series)Hepatitis B Vaccines (1 of 3 - 19+ 3-dose series)[facility] HealthcareStart: 30-61-0894Kgthidumuwbd Vaccine: Pediatrics (0 to 5 Years) and At-Risk Patients (6 to 64 Years) (1 of 2 - PCV)Pneumococcal Vaccine: Pediatrics (0 to 5 Years) and At-Risk Patients (6 to 64 Years) (1 of 2 - PCV)NOM HealthcareStart: 29-93-0198BVnE/Tdap/Td Vaccines (1 - Tdap)DTaP/Tdap/Td Vaccines (1 - Tdap)[facility] HealthcareStart: 54-76-9840OXE Vaccines (1 of 1 - Standard series)MMR Vaccines (1 of 1 - Standard series)[facility] HealthcareStart: 01-14-1975Medicare Annual Wellness (AWV)Medicare Annual Wellness (AWV)[facility] HealthcareStart: 86-83-6900Bgeyyexdy for malignant neoplasm of colonNOPA HealthcareMicroalbumin [Mass/volume] in UrineSelect Medical Specialty Hospital - ColumbusMicroalbumin/Creatinine panel in random UrineMicroalbumin / creatinine urine ratio Lab Routine Type 2 diabetes mellitus without complication, with long-term current use of insulin ([facility]) Ordered: 11/21/2023[facility] Work Phone: Comment on above:Ordered: 11/21/2023[facility] Payers DatePayer CategoryPayerPolicy ID2018MedicareANTHEM MEDICARE ADVANTAGE [facility] MEDIC[facility] ADV[facility] [id number] 2017-Present [address] [place] [id number] 2018Medicare (Managed Care)[facility] Member Subscriber Plan / Payer (Effective 2017-Present) Name: Zaira Stephenson Relation to Subscriber: Self Name: Zaira Stephenson Payer ID: Not on file Group ID: [id number] Type: Not on file Address: [address] [place] [id number] 2.16.840.1.450011.3.57[id number] 2.16.840.1.867238.3.57[id number] 2.16.840.1.131282.3.57[id number] 2.16.840.1.715836.3.57[id number] 2.16.840.1.726471.3.57[id number] 2.16.840.1.325479.3.57[id number] 2.16.840.1.656931.3.579.2.1259 [id number] [id number] Social History DateTypeDetailFacilityStart: 06-21-2023 End: 83-25-9157Sruwmff smoking status NHISNever smoked tobaccoNOMS Healthcare Start: 22-97-9255Lcasjby use and exposureSmokeless tobacco non-userNOMS HealthcareStart: 06-21-2023 End: 48-60-0273Mfsbexgck beverage intakeEx-drinker (finding)[facility] Start: 11-21-2023 End: 70-64-0412Iecwfvp of Social functionNOMS HealthcareStart: 11-21-2023 End: 06-36-5057Ukubzto use panelSt. Luke's HospitalStart: 31-82-7775Bmr assigned at birthNot on fileACADIA HEALTHCARE HealthcareSexMale (finding)[facility] Hospitaltart: 29-27-6345Rtu Assigned At [facility] Hospitaltart: 99-17-2253GtkHxwbDMCV HealthcareNEGATED: Highlighted rowStart: NINF History of tobacco usePassive smokerSt. Luke's Hospital Medical Equipment Procedure CodeEquipment CodeEquipment Original TextEquipment IdentifierDates1 each by Other route in the morning and 1 each in the evening and 1 each before bedtime.[id number]: 11-21-2023 End: each by Other route in the morning and 1 each in the evening and 1 each before bedtime.[id number]: 09-14-2023 End: each by Other route in the morning and 1 each in the evening and 1 each before bedtime.[id number]: 03-26-2024 End: each by Other route in the morning and 1 each in the evening and 1 each before bedtime.[id number]: 04-23-2024 End: 08-06-2027 Functional Status DitlIzcefngjhdWahwsuKbrcapwx64-63-9527Vjzocwz Health Questionnaire 2 item (PHQ- 2) [Reported][facility] Clinical Notes 11-07-2023 to 04-23-2024 Note Date & LlruNbmfIwovxsru45-72-2912 History of Present illness Narrative* Anisha Orozco, DRY HOUSE WORKER - 04/23/2024 10:00 AM EST Images from the original note were not included. Subjective : Chief Complaint: Zaira Stephenson is an 49 y.o. male here [...] by mouth in the morning and 1 tablet(1,000 mg) before bedtime. 180 tablet 1 SITagliptin [...] No Cognitive Screening Three Word Registration: Banana, Pacific, Chair Clock Drawing: Inability or Refusal to Draw Clock - 0 Three Word Recall: 2/3 words correct - 2 Total Score (0-5 Points): 2 Advance Care Planning Do you have a living will?: No Do you have a medical power of estate attorney?: No Objective : BP 140/76 Pulse [...] Anisha Orozco NP on April 23, 2024 * Anisha Orozco NP - 04/23/2024 10:00 AM EST Images from the original note were not included. Subjective : Chief Complaint: Zaira Stephenson is an 49 y.o. male here [...] by mouth in the morning and 1 tablet(1,000 mg) before bedtime. 180 tablet 1 SITagliptin [...] Neurological: Negative for dizziness, tremors, syncope, weakness, light- headedness and headaches. Psychiatric/Behavioral: Negative for decreased concentration and suicidal ideas. The patient is notnervous/anxious. Hematological: Does not bruise/bleed easily. Endocrine: Negative for cold intolerance, heat intolerance, polydipsia, polyphagia and polyuria. List of current healthcare providers: Patient Care Team: Darion Blankenship MD as PCP - General (Family Medicine) Shaikh Chiki MD as PCP - Tatums AMARA Morfin as Referring Physician Anisha Orozco NP as [...] No Cognitive Screening Three Word Registration: Banana, Pacific, Chair Clock Drawing: Inability or Refusal to Draw Clock - 0 Three Word Recall: 2/3 words correct - 2 Total Score (0-5 Points): 2 Advance Care Planning Do you have a living will?: No Do you have a medical power of estate attorney?: No Objective : BP 140/76 Pulse [...] on April 23, 2024 documented in this encounterJames Ville [address]Bzgdmimmwe30-26-7667 History of Present illness Narrative* Anisha Orozco NP - 11/21/2023 1:44 PM EDTAssociated Problem(s): Other hyperlipidemia (CMS/HCC) Currently taking Atorvastatin 40mg. Denies any myalgias. Most recent Lipid Panel WNL. Continue current regimen. * Anisha Orozco NP - 11/21/2023 1:43 PM EDTAssociated Problem(s): Type 2 diabetes mellitus without complication, with long-term current use ofinsulin (CMS/HCC) Most recent labs: hemoglobin A1C 9.9% [...] care for L foot non healing ulcer. * Anisha Orozco NP - 11/21/2023 1:42 PM EDTAssociated Problem(s): Primary hypertension (CMS/HCC) Currently taking Losartan 100mg; Checks BP at home. Does not recall averages. BP is good today in office. Denies orthostatic changes, dizziness, cough, shortness of breath, swelling in extremities. Continue current regimen. * Anisha Orozco NP - 11/21/2023 1:00 PM EDT Images from the original note were not included. Subjective Patient ID: Zaira Naima Stephenson is a 48 y.o. male who presents for Med Refill. Med Refill Pertinent negatives include no abdominal pain, arthralgias, chest pain, chills, congestion, coughing, diaphoresis, fatigue, fever, headaches, joint swelling, myalgias, rash, sore throat, vomiting or weakness. Is accompanied by memory care director. Is here today for med refills. Denies [...] R ALBUMIN GLOBULIN RATIO 1.0 Resulting Agency [facility] Review of Systems Constitutional: Negative for [...] Neurological: Negative for dizziness, tremors, syncope, weakness, light- headedness and headaches. Psychiatric/Behavioral: Negative for decreased concentration and suicidal ideas. The patient is notnervous/anxious. Hematological: Does not bruise/bleed easily. Endocrine: Negative [...] List Items Addressed This Visit Primary hypertension ([facility]/HCC) Currently taking Losartan 100mg; Checks BP at home. Does not recall averages. BP is good today in office. Denies orthostatic changes, dizziness, cough, shortness of breath, swelling in extremities. Continue current regimen. Relevant Medications losartan (Cozaar) 100 MG tablet Other hyperlipidemia ([facility]) Currently taking Atorvastatin 40mg. Denies any myalgias. Most recent Lipid Panel WNL. Continue current regimen. Relevant Medications atorvastatin (Lipitor) 40 MG tablet Type 2 diabetes mellitus without complication, with long-term current use of insulin ([facility]) Most recent labs: hemoglobin A1C 9.9% in [...] urine ratio Hemoglobin A1c Other specified hypothyroidism ([facility]/HCC) Relevant Medications levothyroxine (Synthroid) 112 MCG tablet Cerumen debris on tympanic membrane, bilateral - Primary Relevant Medications carbamide peroxide (Debrox) 6.5 % otic solution Other Visit Diagnoses Other chronic pain Relevant Medications meloxicam (Mobic) 7.5 MG tablet Psychophysiological insomnia Relevant Medications traZODone (Desyrel) 150 MG tablet documented in this encounterSt. Luke's HospitalQtsbnvteza58-77-9554 Instructions* Patient Instructions* Anisha Orozco NP - 11/21/2023 1:00 PM [...] feet frequently monitoring for open wounds , andalso recommend yearly eye exam. Pt should attempt to remain as physically active as chronic conditions allow, as well as trying to follow a diet low in carbohydrates, and simple sugars. documented in this [facility]08-20-2024 Telephone encounter Note* Telephone Encounter - Ninfa Hall - 11/07/2023 8:31 AM EDT Patient needs refills for Januvia and Glipizide. [facility] HospitalHaccyotpov32-82-2204 Miscellaneous Notes* Telephone Encounter - Ninfa Hall - 11/07/2023 8:31 AM EDT Patient needs refills for Januvia and Glipizide. [facility] documented [facility] HealthcareEvaluation note* Diagnosis Primary hypertension (CMS/HCC)- Primary Unspecified essential [...] (CMS/HCC)- Primary documented in this encounter [facility] HealthcareEvaluation note* Diagnosis Type 2 diabetes mellitus without complication, with long-term current use of insulin (CMS/HCC) documented in this encounter [facility] HealthcareEvaluation note* Diagnosis Cerumen debris on tympanic membrane, bilateral- Primary Other hyperlipidemia (CMS/HCC) Type 2 diabetes mellitus without complication, with long-term current use of insulin (CMS/HCC) Other specified hypothyroidism (CMS/HCC) Primary hypertension (CMS/HCC) Unspecified essential hypertension Other chronic pain Psychophysiological insomnia Persistent disorder of initiating or maintaining sleep documented in this encounter [facility] HealthcareEvaluation note* Diagnosis Primary hypertension (CMS/HCC)- Primary Unspecified essential [...] maintaining sleep documented in this encounter [facility] HealthcareEvaluation note* Diagnosis Primary hypertension (CMS/HCC)- Primary Unspecified essential [...] maintaining sleep documented in this encounter [facility] HealthcareEvaluation note* Diagnosis Onset Date Resolution Status Admit Date Acquired hypothyroidism acuteOctober 2024 11:18amDiabetesacuteOctober 2024 11:18amHTN (hypertension)acuteOctober 2024 11:18amHyperlipidemiaacuteOctober 2024 11:18am [facility] Work Phone: Reason for referral (narrative)No reason for referral information availableRegional Medical Center Work Phone: Summary Purpose Family History Relationship Condition Age at Onset Recorded Date/T cornelia father Diabetes mellitus Unknown High blood cholesterolUnknownHypertensionUnknownmotherHigh blood cholesterol UnknownbrotherHigh blood cholesterolUnknown Advance Directives Advance Directive Response Recorded Date/ Time Advance Directives No December 26, 2024 11:17am Chief Complaint and Reason for Visit Chief Complaint Admit Date 6M December 26, 2024 11 :18am Reason for Visit Admit Date Acquired hypothyroidism December 26 11:18am Diabetes December 26, 2024 11 :18am HTN (hypertension) December 26, 2024 11 :18am Hyperlipidemia December 26, 2024 11 :18am Additional Source Comments (unrecognized sect ion and content) No Status Records FoundNo Status Records Found INFORMATION SOURCE (unrecogn ized section and content) DATE CREATED AUTHOR 07/24/[address] [facility] DATE CREATED AUTHOR 'S ORGANIZ ATION 04/25/2024 [facility] EPIC Reason for Visit (unrecogniz ed section and content) ReasonOnset DateCommentsMed Pclith624ReasonOnset DateCommentsMed Refill 4ReasonCommentsMed RefillReasonCommentsMedicare Annual Wellness Visit Subsequent Care Teams (unrecognized sec tion and content) Team MemberRelationshipSpecialtyStart DateEnd Date Shaikh Monet MD [address] [place] [address] PCP - Tang DE09/18/23 Darion Blankenship MD [address] [place] [address] [facility] - [facility]11/07/23 Neil Peng PA [address] [place] [address] Referring Physician05/09/23 Anisha Orozco NP [address] [place] [address] Nurse PractitionerFapaly Medicine11/07/23Team MemberRelationshipSpecialtyStart DateEnd Date Shaikh Monet MD [address] [place] [address] PCP - Tang DE09/18/23 Darion Blankenship MD [address] [place] [address] PCP - GeneralFaFloyd [facility]11/07/23 Neil Peng PA [address] [place] [address] Referring Physician05/09/23 Anisha Orozco NP [address] [place] [address] Nurse PractitionerFall River Emergency Hospital Medicine11/07/23Team MemberRelationshipSpecialtyStart DateEnd Date Shaikh Monet MD [address] [place] [address] PCP - Tatums DE09/18/23 Darion Blankenship MD [address] [place] [address] PCP - Generalmi Medicine11/07/23 Neil Peng PA [address] [place] [address] Referring Physician05/09/23 Anisha Orozco NP [address] [place] [address] Nurse PractitionerNorth[facility] Cherokee11/07/23Team MemberRelationshipSpecialtyStart DateEnd Date Shaikh Monet MD [address] [place] [address] PCP - Tang HANNAH09/18/23 Darion Blankenship MD [address] [place] [address] PCP - GeneralFamily Medicine11/07/23 Neil Peng PA [address] [place] [phone] Referring Physician05/09/23 Anisha Orozco NP [address] [place] [phone] [facility]11/07/23Team MemberRelationshipSpecialtyStart DateEnd Date Shaikh Monet MD [address] [place] [phone] PCP - Tang HANNAH09/18/23 Darion Blankenship MD [address] [place] [phone] PCP - [facility]11/07/23 Neil Peng PA [address] [place] [phone] Referring Physician05/09/23 Anisha Orozco NP [address] [place] [phone] [facility]11/07/23Team MemberRelationshipSpecialtyStart DateEnd Date Shaikh Monet MD [address] [place] [phone] PCP - Tang HANNAH09/18/23 Darino Blankenship MD [address] [place] [phone] [facility]07/23 Neil Peng PA [address] [place] [phone] Referring Physician05/09/23 Anisha Orozco NP [address] [place] [address] [facility]11/07/23Team MemberRelationshipSpecialtyStart DateEnd Date Shaikh Monet MD [address] [place] [phone] PCP - Tatums MA09/18/23 Darion Blankenship MD [address] [place] [phone] PCP - [facility]11/07/23 Neil Peng PA [address] [place] [phone] Referring Physician05/09/23 Anisha Orozco NP [address] [place] [phone] [facility]11/07/23Team MemberRelationshipSpecialtyStart DateEnd Date Shaikh Monet MD [address] [place] [phone] PCP - Tang DE09/18/23 Darion Blankenship MD [address] [place] [phone] [facility]CP - [facility]11/07/23 Neil Peng PA [address] [place] [phone] Referring Physician05/09/23 Anisha Orozco NP [address] [place] [phone] [facility]11/07/23 Team Status: Active Member Role Status Dates Randa Damon DO Primary Care Provider Active Team Status: Inactive Member Role Status Dates Randa Damon DO Primary Care Provider Active S tart: December 26, 2024 End: December 26, 2024Randa Damon DOAttending ProviderActiveStart: December 26, 2024 End: December 26, 2024Team MemberRelationshipSpecialtyStart DateEnd Date Shaikh Monet MD [address] [place] [address] PCP - Tang DE09/18/2411 Darion Blankenship MD [address] [place] [phone] PCP - [facility]11/07/23 Anisha Orozco NP PCP - Tatums DE06/18/24 Neil Peng PA [address] [place] [address] Referring Physician05/09/23 Anisha Orozco NP [address] [place] [address] Nurse PractitionerFamily Medicine11/07/23 Goals (unrecognized section and content) Goals may be documented in a n alternate section FOR RECORDS PERTAINING TO PATIENTS WHO ARE [...] BE BASED ON THE PRIMARY CLINICAL RECORDS. [employer] provides no warranty or guarantee of the accuracy or completeness of information in this document.
== END 2025-02-25 10:57 | disposition home or self-care (01) ==
LOC: WC 10:57
PROVIDERS: PCP Family Medicine; Visit Provider Physician Assistant
DX: L84 Corns and callosities (principal); E11.65 Type 2 diabetes mellitus with hyperglycemia
CPT/HCPCS: G0463

== ENCOUNTER 2025-03-07 07:41 | Outpatient (OUT) | payer MEDICARE, SELFPAY ==
--- OUTSIDE RECORDS SUMMARY | 2020-01-13 06:00 | XMS_ITS | Continuity of Care Document ---
Author Organization [facility] Address [address] [place] [address] Phone Care Team Providers Care Health Service Coordinator Name Role Phone Booker ENRIQUE Errol Unavailable Unavail able Allergies, Adverse Reactions, Alerts Substance Reaction Status Criticality No Known Allergies Active No Inform ation Medications Medication Instructions Dosage Effective Dates (start - stop) Status Comments Percocet 5 mg-325 mg tablet take 1 tablet by oral route every 6 hours as needed for k08.8 pain 1.00 tablet - Active amoxicillin 500 mg tablet take 1 tablet by oral route every 8 hours 500 MG - Active atorvastatin 40 mg tablet take 1 tablet by oral route every day 40 MG - Active ezetimibe 10 mg tablet take 1 tablet by oral route every day 10 MG - Active metformin 500 mg tablet take 1 tablet by oral route 3 times every day with morning and evening meals 500 MG - Active losartan 50 mg tablet take 1 tablet by oral route every day 50 MG - Active glipizide 5 mg tablet take 1 tablet by oral route 2 times every day before meals 5 MG - Active diltiazem ER 60 mg capsule,extended release 12 hr take 1 capsule by oral route 2 times every day 60 MG - Active furosemide 20 mg tablet take 1 tablet by oral route every day 20 MG - Active trazodone 50 mg tablet take 1 tablet by oral route every day at bedtime 50 MG - Active spironolactone 25 mg tablet take 1 tablet by oral route every day 25 MG - Active carvedilol 25 mg tablet take 1 tablet by oral route 2 times every day with food 25 MG - Active meloxicam 7.5 mg/5 mL oral suspension take 5 milliliter by oral route every day 7.5 MG - Active Procedures Procedure Date Intraoral-periapical 1st Film 0 Extract; Erupted Th/exposted Rt 020 Limited Oral Eval Extract; Erupted Th/exposted Rt 018 Dental Emergency Advance Directives Directive Yes / No Effective Date File Name No Information Encounters Encounter Description Practice Location Reason(s) For Visit Diagnoses Date Provider Providers Copied on Encounter [facility], [address] [place] [address], [id number], tel:[phone] Dental Clinic ext (chief complaint) Encounter for screening for dental disorders Booker Norton. [address] [place] [address], [id number], . tel:[phone] [facility], [address] [place] [address], [id number], tel:[phone] Dental Clinic dental limited (chief complaint) Encounter for screening for dental disorders Booker Norton. [address] [place] [address], [id number], [place]. tel:[phone] Family History Family Member Type Diagnosis Age At Onset Father Problem (finding) Diabetes mellitus Mother Problem (finding) Alive and well Father Problem (finding) Renal disease Payers Payer name Insurance type Covered libertarian ID Authoriza tilandy(s) Self Pay Cap 09 [id number] Social History Type Description Quantity Date Captured Comments Alcohol Use Details Unknown Caffeine Use Details Unknown Tobacco Use Status Current non-smoker 20 Smoking Status Never smoker Sex Male Sexual Orientation Straight or heterosexual Gender Identity Male Vital Signs Date / Time: Height Weight BMI Pulse Rate Blood Pressure Temperature Respiratory Rate Body Surface Area Head Circumference Head Circ. Percentile Wt./Evens. Percentile BMI percentile Pulse Ox Inhaled Ox 11:17 AM 76 /min 119/79 mm[Hg] 98.60 F Chief Complaint And Reason For Visit From encounter dated '01/13/2020 11:00'. ext (chief complaint). Description: ext Reason For Referral Reason For Referral No Information History Of Present Illness Encounter Date Complaint History Of Prese nt Illness ext ext dental limited dental limited, possible extraction Functional Status Date Functional Assessmen t No Information Instructions Date Instruction Additional Infor mation No Information Assessments Type Assessment Date assessment Encounter for screening for dent al disorders Patient Care Teams Name Effective Dates (start - stop) Status Members No Information
--- OUTSIDE RECORDS SUMMARY | 2025-03-07 07:48 | XMS_ITS | Clinical Summary ---
Author Organization [facility] Healthcare Address [address] [place] [address] Care Team Providers Care Benchroom Shop Optician Name Role Phone Barbara Peng Unavailable [phone] Anisha Orozco NP Unavailable [phone] Darion Blankenship MD Primary Care Provider [phone] Anisha Orozco NP Unavailable [phone] Allergies No known active allergies Medications MedicationSigDispense [...] before meals. 180 tablet 5Active glucose blood ([employer] Ultra) test strip Indications:Type 2 diabetes mellitus without complication, with long-term current use of insulin (HCC)1 each by Other route in the morning and 1 each in the evening and 1 each before bedtime. 300 each 110518Active Active Problems ProblemNoted DateDiagnosed DateCerumen debris on tympanic membrane, bilateral 11/21/2023rimary tjilysuftzgu58/03/2024 Assessment & Plan (11/21/2023 1:42 PM EDT): Currently taking Losartan 100mg; Checks BP at home. Does not recall averages. BP is good today in office. Denies orthostatic changes, dizziness, cough, shortness of breath, swelling in extremities. Continue current regimen. Assessment & Plan (06/21/2023 10:48 AM EDT): Above goal in office. But usually well controlled. Asymptomatic. C/w losartan. Other orkmijcizexfds46/03/2024 Assessment & Plan (11/21/2023 1:44 PM EDT): Currently taking Atorvastatin 40mg. Denies any myalgias. Most recent Lipid Panel WNL. Continue current regimen. Assessment & Plan (06/21/2023 10:51 AM EDT): On Lipitor. C/w statin. Type 2 diabetes mellitus without complication, with long-term current use of wthzhzi1706/21/2023 Assessment & Plan (11/21/2023 1:43 PM EDT): [...] glucose at home. Will recheck labs. Learning lpafursxfz61/03/2024Other specified oatsypuzgesreq13/03/2024 Assessment & Plan (06/21/2023 10:50 AM EDT): Levothyroxine was increased last apt. Recheck TSH. Positive colorectal cancer screening using Cologuard test06/21/2023 Family History Medical HistoryRelationNameCommentsDiabetesFatherRelationNameStatusComments BrotherAliveFather Social History Tobacco UseTypesPacks/DayYears UsedDateSmoking Tobacco: NeverPassive Smoke Exposure: NeverSmokeless Tobacco: Never Tobacco Cessation:Counseling Given: Not Answered Alcohol UseStandard Drinks/WeekCommentsNot Currently0 (1 standard drink = 0.6 oz pure alcohol)PHQ-2AnswerDate RecordedPatient Health Questionnaire-2 Score0 04/23/2024Sex and Gender InformationValueDate RecordedSex Assigned at BirthNot on fileLegal TdeXnoa7506/01/2022 7:41 PM EDTGender IdentityNot on fileSexual OrientationNot on file Last Filed Vital Signs Vital SignReadingTime TakenCommentsBlood Gpmvxauj034/76004/23/2024 9:53 AM EST Nhlcu279004/23/2024 9:53 AM MCQRafcxollouf89.1 ??C (98.8 ??F)04/23/2024 9:53 AM ESTRespiratory Mzvg994304/23/2024 9:53 AM ESTOxygen Jnfoepfqtj71%04/23/2024 9:53 AM ESTInhaled Oxygen Concentration--Fcdgen351 kg (242 lb)04/23/2024 9:53 AM EST Zwpuwb329.4 cm (6' 1 )04/23/2024 9:53 AM ESTBody Mass Index31.9304/23/2024 9:53 AM EST Plan of Treatment Health MaintenanceDue DateLast DoneCommentsCT Ddsdxkabahbh69/14/1975Colonoscopy 1974FIT1974FOBT1974Dtlcrfqalymqq20/14/1975Pneumococcal Vaccine: Pediatrics (0 to 5 Years) and At-Risk Patients (6 to 64 Years) (1 of 2 - PCV)1993Diabetes: Hemoglobin A1C/3Diabetes: Urine Protein Nvbsjjpww20/11/2023, 01/27/2023OVID-19 Vaccine ( season)2024Influenza Vaccine (#1)2024Medicare Annual Wellness (AWV) 602/06/2024, 3Diabetes: Retinopathy Nxypypwzi71/19/2026 12/07/2023, 01/23/2021olorectal Cancer Piujfbcuu94/07/2026FIT-DNA02/23/2026 02/23/2023 Procedures Procedure NamePriorityDate/TimeAssociated DiagnosisCommentsDIABETIC RETINOPATHY SCREENING - OU - BOTH KDXDKvvsrfp41/19/2024 2:08 PM EDTfrom Last 3 Months or Most Recently Relevant to Health Maintenance Results * Diabetic Retinopathy Screening - OU - Both Eyes (12/07/2023 2:08 PM EDT) Anatomical RegionLateralityModalityHeadOther Narrative Authorizing ProviderResult TypeResult StatusBrgagancarlitos Ernesto NPOPHTH PHOTOGRAPHYFinal Result from Last 3 Months or Most Recently Relevant to Health Maintenance Insurance * Guarantor: Ángel Stephenson PAccount TypeRelation to PatientDate of BirthPhone Billing AddressPersonal/RteerhUznk06/[birth year][address] [place] [address] Care Teams Team MemberRelationshipSpecialtyStart DateEnd Date Darion Blankenship MD [address] [place] [phone] PCP - GeneralFamily Medicine11/07/23 Anisha Orozco NP PCP - Tang MD06/18/24 Barbara Peng PA [address] [place] [phone] Referring Physician05/09/23 Anisha Orozco NP [address] [place] [phone] Nurse PractitionerFamily Medicine11/07/23
--- OUTSIDE RECORDS SUMMARY | 2025-03-07 07:48 | XMS_ITS | Clinical Summary ---
Author Organization In[facility] tem Address [id number] [place] [address] Care Team Providers Care Gas Load Dispatcher Name Role Phone Adi Cook MD Primary Care Provider Unava ilable Social History Tobacco UseTypesPacks/DayYears UsedDateSmoking Tobacco: Never AssessedChildcare AnswerDate OdntxodwBmhwpfhbxVcfgqvw23/12/2019EmploymentAnswerDate Recorded WohckupmsxUznbjfx89/12/2019Purpose - LifeAnswerDate RecordedPurpose and direction in rrsnDdovmvd40/11/2021Sex and Gender InformationValueDate Recorded Sex Assigned at BirthNot on fileLegal WxeVftt1310/23/2014 12:12 PM EDTGender IdentityNot on fileSexual OrientationNot on file Plan of Treatment Health MaintenanceDue DateLast DoneCommentsDepression Iunreudqr05/14/1987Tobacco Mpdxwzdea78/14/1987Adult BMI Hffbgxsyh70/14/1993DTaP,Tdap and Td Vaccines (1 - Tdap)1993Zoster (Shingles) Vaccine (1 of 2)2024Influenza Vaccine 11/18/2024 Medical Devices Not on file Insurance * Guarantor: Ángel Stephenson PAccount TypeRelation to PatientDate of BirthPhone Billing AddressPersonal/JpqtmtKynv51/14/1976 [address] [address] [address] [place] [address] Care Teams Team MemberRelationshipSpecialtyStart DateEnd Date Adi Cook MD PCP - [facility]11/10/17
[2025-03-07 08:20] LABS: Microalbum Creatinine Ratio Ur 371.3 mg/g (0.0-29.9)
[2025-03-07 08:27] LABS: Alanine Aminotransferase 33 U/L (16-63); Albumin Globulin Ratio 0.9; Albumin Level 2.9 g/dL (3.4-5.0); Alkaline Phosphatase 89 U/L (46-116); Anion Gap 11.2; Aspartate Amino Transferase 24 U/L (15-37); Blood Urea Nitrogen 25.0 mg/dL (7.0-18.0); Calcium 8.8 mg/dL (8.5-10.1); Carbon Dioxide 28.8 mmol/L (21.0-32.0); Chloride 109 mmol/L (98-107); Cholesterol 209 mg/dL (<=200); Estimated GFR (African America >60 (>=60 mL/min/1.73m^2); Estimated GFR (Non-African Ame >60 (>=60 mL/min/1.73m^2); Globulin 3.3 g/dL; Glucose 304 mg/dL (74-106); HDL Cholesterol 43 mg/dL (40-60); Potassium 4.0 mmol/L (3.5-5.1); Sodium 145 mmol/L (136-145); Thyroid Stimulating Hormone 7.988 uIU/mL (0.358-3.740); Total Protein 6.2 g/dL (6.4-8.2); Triglycerides 103 mg/dL (<=150); VLDL CHOLESTEROL 20.6 mg/dL
[2025-03-07 08:30] LABS: Hematocrit 30.9 % (42.0-54.0); Hemoglobin 10.9 g/dL (14.0-18.0); Immature Granulocytes Abs Auto 0.04 10^3/uL (0.00-0.03); Immature Granulocytes Pct Auto 0.7 % (0.0-0.5); Lymphocytes Absolute Auto 1.6 10^3/uL (1.2-3.8); Mean Corpuscular HGB Conc 35.3 g/dL (29.9-35.2); Mean Corpuscular Hemoglobin 30.6 pg (25.9-34.0); Mean Corpuscular Volume 86.8 fL (80.0-94.0); Platelet Count 213 10^3/uL (150-450); Red Blood Count 3.56 10^6/uL (4.70-6.10); White Blood Count 6.0 10^3/uL (4.0-11.0)
== END 2025-03-07 07:42 | disposition home or self-care (01) ==
LOC: LAB 07:45
PROVIDERS: PCP Family Medicine; Visit Provider Family Medicine
DX: E78.2 Mixed hyperlipidemia (principal); E11.9 Type 2 diabetes mellitus without complications; Z79.4 Long term (current) use of insulin; I15.2 Hypertension secondary to endocrine disorders; E03.9 Hypothyroidism, unspecified
CPT/HCPCS: 36415; 80053; 80061; 82043; 82570; 83036; 84443; 85025